=== PATIENT | male | born 1990 | race Caucasian/White ===

== ENCOUNTER 2020-09-09 05:34 | Emergency (ER) | payer MEDICAID, SELFPAY ==
[2020-09-09 05:37] VITALS: BP 119/77; PULSE 128; RESP 20; TEMP 36.3; O2SAT 96; BMI 20.7
--- NOTE | 2020-09-09 06:09 | PC.NURSE ---
patient seeking detox. States that he drinks everyday usually a pint of hard liquor and 10 beers. Today he woke up at 300 am with nausea. Patient has been in detox before. He states that he doesn't think he is withdrawing from alcohol. patient has alot of nausea.
--- NOTE | 2020-09-09 06:29 | ED_ITS ---
HPI - Alcohol General Chief Complaint: ETOH/Substance Use Stated Complaint: Etoh seeking detox Time Seen by Provider: 09/09/20 06:29 Source: patient Mode of arrival: ambulatory Limitations: no limitations History of Present Illness HPI narrative: This is a 30-year-old male who states that he has been binge drinking and his last drink was last night but since that time he has had persistent and multiple episodes of nausea and vomiting the but denies any blood in the vomitus and otherwise denies fevers, chills, diarrhea, urinary symptoms. He is requesting alcohol detox at this time as he states he cannot go on like this . Related Data Allergies Allergy/AdvReac Type Severity Reaction Status Date / Time No Known Allergies Allergy Verified 09/09/20 05:37 [No Known Allergies*] Review of Systems Review of Systems: Pertinent positives and negatives as stated in HPI and 10 point review systems is otherwise negative. PMFSH Past Medical History Source: nursing notes reviewed Medical History ETOH abuse Social History Social History Smoking Status: Current every day smoker Use of substances other than those prescribed or required for medical reasons: No Advance Directives: No Advance Directives Information Provided: No Physical Exam 2 Vital Signs: Vital Signs: Last Vital Signs Temp 98.2 F 09/09/20 07:49 Pulse 93 09/09/20 07:49 Resp 16 09/09/20 07:49 BP 121/74 09/09/20 07:49 Pulse Ox 96 09/09/20 07:49 Body Mass Index 20.7 VITAL SIGNS: Reviewed. GENERAL: Well developed, well nourished, in no acute distress. HEAD: Normocephalic/atraumatic, EYES: PERRLA, EOMI intact without pain, no nystagmus/pallor/icterus noted EARS: Ext canals without abnormality, TMs non-bulging and non-erythematous NOSE: Nares patent bilateral OROPHARYNX: no oral lesions noted, posterior pharynx clear and non-erythematous without noted tonsillar enlargement/erythema/exudates NECK: Supple, no adenopathy LUNGS: Normal breath sounds. No adventitious sounds or accessory muscle use. SpO2<96> CARDIOVASCULAR: Regular rate and rhythm without noted murmurs, no JVD or lower extremity edema. ABDOMEN: Soft, non-tender, non-distended with bowel sounds. No rigidity. No guarding. No palpable masses or hernias noted MUSCULOSKELETAL: No tenderness, deformities, or effusions noted on gross inspection. EXTREMITIES: No cyanosis, clubbing or edema. SKIN: Inspection of the skin reveals no rashes, ulcerations, jaundice, pallor, or petechiae. NEUROLOGIC: Alert and oriented x 4. Strength and sensation to light touch were grossly intact x 4. Course Course Course Narrative: This is a 30-year-old male with history and clinical pres entation consistent with most likely alcohol gastritis, pancreatitis but doubt any hepatobiliary pathologies or pneumonia. Patient received IV fluids and Zofran. On review of all investigations although there is a noted leukocytosis this is most likely secondary to patient's repeated episodes of nausea and vomiting, there is no evidence to support pancreatitis or hepatobiliary etiologies. Patitennille nt is otherwise medically cleared for further evaluation for alcohol detox. Signed out to Dr Otero. [facility] - Alcohol Lab Data Result diagrams: 09/09/20 06:56 09/09/20 06:56 Labs: Lab Results 09/09/20 09/09/20 09/09/20 Range/Units 06:56 06:56 06:56 WBC 13.0 H (4.8-10.8) X10*3/uL RBC 5.03 (4.60-5.80) X10*6/uL Hgb 16.4 (14.0-18.0) g/dl Hct 47.3 (42-52) % MCV 94.0 (80-98) fL MCH 32.6 (27.0-33.0) pg MCHC 34.7 (31.0-36.0) g/dl RDW 11.9 (11.0-16.0) % Plt Count 259 (160-400) X10*3/uL MPV 8.9 L (9.4-12.4) fL Immature Gran % (Auto) 0.3 (0.0-0.4) % Neut % (Auto) 85.6 H (45-73) % Lymph % (Auto) 7.3 L (20-40) % [place] % (Auto) 6.1 (2-11) % Eos % (Auto) 0.2 (0-4) % Baso % (Auto) 0.5 (0-2) % Lymph # (Auto) 1.0 L (1.2-4.9) X10*3/uL [place] # (Auto) 0.8 (0.1-1.2) X10*3/uL Eos # (Auto) 0.0 (0.0-0.4) X10*3/uL Baso # (Auto) 0.1 (0.0-0.2) X10*3/uL Abs Immat Gran (auto) 0.04 H (0.00-0.03) X10*3/uL Absolute Neuts (auto) 11.1 H (2.0-8.3) X10*3/uL Absolute Nucleated RBC 0.000 (0.0-0.012) X10*3/uL Nucleated RBC % (auto) 0.0 (0.0-0.2) /100WBC Sodium 139 (135-145) mmol/L Potassium 4.3 (3.3-5.1) mmol/l Chloride 95 L (96-108) mmol/L Carbon Dioxide 27 (22-29) mmol/L Anion Gap 21 H (12-20) BUN 10 (9-16) mg/dL Creatinine 0.99 (0.5-1.4) mg/dL Estim Creat Clear Calc 97.9 Estimated GFR > 60 Random Glucose 102 (60-115) mg/dL Calcium 9.9 (8.4-10.2) mg/dL Total Bilirubin 1.6 H (0.0-1.0) mg/dL AST 32 (5-37) U/L ALT 21 (0-40) U/L Alkaline Phosphatase 99 (39-117) U/L Total Protein 7.9 (6.5-8.0) g/dL Albumin 4.9 (3.5-5.0) g/dL Lipase 24 (8-78) U/L Ethyl Alcohol 80 mg/dL
[2020-09-09 07:02] LABS: Basophils Absolute Auto 0.1 X10*3/uL (0.0-0.2); Basophils Percent Auto 0.5 % (0-2); Eosinophils Percent Auto 0.2 % (0-4); Hematocrit 47.3 % (42-52); Hemoglobin 16.4 g/dl (14.0-18.0); Imm Gran Abs Auto 0.04 X10*3/uL (0.00-0.03); Imm Gran Pct Auto 0.3 % (0.0-0.4); Lymphocytes Percent Auto 7.3 % (20-40); MANUAL DIFF FLAG NO; Mean Corpuscular HGB Conc 34.7 g/dl (31.0-36.0); Mean Corpuscular Hemoglobin 32.6 pg (27.0-33.0); Mean Platelet Volume 8.9 fL (9.4-12.4); Monocytes Absolute Auto 0.8 X10*3/uL (0.1-1.2); Monocytes Percent Auto 6.1 % (2-11); Neutrophils Absolute Auto 11.1 X10*3/uL (2.0-8.3); Neutrophils Percent Auto 85.6 % (45-73); Platelet Count 259 X10*3/uL (160-400); Red Blood Count 5.03 X10*6/uL (4.60-5.80); Red Cell Distribution Width 11.9 % (11.0-16.0)
[2020-09-09 07:31] LABS: Ethanol 80 mg/dL
[2020-09-09 07:38] LABS: Alanine Aminotransferase 21 U/L (0-40); Albumin Level 4.9 g/dL (3.5-5.0); Alkaline Phosphatase 99 U/L (39-117); Anion Gap 21 (12-20); Aspartate Amino Transferase 32 U/L (5-37); Bilirubin Total 1.6 mg/dL (0.0-1.0); Blood Urea Nitrogen 10 mg/dL (9-16); Calcium 9.9 mg/dL (8.4-10.2); Carbon Dioxide 27 mmol/L (22-29); Chloride 95 mmol/L (96-108); Creatinine Clr Calc Pharmacy 97.9; Estimated Glomerular Filt Rate > 60; Glucose Random 102 mg/dL (60-115); Potassium 4.3 mmol/l (3.3-5.1); Sodium 139 mmol/L (135-145); Total Protein 7.9 g/dL (6.5-8.0)
[2020-09-09] MEDS: ondansetron HCL 4 MG/2 ML VIAL IVPUSH ×2 (07:48→09:00)
[2020-09-09 07:49] VITALS: BP 121/74; PULSE 93; RESP 16; TEMP 36.8; O2SAT 96
[2020-09-09] MEDS: 0.9 % Sodium Chloride 1,000 ML 1000 ML IV (07:57)
[2020-09-09 08:12] LABS: Lipase 24 U/L (8-78)
--- NOTE | 2020-09-09 08:16 | PC.NURSE ---
wallace from CARE team at bedside. Pt had some interest in detox.
--- NOTE | 2020-09-09 08:29 | MHC.CARE ---
Recovery Support note: Patient is a 30 year old Jordanian speaking male who presented to [facility] ED reporting nausea and seeking detox. Patient reports drinking a pint of liquor and 10 beers a day. Patient reports he has been to detox before and feels it is time to go back. [facility] reports that they have a male bed. Patient information has been sent and is awaiting review. This keno writer/runner awaits a call back from [facility] for patient to complete an intake. If patient is accepted for treatment, this keno writer/runner will assist with arranging transportation for patient.
--- NOTE | 2020-09-09 08:37 | PC.NURSE ---
spoke with Fei from CARE team. asked if Pt needs covid for detox placement. Fei stated usually it is not required to be swabbed, but will let this RN know if needed. will hold off on swab at this time.
[2020-09-09] MEDS: Famotidine/PF 20 MG/2 ML VIAL IVPUSH (09:00)
[2020-09-09] MEDS: LORazepam 2 MG/ML VIAL 0.5 MG IVPUSH (09:00)
--- NOTE | 2020-09-09 10:29 | PC.NURSE ---
attempted to call [facility] for nurse to nurse report. first call staff asked this rn to call back in 20 minutes, called back now, no answer from staff. will attempt to call once more before pt leaves.
--- NOTE | 2020-09-09 10:32 | MHC.CARE ---
Recovery Support note: Patient has been accepted to [facility] for 1414. Patient reports he will be able to find a ride however he is interested in remaining in the ED until it is closer to his intake time. RN and ED provider aware.
== END 2020-09-09 12:20 | disposition other institution (70) ==
PROVIDERS: Emergency Provider Student in an Organized Health Care Education/Training Program; PCP Physician Assistant Medical
DX: K29.70 Gastritis, unspecified, without bleeding (principal); F10.10 Alcohol abuse, uncomplicated; Y90.4 Blood alcohol level of 80-99 mg/100 ml
CPT/HCPCS: 36415; 80053; 80320; 83690; 85025; 96361; 96374; 96375; 96376; 99284; J2060; J2405

== ENCOUNTER 2020-09-16 15:23 | Outpatient (REF) | payer MEDICAID, SELFPAY | END 2020-09-16 15:24 | disposition home or self-care (01) | LOC: HO.LAB 15:23 | PROVIDERS: Visit Provider Internal Medicine | DX: Z20.828 Contact with and (suspected) exposure to other viral communicable diseases (principal) | CPT/HCPCS: C9803; U0003 ==

== ENCOUNTER 2020-12-17 22:25 | Emergency (ER) | payer MEDICAID, SELFPAY ==
[2020-12-17 22:43] VITALS: BP 138/101; PULSE 95; RESP 18; TEMP 36.9; O2SAT 98; BMI 20.7
--- NOTE | 2020-12-17 23:04 | ED_ITS ---
HPI - Alcohol General Chief Complaint: Anxiety <Yary Matias PA-C - Last Filed: 12/18/20 02:27> Stated Complaint: ETOH <Yary Matias PA-C - Last Filed: 12/18/20 02:27> Time Seen by Provider: 12/17/20 22:55 <Yary Matias PA-C - Last Filed: 12/18/20 02:27> Source: patient <Yary Matias PA-C - Last Filed: 12/18/20 02:27> Mode of arrival: ambulatory <Yary Matias PA-C - Last Filed: 12/18/20 02:27> Limitations: no limitations <Yary Matias PA-C - Last Filed: 12/18/20 02:27> History of Present Illness HPI narrative: Patient is a 30-year-old male with no significant past medical history who states he has a drinking problem. He states he has been binge drinking for the last 2 weeks however he tried drinking this morning and he was unable to because he was vomiting so much. He states he is very anxious. He states he has not ea ten any food in the last week and a half. He states he has not specifically seeking detox however he knows he cannot live like this anymore and he cannot tolerate how he is feeling right now, the nausea and anxiety. Patient states his last drink was approximately 15 hours ago. <Yary Matias PA-C - Last Filed: 12/18/20 02:27> Related Data Allergies/Adverse Reactions: Allergies Allergy/AdvReac Type Severity Reaction Status Date / Time No Known Allergies Allergy Verified 12/17/20 22:42 [No Known Allergies*] <Yary Matias PA-C - Last Filed: 12/18/20 02:27> Review of Systems 2 Review of Systems: Yes all other systems are reviewed and are negative <Yary Matias PA-C - Last Filed: 12/18/20 02:27> PMFSH Past Medical History Medical History: Medical History ETOH abuse <Yary Matias PA-C - Last Filed: 12/18/20 02:27> Social History Social History: Social History Smoking Status: Current every day smoker Advance Directives: No Advance Directives Information Provided: No <Yary Matias PA-C - Last Filed: 12/18/20 02:27> Physical Exam Vital Signs: Vital Signs: Last Vital Signs Temp 98.4 F 12/17/20 22:43 Pulse 95 12/17/20 22:43 Resp 18 12/18/20 03:42 BP 138/101 H 12/17/20 22:43 Pulse Ox 98 12/17/20 22:43 Body Mass Index 20.7 <Yary Matias PA-C - Last Filed: 12/18/20 02:27> Vital Signs: Last Vital Signs Temp 98.4 F 12/17/20 22:43 Pulse 95 12/17/20 22:43 Resp 18 12/18/20 03:42 BP 138/101 H 12/17/20 22:43 Pulse Ox 98 12/17/20 22:43 Body Mass Index 20.7 <Charis Lopez MD - Last Filed: 12/18/20 05:26> Const: General: cooperative, healthy appearing, comfortable, no acute distress and well developed <Yary Matias PA-C - Last Filed: 12/18/20 02:27> Orientation/consciousness: patient oriented x3 <Yary Matias PA-C - Last Filed: 12/18/20 02:27> Limitations: no limitations <Yary Matias PA-C - Last Filed: 12/18/20 02:27> HENMT: Head: Yes normal to inspection <Yary Matias PA-C - Last Filed: 12/18/20 02:27> Eyes: General: appearance normal, both eyes and all related structures <Yary Matias PA-C - Last Filed: 12/18/20 02:27> Neck: Neck: Yes normal visual inspection and Yes full ROM <Yary Matias PA-C - Last Filed: 12/18/20 02:27> Resp: Effort & Inspection: normal respiratory effort and able to speak in complete sentences <Yary Matias PA-C - Last Filed: 12/18/20 02:27> Cardio: Rate: regular rate <Yary Matias PA-C - Last Filed: 12/18/20 02:27> GI: Inspection: Yes normal to inspection <Yary Matias PA-C - Last Filed: 12/18/20 02:27> Skin: General skin exam: no rashes or lesions noted <CASSIE Patel - Last Filed: 12/18/20 02:27> Neuro: General: patient oriented x3 <Yary Matias PA-C - Last Filed: 12/18/20 02:27> Extrem: General: Yes normal to inspection <Yary Matias PA-C - Last Filed: 12/18/20 02:27> Course Course Course Narrative: Patient is a 30-year-old male who presents after binge drinking x2 weeks. Patient is well-appearing and nontoxic, last drink was 15 hours ago. Will get labs including B12 and folate, give either use Zofran and reassess. Will also put in care Team consult to speak with patient and given information for detox facilities. 12/18 1am labs WNL sans BAL 225, vit B12 and folate pending, sign out to Dr Lopez. <Yary Matias PA-C - Last Filed: 12/18/20 02:27> Reevaluation(s) Reevaluation #1: On re-evaluation patient has a steady gait and is tolerating oral intake, and has a safe ride home. <Charis Lopez MD - Last Filed: 12/18/20 05:26> Time: 05:30 <Charis Lopez MD - Last Filed: 12/18/20 05:26> MDM - Alcohol Lab Data Result diagrams: : 12/17/20 23:41 12/17/20 23:41 <Yary Matias PA-C - Last Filed: 12/18/20 02:27> Labs: Lab Results 12/17/20 12/17/20 12/17/20 Range/Units 23:41 23:41 23:41 WBC 10.1 (4.8-10.8) X10*3/uL RBC 5.51 (4.60-5.80) X10*6/uL Hgb 17.7 (14.0-18.0) g/dl Hct 50.1 (42-52) % MCV 90.9 (80-98) fL MCH 32.1 (27.0-33.0) pg MCHC 35.3 (31.0-36.0) g/dl RDW 12.9 (11.0-16.0) % Plt Count 311 (160-400) X10*3/uL MPV 9.1 L (9.4-12.4) fL Immature Gran % (Auto) 0.3 (0.0-0.4) % Neut % (Auto) 70.6 (45-73) % Lymph % (Auto) 18.4 L (20-40) % [place] % (Auto) 9.6 (2-11) % Eos % (Auto) 0.2 (0-4) % Baso % (Auto) 0.9 (0-2) % Lymph # (Auto) 1.9 (1.2-4.9) X10*3/uL [place] # (Auto) 1.0 (0.1-1.2) X10*3/uL Eos # (Auto) 0.0 (0.0-0.4) X10*3/uL Baso # (Auto) 0.1 (0.0-0.2) X10*3/uL Abs Immat Gran (auto) 0.03 (0.00-0.03) X10*3/uL Absolute Neuts (auto) 7.1 (2.0-8.3) X10*3/uL Absolute Nucleated RBC 0.000 (0.0-0.012) X10*3/uL Nucleated RBC % (auto) 0.0 (0.0-0.2) /100WBC Sodium 137 (135-145) mmol/L Potassium 3.5 (3.3-5.1) mmol/L Chloride 87 L (96-108) mmol/L Carbon Dioxide 27 (22-29) mmol/L Anion Gap 27 H (12-20) BUN 8 L (9-16) mg/dL Creatinine 0.95 (0.5-1.4) mg/dL Estim Creat Clear Calc 102.1 Estimated GFR > 60 Random Glucose 118 H (60-115) mg/dL Calcium 10.1 (8.4-10.2) mg/dL Total Bilirubin 1.3 H (0.0-1.0) mg/dL AST 28 (5-37) U/L ALT 23 (0-40) U/L Alkaline Phosphatase 96 (39-117) U/L Total Protein 8.5 H (6.5-8.0) g/dL Albumin 5.2 H (3.5-5.0) g/dL Ethyl Alcohol 225 mg/dL <Yary Matias PA-C - Last Filed: 12/18/20 02:27> Lab Results 12/17/20 12/17/20 12/17/20 Range/Units 23:41 23:41 23:41 WBC 10.1 (4.8-10.8) X10*3/uL RBC 5.51 (4.60-5.80) X10*6/uL Hgb 17.7 (14.0-18.0) g/dl Hct 50.1 (42-52) % MCV 90.9 (80-98) fL MCH 32.1 (27.0-33.0) pg MCHC 35.3 (31.0-36.0) g/dl RDW 12.9 (11.0-16.0) % Plt Count 311 (160-400) X10*3/uL MPV 9.1 L (9.4-12.4) fL Immature Gran % (Auto) 0.3 (0.0-0.4) % Neut % (Auto) 70.6 (45-73) % Lymph % (Auto) 18.4 L (20-40) % [place] % (Auto) 9.6 (2-11) % Eos % (Auto) 0.2 (0-4) % Baso % (Auto) 0.9 (0-2) % Lymph # (Auto) 1.9 (1.2-4.9) X10*3/uL [place] # (Auto) 1.0 (0.1-1.2) X10*3/uL Eos # (Auto) 0.0 (0.0-0.4) X10*3/uL Baso # (Auto) 0.1 (0.0-0.2) X10*3/uL Abs Immat Gran (auto) 0.03 (0.00-0.03) X10*3/uL Absolute Neuts (auto) 7.1 (2.0-8.3) X10*3/uL Absolute Nucleated RBC 0.000 (0.0-0.012) X10*3/uL Nucleated RBC % (auto) 0.0 (0.0-0.2) /100WBC Sodium 137 (135-145) mmol/L Potassium 3.5 (3.3-5.1) mmol/L Chloride 87 L (96-108) mmol/L Carbon Dioxide 27 (22-29) mmol/L Anion Gap 27 H (12-20) BUN 8 L (9-16) mg/dL Creatinine 0.95 (0.5-1.4) mg/dL Estim Creat Clear Calc 102.1 Estimated GFR > 60 Random Glucose 118 H (60-115) mg/dL Calcium 10.1 (8.4-10.2) mg/dL Total Bilirubin 1.3 H (0.0-1.0) mg/dL AST 28 (5-37) U/L ALT 23 (0-40) U/L Alkaline Phosphatase 96 (39-117) U/L Total Protein 8.5 H (6.5-8.0) g/dL Albumin 5.2 H (3.5-5.0) g/dL Ethyl Alcohol 225 mg/dL <Charis Lopez MD - Last Filed: 12/18/20 05:26> Discharge Plan Discharge Clinical Impression: ETOH abuse <Yary Matias PA-C - Last Filed: 12/18/20 02:27> Patient Disposition: Home, Self-Care <Yary Matias PA-C - Last Filed: 12/18/20 02:27> Instructions: Alcohol Intoxication (ED) <Yary Matias PA-C - Last Filed: 12/18/20 02:27> Additional Instructions: Do not hesitate to return to the emergency department for any acute worsening of your symptoms. <Yary Matias PA-C - Last Filed: 12/18/20 02:27> Referrals: Physician,Unknown [Primary Care Provider] - 2 days <Yary Matias PA-C - Last Filed: 12/18/20 02:27>
[2020-12-17 23:47] LABS: MANUAL DIFF FLAG NO
[2020-12-17 23:49] LABS: Basophils Absolute Auto 0.1 X10*3/uL (0.0-0.2); Basophils Percent Auto 0.9 % (0-2); Eosinophils Percent Auto 0.2 % (0-4); Hematocrit 50.1 % (42-52); Hemoglobin 17.7 g/dl (14.0-18.0); Imm Gran Abs Auto 0.03 X10*3/uL (0.00-0.03); Imm Gran Pct Auto 0.3 % (0.0-0.4); Lymphocytes Absolute Auto 1.9 X10*3/uL (1.2-4.9); Lymphocytes Percent Auto 18.4 % (20-40); Mean Corpuscular HGB Conc 35.3 g/dl (31.0-36.0); Mean Corpuscular Hemoglobin 32.1 pg (27.0-33.0); Mean Corpuscular Volume 90.9 fL (80-98); Mean Platelet Volume 9.1 fL (9.4-12.4); Monocytes Percent Auto 9.6 % (2-11); Neutrophils Absolute Auto 7.1 X10*3/uL (2.0-8.3); Neutrophils Percent Auto 70.6 % (45-73); Platelet Count 311 X10*3/uL (160-400); Red Blood Count 5.51 X10*6/uL (4.60-5.80); Red Cell Distribution Width 12.9 % (11.0-16.0); White Blood Count 10.1 X10*3/uL (4.8-10.8)
[2020-12-17] MEDS: ondansetron HCL 4 MG/2 ML VIAL IVPUSH (23:49)
[2020-12-17] MEDS: LORazepam 2 MG/ML VIAL 1 MG IVPUSH (23:49)
[2020-12-17] MEDS: Lactated Ringers 1,000 ML 999 ML IV (23:50)
[2020-12-18] VITALS: RESP 18
[2020-12-18 00:25] LABS: Ethanol 225 mg/dL
[2020-12-18 00:32] LABS: Alanine Aminotransferase 23 U/L (0-40); Albumin Level 5.2 g/dL (3.5-5.0); Alkaline Phosphatase 96 U/L (39-117); Anion Gap 27 (12-20); Aspartate Amino Transferase 28 U/L (5-37); Bilirubin Total 1.3 mg/dL (0.0-1.0); Blood Urea Nitrogen 8 mg/dL (9-16); Calcium 10.1 mg/dL (8.4-10.2); Carbon Dioxide 27 mmol/L (22-29); Chloride 87 mmol/L (96-108); Creatinine Clr Calc Pharmacy 102.1; Estimated Glomerular Filt Rate > 60; Glucose Random 118 mg/dL (60-115); Potassium 3.5 mmol/L (3.3-5.1); Sodium 137 mmol/L (135-145); Total Protein 8.5 g/dL (6.5-8.0)
--- NOTE | 2020-12-18 02:28 | MHC.CARE ---
CARE Team meets with pt after receiving a consult, siting that pt was in need of detox referral. Pt is ambivalent about detox treatment at this time, but agrees to take contact info for detox facilities. Pt is familiar with [facility] and agrees to call them for support. Pt educated on the potential dangers of alcohol detox from home. Pt plans on calling [facility] in the morning to get on the waitlist. Pt will reach out to H or CARE Team if in need of further assistance. Plan is discussed with MACARENA Boykin.
[2020-12-18 03:42] VITALS: RESP 18
[2020-12-19 17:43] LABS: Folate 4.4 ng/mL (> or = 4.0); Vitamin B12 362 pg/mL (200-900)
== END 2020-12-18 05:54 | disposition home or self-care (01) ==
LOC: HO.ED 23:09
PROVIDERS: Physician Assistant; Emergency Provider Emergency Medicine
DX: F10.120 Alcohol abuse with intoxication, uncomplicated (principal); Y90.7 Blood alcohol level of 200-239 mg/100 ml; F41.9 Anxiety disorder, unspecified
CPT/HCPCS: 36415; 80053; 80320; 82607; 82746; 85025; 96361; 96374; 96375; 99284; J2060; J2405

== ENCOUNTER 2021-01-02 06:47 | Emergency (ER) | payer MEDICAID, SELFPAY ==
[2021-01-02 07:15] VITALS: BP 136/94; PULSE 94; RESP 17; TEMP 36.6; O2SAT 97; BMI 21.0
[2021-01-02 07:26] LABS: MANUAL DIFF FLAG NO
[2021-01-02 07:28] LABS: Basophils Absolute Auto 0.1 X10*3/uL (0.0-0.2); Basophils Percent Auto 1.5 % (0-2); Eosinophils Absolute Auto 0.1 X10*3/uL (0.0-0.4); Eosinophils Percent Auto 1.4 % (0-4); Hematocrit 45.3 % (42-52); Hemoglobin 15.5 g/dl (14.0-18.0); Imm Gran Abs Auto 0.01 X10*3/uL (0.00-0.03); Imm Gran Pct Auto 0.2 % (0.0-0.4); Lymphocytes Absolute Auto 2.5 X10*3/uL (1.2-4.9); Lymphocytes Percent Auto 37.7 % (20-40); Mean Corpuscular HGB Conc 34.2 g/dl (31.0-36.0); Mean Corpuscular Hemoglobin 32.2 pg (27.0-33.0); Mean Corpuscular Volume 94.2 fL (80-98); Mean Platelet Volume 8.4 fL (9.4-12.4); Monocytes Absolute Auto 0.5 X10*3/uL (0.1-1.2); Monocytes Percent Auto 6.9 % (2-11); Neutrophils Absolute Auto 3.5 X10*3/uL (2.0-8.3); Neutrophils Percent Auto 52.3 % (45-73); Platelet Count 307 X10*3/uL (160-400); Red Blood Count 4.81 X10*6/uL (4.60-5.80); White Blood Count 6.6 X10*3/uL (4.8-10.8)
--- NOTE | 2021-01-02 07:38 | ED.GENADULT ---
HPI - General Adult General Chief complaint: ETOH/Substance Use Stated complaint: WITHDRAWALS ALCOHOL Time Seen by Provider: 01/02/21 07:26 Source: patient Mode of arrival: ambulatory Limitations: no limitations History of Present Illness HPI narrative: 30-year-old male who presents emergency department for evaluation of alcohol withdrawal symptoms. The patient states he has been binge drinking for approximately 2 weeks. He has been drinking at least 1/2 pt of fireball per day. He states that his last drink was at 9:00 p.m. last night. He states that he stopped drinking because he felt like it was time to stop and he was not feeling right. This morning, he became very tremulous and developed nausea and vomiting. He denied fever, chills, abdominal pain, back pain, frequency, urgency or dysuria. The patient states that he does get DTs every time he stops drinking and had to be hospitalized in the past for DTs. He states that he often has auditory hallucinations but not visual hallucinations. He has had withdrawal seizures in the past as well. The patient has not had a COVID-19 infection. He has not been vaccinated. Related Data Allergies Allergy/AdvReac Type Severity Reaction Status Date / Time No Known Allergies Allergy Verified 12/17/20 22:42 [No Known Allergies*] Review of Systems Review of Systems: Yes all other systems are reviewed and are negative [facility] Past Medical History [facility] Narrative: Past medical history significant for alcohol use disorder, delirium tremors, alcohol withdrawal seizures, alcoholic gastritis. The patient smokes 1 pack of cigarettes per day times 12 years, he drinks alcohol daily and usually binge drinks. He has been drinking heavily for 2 weeks. He denies drug use. Medical History ETOH abuse Social History Social History Alcohol intake: current Alcohol intake frequency: 3 or more drinks per day Alcohol type: beer and hard liquor Smoking Status: Never smoker Use of substances other than those prescribed or required for medical reasons: No Advance Directives: Yes Advance Directives Information Provided: Yes Advance Directives on File: No Physical Exam Vital Signs: Vital Signs: Last Vital Signs Temp 98.4 F 01/02/21 12:00 Pulse 74 01/02/21 12:00 Resp 16 01/02/21 12:00 BP 128/79 01/02/21 12:00 Pulse Ox 97 01/02/21 12:00 Body Mass Index 21.0 Const: General: cooperative and other (Tremulous, actively vomiting) Orientation/consciousness: oriented to person and oriented to place Limitations: no limitations HENMT: Head: Yes normal to inspection, Yes normocephalic and Yes atraumatic Ears: external ears normal General nose exam: Normal external nose present Face and sinus: Yes normal facial exam Mouth: Normal oral and palatal mucosa present Throat: Yes posterior oropharynx normal Eyes: Periorbital: periorbital findings normal Eyelids: Yes eyelids normal Conjunctivae: conjunctivae normal Sclerae: sclerae normal Corneas: corneas normal Pupils: Equal, round and reactive pupils present Direct Ophthalmoscopy: normal light reflex Neck: Neck: Yes full ROM, Yes no lymphadenopathy, Yes no meningeal signs, Yes trachea midline and Yes supple Chest: Chest palpation & inspection: normal inspection of the chest and normal palpation of entire chest wall Resp: Effort & Inspection: normal respiratory effort and able to speak in complete sentences Auscultation: clear to auscultation bilaterally Cardio: Rate: regular rate Rhythm: regular rhythm Heart sounds: S1 normal heart sound present, S2 normal heart sound present and no murmurs GI: Inspection: Yes normal to inspection Palpation (GI): Soft to palpation, nontender, no guarding, not rigid and No hepatosplenomegaly present : General: Yes no CVA tenderness Back/Spine/Pelvis: Back: no CVA tenderness Cervical Spine: normal cervical lordosis Thoracic/Lumbar Spine: thoracic and lumbar spine normal to inspection Skin: Lesions: no lesions Rashes: no rashes Wounds: no wounds Neuro: General: oriented to person, oriented to place and no meningeal signs Cranial nerves: Yes Equal, round and reactive pupils present Cognition (Neuro): normal cognition Motor exam (neuro): 5/5 motor strength present throughout Extrem: General: Yes normal to inspection and Yes full ROM Psych: Appearance: well kempt Mental Status: mental status grossly normal Speech and movement: Normal speech and movement present Affect: normal affect Attitude: cooperative Thought process: Normal thought process present Thought content: Normal thought content present Course Course Course Narrative: 30-year-old male with history of alcohol use disorder, DTs and alcohol withdrawal seizures who presents emergency department for evaluation of alcohol withdrawal symptoms, nausea and vomiting. Physical examination revealed that the patient was hypertensive with a blood pressure of 136/94, he was tachycardic on the monitor with a heart rate of 120, he was actively vomiting and tremulous, had no abdominal tenderness. His neurologic exam was nonfocal. Patient's presentation is consistent with alcohol withdrawal and possibly alcoholic gastritis versus pancreatitis. I ordered a CBC, CMP, lipase, ETOH level. The patient's withdrawal was treated with Ativan 2 mg IV and normal saline x1 L. 0841: The patient's nausea improved with the above treatment. His tremors have improved as well however still is slightly tachycardic therefore I ordered a 2nd dose of Ativan 2 mg IV to treat his withdrawal. The patient's laboratory evaluation was unremarkable with normal LFTs. Patient's alcohol level was elevated at 283, otherwise his laboratory evaluation was unremarkable. The patient was evaluated by our [facility] teen and are trying to get the patient into an outpatient 1343: The patient has been accepted into an outpatient detox program. The patient is significantly better compared to when he presented, he still has some slight tremors, he was given Ativan 2 mg orally and discharged home. His mother is here in the emergency department and is going to take him home and then drive him to his outpatient detox/dual diagnosis program. Medical Decision Making Lab Data Result diagrams: 01/02/21 07:22 01/02/21 07:22 Labs: Lab Results 01/02/21 01/02/21 01/02/21 Range/Units 07:22 07:22 07:22 WBC 6.6 (4.8-10.8) X10*3/uL RBC 4.81 (4.60-5.80) X10*6/uL Hgb 15.5 (14.0-18.0) g/dl Hct 45.3 (42-52) % MCV 94.2 (80-98) fL MCH 32.2 (27.0-33.0) pg MCHC 34.2 (31.0-36.0) g/dl RDW 13.0 (11.0-16.0) % Plt Count 307 (160-400) X10*3/uL MPV 8.4 L (9.4-12.4) fL Immature Gran % (Auto) 0.2 (0.0-0.4) % Neut % (Auto) 52.3 (45-73) % Lymph % (Auto) 37.7 (20-40) % [place] % (Auto) 6.9 (2-11) % Eos % (Auto) 1.4 (0-4) % Baso % (Auto) 1.5 (0-2) % Lymph # (Auto) 2.5 (1.2-4.9) X10*3/uL [place] # (Auto) 0.5 (0.1-1.2) X10*3/uL Eos # (Auto) 0.1 (0.0-0.4) X10*3/uL Baso # (Auto) 0.1 (0.0-0.2) X10*3/uL Abs Immat Gran (auto) 0.01 (0.00-0.03) X10*3/uL Absolute Neuts (auto) 3.5 (2.0-8.3) X10*3/uL Absolute Nucleated RBC 0.000 (0.0-0.012) X10*3/uL Nucleated RBC % (auto) 0.0 (0.0-0.2) /100WBC Hold Purple Top SEE NOTE Hold Blue Top SEE NOTE Sodium (135-145) mmol/L Potassium (3.3-5.1) mmol/L Chloride (96-108) mmol/L Carbon Dioxide (22-29) mmol/L Anion Gap (12-20) BUN (9-16) mg/dL Creatinine (0.5-1.4) mg/dL Estim Creat Clear Calc Estimated GFR Random Glucose (60-115) mg/dL Calcium (8.4-10.2) mg/dL Total Bilirubin (0.0-1.0) mg/dL Direct Bilirubin (0.0-0.5) mg/dL AST (5-37) U/L ALT (0-40) U/L Alkaline Phosphatase (39-117) U/L Total Protein (6.5-8.0) g/dL Albumin (3.5-5.0) g/dL Lipase (8-78) U/L Ethyl Alcohol mg/dL COVID-19 (CJ) (Negative) COVID-19 Clin Com 01/02/21 01/02/21 01/02/21 Range/Units 07:22 07:22 11:24 WBC (4.8-10.8) X10*3/uL RBC (4.60-5.80) X10*6/uL Hgb (14.0-18.0) g/dl Hct (42-52) % MCV (80-98) fL MCH (27.0-33.0) pg MCHC (31.0-36.0) g/dl RDW (11.0-16.0) % Plt Count (160-400) X10*3/uL MPV (9.4-12.4) fL Immature Gran % (Auto) (0.0-0.4) % Neut % (Auto) (45-73) % Lymph % (Auto) (20-40) % [place] % (Auto) (2-11) % Eos % (Auto) (0-4) % Baso % (Auto) (0-2) % Lymph # (Auto) (1.2-4.9) X10*3/uL [place] # (Auto) (0.1-1.2) X10*3/uL Eos # (Auto) (0.0-0.4) X10*3/uL Baso # (Auto) (0.0-0.2) X10*3/uL Abs Immat Gran (auto) (0.00-0.03) X10*3/uL Absolute Neuts (auto) (2.0-8.3) X10*3/uL Absolute Nucleated RBC (0.0-0.012) X10*3/uL Nucleated RBC % (auto) (0.0-0.2) /100WBC Hold Purple Top Hold Blue Top Sodium 146 H (135-145) mmol/L Potassium 3.9 (3.3-5.1) mmol/L Chloride 103 (96-108) mmol/L Carbon Dioxide 28 (22-29) mmol/L Anion Gap 19 (12-20) BUN 8 L (9-16) mg/dL Creatinine 1.02 (0.5-1.4) mg/dL Estim Creat Clear Calc 96.9 Estimated GFR > 60 Random Glucose 98 (60-115) mg/dL Calcium 8.8 D (8.4-10.2) mg/dL Total Bilirubin 0.5 (0.0-1.0) mg/dL Direct Bilirubin 0.2 (0.0-0.5) mg/dL AST 29 (5-37) U/L ALT 19 (0-40) U/L Alkaline Phosphatase 93 (39-117) U/L Total Protein 7.0 (6.5-8.0) g/dL Albumin 4.2 (3.5-5.0) g/dL Lipase 34 (8-78) U/L Ethyl Alcohol 283 mg/dL COVID-19 (CJ) Negative (Negative) COVID-19 Clin Com See Note Discharge Plan Discharge Clinical Impression: Alcoholic intoxication Qualifiers: Complication of substance-induced condition: uncomplicated Qualified Code(s): F10.920 - Alcohol use, unspecified with intoxication, uncomplicated Alcohol withdrawal syndrome Qualifiers: Complication of substance-induced condition: with perceptual disturbance Qualified Code(s): F10.232 - Alcohol dependence with withdrawal with perceptual disturbance Patient Disposition: Home, Self-Care Instructions: Alcohol Withdrawal (ED) Additional Instructions: Your laboratory evaluation was normal, with normal liver function tests. Your alcohol level was elevated at 283 (the legal limit of intoxication is above 80). You were treated in the emergency department with IV Ativan in oral Ativan. Make sure that you go to the detox/dual diagnosis program for treatment. Please return to the emergency department if your symptoms get worse or if you develop any symptoms that are concerning to you.
[2021-01-02] MEDS: ondansetron HCL 4 MG/2 ML VIAL IVPUSH (07:44)
[2021-01-02] MEDS: LORazepam 2 MG/ML VIAL IVPUSH ×2 (07:44→08:59)
[2021-01-02 07:47] LABS: Ethanol 283 mg/dL
[2021-01-02 07:50] LABS: Anion Gap 19 (12-20); Blood Urea Nitrogen 8 mg/dL (9-16); Calcium 8.8 mg/dL (8.4-10.2); Carbon Dioxide 28 mmol/L (22-29); Chloride 103 mmol/L (96-108); Creatinine Clr Calc Pharmacy 96.9; Estimated Glomerular Filt Rate > 60; Glucose Random 98 mg/dL (60-115); Lipase 34 U/L (8-78); Potassium 3.9 mmol/L (3.3-5.1); Sodium 146 mmol/L (135-145)
[2021-01-02 08:28] LABS: Alanine Aminotransferase 19 U/L (0-40); Albumin Level 4.2 g/dL (3.5-5.0); Alkaline Phosphatase 93 U/L (39-117); Aspartate Amino Transferase 29 U/L (5-37); Bilirubin Direct 0.2 mg/dL (0.0-0.5); Bilirubin Total 0.5 mg/dL (0.0-1.0)
--- NOTE | 2021-01-02 08:32 | MHC.RECOVSUP ---
Recovery Support note: Patient is a 30 year old Engoish speaking male who presented to [facility] ED due to withdrawal symptoms. Patient reports heavy drinking for around two weeks and that his last drink was last night. Patient is known to this television script writer from previous interventions. Patient had a BAL of 283 at 722. Patient reports a desire to stop drinking and that he would be interested in going to detox to treat his withdrawal and to start his recovery. Patient has been to detox before and is familiar with what detox can offer. Patient reports he does not have thoughts to harm himself or anyone else at this time, however states that when he is drinking he does have thoughts to harm himself at times. Patient reports AH stating that he hears ringing in his ear and VH, stating that things look blurry from far away. Patient has been calm and cooperative while in the emergency department and does not appear to be responding to internal stimuli. This television script writer will refer patient for ATS and EATS placement.
[2021-01-02 08:56] VITALS: PULSE 77; RESP 16
[2021-01-02 11:45] LABS: COVID-19 Test Negative (Negative)
[2021-01-02 12:00] VITALS: BP 128/79; PULSE 74; RESP 16; TEMP 36.9; O2SAT 97
--- NOTE | 2021-01-02 12:32 | MHC.RECOVSUP ---
Recovery Support note: Patient has been accepted to [facility] for a 1700 admission time. COVID test has been faxed and admission has been confirmed. Patient aware and reports he prefers to go home and gather his belongings before his admission. Patient has made calls to arrange transportation. RN and ED provider aware.
[2021-01-02] MEDS: LORazepam 1 MG TABLET 2 MG PO (13:49)
== END 2021-01-02 13:53 | disposition home or self-care (01) ==
PROVIDERS: Emergency Provider Emergency Medicine Emergency Medical Services; PCP Physician Assistant Medical
DX: F10.232 Alcohol dependence with withdrawal with perceptual disturbance (principal); R11.2 Nausea with vomiting, unspecified; Z79.899 Other long term (current) drug therapy; Y90.8 Blood alcohol level of 240 mg/100 ml or more; Z20.822 Contact with and (suspected) exposure to COVID-19
CPT/HCPCS: 36415; 80048; 80076; 80320; 83690; 85025; 87635; 96374; 96375; 96376; 99285; J2060; J2405

== ENCOUNTER 2021-01-22 04:55 | Emergency (ER) | payer MEDICAID, SELFPAY ==
[2021-01-22 07:11] LABS: Ethanol 194 mg/dL
[2021-01-22 07:12] LABS: Alanine Aminotransferase 23 U/L (0-40); Alkaline Phosphatase 129 U/L (39-117); Anion Gap 27 (12-20); Aspartate Amino Transferase 24 U/L (5-37); Bilirubin Direct 0.3 mg/dL (0.0-0.5); Bilirubin Total 0.7 mg/dL (0.0-1.0); Blood Urea Nitrogen 8 mg/dL (9-16); Calcium 10.1 mg/dL (8.4-10.2); Carbon Dioxide 25 mmol/L (22-29); Chloride 97 mmol/L (96-108); Estimated Glomerular Filt Rate > 60; Glucose Random 114 mg/dL (60-115); Lipase 29 U/L (8-78); Magnesium 2.1 mg/dL (1.6-2.6); Potassium 3.8 mmol/L (3.3-5.1); Sodium 145 mmol/L (135-145); Total Protein 8.1 g/dL (6.5-8.0)
[2021-01-22 07:17] LABS: MANUAL DIFF FLAG NO
[2021-01-22 07:22] LABS: Partial Thromboplastin Time 28.5 SEC (24.1-38.0); Prothrombin Time 11.7 SEC (10.8-13.0)
[2021-01-22 07:23] LABS: Basophils Absolute Auto 0.2 X10*3/uL (0.0-0.2); Eosinophils Absolute Auto 0.1 X10*3/uL (0.0-0.4); Eosinophils Percent Auto 0.8 % (0-4); Hematocrit 48.3 % (42-52); Hemoglobin 16.9 g/dl (14.0-18.0); Imm Gran Abs Auto 0.05 X10*3/uL (0.00-0.03); Imm Gran Pct Auto 0.3 % (0.0-0.4); Lymphocytes Absolute Auto 2.3 X10*3/uL (1.2-4.9); Lymphocytes Percent Auto 15.5 % (20-40); Mean Corpuscular Hemoglobin 32.7 pg (27.0-33.0); Mean Corpuscular Volume 93.4 fL (80-98); Monocytes Absolute Auto 0.8 X10*3/uL (0.1-1.2); Monocytes Percent Auto 5.6 % (2-11); Neutrophils Absolute Auto 11.2 X10*3/uL (2.0-8.3); Neutrophils Percent Auto 76.8 % (45-73); Platelet Count 462 X10*3/uL (160-400); Red Blood Count 5.17 X10*6/uL (4.60-5.80); White Blood Count 14.6 X10*3/uL (4.8-10.8)
--- NOTE | 2021-01-22 09:52 | ED_ITS ---
HPI - General Adult General Time Seen by Provider: 01/22/21 09:30 Source: patient Mode of arrival: EMS Limitations: altered mental status (Secondary to alcohol intoxication) History of Present Illness HPI narrative: 30-year-old male with a history of alcohol use disorder who presented to the emergency department this morning for evaluation of acute alcohol intoxication, nausea and vomiting. The patient was initially seen by my colleague, Dr. Tatyana Otero and then signed out to me at 7:00 a.m.. Please see her note for details. The patient continues to vomit and has tremors. Also, the patient is complaining of an abscess behind his left ear. He states that this abscess has been there for 3 weeks and he has been picking at it to try to get it to drain. He is complaining of pain in the area of the abscess, the pain is a constant, throbbing pain which is worse if he touches the abscess, the pain is 8/10. Patient states he has had bilateral abscesses behind both ears in the past and that had to be incised and drained and packed. He denied fever, chills, fatigue or weakness. Related Data Previous Rx's Medication Instructions Recorded cephalexin 500 mg PO QID 7 Days #28 cap 01/22/21 Allergies Allergy/AdvReac Type Severity Reaction Status Date / Time No Known Allergies Allergy Verified 12/17/20 22:42 [No Known Allergies*] Review of Systems Review of Systems: Yes all other systems are reviewed and are negative [facility] Past Medical History [facility] Narrative: Medical history significant for alcohol use disorder, delirium tremors, alcohol withdrawal seizures, alcoholic gastritis. Patient smokes 1 p ack of cigarettes per day times 12 years, he drinks alcohol daily any usually begins drinks. He states that he was in detox 1 month prior and is not interested in getting into another alcohol detox program. He denies drug use. Medical History ETOH abuse Social History Social History Alcohol intake: current Alcohol intake frequency: 3 or more drinks per day Alcohol type: beer and hard liquor Smoking Status: Never smoker Advance Directives: No Physical Exam Const: General: cooperative and other (Tremulous, actively vomiting) Orientation/consciousness: oriented to person and oriented to place Limitations: no limitations HENMT: Other: The patient has a 2 x 2 cm abscess behind his left ear, the overlying skin is erythematous when the patch, there is breakdown of the skin with a yellow with exudate over the broken down area. The abscess is tender to palpation and is flocculent. Head: Yes normal to inspection, Yes normocephalic and Yes atraumatic General nose exam: Normal external nose present Face and sinus: Yes normal facial exam Mouth: Normal oral and palatal mucosa present Throat: Yes posterior oropharynx normal Eyes: Periorbital: periorbital findings normal Eyelids: Yes eyelids normal Conjunctivae: conjunctivae normal Sclerae: sclerae normal Corneas: corneas normal Pupils: Equal, round and reactive pupils present Direct Ophthalmoscopy: normal light reflex Neck: Neck: Yes full ROM, Yes no lymphadenopathy, Yes no meningeal signs, Yes trachea midline and Yes supple Chest: Chest palpation & inspection: normal inspection of the chest and normal palpation of entire chest wall Resp: Effort & Inspection: normal respiratory effort and able to speak in complete sentences Auscultation: clear to auscultation bilaterally Cardio: Rate: regular rate Rhythm: regular rhythm Heart sounds: S1 normal heart sound present, S2 normal heart sound present and no murmurs GI: Inspection: Yes normal to inspection Palpation (GI): Soft to palpation, nontender, no guarding, not rigid and No hepatosplenomegaly present Auscultat ion: normal bowel sounds : General: Yes no CVA tenderness Back/Spine/Pelvis: Back: no CVA tenderness Cervical Spine: normal cervical lordosis Thoracic/Lumbar Spine: thoracic and lumbar spine normal to inspection Skin: Lesions: no lesions Rashes: no rashes Wounds: no wounds Neuro: General: oriented to person, oriented to place and no meningeal signs Cranial nerves: Yes CN's II-XII intact bilaterally and Yes Equal, round and reactive pupils present Cognition (Neuro): normal cognition Motor exam (neuro): 5/5 motor strength present throughout Extrem: General: Yes normal to inspection and Yes full ROM Psych: Appearance: well kempt Mental Status: mental status grossly normal Speech and movement: Normal speech and movement present Affect: normal affect Attitude: cooperative Thought process: Normal thought process present Thought content: Normal thought content present Course Course Course Narrative: 30-year-old male who presented to the emergency department this morning for evaluation of alcohol intoxication, vomiting and alcohol withdrawal. I assumed care of this patient at 7:00 a.m. from my colleague, Dr. Tatyana Otero. The patient was actively vomiting and tremulous when I examined him therefore he was given Zofran 4 mg IV and Ativan 1 mg IV. He had a left periauricular abscess which I incised, drained and packed. Patient does have overlying cellulitis therefore he was started on Keflex 500 mg 4 times a day for 7 days. He was given a dose of Keflex orally. I did offer the patient crisis counseling and counseling for detox however he is not interested at this time and wants to be discharged home. Laboratory evaluation was reviewed, the [place] [address], he was not anemic, coags were normal. His chemistries were unremarkable, he had a slight elevation is alk-phos of 129 otherwise his LFTs were normal. Blood alcohol level was 194. Procedures Procedure Narrative Procedure Narrative: Procedure name: Left periauricular abscess required incision, drainage and packing I did discuss the I and D and packing procedure with the patient and he did give informed verbal consent. The patient's left periauricular abscess was prepped with Betadine anesthetized with 1% lidocaine x5 cc. Using a #11 scalpel, I made a 1 cm incision and incised the abscess and drained approximately 10 cc of thick purulence material. A wound culture was obtained. The adhesions been the abscess were broken down using hemostats and the abscess cavity was explored and I found no foreign bodies. The abscess cavity was packed with 1/4 inch iodoform gauze. A dry sterile dressing was applied over the wound. Medical Decision Making Lab Data Result diagrams: 01/22/21 05:30 01/22/21 05:30 Labs: Lab Results 01/22/21 01/22/21 01/22/21 Range/Units 05:30 05:30 05:30 WBC (4.8-10.8) X10*3/uL RBC (4.60-5.80) X10*6/uL Hgb (14.0-18.0) g/dl Hct (42-52) % MCV (80-98) fL MCH (27.0-33.0) pg MCHC (31.0-36.0) g/dl RDW (11.0-16.0) % Plt Count (160-400) X10*3/uL MPV (9.4-12.4) fL Immature Gran % (Auto) (0.0-0.4) % Neut % (Auto) (45-73) % Lymph % (Auto) (20-40) % [place] % (Auto) (2-11) % Eos % (Auto) (0-4) % Baso % (Auto) (0-2) % Lymph # (Auto) (1.2-4.9) X10*3/uL [place] # (Auto) (0.1-1.2) X10*3/uL Eos # (Auto) (0.0-0.4) X10*3/uL Baso # (Auto) (0.0-0.2) X10*3/uL Abs Immat Gran (auto) (0.00-0.03) X10*3/uL Absolute Neuts (auto) (2.0-8.3) X10*3/uL Absolute Nucleated RBC (0.0-0.012) X10*3/uL Nucleated RBC % (auto) (0.0-0.2) /100WBC PT 11.7 (10.8-13.0) SEC INR 1.0 (0.9-1.1) APTT 28.5 (24.1-38.0) SEC Sodium 145 (135-145) mmol/L Potassium 3.8 (3.3-5.1) mmol/L Chloride 97 (96-108) mmol/L Carbon Dioxide 25 (22-29) mmol/L Anion Gap 27 H (12-20) BUN 8 L (9-16) mg/dL Creatinine 1.05 (0.5-1.4) mg/dL Estim Creat Clear Calc TNP Estimated GFR > 60 Random Glucose 114 (60-115) mg/dL Calcium 10.1 D (8.4-10.2) mg/dL Magnesium 2.1 (1.6-2.6) mg/dL Total Bilirubin 0.7 (0.0-1.0) mg/dL Direct Bilirubin 0.3 (0.0-0.5) mg/dL AST 24 (5-37) U/L ALT 23 (0-40) U/L Alkaline Phosphatase 129 H D (39-117) U/L Total Protein 8.1 H (6.5-8.0) g/dL Albumin 5.0 (3.5-5.0) g/dL Lipase 29 (8-78) U/L Ethyl Alcohol 194 mg/dL 01/22/21 Range/Units 05:30 WBC 14.6 H (4.8-10.8) X10*3/uL RBC 5.17 (4.60-5.80) X10*6/uL Hgb 16.9 (14.0-18.0) g/dl Hct 48.3 (42-52) % MCV 93.4 (80-98) fL MCH 32.7 (27.0-33.0) pg MCHC 35.0 (31.0-36.0) g/dl RDW 13.0 (11.0-16.0) % Plt Count 462 H D (160-400) X10*3/uL MPV 9.0 L (9.4-12.4) fL Immature Gran % (Auto) 0.3 (0.0-0.4) % Neut % (Auto) 76.8 H (45-73) % Lymph % (Auto) 15.5 L (20-40) % [place] % (Auto) 5.6 (2-11) % Eos % (Auto) 0.8 (0-4) % Baso % (Auto) 1.0 (0-2) % Lymph # (Auto) 2.3 (1.2-4.9) X10*3/uL [place] # (Auto) 0.8 (0.1-1.2) X10*3/uL Eos # (Auto) 0.1 (0.0-0.4) X10*3/uL Baso # (Auto) 0.2 (0.0-0.2) X10*3/uL Abs Immat Gran (auto) 0.05 H (0.00-0.03) X10*3/uL Absolute Neuts (auto) 11.2 H (2.0-8.3) X10*3/uL Absolute Nucleated RBC 0.000 (0.0-0.012) X10*3/uL Nucleated RBC % (auto) 0.0 (0.0-0.2) /100WBC PT (10.8-13.0) SEC INR (0.9-1.1) APTT (24.1-38.0) SEC Sodium (135-145) mmol/L Potassium (3.3-5.1) mmol/L Chloride (96-108) mmol/L Carbon Dioxide (22-29) mmol/L Anion Gap (12-20) BUN (9-16) mg/dL Creatinine (0.5-1.4) mg/dL Estim Creat Clear Calc Estimated GFR Random Glucose (60-115) mg/dL Calcium (8.4-10.2) mg/dL Magnesium (1.6-2.6) mg/dL Total Bilirubin (0.0-1.0) mg/dL Direct Bilirubin (0.0-0.5) mg/dL AST (5-37) U/L ALT (0-40) U/L Alkaline Phosphatase (39-117) U/L Total Protein (6.5-8.0) g/dL Albumin (3.5-5.0) g/dL Lipase (8-78) U/L Ethyl Alcohol mg/dL Discharge Plan Discharge Clinical Impression: Abscess of left periauricular region, Encounter for incision and drainage procedure Acute alcohol intoxication Qualifiers: Complication of substance-induced condition: uncomplicated Qualified Code(s): F10.920 - Alcohol use, unspecified with intoxication, uncomplicated Alcohol withdrawal Qualifiers: Complication of substance-induced condition: uncomplicated Qualified Code(s): F10.230 - Alcohol dependence with withdrawal, uncomplicated Nausea & vomiting Qualifiers: Vomiting type: unspecified Vomiting Intractability: non-intractable Qualified Code(s): R11.2 - Nausea with vomiting, unspecified Patient Disposition: Home, Self-Care Instructions: Abscess (ED) Additional Instructions: You were seen for acute alcohol intoxication alcohol withdrawal. If you want to get into a detox program marked help with your alcohol use disorder, you can talk to our crisis team or our volleyball coach. I drained the abscess behind your left ear. You need to follow-up with her doctor or the emergency department in 2 days for re-evaluation, there is a small piece of packing in the abscess that will need to be removed in 2 days. Take Keflex 500 mg pills, 1 pill 4 times a day for 7 days to treat the infection of your left ear. Follow-up with your doctor in 2 days. Please return to the emergency department if your symptoms get worse or if you develop any symptoms that are concerning to you. Prescriptions: New cephalexin 500 mg capsule 500 mg PO QID 7 Days Qty: 28 RF: 0
[2021-01-22] MEDS: Lidocaine HCl 1 % MPF 5 ML VIAL INFILTRATI (10:05)
[2021-01-22] MEDS: ondansetron HCL 4 MG/2 ML VIAL IVPUSH (10:05)
[2021-01-22] MEDS: LORazepam 2 MG/ML VIAL 1 MG IVPUSH (10:05)
== END 2021-01-22 11:20 | disposition home or self-care (01) ==
PROVIDERS: Emergency Medicine; Emergency Provider Emergency Medicine Emergency Medical Services; PCP Physician Assistant Medical
DX: H60.02 Abscess of left external ear (principal); F10.230 Alcohol dependence with withdrawal, uncomplicated; F17.210 Nicotine dependence, cigarettes, uncomplicated; R11.2 Nausea with vomiting, unspecified; Y90.6 Blood alcohol level of 120-199 mg/100 ml; Z71.6 Tobacco abuse counseling
CPT/HCPCS: 10060; 36415; 69200; 80048; 80076; 80320; 83690; 83735; 85025; 85610; 85730; 87071; 87205; 99284; J2060; J2405

== ENCOUNTER 2021-02-06 05:49 | Emergency (ER) | payer MEDICAID, SELFPAY ==
[2021-02-06 05:54] VITALS: BP 119/85; PULSE 115; RESP 24; O2SAT 100; BMI 20.7
--- NOTE | 2021-02-06 06:33 | ECG_ITS ---
Test Reason : ETOH Blood Pressure : / mmHG Vent. Rate : 079 BPM Atrial Rate : 079 BPM P-R Int : 134 ms QRS Dur : 116 ms QT Int : 382 ms P-R-T Axes : 079 070 069 degrees QTc Int : 438 ms Normal sinus rhythm Incomplete right bundle branch block Borderline ECG When compared with ECG of 15-JUN-2020 10:59, No significant change was found Referred By: Amirah Juarez Electronically Signed By:BIN TAMEZ MD
--- NOTE | 2021-02-06 06:36 | ED_ITS ---
HPI - Alcohol General Chief Complaint: ETOH/Substance Use Stated Complaint: ALCOHOL WITHDRAWAL/SEIZURES Time Seen by Provider: 02/06/21 06:18 Source: patient Mode of arrival: EMS Limitations: no limitations History of Present Illness HPI narrative: Patient comes emergency room complaining of alcohol withdrawal symptoms. Patient states that he usually drinks approximately 15-20 beers a day, his last drink was yesterday at 22:00. Patient comes in complaining of vomiting, states that he feels that he is starting to withdraw. Patient denies abdominal pain Related Data Home Medications Medication Instructions Recorded Confirmed clonidine HCl 1 tab PO BID 02/06/21 02/06/21 omeprazole 1 cap PO DAILY 02/06/21 02/06/21 trazodone 2 tab PO BEDTIME 02/06/21 02/06/21 Previous Rx's Medication Instructions Recorded cephalexin 500 mg PO QID 7 Days #28 cap 01/22/21 Allergies Allergy/AdvReac Type Severity Reaction Status Date / Time No Known Allergies Allergy Verified 12/17/20 22:42 [No Known Allergies*] Review of Systems Review of Systems: Constitutional : No fever and chills, states he feels that he is actively withdrawing ENT/Mouth : No Hearing loss, No Ear Pain, No Nasal Congestion, No Sinus Pain, No Hoarseness, No sore throat, No Rhinorrhea, No Swallowing Difficulty Eyes: No Eye Pain, No Swelling, No Redness, No Foreign Body, No Discharge, No Vision Changes Cardiovascular : No Chest Pain, No SOB, No Dyspnea on Exertion, No Orthopnea, No Edema, No Palpitations Respiratory : No Cough, No Sputum, No Wheezing, No Smoke Exposure, No Dyspnea Gastrointestinal : Complaining of nausea and vomiting No Diarrhea, No Constipation, No abdominal Pain, No Hematochezia, No Melena Genitourinary : no irregular bleeding, No Dysuria, No Urinary Frequency, No Hematuria, No Urinary Incontinence, No Urgency, No Flank Pain, No Urinary Flow Changes, No Hesitancy Musculoskeletal : No joint pain, No Myalgias, No Joint Swelling Skin : No Skin Lesions, No rash Neuro : No Weakness, No Numbness, No Paresthesias, No Loss of Consciousness, No Dizziness, No Headache Psych : No Anxiety/Panic, No Depression, No SI/HI/AH/VH, No Social Issues, Heme/Lymph: No Bruising, No Bleeding,No Lymphadenopathy Endocrine : No Polyuria, No Polydipsia, No Temperature Intolerance [facility] Past Medical History Medical History ETOH abuse Social History Social History Alcohol intake: current Alcohol intake frequency: 3 or more drinks per day Alcohol type: beer and hard liquor Smoking Status: Never smoker Advance Directives: No Advance Directives Information Provided: No Physical Exam Vital Signs: Vital Signs: Last Vital Signs Pulse 115 H 02/06/21 05:54 Resp 24 H 02/06/21 05:54 BP 119/85 02/06/21 05:54 Pulse Ox 100 02/06/21 05:54 Body Mass Index 20.7 Appearance: Alert. Oriented X3. Mild distress, actively vomiting Eyes: Pupils equal, round and reactive to light. ENT: Pharynx normal. Neck: Normal inspection. Neck supple. No lymph nodes noted. No crepitus CVS: Normal heart rate and rhythm. Pulses normal. Normal S1 and S2 Respiratory: No respiratory distress. Breath sounds normal. No Wheezing. No rales Abdomen: Soft and nontender. No rigidity. No distention. good BS x4 Skin: Skin warm and dry. Normal skin color. Normal skin turgor. Extremities: No lower extremity edema. No lower extremity edema. No Lacerations. No Rash Neuro: Oriented X 3. No motor deficit. No sensory deficit. Moving all extermities. No slurred speech. Course Course Course Narrative: All of patient's labs are pending, at this time, patient is vomiting, no other signs of active alcohol withdrawal. Sign-out given to Dr. Otero Discharge Plan Discharge Prescriptions: No Action cephalexin 500 mg capsule 500 mg PO QID 7 Days Qty: 28 RF: 0 clonidine HCl 0.1 mg tablet 1 tab PO BID RF: 0 trazodone 50 mg tablet 2 tab PO BEDTIME RF: 0 omeprazole 20 mg capsule,delayed release(DR/EC) 1 cap PO DAILY RF: 0
[2021-02-06 07:12] LABS: MANUAL DIFF FLAG NO
[2021-02-06 07:15] LABS: Basophils Absolute Auto 0.1 X10*3/uL (0.0-0.2); Basophils Percent Auto 1.4 % (0-2); Eosinophils Absolute Auto 0.1 X10*3/uL (0.0-0.4); Hematocrit 47.8 % (42-52); Hemoglobin 16.5 g/dl (14.0-18.0); Imm Gran Abs Auto 0.01 X10*3/uL (0.00-0.03); Imm Gran Pct Auto 0.1 % (0.0-0.4); Lymphocytes Absolute Auto 1.4 X10*3/uL (1.2-4.9); Lymphocytes Percent Auto 20.6 % (20-40); Mean Corpuscular HGB Conc 34.5 g/dl (31.0-36.0); Mean Corpuscular Hemoglobin 32.4 pg (27.0-33.0); Mean Corpuscular Volume 93.7 fL (80-98); Mean Platelet Volume 8.8 fL (9.4-12.4); Monocytes Absolute Auto 0.5 X10*3/uL (0.1-1.2); Monocytes Percent Auto 7.4 % (2-11); Neutrophils Absolute Auto 4.8 X10*3/uL (2.0-8.3); Neutrophils Percent Auto 69.5 % (45-73); Platelet Count 296 X10*3/uL (160-400); Red Cell Distribution Width 12.6 % (11.0-16.0); White Blood Count 6.9 X10*3/uL (4.8-10.8)
[2021-02-06] MEDS: ondansetron HCL 4 MG/2 ML VIAL IVPUSH (07:22)
[2021-02-06] MEDS: Thiamine HCL 200 MG/2 ML VIAL IVPUSH (07:22)
[2021-02-06] MEDS: chlordiazePOXIDE HCl 25 MG CAPSULE 50 MG PO (07:22)
[2021-02-06] MEDS: LORazepam 2 MG/ML VIAL IVPUSH (07:22)
[2021-02-06] MEDS: 0.9 % Sodium Chloride 1,000 ML 999 ML IVCONT (07:24)
[2021-02-06 07:25] VITALS: BP 130/79; PULSE 95; RESP 18; O2SAT 96
[2021-02-06 07:45] LABS: Ethanol 203 mg/dL
[2021-02-06 07:50] LABS: Alanine Aminotransferase 24 U/L (0-40); Albumin Level 4.7 g/dL (3.5-5.0); Alkaline Phosphatase 103 U/L (39-117); Anion Gap 21 (12-20); Aspartate Amino Transferase 35 U/L (5-37); Bilirubin Direct 0.3 mg/dL (0.0-0.5); Bilirubin Total 0.8 mg/dL (0.0-1.0); Blood Urea Nitrogen 6 mg/dL (9-16); Calcium 9.7 mg/dL (8.4-10.2); Carbon Dioxide 26 mmol/L (22-29); Chloride 98 mmol/L (96-108); Creatinine Clr Calc Pharmacy 111.5; Estimated Glomerular Filt Rate > 60; Glucose Random 94 mg/dL (60-115); Potassium 4.3 mmol/L (3.3-5.1); Sodium 141 mmol/L (135-145); Total Protein 7.8 g/dL (6.5-8.0)
[2021-02-06 07:57] LABS: B Type Natriuretic Peptide < 10 pg/mL (<100); Troponin-I High Sensitivity < 3.5 ng/L (<3.5-35.0)
--- NOTE | 2021-02-06 09:57 | MHC.RECOVSUP ---
Recovery Support note: Patient is a 30 year old Kinyarwanda speaking male who presented to [facility] due to alcohol use and concern for withdrawal. This check writer met with patient to discuss recovery supports and treatment options. Patient is known to this check writer from a previous visit where patient was referred to [facility]. Patient reports having a positive experience at [facility] however he ended up relapsing. Patient reports he is at his wits end with drinking and that he is ready for sobriety. Patient reports he finds it helpful to connect with people one on one who understand what it means to be in recovery for alcohol use. Patient also expressed interest in in-person AA meetings. This check writer provided patient with information on AA and [facility] and encouraged patient to utilize these supports. Patient reports he was previously on Vivitrol and found it helpful. He reports he did not get a buzz if he drank while on it and this discouraged him from drinking. Patient expressed interest in getting back on Vivitrol. This check writer offered patient the opportunity to walk to the [facility] for an intake and patient declined. Provided patient with information on the [facility] as well as contact information for this check writer in the event that he has any additional questions or concerns. Discussed case with patient's ED RN.
[2021-02-06 10:00] VITALS: BP 108/70; PULSE 77; RESP 12; O2SAT 100
== END 2021-02-06 10:01 | disposition home or self-care (01) ==
PROVIDERS: Emergency Provider Emergency Medicine; PCP Physician Assistant Medical
DX: F10.130 Alcohol abuse with withdrawal, uncomplicated (principal); Y90.7 Blood alcohol level of 200-239 mg/100 ml; R11.10 Vomiting, unspecified
CPT/HCPCS: 36415; 80048; 80076; 80320; 83880; 84484; 85025; 93005; 96361; 96374; 96375; 99285; J2060; J2405; J3411

== ENCOUNTER 2021-02-15 23:01 | Emergency (ER) | payer MEDICAID, SELFPAY ==
[2021-02-15 23:03] VITALS: BP 126/88; PULSE 97; RESP 18; TEMP 36.6; O2SAT 96; BMI 21.9
--- NOTE | 2021-02-15 23:11 | ED_ITS ---
HPI - Psych General Chief Complaint: Psychiatric Symptoms Stated Complaint: etoh, crisis, si Time Seen by Provider: 02/15/21 23:04 Source: patient Mode of arrival: ambulatory Limitations: no limitations History of Present Illness HPI Narrative: Patient comes emergency room complaining of vague suicidal ideation and alcohol intoxication. Patient states that his mother called EMS. Patient denies specific plan, denies homicidal ideation. Patient has no other complaints at this time. Patient states he stopped taking his medication for PTSD about a week ago, states he started drinking. Patient states he does not know the name of the medication that he is supposed to be taking for PTSD. Patient states that he drank about 12 beers prior to arrival, denies drug use MD complaint: suicidal ideation and feels depressed Related Data Allergies Allergy/AdvReac Type Severity Reaction Status Date / Time No Known Allergies Allergy Verified 12/17/20 22:42 [No Known Allergies*] Review of Systems Review of Systems: Constitutional : No Weight loss, No Fever, No Chills, No Night Sweats, No Fatigue, No Malaise ENT/Mouth : No Hearing loss, No Ear Pain, No Nasal Congestion, No Sinus Pain, No Hoarseness, No sore throat, No Rhinorrhea, No Swallowing Difficulty Eyes: No Eye Pain, No Swelling, No Redness, No Foreign Body, No Discharge, No Vision Changes Cardiovascular : No Chest Pain, No SOB, No Dyspnea on Exertion, No Orthopnea, No Edema, No Palpitations Respiratory : No Cough, No Sputum, No Wheezing, No Smoke Exposure, No Dyspnea Gastrointestinal : No Nausea, No Vomiting, No Diarrhea, No Constipation, No abdominal Pain, No Hematochezia, No Melena Genitourinary : no irregular bleeding, No Dysuria, No Urinary Frequency, No Hematuria, No Urinary Incontinence, No Urgency, No Flank Pain, No Urinary Flow Changes, No Hesitancy Musculoskeletal : No joint pain, No Myalgias, No Joint Swelling Skin : No Skin Lesions, No rash Neuro : No Weakness, No Numbness, No Paresthesias, No Loss of Consciousness, No Dizziness, No Headache Psych : Complaining of depression, has vague suicidal ideation with no plan, no homicidal ideation, known to drink alcohol heavily Heme/Lymph: No Bruising, No Bleeding,No Lymphadenopathy Endocrine : No Polyuria, No Polydipsia, No Temperature Intolerance PMFSH Past Medical History Medical History ETOH abuse Social History Social History Alcohol intake: current Alcohol intake frequency: 3 or more drinks per day Alcohol type: beer and hard liquor Smoking Status: Current some day smoker Advance Directives: No Advance Directives Information Provided: No Physical Exam Vital Signs: Vital Signs: Last Vital Signs Temp 97.9 F 02/15/21 23:03 Pulse 97 02/15/21 23:03 Resp 18 02/15/21 23:03 BP 126/88 02/15/21 23:03 Pulse Ox 96 02/15/21 23:03 Body Mass Index 21.9 Appearance: Alert. Oriented X3. No acute distress. Intoxicated Eyes: Pupils equal, round and reactive to light. ENT: Pharynx normal. Neck: Normal inspection. Neck supple. No lymph nodes noted. No crepitus CVS: Normal heart rate and rhythm. Pulses normal. Normal S1 and S2 Respiratory: No respiratory distress. Breath sounds normal. No Wheezing. No rales Abdomen: Soft and nontender. No rigidity. No distention. good BS x4 Skin: Skin warm and dry. Normal skin color. Normal skin turgor. Extremities: No lower extremity edema. No lower extremity edema. No Laceratio ns. No Rash Neuro: Oriented X 3. No motor deficit. No sensory deficit. Moving all extermities. Psych: Calm, cooperative, a bit slurry Course Course Course Narrative: Patient came in intoxicated, states he drank 12 beers prior to arrival, has vague suicidal ideation with no plans. [facility] consult pending. Sign-out given to Dr. Lopez Discharge Plan Discharge Clinical Impression: Suicidal ideation, Alcohol intoxication
[2021-02-16 00:37] LABS: COVID-19 Test Negative (Negative); IDNOW Serial# 9DD0AD1C
[2021-02-16 00:54] LABS: Ethanol 360 mg/dL
[2021-02-16 02:23] VITALS: BP 107/62; PULSE 96; RESP 14; O2SAT 95
--- NOTE | 2021-02-16 03:11 | PC.NURSE ---
FAXED AND CALLED TO [facility].
[2021-02-16 05:42] VITALS: BP 100/50; PULSE 78; RESP 16; TEMP 36.4; O2SAT 99
--- NOTE | 2021-02-16 05:50 | PC.NURSE ---
PT HAS BEEN COOPERATIVE, JUST FINISHED 2 CUPS OF WATER TO TRY AND PROVIDE A URINE SAMPLE.
--- NOTE | 2021-02-16 06:38 | PC.NURSE ---
FAXED TO [facility] X2, NOW A THIRD TIME. PT THRETENING TO LEAVE.
--- NOTE | 2021-02-16 06:44 | PC.NURSE ---
MD AT BEDSIDE SPEAKING TO PATIENT, PT NOW DENIES SI.
== END 2021-02-16 07:07 | disposition home or self-care (01) ==
PROVIDERS: Emergency Provider Emergency Medicine
DX: F10.129 Alcohol abuse with intoxication, unspecified (principal); R45.851 Suicidal ideations; F43.10 Post-traumatic stress disorder, unspecified; Y90.9 Presence of alcohol in blood, level not specified; F17.200 Nicotine dependence, unspecified, uncomplicated; Z20.822 Contact with and (suspected) exposure to COVID-19; Z71.6 Tobacco abuse counseling; Z71.41 Alcohol abuse counseling and surveillance of alcoholic; Z79.899 Other long term (current) drug therapy
CPT/HCPCS: 36415; 80320; 87635; 99285

== ENCOUNTER 2021-02-20 05:54 | Emergency (ER) | payer MEDICAID, SELFPAY ==
[2021-02-20 06:19] VITALS: BP 135/93; PULSE 105; RESP 18; TEMP 36.6; O2SAT 98; BMI 20.7
[2021-02-20 06:25] LABS: MANUAL DIFF FLAG NO
--- NOTE | 2021-02-20 06:26 | PC.NURSE ---
pt reports vomiting since last night. had been taking librium at home.
[2021-02-20] MEDS: ondansetron HCL 4 MG/2 ML VIAL IVPUSH ×2 (06:27→06:54)
[2021-02-20] MEDS: 0.9 % Sodium Chloride 1,000 ML 999 ML IV (06:30)
--- NOTE | 2021-02-20 06:37 | ED.GENADULT ---
HPI - General Adult General Chief complaint: General Medical Stated complaint: withdrawals Time Seen by Provider: 02/20/21 06:35 Source: patient Mode of arrival: ambulatory Limitations: no limitations History of Present Illness MD complaint: ETOH withdrawal Onset (ago): day(s) (1) Location: abdomen Severity: moderate Quality: burning and dull Pain Consistency: constant Relieving factors: none Exacerbating factors: eating Associated symptoms: loss of appetite, malaise, nausea/vomiting and other (ETOH withdrawal) Treatments prior to arrival: other (tried zofran and librium but then threw up) Related Data Home Medications Medication Instructions Recorded Confirmed chlordiazepoxide HCl See Rx Instructions .ROUTE .COMPLEX 02/15/21 02/15/21 naltrexone 1 tab PO DAILY 02/15/21 02/15/21 naltrexone microspheres [Vivitrol] 380 mg IM Q4W 02/15/21 02/15/21 nicotine 1 patch TOPICAL DAILY 02/15/21 02/15/21 omeprazole 1 cap PO DAILY 02/15/21 02/15/21 Allergies Allergy/AdvReac Type Severity Reaction Status Date / Time No Known Allergies Allergy Verified 12/17/20 22:42 [No Known Allergies*] Review of Systems Review of Systems: Constitutional : No Weight loss, No Fever, No Chills ENT/Mouth : No sore throat, No Rhinorrhea Eyes: No Swelling, No Redness Cardiovascular : No Chest Pain, No SOB, NoEdema Respiratory : No Cough, No Sputum, No Wheezing Gastrointestinal : Positive Nausea, Positive Vomiting, no Diarrhea, positive abdominal Pain, No Hematochezia, No Melena Genitourinary : No Dysuria, No Urinary Frequency, No Hematuria, No Urgency Musculoskeletal : No joint pain, No Myalgias, No Joint Swelling Skin : No Skin Lesions, No rash Neuro : No Weakness, No Numbness, No Dizziness, No Headache Psych : pos Anxiety/Panic, No Depression Heme/Lymph: No Bruising, No Lymphadenopathy Endocrine : No Polyuria, No Polydipsia All other systems reviewed and are negative. [facility] Past Medical History Attestation statement: The following information was validated with the patient. Medical History Anxiety Depression ETOH abuse Social History Social History Alcohol intake: current Alcohol intake frequency: 3 or more drinks per day Alcohol type: beer and hard liquor Smoking Status: Current every day smoker Advance Directives: No Advance Directives Information Provided: No Physical Exam Vital Signs: Vital Signs: Last Vital Signs Temp 97.8 F 02/20/21 06:19 Pulse 77 02/20/21 08:00 Resp 16 02/20/21 08:00 BP 118/78 02/20/21 08:00 Pulse Ox 96 02/20/21 08:00 Body Mass Index 20.7 Appearance: Alert. Oriented X3. Active dry heaving, anxious mild acute distress. Eyes: Pupils equal, round and reactive to light. ENT: Pharynx normal. Neck: Normal inspection. Neck supple. CVS: Normal heart rate and rhythm. Pulses normal. Respiratory: No respiratory distress. Breath sounds normal. Abdomen: Soft and mid epigastric ttp Skin: Skin warm and dry. Normal skin color. Normal skin turgor. Extremities: No lower extremity edema. No calf ttp Neuro: Oriented X 3. No motor deficit. No sensory deficit. Fine tremors Course Course Course Narrative: eating looks improved, declined detox just given Rx for librium Medical Decision Making [facility] Narrative Medical decision making narrative: 30 yo male with hx of ETOH abuse - repeat visits for vomiting and ETOH withdrawal, will need labs, IVF, IV ativan 2mg, consult to recovery team. Lab Data Result diagrams: 02/20/21 06:20 02/20/21 06:20 Labs: Lab Results 02/20/21 02/20/21 02/20/21 Range/Units 06:20 06:20 06:20 WBC 9.9 (4.8-10.8) X10*3/uL RBC 4.88 (4.60-5.80) X10*6/uL Hgb 16.1 (14.0-18.0) g/dl Hct 45.7 (42-52) % MCV 93.6 (80-98) fL MCH 33.0 (27.0-33.0) pg MCHC 35.2 (31.0-36.0) g/dl RDW 12.4 (11.0-16.0) % Plt Count 226 (160-400) X10*3/uL MPV 10.0 (9.4-12.4) fL Immature Gran % (Auto) 0.2 (0.0-0.4) % Neut % (Auto) 73.6 H (45-73) % Lymph % (Auto) 13.8 L (20-40) % [place] % (Auto) 11.2 H (2-11) % Eos % (Auto) 0.4 (0-4) % Baso % (Auto) 0.8 (0-2) % Lymph # (Auto) 1.4 (1.2-4.9) X10*3/uL [place] # (Auto) 1.1 (0.1-1.2) X10*3/uL Eos # (Auto) 0.0 (0.0-0.4) X10*3/uL Baso # (Auto) 0.1 (0.0-0.2) X10*3/uL Abs Immat Gran (auto) 0.02 (0.00-0.03) X10*3/uL Absolute Neuts (auto) 7.3 (2.0-8.3) X10*3/uL Absolute Nucleated RBC 0.000 (0.0-0.012) X10*3/uL Nucleated RBC % (auto) 0.0 (0.0-0.2) /100WBC Sodium 134 L (135-145) mmol/L Potassium 3.9 (3.3-5.1) mmol/L Chloride 86 L (96-108) mmol/L Carbon Dioxide 27 (22-29) mmol/L Anion Gap 25 H (12-20) BUN 17 H D (9-16) mg/dL Creatinine 1.31 (0.5-1.4) mg/dL Estim Creat Clear Calc 74.0 Estimated GFR > 60 Random Glucose 88 (60-115) mg/dL Calcium 10.5 H D (8.4-10.2) mg/dL Ethyl Alcohol < 10 mg/dL COVID-19 (CJ) (Negative) COVID-19 Clin Com 02/20/21 Range/Units 06:55 WBC (4.8-10.8) X10*3/uL RBC (4.60-5.80) X10*6/uL Hgb (14.0-18.0) g/dl Hct (42-52) % MCV (80-98) fL MCH (27.0-33.0) pg MCHC (31.0-36.0) g/dl RDW (11.0-16.0) % Plt Count (160-400) X10*3/uL MPV (9.4-12.4) fL Immature Gran % (Auto) (0.0-0.4) % Neut % (Auto) (45-73) % Lymph % (Auto) (20-40) % [place] % (Auto) (2-11) % Eos % (Auto) (0-4) % Baso % (Auto) (0-2) % Lymph # (Auto) (1.2-4.9) X10*3/uL [place] # (Auto) (0.1-1.2) X10*3/uL Eos # (Auto) (0.0-0.4) X10*3/uL Baso # (Auto) (0.0-0.2) X10*3/uL Abs Immat Gran (auto) (0.00-0.03) X10*3/uL Absolute Neuts (auto) (2.0-8.3) X10*3/uL Absolute Nucleated RBC (0.0-0.012) X10*3/uL Nucleated RBC % (auto) (0.0-0.2) /100WBC Sodium (135-145) mmol/L Potassium (3.3-5.1) mmol/L Chloride (96-108) mmol/L Carbon Dioxide (22-29) mmol/L Anion Gap (12-20) BUN (9-16) mg/dL Creatinine (0.5-1.4) mg/dL Estim Creat Clear Calc Estimated GFR Random Glucose (60-115) mg/dL Calcium (8.4-10.2) mg/dL Ethyl Alcohol mg/dL COVID-19 (CJ) Negative (Negative) COVID-19 Clin Com See Note Discharge Plan Discharge Clinical Impression: Alcohol abuse, Vomiting Patient Disposition: Home, Self-Care Instructions: Abdominal Pain (ED), Acute Nausea and Vomiting (ED) Additional Instructions: return to ED for any worsening symptoms or concerns Prescriptions: No Action naltrexone 50 mg tablet 1 tab PO DAILY RF: 0 chlordiazepoxide HCl 25 mg capsule See Rx Instructions .ROUTE .COMPLEX RF: 0 nicotine 21 mg/24 hr patch 24 hour 1 patch topical DAILY RF: 0 omeprazole 20 mg capsule,delayed release(DR/EC) 1 cap PO DAILY RF: 0 Vivitrol 380 mg suspension,extended rel recon 380 mg IM Q4W RF: 0
--- NOTE | 2021-02-20 06:38 | PC.NURSE ---
PT REPORTS HE HAS A HISTORY OF ETOH WITHDRAWL SEIZURES. PT HAS NOT HAD ANY SINCE HE STOPPED DRINKING 2 DAYS AGO.
[2021-02-20] MEDS: LORazepam 2 MG/ML VIAL IVPUSH (06:45)
[2021-02-20 06:46] LABS: Basophils Absolute Auto 0.1 X10*3/uL (0.0-0.2); Basophils Percent Auto 0.8 % (0-2); Eosinophils Percent Auto 0.4 % (0-4); Hematocrit 45.7 % (42-52); Hemoglobin 16.1 g/dl (14.0-18.0); Imm Gran Abs Auto 0.02 X10*3/uL (0.00-0.03); Imm Gran Pct Auto 0.2 % (0.0-0.4); Lymphocytes Absolute Auto 1.4 X10*3/uL (1.2-4.9); Lymphocytes Percent Auto 13.8 % (20-40); Mean Corpuscular HGB Conc 35.2 g/dl (31.0-36.0); Mean Corpuscular Volume 93.6 fL (80-98); Monocytes Absolute Auto 1.1 X10*3/uL (0.1-1.2); Monocytes Percent Auto 11.2 % (2-11); Neutrophils Absolute Auto 7.3 X10*3/uL (2.0-8.3); Neutrophils Percent Auto 73.6 % (45-73); Platelet Count 226 X10*3/uL (160-400); Red Blood Count 4.88 X10*6/uL (4.60-5.80); Red Cell Distribution Width 12.4 % (11.0-16.0); White Blood Count 9.9 X10*3/uL (4.8-10.8)
[2021-02-20 06:55] LABS: Ethanol < 10 mg/dL
[2021-02-20 07:58] LABS: Anion Gap 25 (12-20); Blood Urea Nitrogen 17 mg/dL (9-16); Calcium 10.5 mg/dL (8.4-10.2); Carbon Dioxide 27 mmol/L (22-29); Chloride 86 mmol/L (96-108); Estimated Glomerular Filt Rate > 60; Glucose Random 88 mg/dL (60-115); Potassium 3.9 mmol/L (3.3-5.1); Sodium 134 mmol/L (135-145)
[2021-02-20 08:00] VITALS: BP 118/78; PULSE 77; RESP 16; O2SAT 96
[2021-02-20 08:00] LABS: COVID-19 Test Negative (Negative)
--- NOTE | 2021-02-20 08:31 | PC.NURSE ---
PT IS NOT WANTING DETOX AT THIS TIME BUT WOULD LIKE TO GET RESOURCES FROM [facility], [place] FROM CARE TEAM IS GOING TO SET UP A PHONE CALL
--- NOTE | 2021-02-20 10:04 | MHC.RECOVSUP ---
Recovery Support note: Patient is a 30 year old Turkish speaking male who presented [place] [facility] due to concern for alcohol withdrawal symptoms. Patient is known to this content writer from previous consultations. This content writer met with patient in ED18 to discuss his substance use and treatment options. Patient reports he has not had a drink since Tuesday and that he plans to continue moving forward with his sobriety. Patient had one year of sobriety previously however he has been to [facility] over 6 times in the last couple of months with a similar presentation as today. Patient declines detox at this time. Patient has been to detox in the past however reports he does not want to go at this time. Encouraged patient to reconsider as he has not had success with detoxing at home. Patient acknowledged but continues to decline. Patient expressed interest in getting connected with a [employer]. This content writer facilitated the referral and patient will be contacted by a Jira Developer to discuss supports in the community and how a Jira Developer can assist him in maintaining sobriety. Patient is aware of [facility] and knows that they can assist him in getting into detox if he decides he wants to go. Encouraged patient to continue forward with his sobriety and to reach out for support. Patient reports he is comfortable at this time and feels safe to discharge. Patient reports he has some Librium at home that he can take if he starts to feel withdrawal symptoms. Discussed case with patient's ED provider.
== END 2021-02-20 10:19 | disposition home or self-care (01) ==
PROVIDERS: Emergency Provider Emergency Medicine; PCP Physician Assistant Medical
DX: F10.139 Alcohol abuse with withdrawal, unspecified (principal); R11.10 Vomiting, unspecified; Z20.822 Contact with and (suspected) exposure to COVID-19; F17.200 Nicotine dependence, unspecified, uncomplicated; Z71.6 Tobacco abuse counseling; Z79.899 Other long term (current) drug therapy
CPT/HCPCS: 36415; 80048; 80320; 85025; 87635; 96365; 96375; 99284; J2060; J2405

== ENCOUNTER 2021-03-02 09:08 | Emergency (ER) | payer MEDICAID, SELFPAY ==
[2021-03-02 09:14] VITALS: BP 128/90; PULSE 86; RESP 14; TEMP 36.9; O2SAT 97; BMI 20.7
--- NOTE | 2021-03-02 09:52 | ECG_ITS ---
Test Reason : WITHDRAWL Blood Pressure : / mmHG Vent. Rate : 072 BPM Atrial Rate : 071 BPM P-R Int : 116 ms QRS Dur : 114 ms QT Int : 394 ms P-R-T Axes : 039 071 076 degrees QTc Int : 431 ms Normal sinus rhythm Normal EKG When compared with ECG of 06-FEB-2021 07:49, No significant changes seen Referred By: Vane Figueredo Electronically Signed By:LATASHA LLAMAS
[2021-03-02 10:14] LABS: MANUAL DIFF FLAG NO
[2021-03-02 10:16] LABS: Basophils Absolute Auto 0.1 X10*3/uL (0.0-0.2); Basophils Percent Auto 1.5 % (0-2); Eosinophils Percent Auto 0.6 % (0-4); Hematocrit 42.4 % (42-52); Hemoglobin 14.4 g/dl (14.0-18.0); Imm Gran Abs Auto 0.01 X10*3/uL (0.00-0.03); Imm Gran Pct Auto 0.2 % (0.0-0.4); Lymphocytes Absolute Auto 1.1 X10*3/uL (1.2-4.9); Lymphocytes Percent Auto 21.1 % (20-40); Mean Corpuscular Hemoglobin 33.3 pg (27.0-33.0); Mean Corpuscular Volume 98.1 fL (80-98); Mean Platelet Volume 8.8 fL (9.4-12.4); Monocytes Absolute Auto 0.4 X10*3/uL (0.1-1.2); Neutrophils Absolute Auto 3.7 X10*3/uL (2.0-8.3); Neutrophils Percent Auto 68.6 % (45-73); Platelet Count 215 X10*3/uL (160-400); Red Blood Count 4.32 X10*6/uL (4.60-5.80); Red Cell Distribution Width 13.1 % (11.0-16.0); White Blood Count 5.4 X10*3/uL (4.8-10.8)
[2021-03-02 10:51] LABS: Ethanol 202 mg/dL
[2021-03-02 10:55] LABS: Alanine Aminotransferase 49 U/L (0-40); Albumin Level 4.2 g/dL (3.5-5.0); Alkaline Phosphatase 72 U/L (39-117); Anion Gap 17 (12-20); Aspartate Amino Transferase 45 U/L (5-37); Bilirubin Direct 0.4 mg/dL (0.0-0.5); Bilirubin Total 1.1 mg/dL (0.0-1.0); Blood Urea Nitrogen 7 mg/dL (9-16); Calcium 9.5 mg/dL (8.4-10.2); Carbon Dioxide 27 mmol/L (22-29); Chloride 100 mmol/L (96-108); Estimated Glomerular Filt Rate > 60; Glucose Random 87 mg/dL (60-115); Lipase 29 U/L (8-78); Magnesium 2.1 mg/dL (1.6-2.6); Potassium 4.4 mmol/L (3.3-5.1); Sodium 140 mmol/L (135-145); Total Protein 6.7 g/dL (6.5-8.0)
--- NOTE | 2021-03-02 11:01 | ED.GENADULT ---
HPI - General Adult General Chief complaint: General Medical <MACARENA Venegas - Last Filed: 03/02/21 17:05> Stated complaint: DETOX <MACARENA Venegas Last Filed: 03/02/21 17:05> Time Seen by Provider: 03/02/21 09:41 <MACARENA Venegas Last Filed: 03/02/21 17:05> Source: patient <MACARENA Venegas Last Filed: 03/02/21 17:05> Mode of arrival: ambulatory <MACARENA Venegas Last Filed: 03/02/21 17:05> History of Present Illness HPI narrative: 30-year-old male with a past medical history of anxiety, depression, ETOH abuse, withdrawal seizures, presenting to the ED complaining of withdrawal symptoms of nausea, vomiting, feeling tremulous, malaise, diarrhea, decreased p.o. intake/loss of appetite, requesting detox. Reports drinks about 10 or more 24 oz cans of EtOH plus hard liquor daily. Last drink 9:45pm last night. Denies other illicit drugs. Denies fever, chills, CP/SOB, abdominal pain, fall/trauma, head injury <MACARENA Venegas Last Filed: 03/02/21 17:05> Related Data Home medications: Home Medications Medication Instructions Recorded Confirmed chlordiazepoxide HCl See Rx Instructions .ROUTE .COMPLEX 02/15/21 02/15/21 naltrexone 1 tab PO DAILY 02/15/21 02/15/21 naltrexone microspheres [Vivitrol] 380 mg IM Q4W 02/15/21 02/15/21 nicotine 1 patch TOPICAL DAILY 02/15/21 02/15/21 omeprazole 1 cap PO DAILY 02/15/21 02/15/21 <MACARENA Venegas Last Filed: 03/02/21 17:05> Allergies/adverse reactions: Allergies Allergy/AdvReac Type Severity Reaction Status Date / Time No Known Allergies Allergy Verified 12/17/20 22:42 [No Known Allergies*] <MACARENA Venegas Last Filed: 03/02/21 17:05> Review of Systems Review of Systems: Constitutional: No Fever, No Chills, No Fatigue, +Malaise ENT/Mouth: No Ear Pain, No Nasal Congestion, No Sinus Pain, No Hoarseness, No sore throat, No Rhinorrhea Eyes: No Eye Pain, No Swelling, No Redness, No Foreign Body, No Discharge, No Vision Changes Cardiovascular: No Chest Pain, No SOB Respiratory: No Cough, No Dyspnea Gastrointestinal: +Nausea, +Vomiting, + Diarrhea, No Constipation, No Abdominal pain Genitourinary: No Dysuria, No Urinary Frequency, No Hematuria, No Urinary Incontinence, No Urgency, No Flank Pain Musculoskeletal: No joint pain, No Myalgias, No Joint Swelling Skin: No Skin Lesions, No rash Neuro: No Weakness, No Numbness, No Headache <MACARENA Venegas - Last Filed: 03/02/21 17:05> Yes all other systems are reviewed and are negative <MACARENA Venegas - Last Filed: 03/02/21 17:05> PENDING SALE TO [facility] Past Medical History Attestation statement: The following information was validated with the patient. <MACARENA Venegas - Last Filed: 03/02/21 17:05> Medical History: Medical History (Updated 03/03/21 @ 00:01 by Steve Ojeda) Anxiety Depression ETOH abuse Seizure <MACARENA Venegas - Last Filed: 03/02/21 17:05> Social History Social History: Social History Alcohol intake: current Alcohol intake frequency: 3 or more drinks per day Alcohol type: hard liquor Smoked in Last 30 Days: Yes Use of substances other than those prescribed or required for medical reasons: No Advance Directives: Yes Advance Directives Information Provided: Yes Advance Directives on File: No <MACARENA Venegas - Last Filed: 03/02/21 17:05> Physical Exam Vital Signs: Vital Signs: Last Vital Signs Temp 97.8 F 03/02/21 16:25 Pulse 86 03/02/21 18:10 Resp 16 03/02/21 18:10 BP 139/65 03/02/21 18:10 Pulse Ox 97 03/02/21 18:10 Body Mass Index 20.7 <MACARENA Venegas - Last Filed: 03/02/21 17:05> Vital Signs: Last Vital Signs Temp 97.8 F 03/02/21 16:25 Pulse 86 03/02/21 18:10 Resp 16 03/02/21 18:10 BP 139/65 03/02/21 18:10 Pulse Ox 97 03/02/21 18:10 Body Mass Index 20.7 <Prakash Chang MD - Last Filed: 03/27/21 10:06> Const: Other: tremulous <Vane Figueredo PA - Last Filed: 03/02/21 17:05> General: cooperative <Vane Figueredo PA - Last Filed: 03/02/21 17:05> Orientation/consciousness: patient oriented x3 <Vane Figueredo PA - Last Filed: 03/02/21 17:05> Limitations: no limitations <Vane Figueredo PA - Last Filed: 03/02/21 17:05> HENMT: Head: Yes normal to inspection <Vane Figueredo PA - Last Filed: 03/02/21 17:05> Ears: hearing grossly normal bilaterally <Vane Figueredo PA - Last Filed: 03/02/21 17:05> General nose exam: Normal external nose present <Vane Figueredo PA - Last Filed: 03/02/21 17:05> Face and sinus: Yes normal facial exam <Vane Figueredo PA - Last Filed: 03/02/21 17:05> Throat: Yes posterior oropharynx normal <Vane Figueredo PA - Last Filed: 03/02/21 17:05> Eyes: General: appearance normal, both eyes and all related structures <Vane Figueredo PA - Last Filed: 03/02/21 17:05> Pupils: Equal, round and reactive pupils present <Vane Figueredo PA - Last Filed: 03/02/21 17:05> EOM: EOMs intact bilaterally <Vane Figueredo PA - Last Filed: 03/02/21 17:05> Neck: Neck: Yes normal visual inspection and Yes no meningeal signs <Vane Figueredo PA - Last Filed: 03/02/21 17:05> Resp: Effort & Inspection: normal respiratory effort <Vane Figueredo PA - Last Filed: 03/02/21 17:05> Auscultation: clear to auscultation bilaterally, no rales, no rhonchi and no wheezes <Vane Figueredo PA - Last Filed: 03/02/21 17:05> Cardio: Rate: regular rate <MACARENA Venegas - Last Filed: 03/02/21 17:05> Heart sounds: S1 normal heart sound present and S2 normal heart sound present <MACARENA Vengeas - Last Filed: 03/02/21 17:05> GI: Inspection: Yes normal to inspection <MACARENA Venegas - Last Filed: 03/02/21 17:05> Palpation (GI): Soft to palpation, nontender, no guarding and not rigid <MACARENA Venegas - Last Filed: 03/02/21 17:05> Skin: Rashes: no rashes <MACARENA Venegas - Last Filed: 03/02/21 17:05> Wounds: no wounds <MACARENA Venegas - Last Filed: 03/02/21 17:05> Neuro: General: patient oriented x3, tone normal, moves all extremities and no meningeal signs <MACARENA Venegas - Last Filed: 03/02/21 17:05> Cranial nerves: Yes Equal, round and reactive pupils present <MACARENA Venegas - Last Filed: 03/02/21 17:05> Extrem: General: Yes normal to inspection <MACARENA Venegas - Last Filed: 03/02/21 17:05> Course Course Course Narrative: -AST/ALT mildly elevated, ethanol 202, tox screen positive for benzos, labs otherwise unremarkable -patient was evaluated by math coach and [facility] has a male bed, however will not be ready until tonight around 7:00 p.m. -1700--ED care transferred to LAYLA Andersen pending transfer to detox facility <MACARENA Venegas - Last Filed: 03/02/21 17:05> I have reviewed the chart <Prakash Chang MD - Last Filed: 03/27/21 10:06> Medical Decision Making MDM Narrative Medical decision making narrative: 30-year-old male with a past medical history of anxiety, depression, ETOH abuse, withdrawal seizures, presenting to the ED complaining of withdrawal symptoms of nausea, vomiting, feeling tremulous, malaise, diarrhea, decreased p.o. intake/loss of appetite, requesting detox. On exam vital signs stable, tremulous, lungs CTA, abdomen soft/nontender. Concern for EtOH withdrawal and dehydration. Rule out metabolic abnormalities. Plan: EKG, labs, IVF, Zofran, Ativan, folate/thiamine, will get math coach involved for detox <MACARENA Venegas - Last Filed: 03/02/21 17:05> Lab Data Result diagrams: : 03/02/21 10:08 03/02/21 10:08 <MACARENA Venegas - Last Filed: 03/02/21 17:05> Labs: Lab Results 03/02/21 03/02/21 03/02/21 Range/Units 10:08 10:08 10:08 WBC 5.4 (4.8-10.8) X10*3/uL RBC 4.32 L (4.60-5.80) X10*6/uL Hgb 14.4 (14.0-18.0) g/dl Hct 42.4 (42-52) % MCV 98.1 H (80-98) fL MCH 33.3 H (27.0-33.0) pg MCHC 34.0 (31.0-36.0) g/dl RDW 13.1 (11.0-16.0) % Plt Count 215 (160-400) X10*3/uL MPV 8.8 L (9.4-12.4) fL Immature Gran % (Auto) 0.2 (0.0-0.4) % Neut % (Auto) 68.6 (45-73) % Lymph % (Auto) 21.1 (20-40) % [place] % (Auto) 8.0 (2-11) % Eos % (Auto) 0.6 (0-4) % Baso % (Auto) 1.5 (0-2) % Lymph # (Auto) 1.1 L (1.2-4.9) X10*3/uL [place] # (Auto) 0.4 (0.1-1.2) X10*3/uL Eos # (Auto) 0.0 (0.0-0.4) X10*3/uL Baso # (Auto) 0.1 (0.0-0.2) X10*3/uL Abs Immat Gran (auto) 0.01 (0.00-0.03) X10*3/uL Absolute Neuts (auto) 3.7 (2.0-8.3) X10*3/uL Absolute Nucleated RBC 0.000 (0.0-0.012) X10*3/uL Nucleated RBC % (auto) 0.0 (0.0-0.2) /100WBC Sodium 140 (135-145) mmol/L Potassium 4.4 (3.3-5.1) mmol/L Chloride 100 (96-108) mmol/L Carbon Dioxide 27 (22-29) mmol/L Anion Gap 17 (12-20) BUN 7 L D (9-16) mg/dL Creatinine 0.89 (0.5-1.4) mg/dL Estim Creat Clear Calc 109.0 Estimated GFR > 60 Random Glucose 87 (60-115) mg/dL Calcium 9.5 D (8.4-10.2) mg/dL Magnesium 2.1 (1.6-2.6) mg/dL Total Bilirubin 1.1 H (0.0-1.0) mg/dL Direct Bilirubin 0.4 (0.0-0.5) mg/dL AST 45 H (5-37) U/L ALT 49 H (0-40) U/L Alkaline Phosphatase 72 D (39-117) U/L Total Protein 6.7 (6.5-8.0) g/dL Albumin 4.2 (3.5-5.0) g/dL Lipase 29 (8-78) U/L Urine Opiates Screen (Not Detect) Ur Barbiturates Screen (Not Detect) Ur Phencyclidine Scrn (Not Detect) Ur Amphetamines Screen (Not Detect) U Benzodiazepines Scrn (Not Detect) Urine Cocaine Screen (Not Detect) U Marijuana (THC) Screen (Not Detect) Ethyl Alcohol 202 mg/dL COVID-19 (CJ) (Negative) COVID-19 Clin Com 03/02/21 03/02/21 Range/Units 12:24 12:37 WBC (4.8-10.8) X10*3/uL RBC (4.60-5.80) X10*6/uL Hgb (14.0-18.0) g/dl Hct (42-52) % MCV (80-98) fL MCH (27.0-33.0) pg MCHC (31.0-36.0) g/dl RDW (11.0-16.0) % Plt Count (160-400) X10*3/uL MPV (9.4-12.4) fL Immature Gran % (Auto) (0.0-0.4) % Neut % (Auto) (45-73) % Lymph % (Auto) (20-40) % [place] % (Auto) (2-11) % Eos % (Auto) (0-4) % Baso % (Auto) (0-2) % Lymph # (Auto) (1.2-4.9) X10*3/uL [place] # (Auto) (0.1-1.2) X10*3/uL Eos # (Auto) (0.0-0.4) X10*3/uL Baso # (Auto) (0.0-0.2) X10*3/uL Abs Immat Gran (auto) (0.00-0.03) X10*3/uL Absolute Neuts (auto) (2.0-8.3) X10*3/uL Absolute Nucleated RBC (0.0-0.012) X10*3/uL Nucleated RBC % (auto) (0.0-0.2) /100WBC Sodium (135-145) mmol/L Potassium (3.3-5.1) mmol/L Chloride (96-108) mmol/L Carbon Dioxide (22-29) mmol/L Anion Gap (12-20) BUN (9-16) mg/dL Creatinine (0.5-1.4) mg/dL Estim Creat Clear Calc Estimated GFR Random Glucose (60-115) mg/dL Calcium (8.4-10.2) mg/dL Magnesium (1.6-2.6) mg/dL Total Bilirubin (0.0-1.0) mg/dL Direct Bilirubin (0.0-0.5) mg/dL AST (5-37) U/L ALT (0-40) U/L Alkaline Phosphatase (39-117) U/L Total Protein (6.5-8.0) g/dL Albumin (3.5-5.0) g/dL Lipase (8-78) U/L Urine Opiates Screen Not Detected (Not Detect) Ur Barbiturates Screen Not Detected (Not Detect) Ur Phencyclidine Scrn Not Detected (Not Detect) Ur Amphetamines Screen Not Detected (Not Detect) U Benzodiazepines Scrn POSITIVE H (Not Detect) Urine Cocaine Screen Not Detected (Not Detect) U Marijuana (THC) Screen Not Detected (Not Detect) Ethyl Alcohol mg/dL COVID-19 (CJ) Negative (Negative) COVID-19 Clin Com See Note <MACARENA Venegas - Last Filed: 03/02/21 17:05> Lab Results 03/02/21 03/02/21 03/02/21 Range/Units 10:08 10:08 10:08 WBC 5.4 (4.8-10.8) X10*3/uL RBC 4.32 L (4.60-5.80) X10*6/uL Hgb 14.4 (14.0-18.0) g/dl Hct 42.4 (42-52) % MCV 98.1 H (80-98) fL MCH 33.3 H (27.0-33.0) pg MCHC 34.0 (31.0-36.0) g/dl RDW 13.1 (11.0-16.0) % Plt Count 215 (160-400) X10*3/uL MPV 8.8 L (9.4-12.4) fL Immature Gran % (Auto) 0.2 (0.0-0.4) % Neut % (Auto) 68.6 (45-73) % Lymph % (Auto) 21.1 (20-40) % [place] % (Auto) 8.0 (2-11) % Eos % (Auto) 0.6 (0-4) % Baso % (Auto) 1.5 (0-2) % Lymph # (Auto) 1.1 L (1.2-4.9) X10*3/uL [place] # (Auto) 0.4 (0.1-1.2) X10*3/uL Eos # (Auto) 0.0 (0.0-0.4) X10*3/uL Baso # (Auto) 0.1 (0.0-0.2) X10*3/uL Abs Immat Gran (auto) 0.01 (0.00-0.03) X10*3/uL Absolute Neuts (auto) 3.7 (2.0-8.3) X10*3/uL Absolute Nucleated RBC 0.000 (0.0-0.012) X10*3/uL Nucleated RBC % (auto) 0.0 (0.0-0.2) /100WBC Sodium 140 (135-145) mmol/L Potassium 4.4 (3.3-5.1) mmol/L Chloride 100 (96-108) mmol/L Carbon Dioxide 27 (22-29) mmol/L Anion Gap 17 (12-20) BUN 7 L D (9-16) mg/dL Creatinine 0.89 (0.5-1.4) mg/dL Estim Creat Clear Calc 109.0 Estimated GFR > 60 Random Glucose 87 (60-115) mg/dL Calcium 9.5 D (8.4-10.2) mg/dL Magnesium 2.1 (1.6-2.6) mg/dL Total Bilirubin 1.1 H (0.0-1.0) mg/dL Direct Bilirubin 0.4 (0.0-0.5) mg/dL AST 45 H (5-37) U/L ALT 49 H (0-40) U/L Alkaline Phosphatase 72 D (39-117) U/L Total Protein 6.7 (6.5-8.0) g/dL Albumin 4.2 (3.5-5.0) g/dL Lipase 29 (8-78) U/L Urine Opiates Screen (Not Detect) Ur Barbiturates Screen (Not Detect) Ur Phencyclidine Scrn (Not Detect) Ur Amphetamines Screen (Not Detect) U Benzodiazepines Scrn (Not Detect) Urine Cocaine Screen (Not Detect) U Marijuana (THC) Screen (Not Detect) Ethyl Alcohol 202 mg/dL COVID-19 (CJ) (Negative) COVID-19 Clin Com 03/02/21 03/02/21 Range/Units 12:24 12:37 WBC (4.8-10.8) X10*3/uL RBC (4.60-5.80) X10*6/uL Hgb (14.0-18.0) g/dl Hct (42-52) % MCV (80-98) fL MCH (27.0-33.0) pg MCHC (31.0-36.0) g/dl RDW (11.0-16.0) % Plt Count (160-400) X10*3/uL MPV (9.4-12.4) fL Immature Gran % (Auto) (0.0-0.4) % Neut % (Auto) (45-73) % Lymph % (Auto) (20-40) % [place] % (Auto) (2-11) % Eos % (Auto) (0-4) % Baso % (Auto) (0-2) % Lymph # (Auto) (1.2-4.9) X10*3/uL [place] # (Auto) (0.1-1.2) X10*3/uL Eos # (Auto) (0.0-0.4) X10*3/uL Baso # (Auto) (0.0-0.2) X10*3/uL Abs Immat Gran (auto) (0.00-0.03) X10*3/uL Absolute Neuts (auto) (2.0-8.3) X10*3/uL Absolute Nucleated RBC (0.0-0.012) X10*3/uL Nucleated RBC % (auto) (0.0-0.2) /100WBC Sodium (135-145) mmol/L Potassium (3.3-5.1) mmol/L Chloride (96-108) mmol/L Carbon Dioxide (22-29) mmol/L Anion Gap (12-20) BUN (9-16) mg/dL Creatinine (0.5-1.4) mg/dL Estim Creat Clear Calc Estimated GFR Random Glucose (60-115) mg/dL Calcium (8.4-10.2) mg/dL Magnesium (1.6-2.6) mg/dL Total Bilirubin (0.0-1.0) mg/dL Direct Bilirubin (0.0-0.5) mg/dL AST (5-37) U/L ALT (0-40) U/L Alkaline Phosphatase (39-117) U/L Total Protein (6.5-8.0) g/dL Albumin (3.5-5.0) g/dL Lipase (8-78) U/L Urine Opiates Screen Not Detected (Not Detect) Ur Barbiturates Screen Not Detected (Not Detect) Ur Phencyclidine Scrn Not Detected (Not Detect) Ur Amphetamines Screen Not Detected (Not Detect) U Benzodiazepines Scrn POSITIVE H (Not Detect) Urine Cocaine Screen Not Detected (Not Detect) U Marijuana (THC) Screen Not Detected (Not Detect) Ethyl Alcohol mg/dL COVID-19 (CJ) Negative (Negative) COVID-19 Clin Com See Note <Prakash Chang MD - Last Filed: 03/27/21 10:06> Discharge Plan Discharge Clinical Impression: Alcohol withdrawal <MACARENA Venegas - Last Filed: 03/02/21 17:05> Patient Disposition: Xfer Other <MACARENA Venegas - Last Filed: 03/02/21 17:05> Transfer Details: [facility] <MACARENA Venegas - Last Filed: 03/02/21 17:05> [facility] <Prakash Chang MD - Last Filed: 03/27/21 10:06> Instructions: Alcohol Withdrawal (ED), Alcohol Dependence (ED) <MACARENA Venegas - Last Filed: 03/02/21 17:05> Additional Instructions: Your blood work was reassuring today in the emergency department A male detox bed was secured for you at [facility], you are being discharged to this facility, make sure you go as discussed Do not drink alcohol or take drugs it can kill you <MACARENA Venegas - Last Filed: 03/02/21 17:05> Prescriptions: No Action naltrexone 50 mg tablet 1 tab PO DAILY RF: 0 chlordiazepoxide HCl 25 mg capsule See Rx Instructions .ROUTE .COMPLEX RF: 0 nicotine 21 mg/24 hr patch 24 hour 1 patch topical DAILY RF: 0 omeprazole 20 mg capsule,delayed release(DR/EC) 1 cap PO DAILY RF: 0 Vivitrol 380 mg suspension,extended rel recon 380 mg IM Q4W RF: 0 <MACARENA Venegas - Last Filed: 03/02/21 17:05> Referrals: [facility] [Physician] - 2 days <MACARENA Venegas - Last Filed: 03/02/21 17:05> Interventions: ED Discharge Assessment Last Done: 03/02/21 19:09 <MACARENA Venegas - Last Filed: 03/02/21 17:05> Discharge Date/Time: 03/02/21 18:40 <MACARENA Venegas - Last Filed: 03/02/21 17:05>
[2021-03-02] MEDS: ondansetron HCL 4 MG/2 ML VIAL IVPUSH (11:09)
[2021-03-02] MEDS: LORazepam 2 MG/ML VIAL IVPUSH (11:10)
[2021-03-02] MEDS: Famotidine/PF 20 MG/2 ML VIAL IVPUSH (11:11)
[2021-03-02] MEDS: Multivitamin TABLET 1 TAB PO (11:11)
[2021-03-02] MEDS: Magnesium Hydrox/Alum Hydrox 30 ML ORAL.SUSP PO (11:12)
[2021-03-02] MEDS: 0.9 % Sodium Chloride 1,000 ML 999 ML IVCONT ×2 (11:16)
--- NOTE | 2021-03-02 11:16 | MHC.RECOVSUP ---
Recovery Support note: Patient is a 30 year old [place] speaking male who presented to [facility] seeking detox. Patient reports daily drinking and a desire to stop. Patient has been to [facility] ED 7 times since December for this reason. Patient reports he has not had success trying to detox on his own and he would like to go to detox. Discussed ATS placement with patient and explained he will likely have to go to a facility in [place] or [place]. Patient is agreeable at this time. [facility] reports that they do have a male bed at this time. Patient information has been faxed.
--- NOTE | 2021-03-02 11:30 | PC.NURSE ---
Seizure precautions in place.
[2021-03-02] MEDS: Thiamine HCL 200 MG/2 ML VIAL 100 MG IVPUSH (11:50)
[2021-03-02 11:51] VITALS: BP 125/81; PULSE 65; RESP 17; O2SAT 99
[2021-03-02 13:02] LABS: Amphetamine Screen Urine Not Detected (Not Detect); Barbiturates, Urine Not Detected (Not Detect); Benzodiazepines Screen Urine POSITIVE (Not Detect); Cannabinoid Screen Urine Not Detected (Not Detect); Cocaine Screen Urine Not Detected (Not Detect); Opiate Screen Urine Not Detected (Not Detect); Phencyclidine Screen Urine Not Detected (Not Detect)
[2021-03-02] MEDS: LORazepam 2 MG/ML VIAL 1 MG IVPUSH ×2 (13:12→16:12)
[2021-03-02 13:13] LABS: COVID-19 Test Negative (Negative); IDNOW Serial# 9DD0AD1C
--- NOTE | 2021-03-02 15:55 | MHC.RECOVSUP ---
Recovery Support note: Patient has been accepted to [facility] for a 2100 admission. [employer] Worker or CARE Team will assist with transportation via Lyft.
[2021-03-02 16:25] VITALS: BP 128/67; PULSE 68; RESP 16; TEMP 36.6; O2SAT 98
[2021-03-02 18:10] VITALS: BP 139/65; PULSE 86; RESP 16; O2SAT 97
[2021-03-02] MEDS: LORazepam 1 MG TABLET 2 MG PO ×2 (18:14→18:41)
== END 2021-03-02 18:40 | disposition other institution (70) ==
PROVIDERS: Physician Assistant; Emergency Provider Emergency Medicine; PCP Physician Assistant Medical
DX: F10.130 Alcohol abuse with withdrawal, uncomplicated (principal); Y90.7 Blood alcohol level of 200-239 mg/100 ml; E86.0 Dehydration; F41.9 Anxiety disorder, unspecified; F32.9 Major depressive disorder, single episode, unspecified; Z20.822 Contact with and (suspected) exposure to COVID-19
CPT/HCPCS: 36415; 80048; 80076; 80307; 80320; 83690; 83735; 85025; 87635; 93005; 96361; 96374; 96375; 96376; 99285; J2060; J2405; J3411

== ENCOUNTER 2021-06-16 06:07 | Emergency (ER) | payer MEDICAID, SELFPAY ==
[2021-06-16 06:33] VITALS: BP 134/87; PULSE 97; RESP 20; TEMP 37.1; O2SAT 95; BMI 18.8
--- NOTE | 2021-06-16 07:06 | ED_ITS ---
HPI - General Adult General Chief complaint: ETOH/Substance Use Stated complaint: stomach pain, currently detoxing, swollen face Time Seen by Provider: 06/16/21 07:05 Source: patient Mode of arrival: ambulatory Limitations: no limitations History of Present Illness HPI narrative: 31-year-old male with history of alcohol abuse came in with a concern of alcohol withdrawal. This is a 31-year-old male with known history of alcohol abuse last drink was about 8 hours ago last night, woke up this morning not feeling well and feeling jittery and anxious. Patient is trying to detox himself without going to a detox center would like to do it at home asking for medication to help him to detox. No fever, no chills. Related Data Home Medications Medication Instructions Recorded Confirmed chlordiazepoxide HCl 25 mg capsule See Rx Instructions .ROUTE .COMPLEX 02/15/21 02/15/21 naltrexone 50 mg tablet 1 tab PO DAILY 02/15/21 02/15/21 naltrexone microspheres 380 mg 380 mg IM Q4W 02/15/21 02/15/21 intramuscular suspension,extended release (Vivitrol) nicotine 21 mg/24 hr daily 1 patch TOPICAL DAILY 02/15/21 02/15/21 transdermal patch omeprazole 20 mg capsule,delayed 1 cap PO DAILY 02/15/21 02/15/21 release Previous Rx's Medication Instructions Recorded lorazepam 0.5 mg tablet (Ativan) 0.5 mg PO DAILY PRN #20 tab 06/16/21 Allergies Allergy/AdvReac Type Severity Reaction Status Date / Time No Known Allergies Allergy Verified 12/17/20 22:42 [No Known Allergies*] Review of Systems Review of Systems: All other systems are reviewed and are negative Constitutional: Reports as per HPI and Reports no additional constitutional complaints Eyes: Reports as per HPI and Reports no additional eye complaints Reports system reviewed and no additional complaints, except as documented Cardiovascular: Reports as per HPI and Reports no additional cardiovascular complaints Respiratory: Reports as per HPI and Reports no additional respiratory complaints Gastrointestinal: Reports as per HPI and Reports no additional gastrointestinal complaints Genitourinary: Reports no additional female genitourinary complaints Musculoskeletal: Reports no additional musculoskeletal complaints Skin/Breast: Reports system reviewed and no additional complaints, except as docu Psychiatric: Reports no additional psychiatric complaints Endocrine: Reports no additional endocrine complaints Hematologic/Lymphatic: Reports no additional hematologic/lymphatic complaints Allergic/Immunologic: Reports no additional allergic/immunologic complaints Reports system reviewed and no additional complaints, except as documented and Reports Abnormal speech present [facility] Past Medical History Medical History Anxiety Depression ETOH abuse Seizure Social History Social History Alcohol intake: current Alcohol intake frequency: 0-2 drinks per day Alcohol type: beer Patient Tobacco Use Status: Current everyday Tobacco user Use of substances other than those prescribed or required for medical reasons: No Advance Directives: No Advance Directives Information Provided: Yes Physical Exam Vital Signs: Vital Signs: Last Vital Signs Temp 98.1 F 06/16/21 07:15 Pulse 75 06/16/21 07:15 Resp 15 06/16/21 07:15 BP 127/81 06/16/21 07:15 Pulse Ox 98 06/16/21 07:15 Body Mass Index 18.8 Vital signs have been reviewed as appeared to be correct. Blood pressure normal. Heart rate normal. Respiration rate normal. Temperature normal. Oxygen saturation normal. Appearance: Alert. Oriented X3. No acute distress. Head: Normal external exam. Normocephalic. Atraumatic. No Nieves signs noted. No raccoon eyes noted Eyes: PERRLA. EOMI. Conjunctiva and sclera normal. Eyelids normal. ENT: TM's Normal. Pharynx normal. Uvula midline. Moist mucous membranes. No trismus noted. No drooling noted. No muffled voice noted. Neck: Normal inspection. Neck supple. FROM. No adenopathy. Thyroid Normal. No meningeal signs. No neck mass noted. CVS: Normal heart rate and rhythm. Heart sound normal. No murmurs noted. Pulses normal throughout. Respiratory: No respiratory distress. Painless inspiration. Breath sounds normal. No wheezes/rales/rhonchi noted. Chest nontender. No accessory muscle usage noted or decreased air movement noted. Abdomen: Soft and nontender. Bowel sounds normal in all 4 quadrants. No distention noted. No organomegaly noted. No visible injury noted. Back: No CVA tenderness. Full range of motion noted. Skin: Skin warm and dry. Normal skin color. Normal skin turgor. No rashes/lesions/lacerations noted. Extremities: No lower extremity edema. Extremities exhibit normal range of motion. Extremities nontender. Neuro: Oriented X 3. Cranial nerve exam: II-XII are grossly intact No motor deficit. No sensory deficit. Reflexes normal. Course Course Course Narrative: 31-year-old male with history of alcohol abuse seeking for detox at home. Patient do not have major symptoms of alcohol withdrawal. Will discharge the patient on Ativan with instruction have to look for severe withdrawal symptoms and return to the emergency department if needed. Discharge Plan Discharge Clinical Impression: Alcohol withdrawal syndrome Patient Disposition: Home, Self-Care Instructions: Alcohol Withdrawal (ED) Additional Instructions: Return to the emergency department for severe symptoms of alcohol withdrawal like hallucination, fever, severe tremors and shaking. Prescriptions: New lorazepam [Ativan] 0.5 mg tablet 0.5 mg PO DAILY PRN (Reason: anxiety) Qty: 20 RF: 0 No Action naltrexone 50 mg tablet 1 tab PO DAILY RF: 0 chlordiazepoxide HCl 25 mg capsule See Rx Instructions .ROUTE .COMPLEX RF: 0 nicotine 21 mg/24 hr patch 24 hour 1 patch topical DAILY RF: 0 omeprazole 20 mg capsule,delayed release(DR/EC) 1 cap PO DAILY RF: 0 Vivitrol 380 mg suspension,extended rel recon 380 mg IM Q4W RF: 0 Referrals: Raya Marinelli PA-C [Primary Care Provider] - 2 days
[2021-06-16 07:15] VITALS: BP 127/81; PULSE 75; RESP 15; TEMP 36.7; O2SAT 98
[2021-06-16] MEDS: LORazepam 1 MG TABLET PO (07:21)
--- NOTE | 2021-06-16 07:47 | PC.NURSE ---
patient here for alcohol detox. patient does not want to go to facility for detox, requesting to have meds prescribed for home detox which he states he has done in the past. patient presents appearing well, vital signs all WNL. patient reports last drink around 11 pm last night. patient extremities shaking when extended. was able to tolerate PO liquids and given PO Ativan, will reassess effects of Ativan. patient and mother aware of plan.
[2021-06-16 08:07] VITALS: BP 113/80; PULSE 74; RESP 15; O2SAT 98
== END 2021-06-16 08:12 | disposition home or self-care (01) ==
PROVIDERS: Emergency Provider Emergency Medicine; PCP Physician Assistant Medical
DX: F10.130 Alcohol abuse with withdrawal, uncomplicated (principal); Y90.9 Presence of alcohol in blood, level not specified; F41.9 Anxiety disorder, unspecified
CPT/HCPCS: 99283; 99284

== ENCOUNTER 2021-07-23 13:30 | Inpatient (IN) | payer MEDICAID, SELFPAY ==
[2021-07-23 13:38] VITALS: BP 139/84; PULSE 138; RESP 25; TEMP 36.6; O2SAT 94; BMI 20.9
--- NOTE | 2021-07-23 13:44 | ED_ITS ---
HPI - General Adult General Chief complaint: Seizure Stated complaint: SEIZURE Time Seen by Provider: 07/23/21 13:37 Source: patient and EMS Limitations: no limitations History of Present Illness HPI narrative: This is a 31-year-old male with a history of alcohol withdrawal seizures, who began vomiting this morning and subsequently had a seizure witnessed by EMS that lasted about 5 minutes. He was given Versed 6 mg IV push with cessation of the seizure activity. Patient denies diarrhea. He last drank yesterday. Says the amount he drinks daily varies. Has some abdominal discomfort, mild headache, notes throat discomfort after vomiting many times. He denies any recent fever. He is not on any medicines. Per EMS he had been admitted to [facility] last September for alcohol withdrawal seizures Related Data Home Medications Medication Instructions Recorded Confirmed trazodone 50 mg tablet 2 tab PO BEDTIME PRN 07/23/21 07/23/21 Allergies Allergy/AdvReac Type Severity Reaction Status Date / Time No Known Allergies Allergy Verified 12/17/20 22:42 [No Known Allergies*] Review of Systems Review of Systems: Yes Unobtainable due to mental status (Limited due to patient being postictal) Constitutional: Constitutional: Denies fever(s) and Reports headache(s) (Mild) Eyes: Eyes: Reports no additional eye complaints ENT: Reports headache(s) (Mild) and Reports sore throat Cardiovascular: Cardiovascular: Reports no additional cardiovascular complaints Respiratory: Respiratory: Reports no additional respiratory complaints Gastrointestinal: Gastrointestinal: Reports abdominal pain, Denies diarrhea, Reports nausea and Reports vomiting Genitourinary: Genitourinary: Reports no additional male genitourinary complaints Musculoskeletal: Musculoskeletal: Reports no additional musculoskeletal complaints Neurologic: Reports headache(s) (Mild) and Denies Sensory deficit (Neuro) [facility] Past Medical History Medical History Anxiety Depression ETOH abuse Seizure Family History Family History Mother DVT (deep venous thrombosis) Social History Social History Alcohol intake: current Alcohol intake frequency: 3 or more drinks per day Alcohol type: hard liquor Patient Tobacco Use Status: Current everyday Tobacco user Use of substances other than those prescribed or required for medical reasons: No Advance Directives: No Advance Directives Information Provided: Yes Physical Exam Vital Signs: Vital Signs: Last Vital Signs Temp 98.0 F 07/23/21 15:20 Pulse 106 H 07/23/21 15:50 Resp 13 07/23/21 15:50 BP 141/86 H 07/23/21 15:50 Pulse Ox 96 07/23/21 15:50 Body Mass Index 20.9 Const: Other: Patient answering questions, appears still somewhat postictal with limited articulation of answers General: cooperative, no acute distress and alert Orientation/consciousness: patient oriented x3 HENMT: Head: Yes normal to inspection Eyes: General: appearance normal, both eyes and all related structures Eyelids: Yes eyelids normal Conjunctivae: conjunctivae normal Pupils: Equal, round and reactive pupils present Neck: Neck: Yes normal visual inspection and Yes supple Chest: Chest palpation & inspection: normal inspection of the chest Resp: Effort & Inspection: normal respiratory effort Auscultation: clear to auscultation bilaterally Cardio: Rate: regular rate Rhythm: regular rhythm Heart sounds: S1 normal heart sound present, S2 normal heart sound present, no gallops, no murmurs and no rubs GI: Palpation (GI): Soft to palpation, Tenderness to palpation present (GI) (Mild epigastric) and Other GI palpation findings present (Non-distended) Auscultation: normal bowel sounds Skin: General skin exam: no rashes or lesions noted Neuro: Other: Moderately tremulous with extension of hands General: patient oriented x3, no focal motor deficits and CN's II-XI intact bilaterally Cranial nerves: Yes Equal, round and reactive pupils present Cognition (Neuro): normal cognition Motor exam (neuro): 5/5 motor strength present throughout Sensory Exam: No Sensory deficit (Neuro) Extrem: General: Yes normal to inspection and Yes no pedal edema Psych: Appearance: grossly normal Affect: normal affect Medical Decision Making MDM Narrative Medical decision making narrative: Patient with daily alcohol use, presents with vomiting and alcohol withdrawal, with an alcohol withdrawal seizure witnessed by EMS. Patient has had similar signs and symptoms in the past. Patient was tachycardic and moderately tremulous, had received Versed 6 mg IV pre-hospital for the seizure. Patient complained of some abdominal discomfort which she has stated felt like discomfort from vomiting. He also had some throat discomfort, stated that he been vomiting since early in the morning. Patient's labs showed severe dehydration with acute kidney injury, hemoconcentration, metabolic acidosis. Patient was given normal saline x1 L IV bolus, which was repeated and the patient was ordered to have D5 normal saline to help prevent alcoholic ketoacidosis. Acetone level was negative. White blood cell count was elevated and there was evidence of metabolic acidosis, however this is attributable to the patient's alcohol withdrawal, and seizure, and vomiting, do not believe that he has sepsis. The patient is being admitted to the hospitalist service. Patient was started on the phenobarbital IM protocol for alcohol withdrawal Critical care time for this life-threatening illness was approximately 35 minutes exclusive of all other billable procedures, and included evaluating the patient, documentation, communication with the hospitalists, re-evaluation, reviewing labs and other studies Lab Data Lab results reviewed: Yes I reviewed the patient's lab results. Result diagrams: 07/23/21 13:48 07/23/21 13:48 Labs: Lab Results 07/23/21 07/23/21 07/23/21 Range/Units 13:48 13:48 14:11 WBC 25.0 H (4.8-10.8) X10*3/uL RBC 4.83 (4.60-5.80) X10*6/uL Hgb 16.5 (14.0-18.0) g/dl Hct 46.3 (42-52) % MCV 95.9 (80-98) fL MCH 34.2 H (27.0-33.0) pg MCHC 35.6 (31.0-36.0) g/dl RDW 11.7 (11.0-16.0) % Plt Count 131 L D (160-400) X10*3/uL MPV 9.8 (9.4-12.4) fL Immature Gran % (Auto) 0.8 H (0.0-0.4) % Neut % (Auto) 87.4 H (45-73) % Lymph % (Auto) 3.8 L (20-40) % Hendricks % (Auto) 7.6 (2-11) % Eos % (Auto) 0.0 (0-4) % Baso % (Auto) 0.4 (0-2) % Lymph # (Auto) 0.9 L (1.2-4.9) X10*3/uL Hendricks # (Auto) 1.9 H (0.1-1.2) X10*3/uL Eos # (Auto) 0.0 (0.0-0.4) X10*3/uL Baso # (Auto) 0.1 (0.0-0.2) X10*3/uL Abs Immat Gran (auto) 0.20 H (0.00-0.03) X10*3/uL Absolute Neuts (auto) 21.8 H (2.0-8.3) X10*3/uL Absolute Nucleated RBC 0.000 (0.0-0.012) X10*3/uL Nucleated RBC % (auto) 0.0 (0.0-0.2) /100WBC Smear Tech's Comments VERIFIED Sodium 136 (135-145) mmol/L Potassium 3.5 D (3.3-5.1) mmol/L Chloride 83 L (96-108) mmol/L Carbon Dioxide 18 L (22-29) mmol/L Anion Gap 39 H (12-20) BUN 13 D (9-16) mg/dL Creatinine 1.63 H (0.5-1.4) mg/dL Estim Creat Clear Calc 59.8 Estimated GFR 50 POC Glucose 187 H (60-115) mg/dL Random Glucose 185 H D (60-115) mg/dL Calcium 11.0 H D (8.4-10.2) mg/dL Magnesium 2.6 (1.6-2.6) mg/dL Total Bilirubin 1.9 H (0.0-1.0) mg/dL AST 42 H (5-37) U/L ALT 27 (0-40) U/L Alkaline Phosphatase 116 D (39-117) U/L Troponin I High Sens (<3.5-35.0) ng/L Total Protein 8.8 H D (6.5-8.0) g/dL Albumin 5.2 H D (3.5-5.0) g/dL Lipase 49 (8-78) U/L Acetone, Qual (Negative) COVID-19 (CJ) (Negative) COVID-19 Clin Com 07/23/21 07/23/21 07/23/21 Range/Units 14:55 14:55 14:55 WBC (4.8-10.8) X10*3/uL RBC (4.60-5.80) X10*6/uL Hgb (14.0-18.0) g/dl Hct (42-52) % MCV (80-98) fL MCH (27.0-33.0) pg MCHC (31.0-36.0) g/dl RDW (11.0-16.0) % Plt Count (160-400) X10*3/uL MPV (9.4-12.4) fL Immature Gran % (Auto) (0.0-0.4) % Neut % (Auto) (45-73) % Lymph % (Auto) (20-40) % Hendricks % (Auto) (2-11) % Eos % (Auto) (0-4) % Baso % (Auto) (0-2) % Lymph # (Auto) (1.2-4.9) X10*3/uL Hendricks # (Auto) (0.1-1.2) X10*3/uL Eos # (Auto) (0.0-0.4) X10*3/uL Baso # (Auto) (0.0-0.2) X10*3/uL Abs Immat Gran (auto) (0.00-0.03) X10*3/uL Absolute Neuts (auto) (2.0-8.3) X10*3/uL Absolute Nucleated RBC (0.0-0.012) X10*3/uL Nucleated RBC % (auto) (0.0-0.2) /100WBC Smear Tech's Comments Sodium (135-145) mmol/L Potassium (3.3-5.1) mmol/L Chloride (96-108) mmol/L Carbon Dioxide (22-29) mmol/L Anion Gap (12-20) BUN (9-16) mg/dL Creatinine (0.5-1.4) mg/dL Estim Creat Clear Calc Estimated GFR POC Glucose (60-115) mg/dL Random Glucose (60-115) mg/dL Calcium (8.4-10.2) mg/dL Magnesium (1.6-2.6) mg/dL Total Bilirubin (0.0-1.0) mg/dL AST (5-37) U/L ALT (0-40) U/L Alkaline Phosphatase (39-117) U/L Troponin I High Sens 8.7 (<3.5-35.0) ng/L Total Protein (6.5-8.0) g/dL Albumin (3.5-5.0) g/dL Lipase (8-78) U/L Acetone, Qual Negative (Negative) COVID-19 (CJ) Negative (Negative) COVID-19 Clin Com See Note ECG Data Attestation: I personally reviewed and interpreted this ECG as follows: Prior ECG tracings: not available for review Interpretation: Sinus tachycardia with a rate of 132. Complete right bundle- branch block. Peaked appearing T-waves. Biatrial enlargement. Compared to 03/02/2021, tachycardia is new, incomplete right bundle-branch block appears new, and poor R-wave progression is new, as is the atrial enlargement Discharge Plan Discharge Clinical Impression: ETOH abuse, Vomiting, Acute kidney injury, Acute dehydration, Metabolic acidosis, Alcohol withdrawal seizure Patient Disposition: Admitted As Inpatient
--- NOTE | 2021-07-23 13:45 | PC.NURSE ---
pt brought to ed by ambulance for ETOH related seizure. pt states his girlfriend called the ambulance because she found him convulsing.. pt is etoh dependent and reports he drinks about 1 pint ofg hard liquor and 4-6 tall cans of beer per day. his last drink was last night. pt also reports that he experienced the same thing a few other times when he went through withdrawal in the past, he does have history of withdrawal seizures. pt also reports hat he has been eating and drinking less over last few days. Per ems pt had a seizure during transport to the ed. pt given Versed 6mg IV and seizures stopped. Pt was also placed on 2L N/C by ems. Pt postictal when he arrived to the ed.
[2021-07-23] MEDS: LORazepam 2 MG/ML VIAL IVPUSH (13:50)
[2021-07-23] MEDS: ondansetron HCL 4 MG/2 ML VIAL IVPUSH (13:50)
[2021-07-23 13:54] LABS: Basophils Absolute Auto 0.1 X10*3/uL (0.0-0.2); Basophils Percent Auto 0.4 % (0-2); Hematocrit 46.3 % (42-52); Hemoglobin 16.5 g/dl (14.0-18.0); Imm Gran Pct Auto 0.8 % (0.0-0.4); Lymphocytes Absolute Auto 0.9 X10*3/uL (1.2-4.9); Lymphocytes Percent Auto 3.8 % (20-40); MANUAL DIFF FLAG SCAN; Mean Corpuscular HGB Conc 35.6 g/dl (31.0-36.0); Mean Corpuscular Hemoglobin 34.2 pg (27.0-33.0); Mean Corpuscular Volume 95.9 fL (80-98); Mean Platelet Volume 9.8 fL (9.4-12.4); Monocytes Absolute Auto 1.9 X10*3/uL (0.1-1.2); Monocytes Percent Auto 7.6 % (2-11); Neutrophils Absolute Auto 21.8 X10*3/uL (2.0-8.3); Neutrophils Percent Auto 87.4 % (45-73); Platelet Count 131 X10*3/uL (160-400); Red Blood Count 4.83 X10*6/uL (4.60-5.80); Red Cell Distribution Width 11.7 % (11.0-16.0); SCAN SMEAR FLAG 1
[2021-07-23] MEDS: 0.9 % Sodium Chloride 1,000 ML 999 ML IV ×2 (13:55→15:50)
--- NOTE | 2021-07-23 13:58 | ECG_ITS ---
Test Reason : chest pain Blood Pressure : / mmHG Vent. Rate : 132 BPM Atrial Rate : 132 BPM P-R Int : 116 ms QRS Dur : 102 ms QT Int : 322 ms P-R-T Axes : 080 083 076 degrees QTc Int : 477 ms Sinus tachycardia Biatrial enlargement Incomplete right bundle branch block Abnormal ECG Heart rate has increased Referred By: Praful Lemon Electronically Signed By:JAK URIARTE MD
--- NOTE | 2021-07-23 14:00 | PC.NURSE ---
pt alert oriented, sinus tachy on the monitor. pt denies pain. Pt' o2 88% R/A. pt placed on 2L N/C which brought his O2 to 98-99%. pt denies sob/headache. no c/o chest pain. iv established, labs drawn, meds given, fluids hung as documented.
[2021-07-23 14:12] VITALS: BP 133/89; PULSE 122; RESP 22; TEMP 37.2; O2SAT 97
[2021-07-23 14:15] LABS: SLIDE REVIEW VERIFIED
[2021-07-23 14:16] LABS: Alanine Aminotransferase 27 U/L (0-40); Albumin Level 5.2 g/dL (3.5-5.0); Alkaline Phosphatase 116 U/L (39-117); Anion Gap 39 (12-20); Aspartate Amino Transferase 42 U/L (5-37); Bilirubin Total 1.9 mg/dL (0.0-1.0); Blood Urea Nitrogen 13 mg/dL (9-16); Carbon Dioxide 18 mmol/L (22-29); Chloride 83 mmol/L (96-108); Creatinine Clr Calc Pharmacy 59.8; Estimated Glomerular Filt Rate 50; Glucose Random 185 mg/dL (60-115); Lipase 49 U/L (8-78); Magnesium 2.6 mg/dL (1.6-2.6); Potassium 3.5 mmol/L (3.3-5.1); Sodium 136 mmol/L (135-145); Total Protein 8.8 g/dL (6.5-8.0)
[2021-07-23 14:17] LABS: Glucose, Whole Blood 187 mg/dL (60-115)
--- NOTE | 2021-07-23 15:15 | P.HPHOSP_ITS ---
History of Present Illness Date of Service: 07/23/21 Chief Complaint: seizure 31M presented with seizure. patient is etoh dependent, drinks about 1 pint hard liquor per day, and 4-6 talls cans of beer per day. last drink evening prior to admission, but reports that he has been eating and drinking less over last few days. he does have history of withdrawal seizures. on am of admission patient was found to be convulsing by his girlfriend who called EMS. pateint was given versed 6mg iv and seizures stopped. labs singificant for ALVARO, dehydration, AGMA. given phenobarb and iv fluids. Review of Systems Review of Systems: Constitutional: Denies fever, denies Chills Eyes: denies blurry vision ENT: denies sore throat CVS: denies chest pain Respiratory: Denies dyspnea GI: no abdominal pain : denies dysuria MSK: denies neck pain Skin: denies rash Neuro: denies specific motor weakness Psych: denies suicidal ideation Endocrine: denies heat/cold intolerance Hematologic: denies easy bleeding Allergy: denies hives [facility] Medical History Anxiety Depression ETOH abuse Seizure Family History Mother DVT (deep venous thrombosis) Pertinent family history: see above Social History Alcohol intake: current Alcohol intake frequency: 3 or more drinks per day Alcohol type: beer and hard liquor Patient Tobacco Use Status: Current everyday Tobacco user Use of substances other than those prescribed or required for medical reasons: No Advance Directives: No Advance Directives Information Provided: Yes Meds Allergies Allergy/AdvReac Type Severity Reaction Status Date / Time No Known Allergies Allergy Verified 12/17/20 22:42 [No Known Allergies*] Active Medications: Current Medications Sodium Chloride (Ns) 1,000 mls @ 999 mls/hr IV .Q1H1M MO Stop: 07/23/21 15:30 Sodium Chloride (Ns) 1,000 mls @ 100 mls/hr IVCONT .Q10H [facility] Medication (No Benzodiazepines) 1 each MISCELLANE DAILY [facility] Pharmacy Consult (Consult Rx Perform Med Rec) 1 each MISCELLANE ONCE PRN PRN Reason: Consult order Phenobarbital (Phenobarbital 15 Mg Tablet) 45 mg PO BID [facility]; Protocol Stop: 07/25/21 21:01 Phenobarbital (Phenobarbital 30 Mg Tablet) 30 mg PO BID [facility]; Protocol Stop: 07/27/21 21:01 Phenobarbital (Phenobarbital 15 Mg Tablet) 15 mg PO DAILY [facility]; Protocol Stop: 07/29/21 09:01 Phenobarbital Sodium (Phenobarbital Sodium 130 Mg/Ml Vial) 234 mg IM Q3H [facility]; Protocol Stop: 07/23/21 21:01 Home Medications Medication Instructions Recorded Confirmed Last Taken Type chlordiazepoxide HCl 25 mg capsule See Rx Instructions .ROUTE .COMPLEX 02/15/21 02/15/21 Unknown History naltrexone 50 mg tablet 1 tab PO DAILY 02/15/21 02/15/21 Unknown History naltrexone microspheres 380 mg 380 mg IM Q4W 02/15/21 02/15/21 Unknown History intramuscular suspension,extended release (Vivitrol) nicotine 21 mg/24 hr daily 1 patch TOPICAL DAILY 02/15/21 02/15/21 Unknown History transdermal patch omeprazole 20 mg capsule,delayed 1 cap PO DAILY 02/15/21 07/23/21 Unknown History release trazodone 50 mg tablet 1 tab PO BEDTIME PRN 07/23/21 07/23/21 Unknown History Physical Exam Vital Signs and Narrative: Vital Signs: Last Vital Signs Temp 99.0 F 07/23/21 14:12 Pulse 122 H 07/23/21 14:12 Resp 22 H 07/23/21 14:12 BP 133/89 07/23/21 14:12 Pulse Ox 97 07/23/21 14:12 Body Mass Index 20.9 General: no acute distress, dishevelled, tremulous HEENT: atraumatic Neck: normal to visual inspection CVS: S1, S2, Rapid, regular Resp: CTA bilateral Chest: non tender GI: soft, non tender, non distended : no CVA tenderness Skin: no rashes Extremities: no edema Neuro: Oriented X3, tremulous Psych: cooperative Results Labs CBC and Chem 7: 07/23/21 13:48 07/23/21 13:48 Labs: Laboratory Results - last 24 hr 07/23/21 07/23/21 07/23/21 13:48 13:48 14:11 MCV 95.9 MCH 34.2 H MCHC 35.6 RDW 11.7 Plt Count 131 L D MPV 9.8 Immature Gran % (Auto) 0.8 H Neut % (Auto) 87.4 H Lymph % (Auto) 3.8 L Pepin % (Auto) 7.6 Eos % (Auto) 0.0 Baso % (Auto) 0.4 Lymph # (Auto) 0.9 L Pepin # (Auto) 1.9 H Eos # (Auto) 0.0 Baso # (Auto) 0.1 Abs Immat Gran (auto) 0.20 H Absolute Neuts (auto) 21.8 H Absolute Nucleated RBC 0.000 Nucleated RBC % (auto) 0.0 Smear Tech's Comments VERIFIED Anion Gap 39 H Estim Creat Clear Calc 59.8 Estimated GFR 50 POC Glucose 187 H Random Glucose 185 H D Calcium 11.0 H D Magnesium 2.6 Total Bilirubin 1.9 H AST 42 H ALT 27 Alkaline Phosphatase 116 D Total Protein 8.8 H D Albumin 5.2 H D Lipase 49 Assessment and Plan (1) Seizure: Status: Acute 31M presented with seizure found to have ALVARO, AGMA etoh dependence with withdrawal complicated by seizure, acute kidney injury and anion gap metabolic acidosis phenobarb protocol monitor ciwa NS IV, monitor bmp AGMA likely lactic acidosis form seizure and alcoholic ketoacidosis, monitor bmp care team eval seizure precations acute hypoxic respiratory failure was 88% on room air, transient, likely due to some aspiration pneumonitis from seizure, wean o2 as tolerated. dvt prophylaxis - low risk, encourage ambulation full code Quality Stroke Does the patient have a stroke diagnosis?: No VTE Prior VTE?: No VTE Risk Level:: Medical - low VTE Device Contraindication: Treatment Not Indicated VTE Drug Contraindication: Treatment Not Indicated
[2021-07-23 15:16] LABS: COVID-19 Test Negative (Negative)
[2021-07-23 15:20] VITALS: BP 138/96; PULSE 126; RESP 17; TEMP 36.7; O2SAT 97
[2021-07-23 15:20] LABS: Troponin-I High Sensitivity 8.7 ng/L (<3.5-35.0)
[2021-07-23 15:27] LABS: Acetone, serum QL Negative (Negative)
--- NOTE | 2021-07-23 15:30 | PC.NURSE ---
pt alert and oriented vss, denies pain. no seizure activity noted or reported. no complaints. pt's mother at bedside. meds given as documented. Dr. Lemon in to see pt. pt will be admitted.
--- NOTE | 2021-07-23 15:44 | PHA.MEDREC ---
Pharmacy Consult ? Medication Reconciliation Pharmacy has completed the medication reconciliation.
[2021-07-23 15:50] VITALS: BP 141/86; PULSE 106; RESP 13; O2SAT 96
[2021-07-23] MEDS: PHENobarbitaL sodium 130 MG/ML VIAL 309 MG IM (16:14)
[2021-07-23] MEDS: 0.9 % Sodium Chloride 1,000 ML 100 ML IVCONT ×2 (17:16→23:34)
[2021-07-23 18:00] VITALS: BP 128/75; PULSE 106; RESP 16; TEMP 36.9; O2SAT 100
[2021-07-23] MEDS: PHENobarbitaL sodium 130 MG/ML VIAL 194 MG IM ×2 (19:46→23:28)
--- NOTE | 2021-07-23 20:08 | PC.NURSE ---
PATIENT ATE 100 % OF DINNER
[2021-07-23 20:28] LABS: Amphetamine Screen Urine Not Detected (Not Detect); Barbiturates, Urine POSITIVE (Not Detect); Benzodiazepines Screen Urine POSITIVE (Not Detect); Cannabinoid Screen Urine Not Detected (Not Detect); Cocaine Screen Urine Not Detected (Not Detect); Fentanyl, urine Not Detected (Not Detect); Opiate Screen Urine Not Detected (Not Detect); Phencyclidine Screen Urine Not Detected (Not Detect)
--- NOTE | 2021-07-23 21:00 | PC.NURSE ---
Addendum entered by Eulalia Thompson RN 07/24/21 01:52: Patient resting in bed, diaphoretic noted.. POC obtained 106, vitals obtained/stable. (Patient states he normally sweats a lot). No complaints reported. Original Note: Patient a/o x4, in NAD, denies sob, chest pain or dizziness, resting in bed, arousable to verbal stimuli. No seizure activity noted on this shift. Patient medicated per order, IVF infusing. Will continue to monitor.
[2021-07-23] MEDS: Famotidine/PF 20 MG/2 ML VIAL IVPUSH (21:02)
[2021-07-23 22:00] VITALS: BP 138/77; PULSE 91; RESP 18; TEMP 36.7; O2SAT 98
--- NOTE | 2021-07-23 22:17 | MHC.CM.PN ---
CM met with admitted patient with bed assignment pending. Pt has had multiple ED visits for ETOH misuse. Lives with his mother, children's mother and his 2 children. Pt uses no DME or services. Pt aware that Care Team will see him in the hospital. Encouraged pt to accept help. HCP on file. HCP/mother Simran Severino ([phone]). PCP is Wendi MATTHEWS [place]. Pt is fully vaccinated with Moderna. D/C plan is home without services, unless pt agreeable to detox/recovery services. Transportation by family. CM to follow for d/c needs.
[2021-07-24] VITALS (7 sets, daily range): BP systolic 115–136; BP diastolic 61–77; PULSE 74–90; RESP 12–20; TEMP 36.2–37.3; O2SAT 97–100
[2021-07-24 01:27] LABS: Glucose, Whole Blood 102 mg/dL (60-115)
[2021-07-24 07:29] LABS: Mean Corpuscular Volume 95.2 fL (80-98); PLT CLUMP 1
[2021-07-24 07:31] LABS: Hematocrit 37.5 % (42-52); Hemoglobin 13.2 g/dl (14.0-18.0); Mean Corpuscular HGB Conc 35.2 g/dl (31.0-36.0); Mean Corpuscular Hemoglobin 33.5 pg (27.0-33.0); Mean Platelet Volume 10.3 fL (9.4-12.4); Red Blood Count 3.94 X10*6/uL (4.60-5.80); Red Cell Distribution Width 11.4 % (11.0-16.0); White Blood Count 10.4 X10*3/uL (4.8-10.8)
[2021-07-24 07:34] LABS: INTERNATIONAL NORM RATIO 1.1 (0.9-1.1)
[2021-07-24 07:44] LABS: Platelet Count 82 X10*3/uL (160-400)
[2021-07-24 08:16] LABS: Alanine Aminotransferase 47 U/L (0-40); Albumin Level 3.8 g/dL (3.5-5.0); Alkaline Phosphatase 82 U/L (39-117); Anion Gap 13 (12-20); Aspartate Amino Transferase 143 U/L (5-37); Bilirubin Direct 0.9 mg/dL (0.0-0.5); Bilirubin Total 2.3 mg/dL (0.0-1.0); Blood Urea Nitrogen 14 mg/dL (9-16); Carbon Dioxide 31 mmol/L (22-29); Chloride 91 mmol/L (96-108); Creatinine Clr Calc Pharmacy 113.3; Estimated Glomerular Filt Rate > 60; Glucose Fasting 95 mg/dL (60-99); Magnesium 2.1 mg/dL (1.6-2.6); Potassium 3.3 mmol/L (3.3-5.1); Sodium 132 mmol/L (135-145); Total Protein 6.3 g/dL (6.5-8.0)
[2021-07-24] MEDS: Famotidine/PF 20 MG/2 ML VIAL IVPUSH ×2 (09:03→20:37)
[2021-07-24] MEDS: PHENobarbitaL 15 MG TABLET 45 MG PO ×2 (09:03→20:37)
[2021-07-24] MEDS: 0.9 % Sodium Chloride 1,000 ML 100 ML IVCONT ×2 (11:03→21:52)
[2021-07-24] MEDS: PHENobarbitaL sodium 130 MG/ML VIAL 194 MG IM (11:03)
--- NOTE | 2021-07-24 11:39 | P.PNIM_ITS ---
Subjective Subjective Date of Service: 07/24/21 Interval History: cc: seizure interval history: weak, tremulous, more clear headed Cardiovascular Cardiovascular: Reports no additional cardiovascular complaints Respiratory Respiratory: Reports no additional respiratory complaints Physical Exam Vital Signs: Vital Signs: Last Vital Signs Temp 99.1 F 07/24/21 07:29 Pulse 87 07/24/21 07:29 Resp 18 07/24/21 07:29 BP 136/75 07/24/21 07:29 Pulse Ox 97 07/24/21 07:29 Body Mass Index 20.9 General: AO X 3, no acute distress, disheveled Resp: CTA bilateral, no accessory muscles used CVS: S1,S2,RRR GI: soft, non tender, non distended Neuro: motor grossly intact, alert, tremulous Psych: appropriate affect, appropriate insight Objective Data Active Medications Famotidine (Famotidine/Pf 20 Mg/2 Ml Vial) 20 mg IVPUSH BID [facility] Last Admin: 07/24/21 09:03 Dose: 20 mg Documented by: MARLON Sodium Chloride (Ns) 1,000 mls @ 100 mls/hr IVCONT .Q10H [facility] Last Admin: 07/24/21 11:03 Dose: 100 mls/hr Documented by: MARLON Medication (No Benzodiazepines) 1 each MISCELLANE DAILY [facility] Pharmacy Consult (Consult Rx Perform Med Rec) 1 each MISCELLANE ONCE PRN PRN Reason: Consult order Phenobarbital (Phenobarbital 15 Mg Tablet) 45 mg PO BID [facility]; Protocol Stop: 07/25/21 21:01 Last Admin: 07/24/21 09:03 Dose: 45 mg Documented by: MARLON Phenobarbital (Phenobarbital 30 Mg Tablet) 30 mg PO BID [facility]; Protocol Stop: 07/27/21 21:01 Phenobarbital (Phenobarbital 15 Mg Tablet) 15 mg PO DAILY [facility]; Protocol Stop: 07/29/21 09:01 Sodium Chloride (0.9 % Sodium Chloride Flush 3 Ml Syringe) 3 ml IVFLUSH QSHIFT [facility] Last Admin: 07/24/21 08:00 Dose: Not Given Documented by: MARLON Non-Admin Reason: IV Running Labs CBC & Chem 7: 07/24/21 07:23 07/24/21 07:23 Labs: Laboratory Results - last 24 hr 07/23/21 07/23/21 07/23/21 13:48 13:48 14:11 MCV 95.9 MCH 34.2 H MCHC 35.6 RDW 11.7 Plt Count 131 L D MPV 9.8 Immature Gran % (Auto) 0.8 H Neut % (Auto) 87.4 H Lymph % (Auto) 3.8 L [place] % (Auto) 7.6 Eos % (Auto) 0.0 Baso % (Auto) 0.4 Lymph # (Auto) 0.9 L [place] # (Auto) 1.9 H Eos # (Auto) 0.0 Baso # (Auto) 0.1 Abs Immat Gran (auto) 0.20 H Absolute Neuts (auto) 21.8 H Absolute Nucleated RBC 0.000 Nucleated RBC % (auto) 0.0 Smear Tech's Comments VERIFIED PT INR Anion Gap 39 H Estim Creat Clear Calc 59.8 Estimated GFR 50 POC Glucose 187 H Random Glucose 185 H D Fasting Glucose Calcium 11.0 H D Magnesium 2.6 Total Bilirubin 1.9 H Direct Bilirubin AST 42 H ALT 27 Alkaline Phosphatase 116 D Troponin I High Sens Total Protein 8.8 H D Albumin 5.2 H D Lipase 49 Urine Opiates Screen Urine Fentanyl Screen Ur Barbiturates Screen Ur Phencyclidine Scrn Ur Amphetamines Screen U Benzodiazepines Scrn Urine Cocaine Screen U Marijuana (THC) Screen Acetone, Qual COVID-19 (CJ) COVID-[facility] Com 07/23/21 07/23/21 07/23/21 14:55 14:55 14:55 MCV MCH MCHC RDW Plt Count MPV Immature Gran % (Auto) Neut % (Auto) Lymph % (Auto) [place] % (Auto) Eos % (Auto) Baso % (Auto) Lymph # (Auto) [place] # (Auto) Eos # (Auto) Baso # (Auto) Abs Immat Gran (auto) Absolute Neuts (auto) Absolute Nucleated RBC Nucleated RBC % (auto) Smear Tech's Comments PT INR Anion Gap Estim Creat Clear Calc Estimated GFR POC Glucose Random Glucose Fasting Glucose Calcium Magnesium Total Bilirubin Direct Bilirubin AST ALT Alkaline Phosphatase Troponin I High Sens 8.7 Total Protein Albumin Lipase Urine Opiates Screen Urine Fentanyl Screen Ur Barbiturates Screen Ur Phencyclidine Scrn Ur Amphetamines Screen U Benzodiazepines Scrn Urine Cocaine Screen U Marijuana (THC) Screen Acetone, Qual Negative COVID-19 (CJ) Negative COVID-19 Clin Com See Note 07/23/21 07/24/21 07/24/21 19:53 01:24 07:23 MCV 95.2 MCH 33.5 H MCHC 35.2 RDW 11.4 Plt Count 82 L D MPV 10.3 Immature Gran % (Auto) Neut % (Auto) Lymph % (Auto) [place] % (Auto) Eos % (Auto) Baso % (Auto) Lymph # (Auto) [place] # (Auto) Eos # (Auto) Baso # (Auto) Abs Immat Gran (auto) Absolute Neuts (auto) Absolute Nucleated RBC 0.000 Nucleated RBC % (auto) 0.0 Smear Tech's Comments PT INR Anion Gap Estim Creat Clear Calc Estimated GFR POC Glucose 102 Random Glucose Fasting Glucose Calcium Magnesium Total Bilirubin Direct Bilirubin AST ALT Alkaline Phosphatase Troponin I High Sens Total Protein Albumin Lipase Urine Opiates Screen Not Detected Urine Fentanyl Screen Not Detected Ur Barbiturates Screen POSITIVE H Ur Phencyclidine Scrn Not Detected Ur Amphetamines Screen Not Detected U Benzodiazepines Scrn POSITIVE H Urine Cocaine Screen Not Detected U Marijuana (THC) Screen Not Detected Acetone, Qual COVID-19 (CJ) [address] [facility] [place] 07/24/21 07/24/21 07:23 07:23 MCV MCH MCHC RDW Plt Count MPV Immature Gran % (Auto) Neut % (Auto) Lymph % (Auto) [place] % (Auto) Eos % (Auto) Baso % (Auto) Lymph # (Auto) [place] # (Auto) Eos # (Auto) Baso # (Auto) Abs Immat Gran (auto) Absolute Neuts (auto) Absolute Nucleated RBC Nucleated RBC % (auto) Smear Tech's Comments PT 12.0 INR 1.1 Anion Gap 13 Estim Creat Clear Calc 113.3 Estimated GFR > 60 POC Glucose Random Glucose Fasting Glucose 95 Calcium 9.0 D Magnesium 2.1 Total Bilirubin 2.3 H Direct Bilirubin 0.9 H AST 143 H ALT 47 H Alkaline Phosphatase 82 D Troponin I High Sens Total Protein 6.3 L D Albumin 3.8 D Lipase Urine Opiates Screen Urine Fentanyl Screen Ur Barbiturates Screen Ur Phencyclidine Scrn Ur Amphetamines Screen U Benzodiazepines Scrn Urine Cocaine Screen U Marijuana (THC) Screen Acetone, Qual COVID-19 (CJ) COVID[facility]igi [place] Assessment and Plan (1) Acute kidney injury: Status: Acute (2) Acute dehydration: Status: Acute (3) Alcohol withdrawal seizure: Status: Acute Assessment and Plan: 31M presented with seizure found to have ALVARO, AGMA etoh dependence with withdrawal complicated by seizure, acute kidney injury, mild acute hepatitis, and anion gap metabolic acidosis phenobarb protocol, will give extra dose today, still scoring high on CIWA monitor ciwa NS IV, monitor bmp, ALVARO resolved AGMA likely lactic acidosis from seizure and alcoholic ketoacidosis, resolved care team eval seizure precautions monitor lfts acute hypoxic respiratory failure was 88% on room air, transient, likely due to some aspiration pneumonitis from seizure, resolved dvt prophylaxis - low risk, encourage ambulation full code Quality Stroke Does the patient have a stroke diagnosis?: No VTE Prior VTE?: No VTE Risk Level:: Medical - low VTE Device Contraindication: Treatment Not Indicated VTE Drug Contraindication: Treatment Not Indicated
--- NOTE | 2021-07-24 11:39 | PC.NURSE ---
Pt up to br. C/O diarrhea. no shaking noted
--- NOTE | 2021-07-24 11:54 | MHC.RECOVSUP ---
? Reason for consult:Continuity of care o Current location: ED- 21 o Identified substance use concern: ETOH - Withdrawal - Support ? Intervention: o Community resources provided o Harm reduction discussion ? Plan: o Referral to CCC o Patient awaiting crisis evaluation Patient to follow up with [facility] after discharge ? Additional information: Pt. admitted to the hospital, pt. having ETOH related seizures, spoke to pt. about MAT and harm reduction. Referred him to Recovery Coaching with Yamini. Referred him to [facility].
[2021-07-24] MEDS: Nicotine 21 MG PATCH.TD24 TRANSDERMA (14:03)
[2021-07-25] VITALS: BP 143/76; PULSE 74; RESP 17; TEMP 36.7; O2SAT 100
[2021-07-25 03:51] VITALS: BP 138/94; PULSE 80; RESP 17; TEMP 36.8; O2SAT 99
[2021-07-25 04:48] LABS: Hemoglobin 11.4 g/dl (14.0-18.0); PLT CLUMP 1; Red Cell Distribution Width 11.2 % (11.0-16.0)
[2021-07-25 04:49] LABS: Hematocrit 32.2 % (42-52); Mean Corpuscular HGB Conc 35.4 g/dl (31.0-36.0); Mean Corpuscular Hemoglobin 33.8 pg (27.0-33.0); Mean Corpuscular Volume 95.5 fL (80-98); Mean Platelet Volume 11.2 fL (9.4-12.4); Red Blood Count 3.37 X10*6/uL (4.60-5.80); White Blood Count 8.5 X10*3/uL (4.8-10.8)
[2021-07-25 04:51] LABS: Platelet Count 74 X10*3/uL (160-400)
[2021-07-25 05:14] LABS: Alanine Aminotransferase 51 U/L (0-40); Albumin Level 3.4 g/dL (3.5-5.0); Alkaline Phosphatase 70 U/L (39-117); Anion Gap 13 (12-20); Aspartate Amino Transferase 101 U/L (5-37); Bilirubin Direct 0.5 mg/dL (0.0-0.5); Bilirubin Total 1.1 mg/dL (0.0-1.0); Blood Urea Nitrogen 6 mg/dL (9-16); Calcium 8.4 mg/dL (8.4-10.2); Carbon Dioxide 27 mmol/L (22-29); Chloride 97 mmol/L (96-108); Creatinine Clr Calc Pharmacy 141.3; Estimated Glomerular Filt Rate > 60; Glucose Fasting 90 mg/dL (60-99); Sodium 134 mmol/L (135-145); Total Protein 5.3 g/dL (6.5-8.0)
[2021-07-25 07:53] VITALS: BP 136/84; PULSE 60; RESP 18; TEMP 36.8; O2SAT 96
[2021-07-25] MEDS: Nicotine 21 MG PATCH.TD24 TRANSDERMA (08:00)
[2021-07-25] MEDS: Famotidine/PF 20 MG/2 ML VIAL IVPUSH (08:00)
[2021-07-25] MEDS: 0.9 % Sodium Chloride 1,000 ML 100 ML IVCONT (08:01)
[2021-07-25] MEDS: Potassium Chloride ER 20 MEQ TAB.ER.PRT 40 MEQ PO (08:01)
[2021-07-25] MEDS: PHENobarbitaL 15 MG TABLET 45 MG PO (08:01)
--- NOTE | 2021-07-25 10:00 | P.PNIM_ITS ---
Subjective Subjective Date of Service: 07/25/21 Interval History: cc: seizure interval history: still a bit jittery but feeling better Cardiovascular Cardiovascular: Reports no additional cardiovascular complaints Respiratory Respiratory: Reports no additional respiratory complaints Physical Exam Vital Signs: Vital Signs: Last Vital Signs Temp 98.3 F 07/25/21 07:53 Pulse 60 07/25/21 07:53 Resp 18 07/25/21 07:53 BP 136/84 07/25/21 07:53 Pulse Ox 96 07/25/21 07:53 Body Mass Index 20.9 General: AO X 3, no acute distress Resp: CTA bilateral, no accessory muscles used CVS: S1,S2,RRR GI: soft, non tender, non distended Neuro: motor grossly intact, alert, still some tremors Psych: appropriate affect, appropriate insight Objective Data Active Medications Famotidine (Famotidine/Pf 20 Mg/2 Ml Vial) 20 mg IVPUSH BID [facility] Last Admin: 07/25/21 08:00 Dose: 20 mg Documented by: FRANCOIS Medication (No Benzodiazepines) 1 each MISCELLANE DAILY [facility] Nicotine (Nicotine 21 Mg Patch.Td24) 21 mg TRANSDERMA DAILY [facility] Last Admin: 07/25/21 08:00 Dose: 21 mg Documented by: FRANCOIS Pharmacy Consult (Consult Rx Perform Med Rec) 1 each MISCELLANE ONCE PRN PRN Reason: Consult order Phenobarbital (Phenobarbital 15 Mg Tablet) 45 mg PO BID [facility]; Protocol Stop: 07/25/21 21:01 Last Admin: 07/25/21 08:01 Dose: 45 mg Documented by: FRANCOIS Phenobarbital (Phenobarbital 30 Mg Tablet) 30 mg PO BID [facility]; Protocol Stop: 07/27/21 21:01 Phenobarbital (Phenobarbital 15 Mg Tablet) 15 mg PO DAILY [facility]; Protocol Stop: 07/29/21 09:01 Sodium Chloride (0.9 % Sodium Chloride Flush 3 Ml Syringe) 3 ml IVFLUSH QSHIFT [facility] Last Admin: 07/25/21 07:25 Dose: Not Given Documented by: JONATHON Non-Admin Reason: IV Running Labs CBC & Chem 7: 07/25/21 04:13 07/25/21 04:13 Labs: Laboratory Results - last 24 hr 07/25/21 07/25/21 04:13 04:13 MCV 95.5 MCH 33.8 H MCHC 35.4 RDW 11.2 Plt Count 74 L MPV 11.2 Absolute Nucleated RBC 0.000 Nucleated RBC % (auto) 0.0 Anion Gap 13 Estim Creat Clear Calc 141.3 Estimated GFR > 60 Fasting Glucose 90 Calcium 8.4 D Total Bilirubin 1.1 H Direct Bilirubin 0.5 AST 101 H ALT 51 H Alkaline Phosphatase 70 Total Protein 5.3 L Albumin 3.4 L Assessment and Plan (1) Acute kidney injury: Status: Acute (2) Acute dehydration: Status: Acute (3) Alcohol withdrawal seizure: Status: Acute Assessment and Plan: 31M presented with seizure found to have ALVARO, AGMA etoh dependence with withdrawal complicated by seizure, acute kidney injury, mild acute hepatitis, and anion gap metabolic acidosis phenobarb protocol, will continue atleast one more day inpatient as still tremulous monitor ciwa monitor bmp, ALVARO resolved, will dc ivf AGMA likely lactic acidosis from seizure and alcoholic ketoacidosis, resolved care team eval seizure precautions monitor lfts acute hypoxic respiratory failure was 88% on room air, transient, likely due to some aspiration pneumonitis from seizure, resolved dvt prophylaxis - low risk, encourage ambulation full code Quality Stroke Does the patient have a stroke diagnosis?: No VTE Prior VTE?: No VTE Risk Level:: Medical - low VTE Device Contraindication: Treatment Not Indicated VTE Drug Contraindication: Treatment Not Indicated
[2021-07-25 12:00] VITALS: BP 131/81; PULSE 68; RESP 17; TEMP 36.7; O2SAT 100
[2021-07-25] MEDS: Acetaminophen 325 MG TABLET 650 MG PO (13:41)
--- NOTE | 2021-07-25 13:46 | P.DS_ITS ---
DS: Providers Provider Date of Service: 07/25/21 Date of admission: 07/23/21 15:14 Primary care physician: Unknown Physician Consults: 07/23/21 15:13 Consult to Care Team Routine Comment: Reason for consultation: etoh DS: Diagnosis Discharge Diagnosis (1) Acute kidney injury: Status: Acute (2) Acute dehydration: Status: Acute (3) Alcohol withdrawal seizure: Status: Acute DS: Summary Hospital Course Hospital Course: patient was admitted for alcohol dependence with withdrawal complicated by seizure, acute kidney injury, mild acute alcoholic hepatitis, anion gap metabolic acidosis, and acute hypoxic respiratory failure. he was given phenobarbital protocol and his withdrawal symptoms eventually resolved. he was educated on ETOH cessation. he had no further seizures. he was given IV hydration and his ALVARO and acidosis resolved. his acute hypoxic respiratory failure was transient and likely related to aspir ation during seizure. his mild hepatitis showed signs of recovery, LFTS close to normal at discharge. patient is feeling much better and will be dicsharged home. Time Spent with Patient Time attestation: Total time spent providing and/or coordinating discharge services: Discharge coordination time: Greater than 30 minutes Quality: Stroke Does the patient have a stroke diagnosis?: No Physical Exam Vital Signs: Vital Signs: Last Vital Signs Temp 98.0 F 07/25/21 12:00 Pulse 68 07/25/21 12:00 Resp 17 07/25/21 12:00 BP 131/81 07/25/21 12:00 Pulse Ox 100 07/25/21 12:00 Body Mass Index 20.9 General: AO X 3, no acute distress Resp: CTA bilateral, no accessory muscles used CVS: S1,S2,RRR GI: soft, non tender, non distended Neuro: motor grossly intact, alert, no longer tremulous Psych: appropriate affect, appropriate insight DS: Data Data Completed and Pending Labs on day of discharge: Laboratory Results - last 24 hr 07/25/21 07/25/21 04:13 04:13 WBC 8.5 RBC 3.37 L Hgb 11.4 L Hct 32.2 L MCV 95.5 MCH 33.8 H MCHC 35.4 RDW 11.2 Plt Count 74 L MPV 11.2 Absolute Nucleated RBC 0.000 Nucleated RBC % (auto) 0.0 Sodium 134 L Potassium 3.0 L Chloride 97 Carbon Dioxide 27 Anion Gap 13 BUN 6 L D Creatinine 0.69 Estim Creat Clear Calc 141.3 Estimated GFR > 60 Fasting Glucose 90 Calcium 8.4 D Total Bilirubin 1.1 H Direct Bilirubin 0.5 AST 101 H ALT 51 H Alkaline Phosphatase 70 Total Protein 5.3 L Albumin 3.4 L Discharge Plan Discharge Patient Disposition: Home, Self-Care Discharge Diagnosis: etoh withdrawal, alvaro Referrals: Physician,Unknown J [Primary Care Provider] - 1 Week Discharge Medications: Continued trazodone 50 mg tablet 2 tab PO BEDTIME PRN (Reason: Sleep) RF: 0 Discharge Orders: Discharge Order (Routine); Ordered 07/25/21 Ordered By: Praful Lemon Diet: advance to usual diet Activity on Discharge: As tolerated Stand Alone Forms: Patient Portal Discharge page Care Plan Goals: recovery Health Concerns: etoh dependence Plan of Treatment: avoid alcohol Assessment: see above
== END 2021-07-25 15:17 | disposition home or self-care (01) | DRG 280 ==
LOC: HO.ED 14:02 → HO.EDOVER 16:02 → HO.S3 07-24 17:04
PROVIDERS: Admitting Provider Internal Medicine; Emergency Provider Emergency Medicine; Visit Provider Internal Medicine
DX: K70.10 Alcoholic hepatitis without ascites (principal); J96.01 Acute respiratory failure with hypoxia; J69.0 Pneumonitis due to inhalation of food and vomit; N17.9 Acute kidney failure, unspecified; R56.9 Unspecified convulsions; E87.2 Acidosis; F17.210 Nicotine dependence, cigarettes, uncomplicated; F41.9 Anxiety disorder, unspecified; F32.9 Major depressive disorder, single episode, unspecified; Z71.6 Tobacco abuse counseling; Z20.822 Contact with and (suspected) exposure to COVID-19; E86.0 Dehydration; F10.239 Alcohol dependence with withdrawal, unspecified; Z79.899 Other long term (current) drug therapy
CPT/HCPCS: 36415; 80048; 80053; 80076; 80307; 82009; 82947; 83690; 83735; 84484; 85025; 85027; 85610; 87635; 93005; 96361; 96372; 96374; 96375; 99285; J2060; J2405; J2560

== ENCOUNTER 2021-09-10 09:07 | Inpatient (IN) | payer MEDICAID, SELFPAY ==
--- NOTE | 2021-09-10 09:11 | ED_ITS ---
HPI - Alcohol General Chief Complaint: ETOH/Substance Use Stated Complaint: LAST ALC ENRIQUE & VOMITING SINCE T-1,PT ?'S WITHDRAWA Time Seen by Provider: 09/10/21 09:08 Source: patient Mode of arrival: ambulatory Limitations: no limitations History of Present Illness HPI narrative: 31-year-old male with a past medical history of anxiety, depression, ETOH abuse, withdrawal seizures, presenting to the ED complaining of withdrawal symptoms of nausea, vomiting, feeling tremulous, malaise, diarrhea, and poor PO intake. Patient tells me that he has been trying to cut down drinking for the past few weeks. He tells me he cannot quantify how much he drinks, he drinks beer until he passes out daily, and from time to time he will have a few shots of whiskey. He tells me that his last drink was yesterday night around 8:00 p.m. He tells me he has not been able to sleep, eat for days. He tells me is vomited at least 12 times today. His last alcohol withdrawal seizure was about a month ago. He tells me he does not want detox, and he would not want to stay in the hospital. He is adamant about this. He denies chest pain, shortness of breath, fevers, chills, abdominal pain, weakness, headache, dizziness. He also denies visual, and auditory hallucinations. He denies SI and HI. complaint: alcohol withdrawal and alcohol dependence Last drink: Hours (ago) (12) Amount of alcohol consumed: cant quantify Chronic alcohol use: Yes Previous visits for alcohol intoxication: Yes Recent trauma: No Associated symptoms: nausea, vomiting, diaphoresis and tremors Treatments prior to arrival: none Related Data Home Medications Medication Instructions Recorded Confirmed trazodone 50 mg tablet 2 tab PO BEDTIME PRN 07/23/21 07/23/21 omeprazole 20 mg capsule,delayed 1 cap PO DAILY 09/10/21 09/10/21 release Previous Rx's Medication Instructions Recorded ondansetron 4 mg disintegrating 4 mg PO ONCE PRN #10 tab 09/10/21 tablet Allergies Allergy/AdvReac Type Severity Reaction Status Date / Time No Known Allergies Allergy Verified 12/17/20 22:42 [No Known Allergies*] Review of Systems Review of Systems: Constitutional : No Weight loss, No Fever, No Chills, No Fatigue, No Malaise ENT/Mouth : No sore throat, No Rhinorrhea Eyes: No Eye Pain, No Swelling, No Redness Cardiovascular : No Chest Pain, No SOB, No Dyspnea on Exertion, No Orthopnea, No Edema, No Palpitations Respiratory : No Cough, No Sputum, No Wheezing Gastrointestinal : + Nausea, + Vomiting, + Diarrhea, No Constipation, No abdominal Pain, No Hematochezia, No Melena, + anorexia Genitourinary : No Dysuria, No Urinary Frequency, No Hematuria, Musculoskeletal : No joint pain, No Myalgias, No Joint Swelling Skin : No Skin Lesions, No rash Neuro : No Weakness, No Numbness, No Dizziness, No Headache, + tremors Psych : No Anxiety/Panic, No Depression All other systems reviewed and are negative [facility] Past Medical History Attestation statement: The following information was validated with the patient. Source: old records reviewed and nursing notes reviewed Medical History Anxiety Depression ETOH abuse Seizure Family History Family History Mother DVT (deep venous thrombosis) Social History Social History Household Members: Children Housing: House Do you presently have visiting nurse or other home services: No Alcohol intake: current Alcohol intake frequency: 3 or more drinks per day Alcohol type: hard liquor Patient Tobacco Use Status: Current everyday Tobacco user Tobacco use type: Cigarette Cigarette Packs Per Day: 1 Cigarettes Per Day: 20 Second Hand Smoke Exposure: Yes Use of substances other than those prescribed or required for medical reasons: No Advance Directives: No Advance Directives Information Provided: No service: No Current occupational status: unemployed Physical Exam Vital Signs: Vital Signs: Last Vital Signs Temp 98.0 F 09/10/21 09:18 Pulse 96 09/10/21 13:19 Resp 20 09/10/21 13:19 BP 122/81 09/10/21 13:19 Pulse Ox 99 09/10/21 13:19 BMI result Body Mass Index 21.4 Appearance: Alert.? Oriented X3.? No acute distress.? Head: Normocephalic, atraumatic, no step-offs or deformities Eyes: Pupils equal, round and reactive to light.? ENT: Pharynx normal.?+ tongue fasciculation + dry mucus membranes Neck: Normal inspection.? Neck supple.? CVS: +Rapid regular rythem.? Pulses normal.? Respiratory: No respiratory distress.? Breath sounds normal.? Abdomen: Soft and nontender.?No caput medusa Skin: Skin warm and dry.? Normal skin color.? Normal skin turgor.? Extremities: No lower extremity edema.? No calf ttp. 5/5 strength to bilateral upper and lower extremities Back: No midline tenderness, no C-spine tenderness, full range of motion, no CVA tenderness bilaterally Neuro: Oriented X 3.? No motor deficit.? No sensory deficit. + resting tremors. No asterixis Course Reevaluation(s) Reevaluation #1: Labs show no sign of acute infection, no anemia. Total bilirubin is noted to be chronically elevated, slightly elevated AST is, however this appears to be chronic in nature. No acute electrolyte abnormalities noted. ETOH noted to be 132. Urine drug tox pending. Time: 10:45 Reevaluation #2: Significant improvement after fluids and Ativan. No longer having tremors. No longer vomiting. Will do a PO challenge. Time: 11:28 Reevaluation #3: Patient tells me he is now willing to stay and speak to somebody about going to detox. At this time patient is feeling much better. And a care team consult has been put in. At this time patient will be placed in physician observation to allow more time for care team to evaluate patient, and look into the possibility of placing patient in the alcohol detox program. At the time that physician observation was started for vital signs were stable. Patient was well. Time: 12:10 Additional Reevaluation(s): Spoke to Mikey from the Care Team who tells me patient is refusing outpatient detox services. At this time patient is again tremulous, tachycardic, and diaphoretic. I will initiate phenobarb at this time. And will reach out to the hospitalist for admission [id number] Dr. Koch will be admitting patient. MDM - Alcohol MDM Narrative Medical decision making narrative: [id number] 31-year-old M pmhx anxiety, depression, ETOH abuse, withdrawal seizures, presenting to the ED complaining of withdrawal symptoms of nausea, vomiting, fe eling tremulous, malaise, diarrhea, and poor PO intake X 1 week. Patient's last drink was about 12 hours ago. He has been drinking beer, and whiskey but unable to quantify how much. Patient makes it very clear that he just wants to feel better and go home he tells me he does not understand hospital, he does not want detox. I spent a good amount of time speaking to patient and explaining to him that him cutting out alcohol as part of his day-to-day is very dangerous, I explained to him all the risks including . Upon physical examination patient is not in any acute distress. He has resting tremors to bilateral upper and lower extremities. Tongue fasciculations, dry mucous membranes. No asterixis or caput medusa. No scleral icterus. No visual, tactile, auditory hallucinations. Lungs are clear. A rapid regular rhythm is noted likely sinus tachycardia. Abdomen soft nontender nondistended. Plan at this time is to obtain basic labs, initiate seizure precautions, COVID, drug screen urine, ethanol, magnesium, continuous cardiac monitoring. An EKG will also be done. I will give patient 2 mg of IV Ativan. Ideally I would start the patient on a phenobarb protocol, however he refuses to get this as he states he is not staying in the hospital. Patient will be closely monitored. Medical Records Attestation: I reviewed the patient's medical records. Lab Data Attestation: I reviewed the patient's lab results. Result diagrams: 09/10/21 09:58 09/10/21 09:58 Labs: Lab Results 09/10/21 09/10/21 09/10/21 Range/Units 09:58 09:58 09:58 WBC 7.9 (4.8-10.8) X10*3/uL RBC 4.90 (4.60-5.80) X10*6/uL Hgb 15.9 (14.0-18.0) g/dl Hct 46.2 (42.0-52.0) % MCV 94.3 (80.0-98.0) fL MCH 32.4 (27.0-33.0) pg MCHC 34.4 (31.0-36.0) g/dl RDW 12.4 (11.0-16.0) % Plt Count 248 (160-400) X10*3/uL MPV 8.8 L (9.4-12.4) fL Immature Gran % (Auto) 0.3 (0.0-0.4) % Neut % (Auto) 79.6 H (45-73) % Lymph % (Auto) 13.0 L (20-40) % [place] % (Auto) 6.4 (2-11) % Eos % (Auto) 0.3 (0-4) % Baso % (Auto) 0.4 (0-2) % Lymph # (Auto) 1.0 L (1.2-4.9) X10*3/uL [place] # (Auto) 0.5 (0.1-1.2) X10*3/uL Eos # (Auto) 0.0 (0.0-0.4) X10*3/uL Baso # (Auto) 0.0 (0.0-0.2) X10*3/uL Abs Immat Gran (auto) 0.02 (0.00-0.03) X10*3/uL Absolute Neuts (auto) 6.3 (2.0-8.3) x10*3/uL Absolute Nucleated RBC 0.000 (0.0-0.012) X10*3/uL Nucleated RBC % (auto) 0.0 (0.0-0.2) /100WBC Sodium 137 (135-145) mmol/L Potassium 4.6 D (3.3-5.1) mmol/L Chloride 95 L (96-108) mmol/L Carbon Dioxide 27 (22-29) mmol/L Anion Gap 20 (12-20) BUN 6 L (9-16) mg/dL Creatinine 1.00 (0.5-1.4) mg/dL Estim Creat Clear Calc 99.5 Estimated GFR > 60 Random Glucose 100 D (60-115) mg/dL Calcium 9.8 D (8.4-10.2) mg/dL Magnesium 1.9 (1.6-2.6) mg/dL Total Bilirubin 1.4 H (0.0-1.0) mg/dL AST 39 H D (5-37) U/L ALT 27 (0-40) U/L Alkaline Phosphatase 112 D (39-117) U/L Total Protein 7.5 D (6.5-8.0) g/dL Albumin 4.4 D (3.5-5.0) g/dL Ethyl Alcohol mg/dL COVID-19 (CJ) Negative (Negative) COVID-19 Clin Com See Note 09/10/21 Range/Units 09:58 WBC (4.8-10.8) X10*3/uL RBC (4.60-5.80) X10*6/uL Hgb (14.0-18.0) g/dl Hct (42.0-52.0) % MCV (80.0-98.0) fL MCH (27.0-33.0) pg MCHC (31.0-36.0) g/dl RDW (11.0-16.0) % Plt Count (160-400) X10*3/uL MPV (9.4-12.4) fL Immature Gran % (Auto) (0.0-0.4) % Neut % (Auto) (45-73) % Lymph % (Auto) (20-40) % [place] % (Auto) (2-11) % Eos % (Auto) (0-4) % Baso % (Auto) (0-2) % Lymph # (Auto) (1.2-4.9) X10*3/uL [place] # (Auto) (0.1-1.2) X10*3/uL Eos # (Auto) (0.0-0.4) X10*3/uL Baso # (Auto) (0.0-0.2) X10*3/uL Abs Immat Gran (auto) (0.00-0.03) X10*3/uL Absolute Neuts (auto) (2.0-8.3) x10*3/uL Absolute Nucleated RBC (0.0-0.012) X10*3/uL Nucleated RBC % (auto) (0.0-0.2) /100WBC Sodium (135-145) mmol/L Potassium (3.3-5.1) mmol/L Chloride (96-108) mmol/L Carbon Dioxide (22-29) mmol/L Anion Gap (12-20) BUN (9-16) mg/dL Creatinine (0.5-1.4) mg/dL Estim Creat Clear Calc Estimated GFR Random Glucose (60-115) mg/dL Calcium (8.4-10.2) mg/dL Magnesium (1.6-2.6) mg/dL Total Bilirubin (0.0-1.0) mg/dL AST (5-37) U/L ALT (0-40) U/L Alkaline Phosphatase (39-117) U/L Total Protein (6.5-8.0) g/dL Albumin (3.5-5.0) g/dL Ethyl Alcohol 132 mg/dL COVID-19 (CJ) (Negative) COVID-19 Clin Com ECG Data ECG #1: Attestation: I personally reviewed and interpreted this ECG as follows: ECG interpretation date: 09/10/21 ECG interpretation time: 10:19 Prior ECG tracings: available for review Interpretation: Ventricular rate of 102, NE normal, QRS normal, QT / QTC normal. EKG shows sinus tachycardia with an incomplete right bundle branch block. No signs of ischemia. No significant changes when compared to EKG of July 23, 2021. Critical Care Time Critical Care Time Critical Care Time: No Discharge Plan Discharge Clinical Impression: Alcohol withdrawal syndrome, Alcoholic intoxication Patient Disposition: Admitted As Inpatient
[2021-09-10 09:18] VITALS: BP 124/78; PULSE 145; RESP 16; TEMP 36.7; O2SAT 96; BMI 21.4
--- NOTE | 2021-09-10 09:25 | ECG_ITS ---
Test Reason : ETOH Blood Pressure : / mmHG Vent. Rate : 102 BPM Atrial Rate : 102 BPM P-R Int : 124 ms QRS Dur : 104 ms QT Int : 338 ms P-R-T Axes : 079 071 070 degrees QTc Int : 440 ms Sinus tachycardia Incomplete right bundle branch block Borderline ECG When compared with ECG of 23-JUL-2021 13:58, No significant change was found Referred By: Petty Booker Electronically Signed By:LATASHA LLAMAS
[2021-09-10] MEDS: 0.9 % Sodium Chloride 1,000 ML 999 ML IV ×2 (09:28→12:23)
[2021-09-10] MEDS: ondansetron HCL 4 MG/2 ML VIAL IVPUSH ×3 (09:29→21:15)
[2021-09-10] MEDS: LORazepam 2 MG/ML VIAL IVPUSH (09:29)
--- NOTE | 2021-09-10 09:37 | PC.NURSE ---
Patient arrives via ambulance reporting alcohol withdrawal. Last drink was last night at 8PM. Began vomiting around 3AM. Patient reports being a heavy drinker but cannot quantify. Patient is tachycardic and nauseous at this time. Respirations regular and even. Tremorous. IV established by EMS.
[2021-09-10 10:07] LABS: MANUAL DIFF FLAG NO
[2021-09-10 10:09] LABS: Basophils Percent Auto 0.4 % (0-2); Eosinophils Percent Auto 0.3 % (0-4); Hematocrit 46.2 % (42.0-52.0); Hemoglobin 15.9 g/dl (14.0-18.0); Imm Gran Abs Auto 0.02 X10*3/uL (0.00-0.03); Imm Gran Pct Auto 0.3 % (0.0-0.4); Mean Corpuscular HGB Conc 34.4 g/dl (31.0-36.0); Mean Corpuscular Hemoglobin 32.4 pg (27.0-33.0); Mean Corpuscular Volume 94.3 fL (80.0-98.0); Mean Platelet Volume 8.8 fL (9.4-12.4); Monocytes Absolute Auto 0.5 X10*3/uL (0.1-1.2); Monocytes Percent Auto 6.4 % (2-11); Neutrophils Absolute Auto 6.3 x10*3/uL (2.0-8.3); Neutrophils Percent Auto 79.6 % (45-73); Platelet Count 248 X10*3/uL (160-400); Red Cell Distribution Width 12.4 % (11.0-16.0); White Blood Count 7.9 X10*3/uL (4.8-10.8)
[2021-09-10 10:26] LABS: COVID-19 Test Negative (Negative); Ethanol 132 mg/dL
[2021-09-10 10:32] LABS: Alanine Aminotransferase 27 U/L (0-40); Albumin Level 4.4 g/dL (3.5-5.0); Alkaline Phosphatase 112 U/L (39-117); Anion Gap 20 (12-20); Aspartate Amino Transferase 39 U/L (5-37); Bilirubin Total 1.4 mg/dL (0.0-1.0); Blood Urea Nitrogen 6 mg/dL (9-16); Calcium 9.8 mg/dL (8.4-10.2); Carbon Dioxide 27 mmol/L (22-29); Chloride 95 mmol/L (96-108); Creatinine Clr Calc Pharmacy 99.5; Estimated Glomerular Filt Rate > 60; Glucose Random 100 mg/dL (60-115); Magnesium 1.9 mg/dL (1.6-2.6); Potassium 4.6 mmol/L (3.3-5.1); Sodium 137 mmol/L (135-145); Total Protein 7.5 g/dL (6.5-8.0)
[2021-09-10 11:18] VITALS: BP 124/82; PULSE 95; RESP 16; O2SAT 99
--- NOTE | 2021-09-10 11:39 | PC.NURSE ---
Patient remains comfortable resting on stretcher. Nausea and tachycardia have improved since receiving fluids and ativan. Patient reports willingness to stay for treatment. provider made aware. Respirations remain regular and even. Remains tremorous. Patient alert and oriented. Calm and cooperative.
[2021-09-10 11:41] VITALS: BP 129/86; PULSE 117; RESP 17; O2SAT 98
[2021-09-10 13:19] VITALS: BP 122/81; PULSE 96; RESP 20; O2SAT 99
--- NOTE | 2021-09-10 13:20 | MHC.CARE ---
CARE Team meets with pt upon receiving a consult identifying pt was seeking detox.? Pt stated he has no interest in detox.? CARE Team offered other resources.? Pt declined.? Pt educated in community resources should he change his mind.? Pt was polite and expressed that he was only interested in staying ?In here for a couple of days?.? CARE Team discusses the outcome of the conversation with pt?s ED provider MACARENA Booker.
--- NOTE | 2021-09-10 13:41 | PC.NURSE ---
Provider at bedside to discuss admission with patient. Patient is willing to stray at this time. Remains comfortable.HR 96 on monitor. Will continue to monitor.
[2021-09-10 13:53] LABS: Amphetamine Screen Urine Not Detected (Not Detect); Barbiturates, Urine Not Detected (Not Detect); Benzodiazepines Screen Urine Not Detected (Not Detect); Cannabinoid Screen Urine Not Detected (Not Detect); Cocaine Screen Urine Not Detected (Not Detect); Fentanyl, urine POSITIVE (Not Detect); Opiate Screen Urine Not Detected (Not Detect); Phencyclidine Screen Urine Not Detected (Not Detect)
--- NOTE | 2021-09-10 13:55 | PHA.MEDREC ---
Pharmacy Consult ? Medication Reconciliation Pharmacy has completed the medication reconciliation. There are no remarkable issues for provider's attention. Marlee Johnson, ClotildeD
[2021-09-10 13:57] LABS: Appearance Urine CLEAR; Color Urine DK YELLOW; Glucose Urine UA NEG (NEG); Leukocyte Esterase Urine NEG (NEG); Nitrite Urine NEG (NEG); Specific Gravity - Urine >= 1.030 (1.005-1.025); UACC Culture Trigger NO; Urine Blood NEG (NEG); Urine Ketones 15 MG/DL (NEG); Urine Protein 2+ MG/DL (NEG-TRACE)
[2021-09-10] MEDS: PHENobarbitaL sodium 130 MG/ML VIAL 210.6 MG IM (14:21)
[2021-09-10 14:28] LABS: Mucus Urine 1+ /LPF; RBC Urine 0 /HPF (0); WBC Urine 0 /HPF (0-4)
--- NOTE | 2021-09-10 15:06 | P.HPHOSP_ITS ---
History of Present Illness Date of Service: 09/10/21 Chief Complaint: Alcohol withdrawal, Drug abuse A 31 years old male with PMHx of depression, drug abuse, alcohol abuse who presented to the hospital with nausea, anxiety and palpitations after stopping binge drinking last night after a week. He denies any fever, chills, abdominal pain, difficulty breathing. Reports feeling on the H and very anxious. Report having previous withdrawal was and episode of seizure. In the emergency he was found to positive level of alcohol. Started on phenobarbital Admitted for further evaluation and treatment. Review of Systems Review of Systems: No fever, chills but reported feeling anxious No chest pain, palpitation No shortness of breath or coughing No abdominal pain, nausea or vomiting No urinary symptoms No any rash or wounds PMFSH Medical History Anxiety Depression ETOH abuse Seizure Family History Mother DVT (deep venous thrombosis) Social History Household Members: Children Housing: House Do you presently have visiting nurse or other home services: No Alcohol intake: current Alcohol intake frequency: 3 or more drinks per day Alcohol type: hard liquor Patient Tobacco Use Status: Current everyday Tobacco user Tobacco use type: Cigarette Cigarette Packs Per Day: 1 Cigarettes Per Day: 20 Second Hand Smoke Exposure: Yes Use of substances other than those prescribed or required for medical reasons: No Advance Directives: No Advance Directives Information Provided: No service: No Current occupational status: unemployed Meds Allergies Allergy/AdvReac Type Severity Reaction Status Date / Time No Known Allergies Allergy Verified 12/17/20 22:42 [No Known Allergies*] Active Medications: Current Medications Acetaminophen (Acetaminophen 325 Mg Tablet) 650 mg PO Q6H PRN PRN Reason: Pain, Mild (Pain Scale 1-3) Enoxaparin Sodium (Enoxaparin Sodium 40 Mg/0.4 Ml Syringe) 40 mg SUBCUT Q24H [facility] Sodium Chloride (Ns) 1,000 mls @ 125 mls/hr IVCONT .Q8H MO Medication (No Benzodiazepines) 1 each MISCELLANE DAILY MO Omeprazole (Omeprazole 20 Mg Capsule.Dr) 20 mg PO DAILY@0630 MO Ondansetron HCl (Ondansetron Hcl 4 Mg/2 Ml Vial) 4 mg IVPUSH Q8H PRN PRN Reason: Nausea and Vomiting Pharmacy Consult (Consult Rx Perform Med Rec) 1 each MISCELLANE ONCE PRN PRN Reason: Consult order Phenobarbital (Phenobarbital 15 Mg Tablet) 45 mg PO BID [facility]; Protocol Stop: 09/12/21 21:01 Phenobarbital (Phenobarbital 30 Mg Tablet) 30 mg PO BID [facility]; Protocol Stop: 09/14/21 21:01 Phenobarbital (Phenobarbital 15 Mg Tablet) 15 mg PO DAILY [facility]; Protocol Stop: 09/16/21 09:01 Phenobarbital Sodium (Phenobarbital Sodium 130 Mg/Ml Vial) 158.6 mg IM Q3H [facility]; Protocol Stop: 09/10/21 20:01 Sodium Chloride (0.9 % Sodium Chloride Flush 3 Ml Syringe) [facility] Trazodone HCl (Trazodone Hcl 100 Mg Tablet) 100 mg PO BEDTIME [facility] Home Medications Medication Instructions Recorded Confirmed Last Taken Type trazodone 50 mg tablet 2 tab PO BEDTIME 07/23/21 09/10/21 09/03/21 History omeprazole 20 mg capsule,delayed 1 cap PO DAILY 09/10/21 09/10/21 09/03/21 History release Physical Exam Vital Signs and Narrative: Vital Signs: Last Vital Signs Temp 98.0 F 09/10/21 09:18 Pulse 96 09/10/21 13:19 Resp 20 09/10/21 13:19 BP 122/81 09/10/21 13:19 Pulse Ox 99 09/10/21 13:19 BMI result Body Mass Index 21.4 Const: Other: Constitutional : Alert, oriented, in mild distress, anxious Neck : Normal inspection, Supple Cardiovascular : RRR, S1 S2, no lower extremity edema Respiratory : Good bilateral air entry, no crackles, wheezes or rhonchi Gastrointestinal: soft, lax, Normal bowel sounds, Non tender Skin : Warm, Dry Neurological : Alert & oriented x3, No focal deficit Results Labs CBC and Chem 7: 09/10/21 09:58 09/10/21 09:58 Labs: Laboratory Results - last 24 hr 09/10/21 09/10/21 09/10/21 09:58 09:58 09:58 MCV 94.3 MCH 32.4 MCHC 34.4 RDW 12.4 Plt Count 248 MPV 8.8 L Immature Gran % (Auto) 0.3 Neut % (Auto) 79.6 H Lymph % (Auto) 13.0 L [place] % (Auto) 6.4 Eos % (Auto) 0.3 Baso % (Auto) 0.4 Lymph # (Auto) 1.0 L [place] # (Auto) 0.5 Eos # (Auto) 0.0 Baso # (Auto) 0.0 Abs Immat Gran (auto) 0.02 Absolute Neuts (auto) 6.3 Absolute Nucleated RBC 0.000 Nucleated RBC % (auto) 0.0 Anion Gap 20 Estim Creat Clear Calc 99.5 Estimated GFR > 60 Random Glucose 100 D Calcium 9.8 D Magnesium 1.9 Total Bilirubin 1.4 H AST 39 H D ALT 27 Alkaline Phosphatase 112 D Total Protein 7.5 D Albumin 4.4 D Urine Color Urine Appearance Urine pH Ur Specific [place] Urine Protein Urine Glucose (UA) Urine Ketones Urine Blood Urine Nitrite Ur Leukocyte Esterase Urine RBC Urine WBC Ur Squamous Epith Cells Urine Bacteria Urine Mucus Urine Opiates Screen Urine Fentanyl Screen Ur Barbiturates Screen Ur Phencyclidine Scrn Ur Amphetamines Screen U Benzodiazepines Scrn Urine Cocaine Screen U Marijuana (THC) Screen Ethyl Alcohol COVID-19 (CJ) Negative COVID-19 Clin Com See Note 09/10/21 09/10/21 09/10/21 09:58 13:33 13:33 MCV MCH MCHC RDW Plt Count MPV Immature Gran % (Auto) Neut % (Auto) Lymph % (Auto) [place] % (Auto) Eos % (Auto) Baso % (Auto) Lymph # (Auto) [place] # (Auto) Eos # (Auto) Baso # (Auto) Abs Immat Gran (auto) Absolute Neuts (auto) Absolute Nucleated RBC Nucleated RBC % (auto) Anion Gap Estim Creat Clear Calc Estimated GFR Random Glucose Calcium Magnesium Total Bilirubin AST ALT Alkaline Phosphatase Total Protein Albumin Urine Color DK YELLOW Urine Appearance CLEAR Urine pH 6.0 Ur Specific [place] >= 1.030 H Urine Protein 2+ H Urine Glucose (UA) NEG Urine Ketones 15 Urine Blood NEG Urine Nitrite NEG Ur Leukocyte Esterase NEG Urine RBC 0 Urine WBC 0 Ur Squamous Epith Cells NONE Urine Bacteria NONE Urine Mucus 1+ Urine Opiates Screen Not Detected Urine Fentanyl Screen POSITIVE H Ur Barbiturates Screen Not Detected Ur Phencyclidine Scrn Not Detected Ur Amphetamines Screen Not Detected U Benzodiazepines Scrn Not Detected Urine Cocaine Screen Not Detected U Marijuana (THC) Screen Not Detected Ethyl Alcohol 132 COVID-19 (CJ) COVID-19 Clin Com Assessment and Plan (1) Alcohol withdrawal syndrome: Status: Acute (2) Alcoholic intoxication: Status: Acute (3) Vomiting: Status: Acute A 31 years old male with PMHx of depression, drug abuse, alcohol abuse who presented to the hospital with nausea, anxiety and palpitations after stopping binge drinking. Alcohol withdrawal High risk for withdrawal seizures Started on phenobarbital protocol Avoid benzos IV fluids To get addiction team Nausea and vomiting Secondary to withdrawal Use Reglan, Zofran as needed DVT PPX Lovenox Quality Stroke Does the patient have a stroke diagnosis?: No VTE Prior VTE?: No VTE Risk Level:: Medical - moderate - high VTE Device Contraindication: Treatment Not Tolerated VTE Drug Contraindication: N/A - Med Ordered
[2021-09-10] MEDS: 0.9 % Sodium Chloride 1,000 ML 125 ML IVCONT ×2 (15:41→22:49)
[2021-09-10] MEDS: Metoclopramide HCl 10 MG/2 ML VIAL IVPUSH (15:41)
[2021-09-10 17:42] VITALS: PULSE 95; RESP 18; TEMP 36.7; O2SAT 100
[2021-09-10] MEDS: PHENobarbitaL sodium 130 MG/ML VIAL 158.6 MG IM ×2 (17:42→20:24)
[2021-09-10 19:26] VITALS: BP 138/87; PULSE 87; RESP 14; O2SAT 99
--- NOTE | 2021-09-10 20:34 | MHC.CM.PN ---
CM met with admitted patient with bed assignment pending. No IMM necessary. A&Ox3. HCP on file. HCP/mother Simran Severino ([phone]). Pt lives with mother, ex girlfriend and his 2 children. Is unemployed. Has multiple admissions/ED visits for ETOH withdrawal. Encouraged pt to keep an open mind with CARE team and consider rehab options. Pt has refused when addressed earlier by CARE Team. Pt uses no DME or services. D/C plan is home. Transportation arranged by patient. CM to follow for d/c needs.
--- NOTE | 2021-09-10 23:32 | PC.NURSE ---
I assumed care of this pt at 1900. Since that time he has remained alert and oriented x 3. he makes eye contact with Rn and has been calm and cooperative. The pt states he plans to detox medically and then D/C home - he does not wish to attend a detox, citing past detox experiences as bad. There are occasionally mild tremors, resolved after Phenobarb administration. No diaphoresis. He admits to mild anxiety He denies auditory or visual hallucinations, although admits that he is at times startled/ twitches . No chest pain. No SOB. Occasional nausea and vomiting, relieved with Zofran IVP via PRN MD orders. pt is prepared for inpatient admission. Will transport to inpatient bed assignment.
[2021-09-11] VITALS (7 sets, daily range): BP systolic 103–150; BP diastolic 56–85; PULSE 56–87; RESP 18; TEMP 36.4–37.1; O2SAT 95–98; BMI 21.3
[2021-09-11] MEDS: traZODone HCL 100 MG TABLET PO ×2 (00:58→22:35)
[2021-09-11] MEDS: 0.9 % Sodium Chloride 1,000 ML 125 ML IVCONT ×3 (00:58→20:44)
[2021-09-11] MEDS: 0.9 % Sodium Chloride Flush 3 ML SYRINGE IVFLUSH ×2 (00:58→20:43)
[2021-09-11] MEDS: Omeprazole 20 MG CAPSULE.DR PO (06:37)
[2021-09-11 07:41] LABS: Anion Gap 13 (12-20); Blood Urea Nitrogen 11 mg/dL (9-16); Calcium 8.8 mg/dL (8.4-10.2); Carbon Dioxide 25 mmol/L (22-29); Chloride 101 mmol/L (96-108); Estimated Glomerular Filt Rate > 60; Glucose Random 80 mg/dL (60-115); Potassium 4.1 mmol/L (3.3-5.1); Sodium 135 mmol/L (135-145)
[2021-09-11] MEDS: PHENobarbitaL 15 MG TABLET 45 MG PO ×2 (09:42→20:43)
[2021-09-11] MEDS: Nicotine 14 MG PATCH.TD24 TRANSDERMA (09:43)
[2021-09-11] MEDS: Famotidine 20 MG TABLET PO ×2 (09:51→20:43)
--- NOTE | 2021-09-11 11:27 | HO.PM.IMPN ---
Subjective Subjective Date of Service: 09/11/21 Interval History: the patient was seen and evaluated this morning Laying in bed, feels improvement but still having abdominal pain and nausea Denies any fever, chills or shortness of breath No reported other overnight events. Review of Systems No fever, chills but reported improvement in anxiety No chest pain, palpitation No shortness of breath or coughing Reporting mild abdominal pain, associated with nausea or vomiting No urinary symptoms No any rash or wounds Physical Exam Vital Signs: Vital Signs: Last Vital Signs Temp 97.7 F 09/11/21 07:50 Pulse 71 09/11/21 07:50 Resp 18 09/11/21 07:50 BP 103/56 L 09/11/21 07:50 Pulse Ox 97 09/11/21 07:50 BMI result Body Mass Index 21.3 Const: Other: Constitutional : Alert, oriented, in mild distress Neck : Normal inspection, Supple Cardiovascular : RRR, S1 S2, no lower extremity edema Respiratory : Good bilateral air entry, no crackles, wheezes or rhonchi Gastrointestinal: soft, lax, Normal bowel sounds, mild epigastric tenderness Skin : Warm, Dry Neurological : Alert & oriented x3, No focal deficit Objective Data Active Medications Acetaminophen (Acetaminophen 325 Mg Tablet) 650 mg PO Q6H PRN PRN Reason: Pain, Mild (Pain Scale 1-3) Enoxaparin Sodium (Enoxaparin Sodium 40 Mg/0.4 Ml Syringe) 40 mg SUBCUT Q24H [facility] Last Admin: 09/10/21 16:51 Dose: Not Given Documented by: BRENDA Non-Admin Reason: Patient Refused Famotidine (Famotidine 20 Mg Tablet) 20 mg PO BID [facility] Last Admin: 09/11/21 09:51 Dose: 20 mg Documented by: DANIA Sodium Chloride (Ns) 1,000 mls @ 125 mls/hr IVCONT .Q8H [facility] Last Admin: 09/11/21 09:43 Dose: 125 mls/hr Documented by: DANIA Medication (No Benzodiazepines) 1 each MISCELLANE DAILY [facility] Nicotine (Nicotine 14 Mg Patch.Td24) 14 mg TRANSDERMA DAILY [facility] Last Admin: 09/11/21 09:43 Dose: 14 mg Documented by: DANIA Nicotine Polacrilex (Nicotine Polacrilex 2 Mg Gum) 4 mg BUCCAL Q1H PRN PRN Reason: Nicotine Cravings Omeprazole (Omeprazole 20 Mg Capsule.Dr) 20 mg PO DAILY@0630 [facility] Last Admin: 09/11/21 06:37 Dose: 20 mg Documented by: LIZETH Ondansetron HCl (Ondansetron Hcl 4 Mg/2 Ml Vial) 4 mg IVPUSH Q8H PRN PRN Reason: Nausea and Vomiting Last Admin: 09/10/21 21:15 Dose: 4 mg Documented by: KRISTA Pharmacy Consult (Consult Rx Perform Med Rec) 1 each MISCELLANE ONCE PRN PRN Reason: Consult order Phenobarbital (Phenobarbital 15 Mg Tablet) 45 mg PO BID [facility]; Protocol Stop: 09/12/21 21:01 Last Admin: 09/11/21 09:42 Dose: 45 mg Documented by: DANIA Phenobarbital (Phenobarbital 30 Mg Tablet) 30 mg PO BID [facility]; Protocol Stop: 09/14/21 21:01 Phenobarbital (Phenobarbital 15 Mg Tablet) 15 mg PO DAILY [facility]; Protocol Stop: 09/16/21 09:01 Sodium Chloride (0.9 % Sodium Chloride Flush 3 Ml Syringe) [facility] Last Admin: 09/11/21 09:44 Dose: Not Given Documented by: DANIA Non-Admin Reason: IV Running Trazodone HCl (Trazodone Hcl 100 Mg Tablet) 100 mg PO BEDTIME [facility] Last Admin: 09/11/21 00:58 Dose: 100 mg Documented by: ILANA Comments: pt changed mind, requesting trazodone Labs CBC & Chem 7: 09/10/21 09:58 09/11/21 06:35 Labs: Laboratory Results - last 24 hr 09/10/21 09/10/21 09/11/21 13:33 13:33 06:35 Anion Gap 13 Estim Creat Clear Calc 118.0 Estimated GFR > 60 Random Glucose 80 Calcium 8.8 D Urine Color DK YELLOW Urine Appearance CLEAR Urine pH 6.0 Ur Specific [place] >= 1.030 H Urine Protein 2+ H Urine Glucose (UA) NEG Urine Ketones 15 Urine Blood NEG Urine Nitrite NEG Ur Leukocyte Esterase NEG Urine RBC 0 Urine WBC 0 Ur Squamous Epith Cells NONE Urine Bacteria NONE Urine Mucus 1+ Urine Opiates Screen Not Detected Urine Fentanyl Screen POSITIVE H Ur Barbiturates Screen Not Detected Ur Phencyclidine Scrn Not Detected Ur Amphetamines Screen Not Detected U Benzodiazepines Scrn Not Detected Urine Cocaine Screen Not Detected U Marijuana (THC) Screen Not Detected Assessment and Plan (1) Alcohol withdrawal syndrome: Status: Acute (2) Alcoholic intoxication: Status: Acute Assessment and Plan: A 31 years old male with PMHx of depression, drug abuse, alcohol abuse who presented to the hospital with nausea, anxiety and palpitations after stopping binge drinking. Alcohol abuse presenting with alcohol withdrawal High risk for withdrawal seizures Improving continue phenobarbital protocol Avoid benzos Continue IV fluids Pending addiction team consult Nausea and vomiting Secondary to withdrawal Use Reglan, Zofran as needed DVT PPX Lovenox Quality Stroke Does the patient have a stroke diagnosis?: No VTE Prior VTE?: No VTE Risk Level:: Medical - moderate - high VTE Device Contraindication: Treatment Not Tolerated VTE Drug Contraindication: N/A - Med Ordered
--- NOTE | 2021-09-11 14:43 | HO.ADDICTCON ---
History of Present Illness Date of Service: 09/11/2021 Chief Complaint: Alcohol withdrawal Reason for Consult: Alcohol use disorder Requesting physician: Savi Whelan Discussed with referring provider: No Sources of Information: patient interviewed and chart reviewed HPI Narrative: Patient is a 31-year-old male with diagnosis of alcohol use disorder currently medically admitted with alcohol withdrawal. Patient seen in room 484, he was awake, alert, pleasant and engaged in interview. Patient reports a long history of alcohol use since he was approximately 21 years old, with periods of recovery including 1 full year of ?sobriety? in 2016 or 2017 as reported by patient. He reports that he is currently drinking approximately 30 or more beers per day and has been drinking at this rate for the last month. He identifies PTSD symptoms and other social stressors as triggers. States he has been admitted to acute treatment services (detox) twice. Reports being on naltrexone and Vivitrol--but only had Vivitrol injection once because he did not like that he felt discomfort at the injection site for the entire month, so he did not get a 2nd injection. He also reports that he continue to drink while on Vivitrol, and states that he would become physically ill when he felt he drink too much with Vivitrol. Reports history of seizures related to alcohol withdrawal. Family history of alcohol use disorder (father) Denies any history of psychiatric admission or formal behavioral health treatment, but reports that he was seen by psychiatrist during 1 of his detox admissions and was diagnosed with PTSD. Discussed with patient urine drug screen which showed fentanyl, patient denies any opioid use or any other illicit substance use. Review of Systems Gastrointestinal: Reports nausea Psychiatric: Reports anxiety and Reports depression Diagnostics Vital Signs (24Hr): Vital Signs - 24 hr 09/10/21 17:42 09/10/21 19:26 09/11/21 00:00 Temperature 98.0 F 98.5 F Pulse Rate 95 87 61 Respiratory Rate 18 14 18 Blood Pressure 138/87 136/82 Pulse Oximetry 100 99 96 09/11/21 03:44 09/11/21 07:50 09/11/21 11:52 Temperature 98.3 F 97.7 F 97.5 F Pulse Rate 72 71 74 Respiratory Rate 18 18 18 Blood Pressure 136/78 103/56 L 150/78 H Pulse Oximetry 97 97 98 BMI result Body Mass Index 21.3 Labs Results: 09/10/21 09:58 09/11/21 06:35 Labs: Laboratory Results - last 48 hr 09/10/21 09/10/21 09/10/21 09:58 09:58 09:58 WBC 7.9 RBC 4.90 Hgb 15.9 Hct 46.2 MCV 94.3 MCH 32.4 MCHC 34.4 RDW 12.4 Plt Count 248 MPV 8.8 L Immature Gran % (Auto) 0.3 Neut % (Auto) 79.6 H Lymph % (Auto) 13.0 L [place] % (Auto) 6.4 Eos % (Auto) 0.3 Baso % (Auto) 0.4 Lymph # (Auto) 1.0 L [place] # (Auto) 0.5 Eos # (Auto) 0.0 Baso # (Auto) 0.0 Abs Immat Gran (auto) 0.02 Absolute Neuts (auto) 6.3 Absolute Nucleated RBC 0.000 Nucleated RBC % (auto) 0.0 Sodium 137 Potassium 4.6 D Chloride 95 L Carbon Dioxide 27 Anion Gap 20 BUN 6 L Creatinine 1.00 Estim Creat Clear Calc 99.5 Estimated GFR > 60 Random Glucose 100 D Calcium 9.8 D Magnesium 1.9 Total Bilirubin 1.4 H AST 39 H D ALT 27 Alkaline Phosphatase 112 D Total Protein 7.5 D Albumin 4.4 D Urine Color Urine Appearance Urine pH Ur Specific [place] Urine Protein Urine Glucose (UA) Urine Ketones Urine Blood Urine Nitrite Ur Leukocyte Esterase Urine RBC Urine WBC Ur Squamous Epith Cells Urine Bacteria Urine Mucus Urine Opiates Screen Urine Fentanyl Screen Ur Barbiturates Screen Ur Phencyclidine Scrn Ur Amphetamines Screen U Benzodiazepines Scrn Urine Cocaine Screen U Marijuana (THC) Screen Ethyl Alcohol COVID-19 (CJ) Negative COVID-19 Clin Com See Note 09/10/21 09/10/21 09/10/21 09:58 13:33 13:33 WBC RBC Hgb Hct MCV MCH MCHC RDW Plt Count MPV Immature Gran % (Auto) Neut % (Auto) Lymph % (Auto) [place] % (Auto) Eos % (Auto) Baso % (Auto) Lymph # (Auto) [place] # (Auto) Eos # (Auto) Baso # (Auto) Abs Immat Gran (auto) Absolute Neuts (auto) Absolute Nucleated RBC Nucleated RBC % (auto) Sodium Potassium Chloride Carbon Dioxide Anion Gap BUN Creatinine Estim Creat Clear Calc Estimated GFR Random Glucose Calcium Magnesium Total Bilirubin AST ALT Alkaline Phosphatase Total Protein Albumin Urine Color DK YELLOW Urine Appearance CLEAR Urine pH 6.0 Ur Specific [place] >= 1.030 H Urine Protein 2+ H Urine Glucose (UA) NEG Urine Ketones 15 Urine Blood NEG Urine Nitrite NEG Ur Leukocyte Esterase NEG Urine RBC 0 Urine WBC 0 Ur Squamous Epith Cells NONE Urine Bacteria NONE Urine Mucus 1+ Urine Opiates Screen Not Detected Urine Fentanyl Screen POSITIVE H Ur Barbiturates Screen Not Detected Ur Phencyclidine Scrn Not Detected Ur Amphetamines Screen Not Detected U Benzodiazepines Scrn Not Detected Urine Cocaine Screen Not Detected U Marijuana (THC) Screen Not Detected Ethyl Alcohol 132 COVID-19 (CJ) COVID-19 [employer] Com 09/11/21 06:35 WBC RBC Hgb Hct MCV MCH MCHC RDW Plt Count MPV Immature Gran % (Auto) Neut % (Auto) Lymph % (Auto) [place] % (Auto) Eos % (Auto) Baso % (Auto) Lymph # (Auto) [place] # (Auto) Eos # (Auto) Baso # (Auto) Abs Immat Gran (auto) Absolute Neuts (auto) Absolute Nucleated RBC Nucleated RBC % (auto) Sodium 135 Potassium 4.1 Chloride 101 Carbon Dioxide 25 Anion Gap 13 BUN 11 D Creatinine 0.84 Estim Creat Clear Calc 118.0 Estimated GFR > 60 Random Glucose 80 Calcium 8.8 D Magnesium Total Bilirubin AST ALT Alkaline Phosphatase Total Protein Albumin Urine Color Urine Appearance Urine pH Ur Specific [place] Urine Protein Urine Glucose (UA) Urine Ketones Urine Blood Urine Nitrite Ur Leukocyte Esterase Urine RBC Urine WBC Ur Squamous Epith Cells Urine Bacteria Urine Mucus Urine Opiates Screen Urine Fentanyl Screen Ur Barbiturates Screen Ur Phencyclidine Scrn Ur Amphetamines Screen U Benzodiazepines Scrn Urine Cocaine Screen U Marijuana (THC) Screen Ethyl Alcohol COVID-19 (CJ) COVID-19 Clin Com Mental Status Exam Mental Status Exam Patient Appearance: Appropriate Patient Orientation: Person, Place, Time and Situation Level of Consciousness: Awake, Appropriate and Alert Patient Behavior: Appropriate and Talkative Mood Description: Calm Affect Description: Calm Speech Pattern: Clear Thought Process: Rumination and Goal Oriented Thought Content: positive for Goal Oriented Judgement: Fair Medications Medications Current Medications Acetaminophen (Acetaminophen 325 Mg Tablet) 650 mg PO Q6H PRN PRN Reason: Pain, Mild (Pain Scale 1-3) Enoxaparin Sodium (Enoxaparin Sodium 40 Mg/0.4 Ml Syringe) 40 mg SUBCUT Q24H [facility] Last Admin: 09/10/21 16:51 Dose: Not Given Documented by: Famotidine (Famotidine 20 Mg Tablet) 20 mg PO BID [facility] Last Admin: 09/11/21 09:51 Dose: 20 mg Documented by: Sodium Chloride (Ns) 1,000 mls @ 125 mls/hr IVCONT .Q8H [facility] Last Admin: 09/11/21 09:43 Dose: 125 mls/hr Documented by: Medication (No Benzodiazepines) 1 each MISCELLANE DAILY [facility] Nicotine (Nicotine 14 Mg Patch.Td24) 14 mg TRANSDERMA DAILY [facility] Last Admin: 09/11/21 09:43 Dose: 14 mg Documented by: Nicotine Polacrilex (Nicotine Polacrilex 2 Mg Gum) 4 mg BUCCAL Q1H PRN PRN Reason: Nicotine Cravings Omeprazole (Omeprazole 20 Mg Capsule.Dr) 20 mg PO DAILY@0630 [facility] Last Admin: 09/11/21 06:37 Dose: 20 mg Documented by: Ondansetron HCl (Ondansetron Hcl 4 Mg/2 Ml Vial) 4 mg IVPUSH Q8H PRN PRN Reason: Nausea and Vomiting Last Admin: 09/10/21 21:15 Dose: 4 mg Documented by: Pharmacy Consult (Consult Rx Perform Med Rec) 1 each MISCELLANE ONCE PRN PRN Reason: Consult order Phenobarbital (Phenobarbital 15 Mg Tablet) 45 mg PO BID [facility]; Protocol Stop: 09/12/21 21:01 Last Admin: 09/11/21 09:42 Dose: 45 mg Documented by: Phenobarbital (Phenobarbital 30 Mg Tablet) 30 mg PO BID [facility]; Protocol Stop: 09/14/21 21:01 Phenobarbital (Phenobarbital 15 Mg Tablet) 15 mg PO DAILY [facility]; Protocol Stop: 09/16/21 09:01 Sodium Chloride (0.9 % Sodium Chloride Flush 3 Ml Syringe) 3 ml IVFLUSH QSHIFT [facility] Last Admin: 09/11/21 09:44 Dose: Not Given Documented by: Trazodone HCl (Trazodone Hcl 100 Mg Tablet) 100 mg PO BEDTIME [facility] Last Admin: 09/11/21 00:58 Dose: 100 mg Documented by: Allergies Allergies Allergy/AdvReac Type Severity Reaction Status Date / Time No Known Allergies Allergy Verified 12/17/20 22:42 [No Known Allergies*] Assessment & Plan Assessment & Plan (1) Alcohol use disorder, severe, dependence: Status: Acute Code(s): F10.20 - Alcohol dependence, uncomplicated Assessment and Plan: Patient verbalizing desire to stop drinking, however he is unsure which pathway he would like. When discussing Nlatrexone, he shared that he has trouble swallowing pills. Discussed CSS and patient hesitant as he does nto want to be away from his children Recovery support RN provided patient with resources including different facilities to start treatment following medically supervised withdrawal Recovery Support team to follow up tomorrow I spent __50____ minutes with the patient and/or on the patient floor today, greater than?50% of which was spent counseling/coordinating care. PMFSH Past Medical History Medical History Anxiety Depression ETOH abuse Seizure Family History Family History Mother DVT (deep venous thrombosis) Social History Social History Household Members: Children Housing: House Do you presently have visiting nurse or other home services: No Alcohol intake: current Alcohol intake frequency: 3 or more drinks per day Alcohol type: hard liquor Patient Tobacco Use Status: Current everyday Tobacco user Tobacco use type: Cigarette Cigarette Packs Per Day: 1.5 Cigarettes Per Day: 30.0 Years Smoked: 13 Smoked in Last 30 Days: Yes Patient Interested in Nicotine Replacement: Yes Patient Given Instructions on How to Stop Smoking: Yes Date Education Initiated: 09/11/21 Second Hand Smoke Exposure: Yes Use of substances other than those prescribed or required for medical reasons: No Currently Displaying Signs/Symptoms of Drug Intoxication Withdrawal: No Have you been hit, kicked, punched, or otherwise hurt by someone within the past year? If so, by whom?: No Do you feel safe in your current relationship?: No Current Relationship Is there a partner from a previous relationship who is making you feel unsafe now?: No Are you made to feel afraid or neglected: No Advance Directives: No Advance Directives Information Provided: No Do you have thoughts of harming others: None Do you have a plan to hurt others: No Plan Recently lost weight without trying: No Nutrition Risks: No Nutritional Risk service: No Current occupational status: unemployed
[2021-09-11] MEDS: Enoxaparin Sodium 40 MG/0.4 ML SYRINGE SUBCUT (16:49)
[2021-09-11 20:33] LABS: Magnesium 1.8 mg/dL (1.6-2.6); Potassium 4.2 mmol/L (3.3-5.1)
[2021-09-12 04:00] VITALS: BP 120/61; PULSE 52; RESP 18; TEMP 36.5; O2SAT 98
[2021-09-12] MEDS: Omeprazole 20 MG CAPSULE.DR PO (06:27)
[2021-09-12] MEDS: 0.9 % Sodium Chloride 1,000 ML 125 ML IVCONT (06:28)
[2021-09-12 07:30] VITALS: BP 126/62; PULSE 56; RESP 18; TEMP 36.9; O2SAT 98
[2021-09-12] MEDS: Nicotine 14 MG PATCH.TD24 TRANSDERMA (08:42)
[2021-09-12] MEDS: Famotidine 20 MG TABLET PO (08:42)
[2021-09-12] MEDS: PHENobarbitaL 15 MG TABLET 45 MG PO (08:42)
--- NOTE | 2021-09-12 09:43 | PM.DS ---
DS: Providers Provider Date of Service: 09/12/21 Date of admission: 09/10/21 14:05 Primary care physician: Raya Marinelli PA-C Consults: 09/10/21 11:58 Consult to Care Team Stat Comment: Reason for consultation: seeking detox 09/10/21 14:21 Addiction Medicine Routine Consulting Provider: Isabel Gonzalez Reason for consultation: Drug abuse, Alcohol withdrawal, interested in quitting drugs DS: Diagnosis Discharge Diagnosis (1) Alcohol use disorder, severe, dependence: Status: Acute (2) Alcohol withdrawal syndrome: Status: Acute (3) Alcoholic intoxication: Status: Acute (4) Vomiting: Status: Acute DS: Summary Hospital Course Hospital Course: Admission note HPI A 31 years old male with PMHx of depression, drug abuse, alcohol abuse who presented to the hospital with nausea, anxiety and palpitations after stopping binge drinking last night after a week. He denies any fever, chills, abdominal pain, difficulty breathing.? Reports feeling on the H and very anxious.? Report having previous withdrawal was and episode of seizure.? In the emergency he was found to positive level of alcohol.? Started on phenobarbital Admitted for further evaluation and treatment. Hospital course The patient was admitted for treatment of alcohol withdrawal. Started on phenobarbital protocol and monitor during his hospital stay withdrawal symptoms resolving. He was complaining of nausea which resolved with using of Zofran. He was able to tolerate diet and ambulate. He was evaluated by addiction team with outpatient resources provided. Advised to completely abstinence from alcohol. Advised to quit smoking and prescribed nicotine patches Time Spent with Patient Time attestation: Total time spent providing and/or coordinating discharge services: Discharge coordination time: Greater than 30 minutes Quality: Stroke Does the patient have a stroke diagnosis?: No Physical Exam Vital Signs: Vital Signs: Last Vital Signs Temp 98.4 F 09/12/21 07:30 Pulse 56 09/12/21 07:30 Resp 18 09/12/21 07:30 BP 126/62 09/12/21 07:30 Pulse Ox 98 09/12/21 07:30 BMI result Body Mass Index 21.3 Const: Other: Constitutional : Alert, oriented, not in distress Neck : Normal inspection, Supple Cardiovascular : RRR, S1 S2, no lower extremity edema Respiratory : Good bilateral air entry, no crackles, wheezes or rhonchi Gastrointestinal: soft, lax, Normal bowel sounds, no tenderness Skin : Warm, Dry Neurological : Alert & oriented x3, No focal deficit DS: Data Data Completed and Pending Completed studies during hospitalization [Text1]: Procedures Detoxification Services for Substance Abuse Treatment (07/23/21) Labs on day of discharge: Laboratory Results - last 24 hr 09/11/21 20:13 Potassium 4.2 Magnesium 1.8 Discharge Plan Discharge Patient Disposition: Home, Self-Care Discharge Diagnosis: Alcohol withdrawal Referrals: Raya Marinelli PA-C [Primary Care Provider] - 2 days Discharge Medications: New ondansetron 4 mg tablet,disintegrating 4 mg PO ONCE PRN (Reason: nausea and vomiting) Qty: 10 RF: 0 nicotine 14 mg/24 hr Patch 24 Hour 14 mg transdermal DAILY 30 Days RF: 0 Continued trazodone 50 mg tablet 2 tab PO BEDTIME RF: 0 omeprazole 20 mg capsule,delayed release(DR/EC) 1 cap PO DAILY RF: 0 Discharge Orders: Discharge Order (Routine); Ordered 09/12/21 Ordered By: Savi Whelan Diet: advance to usual diet Activity on Discharge: As tolerated Stand Alone Forms: Patient Portal Discharge page, Work/School Release Care Plan Goals: Read below Health Concerns: Read below Plan of Treatment: Read below Assessment: You were admitted to the hospital for treatment of alcohol withdrawal. He received phenobarbital protocol with good response. You were evaluated by addiction team provider with resources provided to you. We advise you complete abstinence from alcohol Nicotine patches were prescribed Patient Instructions: Alcohol Intoxication (ED), Abuse of Alcohol (ED), Alcohol Withdrawal (ED), Alcohol Use Disorder (ED)
--- NOTE | 2021-09-12 09:44 | MHC.CM.PN ---
Patient has been medically cleared for dc to home today, no services.
--- NOTE | 2021-09-12 10:58 | MHC.RECOVSUP ---
Recovery Support note: This video game script writer followed up with patient to address questions regarding recovery support resources previously provided and to discuss IOP and provide patient with information on this level of care. Patient reports no questions at this time. Discussed case with Isabel Gonzalez NP.
== END 2021-09-12 10:52 | disposition home or self-care (01) | DRG 775 ==
LOC: HO.ED 13:40 → HO.EDOVER 20:28 → HO.IMC 23:05
PROVIDERS: Internal Medicine; Physician Assistant; Admitting Provider Student in an Organized Health Care Education/Training Program; Emergency Provider Emergency Medicine; PCP Physician Assistant Medical; Visit Provider Student in an Organized Health Care Education/Training Program
DX: F10.239 Alcohol dependence with withdrawal, unspecified (principal); F10.229 Alcohol dependence with intoxication, unspecified; F17.210 Nicotine dependence, cigarettes, uncomplicated; Z71.6 Tobacco abuse counseling; Z20.822 Contact with and (suspected) exposure to COVID-19; Y90.6 Blood alcohol level of 120-199 mg/100 ml; Z79.899 Other long term (current) drug therapy
CPT/HCPCS: 36415; 80048; 80053; 80307; 81001; 81003; 82077; 83735; 84132; 85025; 87635; 93005; 96361; 96372; 96374; 96375; 96376; 99285; J1650; J2060; J2405; J2560; J2765

== ENCOUNTER 2021-10-04 05:30 | Emergency (ER) | payer MEDICAID, SELFPAY ==
[2021-10-04 05:41] VITALS: BP 120/87; PULSE 136; RESP 24; TEMP 36.1; O2SAT 97; BMI 21.4
[2021-10-04 06:00] LABS: Basophils Absolute Auto 0.1 X10*3/uL (0.0-0.2); Basophils Percent Auto 0.6 % (0-2); Eosinophils Absolute Auto 0.1 X10*3/uL (0.0-0.4); Eosinophils Percent Auto 0.4 % (0-4); Hematocrit 50.3 % (42.0-52.0); Hemoglobin 17.7 g/dl (14.0-18.0); Imm Gran Abs Auto 0.05 X10*3/uL (0.00-0.03); Imm Gran Pct Auto 0.3 % (0.0-0.4); Lymphocytes Absolute Auto 1.9 X10*3/uL (1.2-4.9); Lymphocytes Percent Auto 10.4 % (20-40); MANUAL DIFF FLAG NO; Mean Corpuscular HGB Conc 35.2 g/dl (31.0-36.0); Mean Corpuscular Hemoglobin 32.7 pg (27.0-33.0); Mean Corpuscular Volume 92.8 fL (80.0-98.0); Mean Platelet Volume 9.7 fL (9.4-12.4); Monocytes Absolute Auto 1.3 X10*3/uL (0.1-1.2); Monocytes Percent Auto 7.3 % (2-11); Neutrophils Absolute Auto 14.6 x10*3/uL (2.0-8.3); Platelet Count 285 X10*3/uL (160-400); Red Blood Count 5.42 X10*6/uL (4.60-5.80); Red Cell Distribution Width 13.1 % (11.0-16.0)
[2021-10-04] MEDS: ondansetron HCL 4 MG/2 ML VIAL IVPUSH (06:14)
[2021-10-04] MEDS: 0.9 % Sodium Chloride 1,000 ML 999 ML IV ×3 (06:15→09:21)
--- NOTE | 2021-10-04 06:29 | ED.ALCOHOL ---
HPI - Alcohol General Chief Complaint: General Medical Stated Complaint: Withdrawals Time Seen by Provider: 10/04/21 06:21 Source: patient and old records reviewed Mode of arrival: ambulatory Limitations: no limitations History of Present Illness MD complaint: alcohol withdrawal and alcohol dependence Last drink: Days (ago) (yesterday ) Amount of alcohol consumed: normally drinks over 10 beers a day Chronic alcohol use: Yes Previous visits for alcohol intoxication: Yes Recent trauma: No Associated symptoms: nausea, vomiting, diaphoresis, tremors and abdominal pain Treatments prior to arrival: none Related Data Home Medications Medication Instructions Recorded Confirmed trazodone 50 mg tablet 2 tab PO BEDTIME 07/23/21 09/10/21 omeprazole 20 mg capsule,delayed 1 cap PO DAILY 09/10/21 09/10/21 release Previous Rx's Medication Instructions Recorded ondansetron 4 mg disintegrating 4 mg PO ONCE PRN #10 tab 09/10/21 tablet nicotine 14 mg/24 hr daily 14 mg TRANSDERMAL DAILY 30 Days ea 09/12/21 transdermal patch chlordiazepoxide HCl 25 mg capsule 50 mg PO Q2-4H PRN 12 Days #12 cap 10/04/21 ondansetron 4 mg disintegrating 4 mg PO Q8H PRN #20 tab 10/04/21 tablet Allergies Allergy/AdvReac Type Severity Reaction Status Date / Time No Known Allergies Allergy Verified 12/17/20 22:42 [No Known Allergies*] Review of Systems Review of Systems: Constitutional : No Weight loss, No Fever, pos Chills ENT/Mouth : No sore throat, No Rhinorrhea Eyes: No Swelling, No Redness Cardiovascular : No Chest Pain, No SOB, NoEdema Respiratory : No Cough, No Sputum, No Wheezing Gastrointestinal : Positive Nausea, Positive Vomiting, no Diarrhea, positive abdominal Pain, No Hematochezia, No Melena Genitourinary : No Dysuria, No Urinary Frequency, No Hematuria, No Urgency Musculoskeletal : No joint pain, No Myalgias, No Joint Swelling Skin : No Skin Lesions, No rash Neuro : pos Weakness, No Numbness, No Dizziness, No Headache, pos tremors Psych : No Anxiety/Panic, No Depression Heme/Lymph: No Bruising, No Lymphadenopathy Endocrine : No Polyuria, No Polydipsia All other systems reviewed and are negative. [facility] Past Medical History Attestation statement: The following information was validated with the patient. Source: old records reviewed Medical History Alcohol use disorder, severe, dependence Anxiety Depression ETOH abuse Seizure Family History Family History Mother DVT (deep venous thrombosis) Social History Social History Household Members: Children Housing: House Do you presently have visiting nurse or other home services: No Alcohol intake: current Alcohol intake frequency: 3 or more drinks per day Alcohol type: hard liquor Patient Tobacco Use Status: Current everyday Tobacco user Tobacco use type: Cigarette Cigarette Packs Per Day: 1.5 Cigarettes Per Day: 30.0 Years Smoked: 13 Second Hand Smoke Exposure: Yes Advance Directives: No Advance Directives Information Provided: Yes service: No Current occupational status: unemployed Physical Exam Vital Signs: Vital Signs: Last Vital Signs Temp 98.4 F 10/04/21 07:29 Pulse 93 10/04/21 07:29 Resp 20 10/04/21 07:29 BP 130/86 10/04/21 07:29 Pulse Ox 97 10/04/21 07:29 BMI result Body Mass Index 21.4 Appearance: Alert. Oriented X3. Moderate acute distress. Eyes: Pupils equal, round and reactive to light. ENT: Pharynx moderately dry MM Neck: Normal inspection. Neck supple. CVS: tachycardic heart rate and rhythm. Pulses normal. Respiratory: No respiratory distress. Breath sounds normal. Abdomen: Soft and mild epigastric ttp no rebound Skin: Skin warm and dry. pale skin color. poor skin turgor. Extremities: No lower extremity edema. Neuro: Oriented X 3. No motor deficit. No sensory deficit. restless with moderate tremors noted Course Course Course Narrative: elevated WBC count and tachycardia due to vomiting/ETOH withdrawal and not infection or severe sepsis currently asleep, VS much improved labs improved, able to tolerate PO, VS stable patient feels better and wants to try to go home with PO medications MDM - Alcohol MDM Narrative Medical decision making narrative: 31 yo male with hx of ETOH abuse, seizures, here with tachycardia, vomiting, restlessness, tremors concerning for acute withdrawal - at this time labs, IVF x 2L, IV ativan, IV thiamine/folic acid, observation likely start of phenobarb given his history and his presentation in the ED. Lab Data Result diagrams: 10/04/21 05:55 10/04/21 09:06 Labs: Lab Results 10/04/21 10/04/21 10/04/21 Range/Units 05:55 05:55 05:55 WBC 18.0 H (4.8-10.8) X10*3/uL RBC 5.42 (4.60-5.80) X10*6/uL Hgb 17.7 (14.0-18.0) g/dl Hct 50.3 (42.0-52.0) % MCV 92.8 (80.0-98.0) fL MCH 32.7 (27.0-33.0) pg MCHC 35.2 (31.0-36.0) g/dl RDW 13.1 (11.0-16.0) % Plt Count 285 (160-400) X10*3/uL MPV 9.7 (9.4-12.4) fL Immature Gran % (Auto) 0.3 (0.0-0.4) % Neut % (Auto) 81.0 H (45-73) % Lymph % (Auto) 10.4 L (20-40) % [place] % (Auto) 7.3 (2-11) % Eos % (Auto) 0.4 (0-4) % Baso % (Auto) 0.6 (0-2) % Lymph # (Auto) 1.9 (1.2-4.9) X10*3/uL [place] # (Auto) 1.3 H (0.1-1.2) X10*3/uL Eos # (Auto) 0.1 (0.0-0.4) X10*3/uL Baso # (Auto) 0.1 (0.0-0.2) X10*3/uL Abs Immat Gran (auto) 0.05 H (0.00-0.03) X10*3/uL Absolute Neuts (auto) 14.6 H (2.0-8.3) x10*3/uL Absolute Nucleated RBC 0.000 (0.0-0.012) X10*3/uL Nucleated RBC % (auto) 0.0 (0.0-0.2) /100WBC Sodium 137 (135-145) mmol/L Potassium 4.5 (3.3-5.1) mmol/L Chloride 87 L (96-108) mmol/L Carbon Dioxide 27 (22-29) mmol/L Anion Gap 28 H (12-20) BUN 8 L (9-16) mg/dL Creatinine 1.19 (0.5-1.4) mg/dL Estim Creat Clear Calc 83.7 Estimated GFR > 60 Random Glucose 117 H D (60-115) mg/dL Calcium 11.6 H D (8.4-10.2) mg/dL Magnesium 2.2 (1.6-2.6) mg/dL Total Bilirubin 1.1 H (0.0-1.0) mg/dL AST 35 (5-37) U/L ALT 26 (0-40) U/L Alkaline Phosphatase 121 H (39-117) U/L Total Protein 8.9 H (6.5-8.0) g/dL Albumin 5.2 H (3.5-5.0) g/dL Lipase 26 (8-78) U/L Ethyl Alcohol 83 mg/dL COVID-19 (CJ) (Negative) COVID-19 Clin Com 10/04/21 10/04/21 Range/Units 06:48 09:06 WBC (4.8-10.8) X10*3/uL RBC (4.60-5.80) X10*6/uL Hgb (14.0-18.0) g/dl Hct (42.0-52.0) % MCV (80.0-98.0) fL MCH (27.0-33.0) pg MCHC (31.0-36.0) g/dl RDW (11.0-16.0) % Plt Count (160-400) X10*3/uL MPV (9.4-12.4) fL Immature Gran % (Auto) (0.0-0.4) % Neut % (Auto) (45-73) % Lymph % (Auto) (20-40) % [place] % (Auto) (2-11) % Eos % (Auto) (0-4) % Baso % (Auto) (0-2) % Lymph # (Auto) (1.2-4.9) X10*3/uL [place] # (Auto) (0.1-1.2) X10*3/uL Eos # (Auto) (0.0-0.4) X10*3/uL Baso # (Auto) (0.0-0.2) X10*3/uL Abs Immat Gran (auto) (0.00-0.03) X10*3/uL Absolute Neuts (auto) (2.0-8.3) x10*3/uL Absolute Nucleated RBC (0.0-0.012) X10*3/uL Nucleated RBC % (auto) (0.0-0.2) /100WBC Sodium 138 (135-145) mmol/L Potassium 4.4 (3.3-5.1) mmol/L Chloride 96 (96-108) mmol/L Carbon Dioxide 30 H (22-29) mmol/L Anion Gap 16 (12-20) BUN 9 (9-16) mg/dL Creatinine 0.86 (0.5-1.4) mg/dL Estim Creat Clear Calc 115.9 Estimated GFR > 60 Random Glucose 101 (60-115) mg/dL Calcium 9.8 D (8.4-10.2) mg/dL Magnesium (1.6-2.6) mg/dL Total Bilirubin (0.0-1.0) mg/dL AST (5-37) U/L ALT (0-40) U/L Alkaline Phosphatase (39-117) U/L Total Protein (6.5-8.0) g/dL Albumin (3.5-5.0) g/dL Lipase (8-78) U/L Ethyl Alcohol mg/dL COVID-19 (CJ) Negative (Negative) COVID-19 Clin Com See Note Critical Care Time Critical Care Time Critical Care Time: Yes Total Critical Care Time: 60 Attestation: repeat IV ativan for symptom control, IVF x 2L I attest to this time spent taking care of the patient Discharge Plan Discharge Clinical Impression: Alcohol withdrawal Qualifiers: Complication of substance-induced condition: uncomplicated Qualified Code(s): F10.230 - Alcohol dependence with withdrawal, uncomplicated Patient Disposition: Home, Self-Care Instructions: Alcohol Withdrawal (ED) Additional Instructions: return to ED for any worsening symptoms or concerns Prescriptions: New ondansetron 4 mg tablet,disintegrating 4 mg PO Q8H PRN (Reason: nausea and vomiting) Qty: 20 RF: 0 chlordiazepoxide HCl 25 mg capsule 50 mg PO Q2-4H PRN (Reason: alcohol withdrawal) 12 Days Qty: 12 RF: 0 No Action trazodone 50 mg tablet 2 tab PO BEDTIME RF: 0 ondansetron 4 mg tablet,disintegrating 4 mg PO ONCE PRN (Reason: nausea and vomiting) Qty: 10 RF: 0 omeprazole 20 mg capsule,delayed release(DR/EC) 1 cap PO DAILY RF: 0 nicotine 14 mg/24 hr Patch 24 Hour 14 mg transdermal DAILY 30 Days RF: 0 Interventions: ED Discharge Assessment Last Done: 10/04/21 10:49 Discharge Date/Time: 10/04/21 10:49
[2021-10-04 06:30] LABS: Ethanol 83 mg/dL
[2021-10-04] MEDS: LORazepam 2 MG/ML VIAL IVPUSH (06:38)
[2021-10-04 06:40] LABS: Lipase 26 U/L (8-78)
[2021-10-04] MEDS: Famotidine/PF 20 MG/2 ML VIAL IVPUSH (06:40)
[2021-10-04 06:43] LABS: Alanine Aminotransferase 26 U/L (0-40); Albumin Level 5.2 g/dL (3.5-5.0); Alkaline Phosphatase 121 U/L (39-117); Anion Gap 28 (12-20); Aspartate Amino Transferase 35 U/L (5-37); Bilirubin Total 1.1 mg/dL (0.0-1.0); Blood Urea Nitrogen 8 mg/dL (9-16); Calcium 11.6 mg/dL (8.4-10.2); Carbon Dioxide 27 mmol/L (22-29); Chloride 87 mmol/L (96-108); Creatinine Clr Calc Pharmacy 83.7; Estimated Glomerular Filt Rate > 60; Glucose Random 117 mg/dL (60-115); Potassium 4.5 mmol/L (3.3-5.1); Sodium 137 mmol/L (135-145); Total Protein 8.9 g/dL (6.5-8.0)
[2021-10-04 07:10] LABS: COVID-19 Test Negative (Negative); IDNOW Serial# 9DD0AD1C
[2021-10-04 07:13] LABS: Magnesium 2.2 mg/dL (1.6-2.6)
[2021-10-04 07:29] VITALS: BP 130/86; PULSE 93; RESP 20; TEMP 36.9; O2SAT 97
[2021-10-04] MEDS: LORazepam 2 MG/ML VIAL 1 MG IVPUSH (09:19)
[2021-10-04] MEDS: chlordiazePOXIDE HCl 25 MG CAPSULE 50 MG PO (09:20)
[2021-10-04] MEDS: Thiamine HCL 100 MG in 0.9 % Sodium Chloride 100 ML 202 MG IV (09:20)
[2021-10-04] MEDS: Folic Acid 1 MG in 0.9 % Sodium Chloride 50 ML 100.4 MG IV (09:20)
[2021-10-04 09:43] LABS: Anion Gap 16 (12-20); Blood Urea Nitrogen 9 mg/dL (9-16); Calcium 9.8 mg/dL (8.4-10.2); Carbon Dioxide 30 mmol/L (22-29); Chloride 96 mmol/L (96-108); Creatinine Clr Calc Pharmacy 115.9; Estimated Glomerular Filt Rate > 60; Glucose Random 101 mg/dL (60-115); Potassium 4.4 mmol/L (3.3-5.1); Sodium 138 mmol/L (135-145)
== END 2021-10-04 10:49 | disposition home or self-care (01) ==
PROVIDERS: Internal Medicine; Emergency Provider Emergency Medicine; PCP Physician Assistant Medical
DX: F10.230 Alcohol dependence with withdrawal, uncomplicated (principal); Y90.4 Blood alcohol level of 80-99 mg/100 ml; R00.0 Tachycardia, unspecified; Z20.822 Contact with and (suspected) exposure to COVID-19
CPT/HCPCS: 36415; 80048; 80053; 82077; 83690; 83735; 85025; 87635; 96361; 96365; 96366; 96375; 99283; 99285; 99291; J2060; J2405; J3411

== ENCOUNTER 2021-10-16 06:24 | Emergency (ER) | payer MEDICAID, SELFPAY ==
[2021-10-16 06:48] VITALS: BP 119/88; PULSE 92; RESP 20; O2SAT 97; BMI 21.4
[2021-10-16] MEDS: Ondansetron ODT 4 MG TAB.RAPDIS TRANSLINGU (06:57)
--- NOTE | 2021-10-16 07:03 | ED_ITS ---
HPI - Alcohol General Chief Complaint: ETOH/Substance Use Stated Complaint: ALC WITHDRAWAL,NAUSE,DRY HEAVES,LAST DRINK T-1 Time Seen by Provider: 10/16/21 06:57 Source: patient Mode of arrival: ambulatory Limitations: no limitations History of Present Illness MD complaint: alcohol withdrawal, alcohol dependence and desires rehab Last drink: Days (ago) (1) Amount of alcohol consumed: 24 beers a day Chronic alcohol use: Yes Previous visits for alcohol intoxication: Yes Recent trauma: No Associated symptoms: nausea, vomiting, diaphoresis, tremors and abdominal pain Treatments prior to arrival: none Related Data Home Medications Medication Instructions Recorded Confirmed trazodone 50 mg tablet 2 tab PO BEDTIME 07/23/21 09/10/21 omeprazole 20 mg capsule,delayed 1 cap PO DAILY 09/10/21 09/10/21 release Previous Rx's Medication Instructions Recorded ondansetron 4 mg disintegrating 4 mg PO ONCE PRN #10 tab 09/10/21 tablet nicotine 14 mg/24 hr daily 14 mg TRANSDERMAL DAILY 30 Days ea 09/12/21 transdermal patch chlordiazepoxide HCl 25 mg capsule 50 mg PO Q2-4H PRN 12 Days #12 cap 10/04/21 ondansetron 4 mg disintegrating 4 mg PO Q8H PRN #20 tab 10/04/21 tablet Allergies Allergy/AdvReac Type Severity Reaction Status Date / Time No Known Allergies Allergy Verified 12/17/20 22:42 [No Known Allergies*] Review of Systems Review of Systems: Constitutional : No Weight loss, No Fever, No Chills ENT/Mouth : No sore throat, No Rhinorrhea Eyes: No Swelling, No Redness Cardiovascular : No Chest Pain, No SOB, NoEdema Respiratory : No Cough, No Sputum, No Wheezing Gastrointestinal : Positive Nausea, Positive Vomiting, no Diarrhea, positive abdominal Pain, No Hematochezia, No Melena Genitourinary : No Dysuria, No Urinary Frequency, No Hematuria, No Urgency Musculoskeletal : No joint pain, No Myalgias, No Joint Swelling Skin : No Skin Lesions, No rash Neuro : pos Weakness, No Numbness, No Dizziness, No Headache Psych : pos Anxiety/Panic, No Depression Heme/Lymph: No Bruising, No Lymphadenopathy Endocrine : No Polyuria, No Polydipsia All other systems reviewed and are negative. [facility] Past Medical History Medical History Alcohol use disorder, severe, dependence Anxiety Depression ETOH abuse Seizure Family History Family History Mother DVT (deep venous thrombosis) Social History Social History Household Members: Children Housing: House Do you presently have visiting nurse or other home services: No Alcohol intake: current Alcohol intake frequency: 3 or more drinks per day Alcohol type: hard liquor Patient Tobacco Use Status: Current everyday Tobacco user Tobacco use type: Cigarette Cigarette Packs Per Day: 1.5 Cigarettes Per Day: 30.0 Years Smoked: 13 Second Hand Smoke Exposure: Yes Use of substances other than those prescribed or required for medical reasons: No Advance Directives: No Advance Directives Information Provided: No service: No Current occupational status: unemployed Physical Exam Vital Signs: Vital Signs: Last Vital Signs Temp 98.6 F 10/16/21 07:42 Pulse 98 10/16/21 09:39 Resp 16 10/16/21 09:39 BP 118/70 10/16/21 09:39 Pulse Ox 95 10/16/21 07:42 BMI result Body Mass Index 21.4 Appearance: Alert. Oriented X3. Active vomiting clear fluids anxious moderate acute distress. Eyes: Pupils equal, round and reactive to light. ENT: Pharynx dry MM Neck: Normal inspection. Neck supple. CVS: Normal heart rate and rhythm. Pulses normal. Respiratory: No respiratory distress. Breath sounds normal. Abdomen: Soft and nontender. Skin: Skin warm and diaphoretic. Normal skin color. Normal skin turgor. Extremities: No lower extremity edema. No calf ttp Neuro: Oriented X 3. No motor deficit. No sensory deficit. Slight tremor Course Course Course Narrative: able to tolerate PO will continue fluids, repeat ativan while waiting for bed likely has detox bed in [place] - markedly improved MDM - Alcohol MDM Narrative Medical decision making narrative: 31 yo male with hx of frequent visits for ETOH abuse here with n/v and abdominal pain last drank 1 day ago at this time does desire rehab. Will attempt to improve his symptoms - IV anti emetics, IVF, IV thiamine, IV magnesium, IV ativan ordered. If he improves will offer recovery coaches dispo per results and findings. Lab Data Result diagrams: 10/16/21 07:19 10/16/21 07:19 Labs: Lab Results 10/16/21 10/16/21 10/16/21 Range/Units 07:19 07:19 07:19 WBC 10.9 H (4.8-10.8) X10*3/uL RBC 5.17 (4.60-5.80) X10*6/uL Hgb 17.1 (14.0-18.0) g/dl Hct 48.4 (42.0-52.0) % MCV 93.6 (80.0-98.0) fL MCH 33.1 H (27.0-33.0) pg MCHC 35.3 (31.0-36.0) g/dl RDW 13.3 (11.0-16.0) % Plt Count 284 (160-400) X10*3/uL MPV 9.0 L (9.4-12.4) fL Immature Gran % (Auto) 0.3 (0.0-0.4) % Neut % (Auto) 70.5 (45-73) % Lymph % (Auto) 15.1 L (20-40) % [place] % (Auto) 12.6 H (2-11) % Eos % (Auto) 0.5 (0-4) % Baso % (Auto) 1.0 (0-2) % Lymph # (Auto) 1.7 (1.2-4.9) X10*3/uL [place] # (Auto) 1.4 H (0.1-1.2) X10*3/uL Eos # (Auto) 0.1 (0.0-0.4) X10*3/uL Baso # (Auto) 0.1 (0.0-0.2) X10*3/uL Abs Immat Gran (auto) 0.03 (0.00-0.03) X10*3/uL Absolute Neuts (auto) 7.7 (2.0-8.3) x10*3/uL Absolute Nucleated RBC 0.000 (0.0-0.012) X10*3/uL Nucleated RBC % (auto) 0.0 (0.0-0.2) /100WBC Sodium 139 (135-145) mmol/L Potassium 3.8 (3.3-5.1) mmol/L Chloride 92 L (96-108) mmol/L Carbon Dioxide 28 (22-29) mmol/L Anion Gap 23 H (12-20) BUN 6 L (9-16) mg/dL Creatinine 1.09 (0.5-1.4) mg/dL Estim Creat Clear Calc 91.3 Estimated GFR > 60 Random Glucose 107 (60-115) mg/dL Calcium 10.5 H D (8.4-10.2) mg/dL Magnesium 2.1 (1.6-2.6) mg/dL Total Bilirubin 1.2 H (0.0-1.0) mg/dL Direct Bilirubin 0.5 (0.0-0.5) mg/dL AST 36 (5-37) U/L ALT 27 (0-40) U/L Alkaline Phosphatase 101 (39-117) U/L Total Protein 8.3 H (6.5-8.0) g/dL Albumin 4.9 (3.5-5.0) g/dL Lipase 31 (8-78) U/L Ethyl Alcohol mg/dL COVID-19 (CJ) Negative (Negative) COVID-19 Clin Com See Note 10/16/21 Range/Units 07:42 WBC (4.8-10.8) X10*3/uL RBC (4.60-5.80) X10*6/uL Hgb (14.0-18.0) g/dl Hct (42.0-52.0) % MCV (80.0-98.0) fL MCH (27.0-33.0) pg MCHC (31.0-36.0) g/dl RDW (11.0-16.0) % Plt Count (160-400) X10*3/uL MPV (9.4-12.4) fL Immature Gran % (Auto) (0.0-0.4) % Neut % (Auto) (45-73) % Lymph % (Auto) (20-40) % [place] % (Auto) (2-11) % Eos % (Auto) (0-4) % Baso % (Auto) (0-2) % Lymph # (Auto) (1.2-4.9) X10*3/uL [place] # (Auto) (0.1-1.2) X10*3/uL Eos # (Auto) (0.0-0.4) X10*3/uL Baso # (Auto) (0.0-0.2) X10*3/uL Abs Immat Gran (auto) (0.00-0.03) X10*3/uL Absolute Neuts (auto) (2.0-8.3) x10*3/uL Absolute Nucleated RBC (0.0-0.012) X10*3/uL Nucleated RBC % (auto) (0.0-0.2) /100WBC Sodium (135-145) mmol/L Potassium (3.3-5.1) mmol/L Chloride (96-108) mmol/L Carbon Dioxide (22-29) mmol/L Anion Gap (12-20) BUN (9-16) mg/dL Creatinine (0.5-1.4) mg/dL Estim Creat Clear Calc Estimated GFR Random Glucose (60-115) mg/dL Calcium (8.4-10.2) mg/dL Magnesium (1.6-2.6) mg/dL Total Bilirubin (0.0-1.0) mg/dL Direct Bilirubin (0.0-0.5) mg/dL AST (5-37) U/L ALT (0-40) U/L Alkaline Phosphatase (39-117) U/L Total Protein (6.5-8.0) g/dL Albumin (3.5-5.0) g/dL Lipase (8-78) U/L Ethyl Alcohol 107 mg/dL COVID-19 (CJ) (Negative) COVID-19 Clin Com ECG Data ECG #1: Attestation: I personally reviewed and interpreted this ECG as follows: ECG interpretation date: 10/16/21 ECG interpretation time: 12:19 Interpretation: Rate: 77 Rhythm: NSR Thornton: normal Normal P waves. Normal ALPHONSO. incomplete RBBB ST T wave : normal no THERESE qTC: normal prio studies: no acute ischemia The study has been interpreted contemporaneously by me. . Procedures EJ/Peripheral Line Arm L: Time Out Performed: Yes Size (gauge): 20 IV Secured and Dressing Applied: Yes Patient Tolerated Procedure: well and no complications Critical Care Time Critical Care Time Critical Care Time: Yes Total Critical Care Time: 60 Attestation: repet IVF x 2L, IV ativan I x2 doses, medical consults to addiction team I attest to this time spent taking care of the patient Discharge Plan Discharge Clinical Impression: Alcohol withdrawal syndrome Qualifiers: Complication of substance-induced condition: uncomplicated Qualified Code(s): F10.230 - Alcohol dependence with withdrawal, uncomplicated Patient Disposition: Home, Self-Care Instructions: Alcohol Withdrawal (ED) Additional Instructions: return to ED for any worsening symptoms or concerns please go to detox COVID negative Prescriptions: No Action trazodone 50 mg tablet 2 tab PO BEDTIME RF: 0 ondansetron 4 mg tablet,disintegrating 4 mg PO ONCE PRN (Reason: nausea and vomiting) Qty: 10 RF: 0 omeprazole 20 mg capsule,delayed release(DR/EC) 1 cap PO DAILY RF: 0 nicotine 14 mg/24 hr Patch 24 Hour 14 mg transdermal DAILY 30 Days RF: 0 ondansetron 4 mg tablet,disintegrating 4 mg PO Q8H PRN (Reason: nausea and vomiting) Qty: 20 RF: 0 chlordiazepoxide HCl 25 mg capsule 50 mg PO Q2-4H PRN (Reason: alcohol withdrawal) 12 Days Qty: 12 RF: 0
[2021-10-16 07:25] LABS: MANUAL DIFF FLAG NO
[2021-10-16 07:26] LABS: Basophils Absolute Auto 0.1 X10*3/uL (0.0-0.2); Eosinophils Absolute Auto 0.1 X10*3/uL (0.0-0.4); Eosinophils Percent Auto 0.5 % (0-4); Hematocrit 48.4 % (42.0-52.0); Hemoglobin 17.1 g/dl (14.0-18.0); Imm Gran Abs Auto 0.03 X10*3/uL (0.00-0.03); Imm Gran Pct Auto 0.3 % (0.0-0.4); Lymphocytes Absolute Auto 1.7 X10*3/uL (1.2-4.9); Lymphocytes Percent Auto 15.1 % (20-40); Mean Corpuscular HGB Conc 35.3 g/dl (31.0-36.0); Mean Corpuscular Hemoglobin 33.1 pg (27.0-33.0); Mean Corpuscular Volume 93.6 fL (80.0-98.0); Monocytes Absolute Auto 1.4 X10*3/uL (0.1-1.2); Monocytes Percent Auto 12.6 % (2-11); Neutrophils Absolute Auto 7.7 x10*3/uL (2.0-8.3); Neutrophils Percent Auto 70.5 % (45-73); Platelet Count 284 X10*3/uL (160-400); Red Blood Count 5.17 X10*6/uL (4.60-5.80); Red Cell Distribution Width 13.3 % (11.0-16.0); White Blood Count 10.9 X10*3/uL (4.8-10.8)
[2021-10-16] MEDS: 0.9 % Sodium Chloride 1,000 ML 999 ML IVCONT (07:26)
[2021-10-16] MEDS: Magnesium Sulfate/H2O 2 GM/50 ML PIGGYBACK IV (07:27)
[2021-10-16] MEDS: Metoclopramide HCl 10 MG/2 ML VIAL IVPUSH (07:27)
[2021-10-16] MEDS: diphenhydrAMINE HCL 50 MG/ML VIAL 25 MG IVPUSH (07:27)
[2021-10-16] MEDS: LORazepam 2 MG/ML VIAL IVPUSH (07:27)
[2021-10-16] MEDS: Thiamine HCL 100 MG in 0.9 % Sodium Chloride 100 ML 202 MG IV (07:28)
[2021-10-16 07:41] LABS: COVID-19 Test Negative (Negative); IDNOW Serial# 9DD0AD1C
[2021-10-16 07:42] VITALS: BP 122/82; PULSE 101; RESP 18; TEMP 37; O2SAT 95
[2021-10-16 07:45] LABS: Alanine Aminotransferase 27 U/L (0-40); Albumin Level 4.9 g/dL (3.5-5.0); Alkaline Phosphatase 101 U/L (39-117); Anion Gap 23 (12-20); Aspartate Amino Transferase 36 U/L (5-37); Bilirubin Direct 0.5 mg/dL (0.0-0.5); Bilirubin Total 1.2 mg/dL (0.0-1.0); Blood Urea Nitrogen 6 mg/dL (9-16); Calcium 10.5 mg/dL (8.4-10.2); Carbon Dioxide 28 mmol/L (22-29); Chloride 92 mmol/L (96-108); Creatinine Clr Calc Pharmacy 91.3; Estimated Glomerular Filt Rate > 60; Glucose Random 107 mg/dL (60-115); Lipase 31 U/L (8-78); Magnesium 2.1 mg/dL (1.6-2.6); Potassium 3.8 mmol/L (3.3-5.1); Sodium 139 mmol/L (135-145); Total Protein 8.3 g/dL (6.5-8.0)
[2021-10-16 08:00] LABS: Ethanol 107 mg/dL
[2021-10-16] MEDS: 0.9 % Sodium Chloride 1,000 ML 999 ML IV (08:07)
[2021-10-16 09:39] VITALS: BP 118/70; PULSE 98; RESP 16
--- NOTE | 2021-10-16 10:37 | PC.NURSE ---
Initially upon arrival pt tremulous and vomiting. States last ETOH yesterday but unable to keep drinking d/t vomiting. Medicated as charted and fluids given. Pt restful and request ice water, tolerated well. NSR on tele. VSS. -CIWA
[2021-10-16] MEDS: chlordiazePOXIDE HCl 25 MG CAPSULE 50 MG PO (10:53)
--- NOTE | 2021-10-16 11:30 | ECG_ITS ---
Test Reason : tachycardia Blood Pressure : / mmHG Vent. Rate : 077 BPM Atrial Rate : 077 BPM P-R Int : 112 ms QRS Dur : 112 ms QT Int : 398 ms P-R-T Axes : 025 087 085 degrees QTc Int : 450 ms Normal sinus rhythm Incomplete right bundle branch block Borderline ECG When compared with ECG of 10-SEP-2021 09:50, No significant change was found Referred By: Tatyana Otero Electronically Signed By:BIN TAMEZ MD
[2021-10-16] MEDS: LORazepam 2 MG/ML VIAL 1 MG IVPUSH (12:05)
[2021-10-16] MEDS: Lactated Ringers 1,000 ML 999 ML IV (12:06)
--- NOTE | 2021-10-16 12:07 | PC.NURSE ---
Plan for detox at [facility] at [id number]. Medicated as charte. Pt tremulous with movement, activity.
--- NOTE | 2021-10-16 12:09 | MHC.RECOVSUP ---
? Reason for consult:Recovery Support o Current location:[facility]06 o Identified substance use concern:ETOH - Withdrawal - Seeking ATS (detox) - Support ? Intervention: o ATS bed search started/completed/in process o Community resources provided o Harm reduction discussion ? Plan: o Bed search in progress to o Patient to follow up with HF after discharge ? Additional information: Patient seeking detox. Patient going to [facility]@1:30 ETA is 3pm.
== END 2021-10-16 13:39 | disposition home or self-care (01) ==
PROVIDERS: Emergency Provider Emergency Medicine
DX: F10.239 Alcohol dependence with withdrawal, unspecified (principal); R11.2 Nausea with vomiting, unspecified; F17.210 Nicotine dependence, cigarettes, uncomplicated; Z71.6 Tobacco abuse counseling; Z20.822 Contact with and (suspected) exposure to COVID-19; Z79.899 Other long term (current) drug therapy
CPT/HCPCS: 80048; 80076; 82077; 83690; 83735; 85025; 87635; 93005; 96361; 96365; 96366; 96375; 96376; 99284; 99291; J1200; J2060; J2765; J3411; J3475

== ENCOUNTER 2021-12-26 02:17 | Emergency (ER) | payer MEDICAID, SELFPAY ==
--- NOTE | ~2021-12-26 | XR_ITS ---
EXAMINATION: XR CHEST CLINICAL INFORMATION: Shortness of breath COMPARISON: January 02, 2017 TECHNIQUE: AP portable view of the chest was obtained. FINDINGS: No significant abnormality is noted involving the heart, lungs, mediastinum, bony thorax or soft tissues. XR/XR chest 1V IMPRESSION: No acute disease
[2021-12-26 02:28] VITALS: BP 126/80; PULSE 105; RESP 16; O2SAT 99; BMI 22.1
--- NOTE | 2021-12-26 02:57 | ED_ITS ---
HPI - Alcohol General Chief Complaint: ETOH/Substance Use Stated Complaint: Alcohol With Drawal Time Seen by Provider: 12/26/21 02:57 Source: patient Mode of arrival: ambulatory Limitations: no limitations History of Present Illness HPI narrative: PATIENT ALCOHOLIC BEEN DRINKING HEAVY STOPPED DRINKING SINCE YESTERDAY 18:00, NOW BEEN FEELING ANXIOUS , NAUSEATED AND VOMITING VOMITING ALL DAY TODAY WITH EPIGASTRIC PAIN NO FEVER NO CHILLS HISTORY OF ALCOHOL WITHDRAWAL SEIZURES IN THE PAST Related Data Home Medications Medication Instructions Recorded Confirmed trazodone 50 mg tablet 2 tab PO BEDTIME 07/23/21 09/10/21 omeprazole 20 mg capsule,delayed 1 cap PO DAILY 09/10/21 09/10/21 release Previous Rx's Medication Instructions Recorded ondansetron 4 mg disintegrating 4 mg PO ONCE PRN #10 tab 09/10/21 tablet nicotine 14 mg/24 hr daily 14 mg TRANSDERMAL DAILY 30 Days ea 09/12/21 transdermal patch chlordiazepoxide HCl 25 mg capsule 50 mg PO Q2-4H PRN 12 Days #12 cap 10/04/21 ondansetron 4 mg disintegrating 4 mg PO Q8H PRN #20 tab 10/04/21 tablet chlordiazepoxide HCl 25 mg capsule 50 mg PO Q2-4H PRN #12 cap 12/26/21 folic acid 1 mg tablet 1 mg PO DAILY #30 tab 12/26/21 thiamine HCl (vitamin B1) 100 mg 100 mg PO DAILY #30 tab 12/26/21 tablet Allergies Allergy/AdvReac Type Severity Reaction Status Date / Time No Known Allergies Allergy Verified 12/17/20 22:42 [No Known Allergies*] Review of Systems Review of Systems: Yes all other systems are reviewed and are negative [facility] Past Medical History Medical History Alcohol use disorder, severe, dependence Anxiety Depression ETOH abuse Seizure Family History Family History Mother DVT (deep venous thrombosis) Social History Social History Household Members: Children Housing: House Do you presently have visiting nurse or other home services: No Alcohol intake: current Alcohol intake frequency: 0-2 drinks per day Alcohol type: hard liquor Patient Tobacco Use Status: Tobacco use Unknown Tobacco use type: Cigarette Cigarette Packs Per Day: 1.5 Cigarettes Per Day: 30.0 Years Smoked: 13 Second Hand Smoke Exposure: Yes Use of substances other than those prescribed or required for medical reasons: No Advance Directives: No Advance Directives Information Provided: No service: No Current occupational status: unemployed Physical Exam ED Vital Signs: Vital Signs - 24 hr 12/26/21 02:28 12/26/21 05:12 Pulse Rate 105 H 85 Respiratory Rate 16 16 Blood Pressure 126/80 118/58 L Pulse Oximetry 99 98 BMI result Body Mass Index 22.1 Appearance: Alert. Oriented X3. No acute distress. anxious actively vomiting Eyes: PERRLA, No Nystagmus ENT: Pharynx normal. Oral Mucosa moist Neck: Normal inspection. Neck supple. CVS: Normal heart rate and rhythm. Pulses normal. Respiratory: No respiratory distress. Equal air entry bilateral, no wheezing/rales/rhonchi Abdomen: Soft , epigastric tenderness Bowel sounds are present, no mass palpable, no CVA tenderness Skin: Skin warm and dry. Normal skin color. Normal skin turgor. Extremities: No lower extremity edema. No calf tenderness Neuro: Oriented X 3. No motor deficit. No sensory deficit.No cerebellar signs , cranial nerves II-XII intact MDM - Alcohol MDM Narrative Medical decision making narrative: patient alcoholic felt better after IV hydration and Ativan refusing to go to detox. Will get care team to talk to the patient. If patient still does not want to do detox discharge home on Librium Differential Diagnosis Differential diagnosis: Likely alcohol dependence Lab Data Attestation: I reviewed the patient's lab results. Result diagrams: 12/26/21 03:22 12/26/21 03:22 Labs: Lab Results 12/26/21 12/26/21 12/26/21 Range/Units 03:22 03:22 03:22 WBC 14.6 H (4.8-10.8) X10*3/uL RBC 5.06 (4.60-5.80) X10*6/uL Hgb 16.0 (14.0-18.0) g/dl Hct 46.1 (42.0-52.0) % MCV 91.1 (80.0-98.0) fL MCH 31.6 (27.0-33.0) pg MCHC 34.7 (31.0-36.0) g/dl RDW 12.1 (11.0-16.0) % Plt Count 313 (160-400) X10*3/uL MPV 9.5 (9.4-12.4) fL Immature Gran % (Auto) 0.2 (0.0-0.4) % Neut % (Auto) 84.4 H (45-73) % Lymph % (Auto) 9.1 L (20-40) % [place] % (Auto) 5.4 (2-11) % Eos % (Auto) 0.3 (0-4) % Baso % (Auto) 0.6 (0-2) % Lymph # (Auto) 1.3 (1.2-4.9) X10*3/uL [place] # (Auto) 0.8 (0.1-1.2) X10*3/uL Eos # (Auto) 0.0 (0.0-0.4) X10*3/uL Baso # (Auto) 0.1 (0.0-0.2) X10*3/uL Abs Immat Gran (auto) 0.03 (0.00-0.03) X10*3/uL Absolute Neuts (auto) 12.3 H (2.0-8.3) x10*3/uL Absolute Nucleated RBC 0.000 (0.0-0.012) X10*3/uL Nucleated RBC % (auto) 0.0 (0.0-0.2) /100WBC Sodium 140 (135-145) mmol/L Potassium 4.9 D (3.3-5.1) mmol/L Chloride 98 (96-108) mmol/L Carbon Dioxide 21 L (22-29) mmol/L Anion Gap 26 H (12-20) BUN 9 (9-16) mg/dL Creatinine 1.03 (0.5-1.4) mg/dL Estim Creat Clear Calc 100.0 Estimated GFR > 60 Random Glucose 101 (60-115) mg/dL Calcium 10.3 H (8.4-10.2) mg/dL Magnesium 2.2 (1.6-2.6) mg/dL Total Bilirubin 1.2 H (0.0-1.0) mg/dL AST 62 H (5-37) U/L ALT 48 H (0-40) U/L Alkaline Phosphatase 148 H D (39-117) U/L Total Protein 8.1 H (6.5-8.0) g/dL Albumin 4.7 (3.5-5.0) g/dL Lipase 48 (8-78) U/L Ethyl Alcohol mg/dL COVID-19 (CJ) Negative (Negative) COVID-19 Clin Com See Note 12/26/21 Range/Units 03:22 WBC (4.8-10.8) X10*3/uL RBC (4.60-5.80) X10*6/uL Hgb (14.0-18.0) g/dl Hct (42.0-52.0) % MCV (80.0-98.0) fL MCH (27.0-33.0) pg MCHC (31.0-36.0) g/dl RDW (11.0-16.0) % Plt Count (160-400) X10*3/uL MPV (9.4-12.4) fL Immature Gran % (Auto) (0.0-0.4) % Neut % (Auto) (45-73) % Lymph % (Auto) (20-40) % [place] % (Auto) (2-11) % Eos % (Auto) (0-4) % Baso % (Auto) (0-2) % Lymph # (Auto) (1.2-4.9) X10*3/uL [place] # (Auto) (0.1-1.2) X10*3/uL Eos # (Auto) (0.0-0.4) X10*3/uL Baso # (Auto) (0.0-0.2) X10*3/uL Abs Immat Gran (auto) (0.00-0.03) X10*3/uL Absolute Neuts (auto) (2.0-8.3) x10*3/uL Absolute Nucleated RBC (0.0-0.012) X10*3/uL Nucleated RBC % (auto) (0.0-0.2) /100WBC Sodium (135-145) mmol/L Potassium (3.3-5.1) mmol/L Chloride (96-108) mmol/L Carbon Dioxide (22-29) mmol/L Anion Gap (12-20) BUN (9-16) mg/dL Creatinine (0.5-1.4) mg/dL Estim Creat Clear Calc Estimated GFR Random Glucose (60-115) mg/dL Calcium (8.4-10.2) mg/dL Magnesium (1.6-2.6) mg/dL Total Bilirubin (0.0-1.0) mg/dL AST (5-37) U/L ALT (0-40) U/L Alkaline Phosphatase (39-117) U/L Total Protein (6.5-8.0) g/dL Albumin (3.5-5.0) g/dL Lipase (8-78) U/L Ethyl Alcohol 148 mg/dL COVID-19 (CJ) (Negative) COVID-19 Clin Com Discharge Plan Discharge Clinical Impression: Alcohol withdrawal syndrome Patient Disposition: Still a Patient Instructions: Alcohol Withdrawal (ED) Additional Instructions: stop drinking alcohol follow up with detox take Librium for withdrawal as advised Prescriptions: New chlordiazepoxide HCl 25 mg capsule 50 mg PO Q2-4H PRN (Reason: alcohol withdrawal) Qty: 12 0RF Rx Instructions: until symptoms controlled thiamine HCl (vitamin B1) 100 mg tablet 100 mg PO DAILY Qty: 30 0RF folic acid 1 mg tablet 1 mg PO DAILY Qty: 30 0RF No Action trazodone 50 mg tablet 2 tab PO BEDTIME 0RF ondansetron 4 mg tablet,disintegrating 4 mg PO ONCE PRN (Reason: nausea and vomiting) Qty: 10 0RF omeprazole 20 mg capsule,delayed release(DR/EC) 1 cap PO DAILY 0RF nicotine 14 mg/24 hr Patch 24 Hour 14 mg transdermal DAILY 30 Days 0RF ondansetron 4 mg tablet,disintegrating 4 mg PO Q8H PRN (Reason: nausea and vomiting) Qty: 20 0RF chlordiazepoxide HCl 25 mg capsule 50 mg PO Q2-4H PRN (Reason: alcohol withdrawal) 12 Days Qty: 12 0RF Rx Instructions: until symptoms controlled
[2021-12-26] MEDS: 0.9 % Sodium Chloride 1,000 ML 999 ML IV (03:23)
[2021-12-26] MEDS: Famotidine/PF 20 MG/2 ML VIAL IVPUSH (03:23)
[2021-12-26] MEDS: ondansetron HCL 4 MG/2 ML VIAL IVPUSH (03:23)
[2021-12-26] MEDS: LORazepam 2 MG/ML VIAL IVPUSH (03:24)
[2021-12-26 03:29] LABS: MANUAL DIFF FLAG NO
[2021-12-26 03:30] LABS: Basophils Absolute Auto 0.1 X10*3/uL (0.0-0.2); Basophils Percent Auto 0.6 % (0-2); Eosinophils Percent Auto 0.3 % (0-4); Hematocrit 46.1 % (42.0-52.0); Imm Gran Abs Auto 0.03 X10*3/uL (0.00-0.03); Imm Gran Pct Auto 0.2 % (0.0-0.4); Lymphocytes Absolute Auto 1.3 X10*3/uL (1.2-4.9); Lymphocytes Percent Auto 9.1 % (20-40); Mean Corpuscular HGB Conc 34.7 g/dl (31.0-36.0); Mean Corpuscular Hemoglobin 31.6 pg (27.0-33.0); Mean Corpuscular Volume 91.1 fL (80.0-98.0); Mean Platelet Volume 9.5 fL (9.4-12.4); Monocytes Absolute Auto 0.8 X10*3/uL (0.1-1.2); Monocytes Percent Auto 5.4 % (2-11); Neutrophils Absolute Auto 12.3 x10*3/uL (2.0-8.3); Neutrophils Percent Auto 84.4 % (45-73); Platelet Count 313 X10*3/uL (160-400); Red Blood Count 5.06 X10*6/uL (4.60-5.80); Red Cell Distribution Width 12.1 % (11.0-16.0); White Blood Count 14.6 X10*3/uL (4.8-10.8)
[2021-12-26 03:47] LABS: Ethanol 148 mg/dL
[2021-12-26 03:52] LABS: Alanine Aminotransferase 48 U/L (0-40); Albumin Level 4.7 g/dL (3.5-5.0); Alkaline Phosphatase 148 U/L (39-117); Anion Gap 26 (12-20); Aspartate Amino Transferase 62 U/L (5-37); Bilirubin Total 1.2 mg/dL (0.0-1.0); Blood Urea Nitrogen 9 mg/dL (9-16); Calcium 10.3 mg/dL (8.4-10.2); Carbon Dioxide 21 mmol/L (22-29); Chloride 98 mmol/L (96-108); Estimated Glomerular Filt Rate > 60; Glucose Random 101 mg/dL (60-115); Lipase 48 U/L (8-78); Magnesium 2.2 mg/dL (1.6-2.6); Potassium 4.9 mmol/L (3.3-5.1); Sodium 140 mmol/L (135-145); Total Protein 8.1 g/dL (6.5-8.0)
[2021-12-26 04:01] LABS: COVID-19 Test Negative (Negative)
[2021-12-26 05:12] VITALS: BP 118/58; PULSE 85; RESP 16; O2SAT 98
--- NOTE | 2021-12-26 05:25 | PC.NURSE ---
I assumed nursing care of Morgan upon his arrival to bed 7 via EMS from his home. Morgan presented for evaluation of alcohol withdrawal, per the pt. Morgan states he believes he is withdrawing from alcohol and states his last drink was approximately 1800 on 12/25. He attempted to drink after midnight prior to coming to ED but that wasn't happening. On arrival he appears anxious with moderate tremors and mild diaphoresis. He states he is afraid that he will have a seizure and as had seizures due to withdrawal in his past. He is calm, cooperative, makes eye contact with Rn. There is no chest pain. Respirations spontaneous and non-labored. STach, rate low 100's, on bedside monitor. He denies SI. Denies HI. He is not interested in going to detox, he states he wishes only to prevent a seizure. IV access/labs obtained on Morgan. Ordered meds administered and the pt is currently sleeping without tremors, without diaphoresis, without any other sign of withdrawal. We will continue to monitor Morgan.
[2021-12-26 07:39] VITALS: RESP 16
--- NOTE | 2021-12-26 09:26 | MHC.CARE ---
Pt is a 31 y/o Maltese speaking, male who presented to the ED via ambulance after binge drinking hard liquor and beer.? Pt had a period of sobriety for approximately 3 months before relapsing.? Pt reported to the ED with anxiety, nausea and vomiting, and epigastric pain.? CARE Team meets with pt upon receiving a Consult for Depression and alcohol use.? Pt is alert and oriented x4, and is assessed in his room in the Main ED.? He appears his stated age and is disheveled in appearance.? Pt is moderately involved in the assessment.? His eye contact and speech are unremarkable.? He denies anxiety, stating it was in the context of his recent relapse and his stomach discomfort.? He denies depression. ? Pt was given recovery resources, which he accepted.
--- NOTE | 2021-12-26 09:27 | MHC.RECOVSUP ---
Recovery Support note: This mortgage or loan underwriter followed up with patient to discuss resources provided by CARE Team. Patient reports no questions at this time. Provided patient with contact information for this mortgage or loan underwriter in the event that he has questions after discharge. Discussed case with CARE Team.
[2021-12-26 10:59] VITALS: BP 125/74; PULSE 109; RESP 14; O2SAT 99
== END 2021-12-26 11:42 | disposition home or self-care (01) ==
PROVIDERS: Emergency Provider Internal Medicine
DX: F10.230 Alcohol dependence with withdrawal, uncomplicated (principal); Y90.6 Blood alcohol level of 120-199 mg/100 ml; Z20.822 Contact with and (suspected) exposure to COVID-19; F17.200 Nicotine dependence, unspecified, uncomplicated
CPT/HCPCS: 71045; 80053; 82077; 83690; 83735; 85025; 87635; 96361; 96374; 96375; 99284; 99285; J2060; J2405

== ENCOUNTER 2021-12-31 18:44 | Emergency (ER) | payer MEDICAID, SELFPAY ==
[2021-12-31 19:21] VITALS: BP 133/86; PULSE 78; RESP 18; TEMP 36.5; O2SAT 98; BMI 22.1
[2021-12-31 19:44] LABS: MANUAL DIFF FLAG NO
[2021-12-31 19:46] LABS: Basophils Absolute Auto 0.1 X10*3/uL (0.0-0.2); Basophils Percent Auto 1.1 % (0-2); Eosinophils Absolute Auto 0.1 X10*3/uL (0.0-0.4); Eosinophils Percent Auto 1.6 % (0-4); Hematocrit 43.3 % (42.0-52.0); Hemoglobin 14.9 g/dl (14.0-18.0); Imm Gran Abs Auto 0.01 X10*3/uL (0.00-0.03); Imm Gran Pct Auto 0.2 % (0.0-0.4); Lymphocytes Absolute Auto 1.8 X10*3/uL (1.2-4.9); Lymphocytes Percent Auto 29.3 % (20-40); Mean Corpuscular HGB Conc 34.4 g/dl (31.0-36.0); Mean Corpuscular Hemoglobin 31.8 pg (27.0-33.0); Mean Corpuscular Volume 92.3 fL (80.0-98.0); Mean Platelet Volume 9.4 fL (9.4-12.4); Monocytes Absolute Auto 0.5 X10*3/uL (0.1-1.2); Monocytes Percent Auto 8.4 % (2-11); Neutrophils Absolute Auto 3.6 x10*3/uL (2.0-8.3); Neutrophils Percent Auto 59.4 % (45-73); Platelet Count 222 X10*3/uL (160-400); Red Blood Count 4.69 X10*6/uL (4.60-5.80); Red Cell Distribution Width 12.6 % (11.0-16.0); White Blood Count 6.1 X10*3/uL (4.8-10.8)
[2021-12-31 19:57] LABS: Ethanol 424 mg/dL
[2021-12-31 20:05] LABS: Alanine Aminotransferase 66 U/L (0-40); Albumin Level 4.6 g/dL (3.5-5.0); Alkaline Phosphatase 128 U/L (39-117); Anion Gap 13 (12-20); Aspartate Amino Transferase 55 U/L (5-37); Bilirubin Total 0.6 mg/dL (0.0-1.0); Blood Urea Nitrogen 4 mg/dL (9-16); Calcium 9.1 mg/dL (8.4-10.2); Carbon Dioxide 33 mmol/L (22-29); Chloride 100 mmol/L (96-108); Estimated Glomerular Filt Rate > 60; Glucose Random 103 mg/dL (60-115); Potassium 4.4 mmol/L (3.3-5.1); Sodium 142 mmol/L (135-145); Total Protein 7.5 g/dL (6.5-8.0)
== END 2021-12-31 23:35 | disposition left against medical advice (07) ==
PROVIDERS: Emergency Provider Emergency Medicine
DX: F10.120 Alcohol abuse with intoxication, uncomplicated (principal); Y90.8 Blood alcohol level of 240 mg/100 ml or more
CPT/HCPCS: 36415; 80053; 82077; 85025; 99282; 99283

== ENCOUNTER 2022-01-03 05:59 | Emergency (ER) | payer MEDICAID, SELFPAY ==
--- NOTE | 2022-01-03 | ECG_ITS ---
Test Reason : ETOH Blood Pressure : / mmHG Vent. Rate : 085 BPM Atrial Rate : 085 BPM P-R Int : 130 ms QRS Dur : 098 ms QT Int : 368 ms P-R-T Axes : 084 077 079 degrees QTc Int : 437 ms Poor data quality Normal sinus rhythm Normal ECG When compared with ECG of 16-OCT-2021 12:12, No significant changes seen Referred By: Generic ED Physician Electronically Signed By:Timbo Posey
[2022-01-03 06:05] VITALS: BP 135/88; PULSE 90; RESP 24; TEMP 36.5; O2SAT 97; BMI 21.4
--- NOTE | 2022-01-03 06:12 | PC.NURSE ---
Assumed care of pt Pt here for alcohol detox. Per pt, last drink was last night. Pt normally drinks 2 pints and with some beer. Denies taking any other substance abuse. Denies any OSEI, audio/tactile/visual hallucinations C/o nausea Tremors visible Pt on telemetry monitor with HR in 90s Will continue to monitor
[2022-01-03 06:15] LABS: Basophils Absolute Auto 0.1 X10*3/uL (0.0-0.2); Basophils Percent Auto 0.9 % (0-2); Eosinophils Absolute Auto 0.2 X10*3/uL (0.0-0.4); Eosinophils Percent Auto 2.2 % (0-4); Hematocrit 42.1 % (42.0-52.0); Hemoglobin 14.3 g/dl (14.0-18.0); Imm Gran Abs Auto 0.01 X10*3/uL (0.00-0.03); Imm Gran Pct Auto 0.1 % (0.0-0.4); Lymphocytes Absolute Auto 3.1 X10*3/uL (1.2-4.9); Lymphocytes Percent Auto 45.3 % (20-40); MANUAL DIFF FLAG NO; Mean Corpuscular Hemoglobin 31.9 pg (27.0-33.0); Mean Platelet Volume 9.2 fL (9.4-12.4); Monocytes Absolute Auto 0.7 X10*3/uL (0.1-1.2); Monocytes Percent Auto 10.3 % (2-11); Neutrophils Absolute Auto 2.9 x10*3/uL (2.0-8.3); Neutrophils Percent Auto 41.2 % (45-73); Platelet Count 193 X10*3/uL (160-400); Red Blood Count 4.48 X10*6/uL (4.60-5.80); Red Cell Distribution Width 12.9 % (11.0-16.0); White Blood Count 6.9 X10*3/uL (4.8-10.8)
[2022-01-03 06:27] LABS: Ethanol 238 mg/dL
[2022-01-03 06:30] LABS: Alanine Aminotransferase 51 U/L (0-40); Albumin Level 4.3 g/dL (3.5-5.0); Alkaline Phosphatase 120 U/L (39-117); Anion Gap 15 (12-20); Aspartate Amino Transferase 43 U/L (5-37); Bilirubin Total 0.9 mg/dL (0.0-1.0); Blood Urea Nitrogen 8 mg/dL (9-16); Calcium 9.2 mg/dL (8.4-10.2); Carbon Dioxide 28 mmol/L (22-29); Chloride 102 mmol/L (96-108); Estimated Glomerular Filt Rate > 60; Glucose Random 96 mg/dL (60-115); Sodium 141 mmol/L (135-145); Total Protein 7.1 g/dL (6.5-8.0)
--- NOTE | 2022-01-03 06:34 | ED_ITS ---
HPI - Alcohol General Chief Complaint: ETOH/Substance Use Stated Complaint: alcohol withdrawal Time Seen by Provider: 01/03/22 06:31 Source: patient and old records reviewed Mode of arrival: EMS Limitations: no limitations History of Present Illness MD complaint: alcohol withdrawal, alcohol dependence and desires rehab Last drink: Hours (ago) (yesterday 6pm) Amount of alcohol consumed: large amounts of hard alcohol and beer Chronic alcohol use: Yes Previous visits for alcohol intoxication: Yes Recent trauma: Yes (states he slipped down some stairs no trauma no head strike) Associated symptoms: nausea and vomiting Treatments prior to arrival: none Related Data Home Medications Medication Instructions Recorded Confirmed trazodone 50 mg tablet 2 tab PO BEDTIME 07/23/21 09/10/21 omeprazole 20 mg capsule,delayed 1 cap PO DAILY 09/10/21 09/10/21 release Previous Rx's Medication Instructions Recorded ondansetron 4 mg disintegrating 4 mg PO ONCE PRN #10 tab 09/10/21 tablet nicotine 14 mg/24 hr daily 14 mg TRANSDERMAL DAILY 30 Days ea 09/12/21 transdermal patch chlordiazepoxide HCl 25 mg capsule 50 mg PO Q2-4H PRN 12 Days #12 cap 10/04/21 ondansetron 4 mg disintegrating 4 mg PO Q8H PRN #20 tab 10/04/21 tablet chlordiazepoxide HCl 25 mg capsule 50 mg PO Q2-4H PRN #12 cap 12/26/21 folic acid 1 mg tablet 1 mg PO DAILY #30 tab 12/26/21 thiamine HCl (vitamin B1) 100 mg 100 mg PO DAILY #30 tab 12/26/21 tablet Allergies Allergy/AdvReac Type Severity Reaction Status Date / Time No Known Allergies Allergy Verified 01/03/22 06:08 [No Known Allergies*] Review of Systems Review of Systems: Constitutional : No Weight loss, No Fever, No Chills ENT/Mouth : No sore throat, No Rhinorrhea Eyes: No Swelling, No Redness Cardiovascular : No Chest Pain, No SOB, NoEdema Respiratory : No Cough, No Sputum, No Wheezing Gastrointestinal : Positive Nausea, Positive Vomiting, no Diarrhea, positive abdominal Pain, No Hematochezia, No Melena Genitourinary : No Dysuria, No Urinary Frequency, No Hematuria, No Urgency Musculoskeletal : No joint pain, No Myalgias, No Joint Swelling Skin : No Skin Lesions, No rash Neuro : pos Weakness, No Numbness, No Dizziness, No Headache Psych : pos Anxiety/Panic, No Depression Heme/Lymph: No Bruising, No Lymphadenopathy Endocrine : No Polyuria, No Polydipsia All other systems reviewed and are negative. [facility] Past Medical History Attestation statement: The following information was validated with the patient. Medical History Alcohol use disorder, severe, dependence Anxiety Depression ETOH abuse Seizure Family History Family History Mother DVT (deep venous thrombosis) Social History Social History Household Members: Children Housing: House Do you presently have visiting nurse or other home services: No Alcohol intake: current Alcohol intake frequency: 0-2 drinks per day Alcohol type: hard liquor Patient Tobacco Use Status: Tobacco use Unknown Tobacco use type: Cigarette Cigarette Packs Per Day: 1.5 Cigarettes Per Day: 30.0 Years Smoked: 13 Second Hand Smoke Exposure: Yes Advance Directives: No service: No Current occupational status: unemployed Physical Exam ED Vital Signs: Vital Signs - 24 hr 01/03/22 06:05 01/03/22 08:41 01/03/22 09:22 Temperature 97.7 F 98.2 F Pulse Rate 90 70 77 Respiratory Rate 24 H 18 19 Blood Pressure 135/88 104/62 99/56 L Pulse Oximetry 97 95 97 01/03/22 09:30 Temperature 98 F Pulse Rate 106 H Respiratory Rate 19 Blood Pressure 112/52 L Pulse Oximetry 99 BMI result Body Mass Index 21.4 Appearance: Alert. Oriented X3. Mild acute distress. Eyes: Pupils equal, round and reactive to light. ENT: Pharynx dry MM Atraumatic Neck: Normal inspection. Neck supple. CVS: tachyardicheart rate and rhythm. Pulses normal. Respiratory: No respiratory distress. Breath sounds normal. Abdomen: Soft and non-tender. Skin: Skin warm and dry. Normal skin color. Normal skin turgor. Extremities: No lower extremity edema. No calf ttp Neuro: Oriented X 3. No motor deficit. No sensory deficit. Course Course Course Narrative: patient much improved. pending rehab consult to go to [facility] MDM - Alcohol MDM Narrative Medical decision making narrative: 31 yo male well know to us with with hx of ETOH abuse and alcohol related issues such as gastritis/seizures at this time will need labs, IVF, IV ativan, zofran. has no trauma noted to his body. GCS 15. Dispo per results and clinical impro vement on ativan. May need admission vs detox. Lab Data Result diagrams: 01/03/22 06:09 01/03/22 06:09 Labs: Lab Results 01/03/22 01/03/22 01/03/22 Range/Units 06:09 06:09 06:09 WBC 6.9 (4.8-10.8) X10*3/uL RBC 4.48 L (4.60-5.80) X10*6/uL Hgb 14.3 (14.0-18.0) g/dl Hct 42.1 (42.0-52.0) % MCV 94.0 (80.0-98.0) fL MCH 31.9 (27.0-33.0) pg MCHC 34.0 (31.0-36.0) g/dl RDW 12.9 (11.0-16.0) % Plt Count 193 (160-400) X10*3/uL MPV 9.2 L (9.4-12.4) fL Immature Gran % (Auto) 0.1 (0.0-0.4) % Neut % (Auto) 41.2 L (45-73) % Lymph % (Auto) 45.3 H (20-40) % [place] % (Auto) 10.3 (2-11) % Eos % (Auto) 2.2 (0-4) % Baso % (Auto) 0.9 (0-2) % Lymph # (Auto) 3.1 (1.2-4.9) X10*3/uL [place] # (Auto) 0.7 (0.1-1.2) X10*3/uL Eos # (Auto) 0.2 (0.0-0.4) X10*3/uL Baso # (Auto) 0.1 (0.0-0.2) X10*3/uL Abs Immat Gran (auto) 0.01 (0.00-0.03) X10*3/uL Absolute Neuts (auto) 2.9 (2.0-8.3) x10*3/uL Absolute Nucleated RBC 0.000 (0.0-0.012) X10*3/uL Nucleated RBC % (auto) 0.0 (0.0-0.2) /100WBC Sodium 141 (135-145) mmol/L Potassium 4.0 (3.3-5.1) mmol/L Chloride 102 (96-108) mmol/L Carbon Dioxide 28 (22-29) mmol/L Anion Gap 15 (12-20) BUN 8 L D (9-16) mg/dL Creatinine 1.07 (0.5-1.4) mg/dL Estim Creat Clear Calc 93.0 Estimated GFR > 60 Random Glucose 96 (60-115) mg/dL Calcium 9.2 (8.4-10.2) mg/dL Magnesium 2.3 (1.6-2.6) mg/dL Total Bilirubin 0.9 (0.0-1.0) mg/dL AST 43 H (5-37) U/L ALT 51 H (0-40) U/L Alkaline Phosphatase 120 H (39-117) U/L Total Protein 7.1 (6.5-8.0) g/dL Albumin 4.3 (3.5-5.0) g/dL Lipase 33 (8-78) U/L Ethyl Alcohol 238 mg/dL Critical Care Time Critical Care Time Critical Care Time: Yes Total Critical Care Time: 35 Attestation: IV ativan 2mg, IVF, repeat PO medications, treatment of withdrawal I attest to this time spent taking care of the patient Discharge Plan Discharge Clinical Impression: Alcohol withdrawal syndrome Qualifiers: Complication of substance-induced condition: uncomplicated Qualified Code(s): F10.230 - Alcohol dependence with withdrawal, uncomplicated Patient Disposition: Xfer Other Transfer Details: [facility] Instructions: Abuse of Alcohol (ED) Additional Instructions: return to ED for any worsening symptoms or concerns Prescriptions: No Action trazodone 50 mg tablet 2 tab PO BEDTIME 0RF ondansetron 4 mg tablet,disintegrating 4 mg PO ONCE PRN (Reason: nausea and vomiting) Qty: 10 0RF omeprazole 20 mg capsule,delayed release(DR/EC) 1 cap PO DAILY 0RF nicotine 14 mg/24 hr Patch 24 Hour 14 mg transdermal DAILY 30 Days 0RF ondansetron 4 mg tablet,disintegrating 4 mg PO Q8H PRN (Reason: nausea and vomiting) Qty: 20 0RF chlordiazepoxide HCl 25 mg capsule 50 mg PO Q2-4H PRN (Reason: alcohol withdrawal) 12 Days Qty: 12 0RF Rx Instructions: until symptoms controlled chlordiazepoxide HCl 25 mg capsule 50 mg PO Q2-4H PRN (Reason: alcohol withdrawal) Qty: 12 0RF Rx Instructions: until symptoms controlled thiamine HCl (vitamin B1) 100 mg tablet 100 mg PO DAILY Qty: 30 0RF folic acid 1 mg tablet 1 mg PO DAILY Qty: 30 0RF
[2022-01-03] MEDS: ondansetron HCL 4 MG/2 ML VIAL IVPUSH (06:36)
[2022-01-03] MEDS: LORazepam 2 MG/ML VIAL IVPUSH (06:36)
[2022-01-03] MEDS: Lactated Ringers 1,000 ML 999 ML IV (06:39)
[2022-01-03 06:49] LABS: Lipase 33 U/L (8-78); Magnesium 2.3 mg/dL (1.6-2.6)
[2022-01-03] MEDS: chlordiazePOXIDE HCl 25 MG CAPSULE 50 MG PO ×2 (08:20→12:24)
--- NOTE | 2022-01-03 08:39 | MHC.RECOVSUP ---
Addendum entered by Fei Sommer [facility] 01/03/22 12:56: Referred and accepted to [facility] in [place]. Transported via [employer]. Original Note: Recovery Support note: Patient is a 31 year old Bhutanese speaking male who presented to [facility] ED seeking detox. Patient reports drinking 1-2 pints of vodka a day in addition to 10 beers. Patient is willing to go anywhere for treatment. This information writer will assist patient in referring to ATS facilities.
[2022-01-03 08:41] VITALS: BP 104/62; PULSE 70; RESP 18; TEMP 36.8; O2SAT 95
[2022-01-03 09:22] VITALS: BP 99/56; PULSE 77; RESP 19; O2SAT 97
[2022-01-03 09:30] VITALS: BP 112/52; PULSE 106; RESP 19; TEMP 36.6; O2SAT 99
[2022-01-03 12:00] VITALS: BP 111/57; PULSE 80; RESP 18; TEMP 36.7; O2SAT 98
--- NOTE | 2022-01-03 12:29 | PC.NURSE ---
per wallace patient will be discharging to a rehab, pt currently a&ox3, vss, no c/o pain, ciwa 1, pt medicated per order, will continue to monitor.
== END 2022-01-03 14:09 | disposition other institution (70) ==
PROVIDERS: Emergency Provider Emergency Medicine
DX: F10.239 Alcohol dependence with withdrawal, unspecified (principal); Y90.7 Blood alcohol level of 200-239 mg/100 ml; R11.2 Nausea with vomiting, unspecified; F17.210 Nicotine dependence, cigarettes, uncomplicated; Z71.6 Tobacco abuse counseling; Z79.899 Other long term (current) drug therapy
CPT/HCPCS: 36415; 80053; 82077; 83690; 83735; 85025; 93005; 96374; 96376; 99284; 99291; J2060; J2405

== ENCOUNTER 2022-01-19 22:18 | Emergency (ER) | payer MEDICAID, SELFPAY ==
[2022-01-19 22:31] VITALS: BP 132/90; PULSE 90; RESP 20; TEMP 37.4; O2SAT 100; BMI 21.4
[2022-01-19 22:35] VITALS: BP 128/82; PULSE 108; O2SAT 100
--- NOTE | 2022-01-19 22:37 | ED.NAVMDI ---
HPI - Nausea/Vomiting/Diarrhea General Chief complaint: ETOH/Substance Use Stated complaint: Nausea Time Seen by Provider: 01/19/22 22:34 Source: patient Mode of arrival: ambulatory Limitations: no limitations History of Present Illness HPI Narrative: Patient with history of alcohol abuse since age 20 been drinking heavy for last 1 week for last 2 days been throwing up and not able to drink much feel anxious had history of alcohol withdrawal seizures in the past. Complaining of epigastric pain vomitus is mostly clear no blood no black stools Related Data Home Medications Medication Instructions Recorded Confirmed trazodone 50 mg tablet 2 tab PO BEDTIME 07/23/21 09/10/21 omeprazole 20 mg capsule,delayed 1 cap PO DAILY 09/10/21 09/10/21 release Previous Rx's Medication Instructions Recorded ondansetron 4 mg disintegrating 4 mg PO ONCE PRN #10 tab 09/10/21 tablet nicotine 14 mg/24 hr daily 14 mg TRANSDERMAL DAILY 30 Days ea 09/12/21 transdermal patch chlordiazepoxide HCl 25 mg capsule 50 mg PO Q2-4H PRN 12 Days #12 cap 10/04/21 ondansetron 4 mg disintegrating 4 mg PO Q8H PRN #20 tab 10/04/21 tablet chlordiazepoxide HCl 25 mg capsule 50 mg PO Q2-4H PRN #12 cap 12/26/21 folic acid 1 mg tablet 1 mg PO DAILY #30 tab 12/26/21 thiamine HCl (vitamin B1) 100 mg 100 mg PO DAILY #30 tab 12/26/21 tablet Allergies Allergy/AdvReac Type Severity Reaction Status Date / Time No Known Allergies Allergy Verified 01/03/22 06:08 [No Known Allergies*] Review of Systems Review of Systems: Yes all other systems are reviewed and are negative PMFSH Past Medical History Medical History Alcohol use disorder, severe, dependence Anxiety Depression ETOH abuse Seizure Family History Family History Mother DVT (deep venous thrombosis) Social History Social History Household Members: Children Housing: House Do you presently have visiting nurse or other home services: No Alcohol intake: current Alcohol intake frequency: 0-2 drinks per day Alcohol type: hard liquor Patient Tobacco Use Status: Current everyday Tobacco user Tobacco use type: Cigarette Cigarette Packs Per Day: 1.5 Cigarettes Per Day: 30.0 Years Smoked: 13 Smoked in Last 30 Days: Yes Second Hand Smoke Exposure: Yes Use of substances other than those prescribed or required for medical reasons: No Advance Directives: No service: No Current occupational status: unemployed Physical Exam Vital Signs: Vital Signs: Last Vital Signs Temp 99.3 F 01/19/22 22:31 Pulse 94 01/19/22 23:54 Resp 22 H 01/19/22 23:54 BP 115/74 01/19/22 23:54 Pulse Ox 96 01/19/22 23:54 BMI result Body Mass Index 21.4 Appearance: Alert. Oriented X3. Anxious and jittery Eyes: PERRLA, No Nystagmus no pallor or icterus ENT: Pharynx normal. Oral Mucosa moist Neck: Normal inspection. Neck supple. CVS: Normal heart rate and rhythm. Pulses normal. Respiratory: No respiratory distress. Equal air entry bilateral, no wheezing/rales/rhonchi Abdomen: Soft , mild epigastric tenderness Bowel sounds are present, no mass palpable, no CVA tenderness Skin: Skin warm and dry. Normal skin color. Normal skin turgor. Extremities: No lower extremity edema. No calf tenderness Neuro: Oriented X 3. No motor deficit. No sensory deficit.No cerebellar signs , cranial nerves II-XII intact MDM - Nausea/Vomiting/Diarrhea MDM Narrative Medical decision making narrative: Patient alcoholic with frequent detox was there last week and when he came out started drinking again. At this time patient would like to go to detox again will consult the curative [facility] according to CIWA scale Lab Data Attestation: I reviewed the patient's lab results. Result diagrams: 01/20/22 00:08 01/20/22 00:08 Labs: Lab Results 01/20/22 01/20/22 01/20/22 Range/Units 00:07 00:08 00:08 WBC 11.1 H (4.8-10.8) X10*3/uL RBC 4.47 L (4.60-5.80) X10*6/uL Hgb 14.4 (14.0-18.0) g/dl Hct 41.9 L (42.0-52.0) % MCV 93.7 (80.0-98.0) fL MCH 32.2 (27.0-33.0) pg MCHC 34.4 (31.0-36.0) g/dl RDW 13.7 (11.0-16.0) % Plt Count 437 H D (160-400) X10*3/uL MPV 8.6 L (9.4-12.4) fL Immature Gran % (Auto) 0.3 (0.0-0.4) % Neut % (Auto) 80.3 H (45-73) % Lymph % (Auto) 12.7 L (20-40) % [place] % (Auto) 5.6 (2-11) % Eos % (Auto) 0.0 (0-4) % Baso % (Auto) 1.1 (0-2) % Lymph # (Auto) 1.4 (1.2-4.9) X10*3/uL [place] # (Auto) 0.6 (0.1-1.2) X10*3/uL Eos # (Auto) 0.0 (0.0-0.4) X10*3/uL Baso # (Auto) 0.1 (0.0-0.2) X10*3/uL Abs Immat Gran (auto) 0.03 (0.00-0.03) X10*3/uL Absolute Neuts (auto) 9.0 H (2.0-8.3) x10*3/uL Absolute Nucleated RBC 0.000 (0.0-0.012) X10*3/uL Nucleated RBC % (auto) 0.0 (0.0-0.2) /100WBC Sodium 140 (135-145) mmol/L Potassium 4.1 (3.3-5.1) mmol/L Chloride 100 (96-108) mmol/L Carbon Dioxide 25 (22-29) mmol/L Anion Gap 19 (12-20) BUN 6 L (9-16) mg/dL Creatinine 0.80 (0.5-1.4) mg/dL Estim Creat Clear Calc 124.4 Estimated GFR > 60 Random Glucose 104 (60-115) mg/dL Calcium 9.4 (8.4-10.2) mg/dL Magnesium 2.2 (1.6-2.6) mg/dL Total Bilirubin 0.8 (0.0-1.0) mg/dL AST 27 (5-37) U/L ALT 25 (0-40) U/L Alkaline Phosphatase 132 H (39-117) U/L Total Protein 7.2 (6.5-8.0) g/dL Albumin 4.3 (3.5-5.0) g/dL Lipase 33 (8-78) U/L Ethyl Alcohol mg/dL COVID-19 (CJ) Negative (Negative) COVID-19 Clin Com See Note 01/20/22 Range/Units 00:08 WBC (4.8-10.8) X10*3/uL RBC (4.60-5.80) X10*6/uL Hgb (14.0-18.0) g/dl Hct (42.0-52.0) % MCV (80.0-98.0) fL MCH (27.0-33.0) pg MCHC (31.0-36.0) g/dl RDW (11.0-16.0) % Plt Count (160-400) X10*3/uL MPV (9.4-12.4) fL Immature Gran % (Auto) (0.0-0.4) % Neut % (Auto) (45-73) % Lymph % (Auto) (20-40) % [place] % (Auto) (2-11) % Eos % (Auto) (0-4) % Baso % (Auto) (0-2) % Lymph # (Auto) (1.2-4.9) X10*3/uL [place] # (Auto) (0.1-1.2) X10*3/uL Eos # (Auto) (0.0-0.4) X10*3/uL Baso # (Auto) (0.0-0.2) X10*3/uL Abs Immat Gran (auto) (0.00-0.03) X10*3/uL Absolute Neuts (auto) (2.0-8.3) x10*3/uL Absolute Nucleated RBC (0.0-0.012) X10*3/uL Nucleated RBC % (auto) (0.0-0.2) /100WBC Sodium (135-145) mmol/L Potassium (3.3-5.1) mmol/L Chloride (96-108) mmol/L Carbon Dioxide (22-29) mmol/L Anion Gap (12-20) BUN (9-16) mg/dL Creatinine (0.5-1.4) mg/dL Estim Creat Clear Calc Estimated GFR Random Glucose (60-115) mg/dL Calcium (8.4-10.2) mg/dL Magnesium (1.6-2.6) mg/dL Total Bilirubin (0.0-1.0) mg/dL AST (5-37) U/L ALT (0-40) U/L Alkaline Phosphatase (39-117) U/L Total Protein (6.5-8.0) g/dL Albumin (3.5-5.0) g/dL Lipase (8-78) U/L Ethyl Alcohol 247 mg/dL COVID-19 (CJ) (Negative) COVID-19 Clin Com Discharge Plan Discharge Clinical Impression: Alcohol withdrawal syndrome Patient Disposition: Still a Patient Prescriptions: No Action trazodone 50 mg tablet 2 tab PO BEDTIME 0RF ondansetron 4 mg tablet,disintegrating 4 mg PO ONCE PRN (Reason: nausea and vomiting) Qty: 10 0RF omeprazole 20 mg capsule,delayed release(DR/EC) 1 cap PO DAILY 0RF nicotine 14 mg/24 hr Patch 24 Hour 14 mg transdermal DAILY 30 Days 0RF ondansetron 4 mg tablet,disintegrating 4 mg PO Q8H PRN (Reason: nausea and vomiting) Qty: 20 0RF chlordiazepoxide HCl 25 mg capsule 50 mg PO Q2-4H PRN (Reason: alcohol withdrawal) 12 Days Qty: 12 0RF Rx Instructions: until symptoms controlled chlordiazepoxide HCl 25 mg capsule 50 mg PO Q2-4H PRN (Reason: alcohol withdrawal) Qty: 12 0RF Rx Instructions: until symptoms controlled thiamine HCl (vitamin B1) 100 mg tablet 100 mg PO DAILY Qty: 30 0RF folic acid 1 mg tablet 1 mg PO DAILY Qty: 30 0RF
[2022-01-19 22:44] VITALS: PULSE 100; RESP 22; O2SAT 100
[2022-01-19] MEDS: Pantoprazole Sodium 40 MG/10 ML VIAL IVPUSH (23:28)
[2022-01-19] MEDS: ondansetron HCL 4 MG/2 ML VIAL IVPUSH (23:28)
[2022-01-19] MEDS: LORazepam 2 MG/ML VIAL IVPUSH (23:28)
[2022-01-19] MEDS: 0.9 % Sodium Chloride 1,000 ML 999 ML IV ×2 (23:29→23:30)
[2022-01-19 23:54] VITALS: BP 115/74; PULSE 94; RESP 22; O2SAT 96
[2022-01-20 00:14] LABS: Basophils Absolute Auto 0.1 X10*3/uL (0.0-0.2); Basophils Percent Auto 1.1 % (0-2); Hematocrit 41.9 % (42.0-52.0); Hemoglobin 14.4 g/dl (14.0-18.0); Imm Gran Abs Auto 0.03 X10*3/uL (0.00-0.03); Imm Gran Pct Auto 0.3 % (0.0-0.4); Lymphocytes Absolute Auto 1.4 X10*3/uL (1.2-4.9); Lymphocytes Percent Auto 12.7 % (20-40); MANUAL DIFF FLAG NO; Mean Corpuscular HGB Conc 34.4 g/dl (31.0-36.0); Mean Corpuscular Hemoglobin 32.2 pg (27.0-33.0); Mean Corpuscular Volume 93.7 fL (80.0-98.0); Mean Platelet Volume 8.6 fL (9.4-12.4); Monocytes Absolute Auto 0.6 X10*3/uL (0.1-1.2); Monocytes Percent Auto 5.6 % (2-11); Neutrophils Percent Auto 80.3 % (45-73); Platelet Count 437 X10*3/uL (160-400); Red Blood Count 4.47 X10*6/uL (4.60-5.80); Red Cell Distribution Width 13.7 % (11.0-16.0); White Blood Count 11.1 X10*3/uL (4.8-10.8)
[2022-01-20 00:31] LABS: Ethanol 247 mg/dL
[2022-01-20 00:31] LABS: COVID-19 Test Negative (Negative)
[2022-01-20 00:33] LABS: Alanine Aminotransferase 25 U/L (0-40); Albumin Level 4.3 g/dL (3.5-5.0); Alkaline Phosphatase 132 U/L (39-117); Anion Gap 19 (12-20); Aspartate Amino Transferase 27 U/L (5-37); Bilirubin Total 0.8 mg/dL (0.0-1.0); Blood Urea Nitrogen 6 mg/dL (9-16); Calcium 9.4 mg/dL (8.4-10.2); Carbon Dioxide 25 mmol/L (22-29); Chloride 100 mmol/L (96-108); Creatinine Clr Calc Pharmacy 124.4; Estimated Glomerular Filt Rate > 60; Glucose Random 104 mg/dL (60-115); Lipase 33 U/L (8-78); Magnesium 2.2 mg/dL (1.6-2.6); Potassium 4.1 mmol/L (3.3-5.1); Sodium 140 mmol/L (135-145); Total Protein 7.2 g/dL (6.5-8.0)
[2022-01-20] MEDS: LORazepam 2 MG/ML VIAL IVPUSH ×2 (01:00→15:21)
[2022-01-20 01:54] VITALS: BP 101/65; PULSE 84; RESP 19; O2SAT 96
[2022-01-20] MEDS: Thiamine HCL 100 MG TABLET PO (01:57)
[2022-01-20] MEDS: Folic Acid 1 MG TABLET PO (01:57)
[2022-01-20 03:54] VITALS: BP 99/63; PULSE 80; RESP 20; O2SAT 96
[2022-01-20 08:02] VITALS: BP 113/70; PULSE 80; RESP 14; TEMP 36.8; O2SAT 99
--- NOTE | 2022-01-20 10:52 | MHC.RECOVSUP ---
? Reason for consult:Recovery Support o Current location:ED-20 o Identified substance use concern:ETOH - Withdrawal - Seeking ATS (detox) - Support ? Intervention: o Community resources provided o Harm reduction discussion ? Plan: o Referral to [facility] o Bed search in progress to o Follow up tomorrow o Patient to follow up with [facility] after discharge ? Additional information:Patient seeking detox, Referred patient to the [facility] and [facility].Spoke to patient re:MAT, Patient did intake with [facility], waiting for them to update me om bed availability.
[2022-01-20 11:26] VITALS: BP 124/77; PULSE 98; RESP 16; O2SAT 97
--- NOTE | 2022-01-20 12:45 | PC.NURSE ---
pt given meds for nausea and withdrawal s/s as ordered, awaiting status of detox bed. wctm. moved to hallway while awaiting dispo.
[2022-01-20] MEDS: ondansetron HCL 4 MG/2 ML VIAL IVPUSH (12:46)
[2022-01-20] MEDS: LORazepam 2 MG/ML VIAL 1 MG IVPUSH (12:46)
--- NOTE | 2022-01-20 14:56 | MHC.RECOVRN ---
Pt has a bed at [facility]. [facility] has been ordered to [employer] set up operator vertical pt at 1540 to transport.
[2022-01-20 15:37] VITALS: BP 132/72; PULSE 76; RESP 16; TEMP 37.4; O2SAT 99
== END 2022-01-20 15:53 | disposition other institution (70) ==
PROVIDERS: Emergency Provider Internal Medicine; PCP Physician Assistant Medical
DX: F10.230 Alcohol dependence with withdrawal, uncomplicated (principal); Y90.8 Blood alcohol level of 240 mg/100 ml or more; Z20.822 Contact with and (suspected) exposure to COVID-19; R11.0 Nausea; R10.13 Epigastric pain; F41.9 Anxiety disorder, unspecified; F17.200 Nicotine dependence, unspecified, uncomplicated
CPT/HCPCS: 80053; 82077; 83690; 83735; 85025; 87635; 96361; 96374; 96375; 96376; 99285; J2060; J2405

== ENCOUNTER 2022-04-06 17:37 | Emergency (ER) | payer MEDICAID, SELFPAY ==
--- NOTE | 2022-04-06 17:45 | ED.ALCOHOL ---
HPI - Alcohol General Chief Complaint: Seizure Stated Complaint: ALCOHOL INTOXICATION Source: patient and EMS Mode of arrival: EMS Limitations: no limitations History of Present Illness HPI narrative: 31-year-old male presents via EMS for ETOH intoxication and possible seizure activity. Patient does report having seizure activity with alcohol abuse. States he uses at least a gal of alcohol daily and has had multiple visits in the past at this facility for ETOH intoxication. He is asking for detox at this time. He denies chest pain or pressure, palpitations, shortness breath, withdrawals at this time, abdominal pain, abdominal distention, nausea, vomiting, diarrhea, fevers and chills. MD complaint: alcohol intoxication, alcohol withdrawal, alcohol dependence and desires rehab Last drink: Just prior to admission Amount of alcohol consumed: Over 1 gal Chronic alcohol use: Yes Previous visits for alcohol intoxication: Yes Recent trauma: No Associated symptoms: denies other symptoms Treatments prior to arrival: none Related Data Home Medications Medication Instructions Recorded Confirmed trazodone 50 mg tablet 2 tab PO BEDTIME 07/23/21 09/10/21 omeprazole 20 mg capsule,delayed 1 cap PO DAILY 09/10/21 09/10/21 release naltrexone microspheres 380 mg 1 syringe IM Q4W 04/06/22 04/06/22 intramuscular suspension,extended release (Vivitrol) Previous Rx's Medication Instructions Recorded ondansetron 4 mg disintegrating 4 mg PO ONCE PRN nausea and 09/10/21 tablet vomiting #10 tabs nicotine 14 mg/24 hr daily 14 mg transdermal DAILY 30 days 09/12/21 transdermal patch chlordiazepoxide HCl 25 mg capsule 50 mg PO Q2-4H PRN alcohol 10/04/21 withdrawal 12 days #12 caps ondansetron 4 mg disintegrating 4 mg PO Q8H PRN nausea and 10/04/21 tablet vomiting #20 tabs chlordiazepoxide HCl 25 mg capsule 50 mg PO Q2-4H PRN alcohol 12/26/21 withdrawal 6 doses #12 caps folic acid 1 mg tablet 1 mg PO DAILY #30 tabs 12/26/21 thiamine HCl (vitamin B1) 100 mg 100 mg PO DAILY #30 tabs 12/26/21 tablet Allergies Allergy/AdvReac Type Severity Reaction Status Date / Time No Known Allergies Allergy Verified 01/03/22 06:08 [No Known Allergies*] Review of Systems Review of Systems: Constitutional: No Fever, No Chills ENT/Mouth: No Ear Pain, No Hoarseness, No sore throat Eyes: No Eye Pain, No Swelling, No Redness, No Foreign Body Cardiovascular: No Chest Pain, No SOB Respiratory: No Cough, No Dyspnea Gastrointestinal: No Nausea, No Vomiting, No Diarrhea, No abdominal Pain Genitourinary: No Dysuria, No Hematuria Musculoskeletal: No joint pain, No Myalgias, No Joint Swelling Skin: No Skin lacerations, No rash Neuro: No Weakness, No Numbness, No Paresthesias, No Loss of Consciousness, No Dizziness, No Headache Psych: No Anxiety/Panic, No Depression Heme/Lymph: no easy bruising, no Lymphadenopathy Endocrine: No Polyuria, No Polydipsia Yes all other systems are reviewed and are negative [facility] Past Medical History Attestation statement: The following information was validated with the patient. Source: old records reviewed Medical History Alcohol use disorder, severe, dependence Family History Family History Mother DVT (deep venous thrombosis) Social History Social History Household Members: Children Housing: House Do you presently have visiting nurse or other home services: No Alcohol intake: current Alcohol intake frequency: 3 or more drinks per day Alcohol type: beer Patient Tobacco Use Status: Current everyday Tobacco user Tobacco use type: Cigarette Cigarette Packs Per Day: 1.5 Cigarettes Per Day: 30.0 Years Smoked: 13 Second Hand Smoke Exposure: Yes Advance Directives: No Advance Directives Information Provided: No service: No Current occupational status: unemployed Physical Exam ED Vital Signs: Vital Signs - 24 hr 04/06/22 17:49 Temperature 98.2 F Pulse Rate 92 Respiratory Rate 16 Blood Pressure 111/71 Pulse Oximetry 95 Oxygen Delivery Method Room Air BMI result Body Mass Index 20.7 Appearance: Alert. Oriented X3. Intoxicated. Eyes: Pupils equal, round and reactive to light. Sclera nonicteric. ENT: Pharynx normal. Neck: Normal inspection. Neck supple. CVS: Normal heart rate and rhythm. Pulses normal. Respiratory: No respiratory distress. Breath sounds normal. Abdomen: Soft and nontender. Skin: Skin warm and dry. Normal skin color. Normal skin turgor. Extremities: No lower extremity edema. Moves all extremities against resistance. Neuro: No motor deficit. No sensory deficit. Cranials 2-12 intact. Course Course Course Narrative: 31-year-old male presents via EMS for ETOH intoxication with possible seizure activity. Patient is visibly intoxicated, states that he drinks more gal of alcohol today which is his usual amount. Does report occasional withdrawal seizures. Patient does not have any physical complaints and is asking for detox. Will discuss with recovery room nurse. 18:00 recovery room nurse states that there may be a bed available for this patient. Patient agrees to go to detox. 21:15 patient is anxious, would like to leave. He has been maintaining his airway, eating without difficulty, had salad, sandwich, juice. Gait is well balanced well coordinated. Speaking in complete sentences. Coherent. Patient was offered Ativan which he respectfully declined, as well as nicotine gum. I did tell patient that he is more than welcome to return at any time for treatment. Patient verbalized understanding of and agrees to plan of care discharge home MDM - Alcohol Differential Diagnosis Differential diagnosis: Likely alcohol dependence, alcohol withdrawal delirium and alcohol intoxication Medical Records Attestation: I reviewed the patient's medical records. Discharge Plan Discharge Clinical Impression: ETOH abuse Patient Disposition: Home, Self-Care Instructions: Abuse of Alcohol (ED), Alcohol Dependence (ED) Additional Instructions: Please present to detox. Thank you for choosing this emergency department for evaluation. Please follow-up with primary care physician as needed. Return to the emergency department for any new, concerning, or worsening symptoms. Prescriptions: No Action trazodone 50 mg tablet 2 tab PO BEDTIME ondansetron 4 mg tablet,disintegrating 4 mg PO ONCE PRN (Reason: nausea and vomiting) Qty: 10 0RF omeprazole 20 mg capsule,delayed release(DR/EC) 1 cap PO DAILY nicotine 14 mg/24 hr Patch 24 Hour 14 mg transdermal DAILY 30 Days 0RF ondansetron 4 mg tablet,disintegrating 4 mg PO Q8H PRN (Reason: nausea and vomiting) Qty: 20 0RF chlordiazepoxide HCl 25 mg capsule 50 mg PO Q2-4H PRN (Reason: alcohol withdrawal) 12 Days Qty: 12 0RF Rx Instructions: until symptoms controlled chlordiazepoxide HCl 25 mg capsule 50 mg PO Q2-4H PRN (Reason: alcohol withdrawal) Qty: 12 0RF Rx Instructions: until symptoms controlled thiamine HCl (vitamin B1) 100 mg tablet 100 mg PO DAILY Qty: 30 0RF folic acid 1 mg tablet 1 mg PO DAILY Qty: 30 0RF Vivitrol 380 mg suspension,extended rel recon 1 syringe IM Q4W Label Comments: pt states last injection was beginning of march
[2022-04-06 17:49] VITALS: BP 111/71; BP 142/94; PULSE 109; PULSE 92; RESP 16; TEMP 36.8; O2SAT 95; BMI 20.7
--- NOTE | 2022-04-06 17:59 | PC.NURSE ---
pt fatigued, intermittently sleeping, states he has no recollection of event. states he had beer but unable to quantify. told this RN that he is on vivitrol and shouldnt be drinking, and that is why he is here.
--- NOTE | 2022-04-06 20:39 | MHC.RECOVSUP ---
? Reason for consult:Recovery Support o Current location: ED18? o Identified substance use concern: AUD - Seeking ATS (detox) [facility] Detox - Support ? ?Intervention: o Community resources provided o Harm reduction discussion ? Plan: o Referral to [facility] o Bed search in progress to [facility] ? Additional information:?Patient consultation with Nurse Nathaly Jackson before initial contact. Morgan is a 31 year old male, father of two young children, with a long history of AUD. Patient consumes about a gallon of liquor a day and is looking for detox treatment. I was able to review harm reduction strategies and start the process at [facility]. Patients documents were faxed over and waiting upon approval. If I don't receive any information before shift is over, I will pass it on to the care team.
--- NOTE | 2022-04-06 20:58 | PC.NURSE ---
pt looking to leave, wants to go outside to smoke cigarette. recovery coordinator notified, pt agreed to wait and talk to her.
== END 2022-04-06 21:22 | disposition home or self-care (01) ==
PROVIDERS: Emergency Provider Internal Medicine; PCP Physician Assistant Medical
DX: F10.20 Alcohol dependence, uncomplicated (principal); Y90.9 Presence of alcohol in blood, level not specified
CPT/HCPCS: 99283; 99284

== ENCOUNTER 2022-04-12 07:38 | Emergency (ER) | payer MEDICAID, SELFPAY ==
[2022-04-12 07:47] VITALS: BP 121/82; BP 122/78; PULSE 103; PULSE 112; RESP 16; TEMP 36.8; O2SAT 100; O2SAT 97; BMI 21.9
[2022-04-12] MEDS: ondansetron HCL 4 MG/2 ML VIAL IVPUSH (08:02)
[2022-04-12 08:05] LABS: MANUAL DIFF FLAG NO
[2022-04-12 08:09] LABS: Basophils Absolute Auto 0.1 X10*3/uL (0.0-0.2); Basophils Percent Auto 0.6 % (0-2); Eosinophils Absolute Auto 0.1 X10*3/uL (0.0-0.4); Eosinophils Percent Auto 1.2 % (0-4); Hematocrit 45.3 % (42.0-52.0); Hemoglobin 15.4 g/dl (14.0-18.0); Imm Gran Abs Auto 0.02 X10*3/uL (0.00-0.03); Imm Gran Pct Auto 0.2 % (0.0-0.4); Lymphocytes Absolute Auto 2.1 X10*3/uL (1.2-4.9); Lymphocytes Percent Auto 22.2 % (20-40); Mean Corpuscular Hemoglobin 30.8 pg (27.0-33.0); Mean Corpuscular Volume 90.6 fL (80.0-98.0); Mean Platelet Volume 9.6 fL (9.4-12.4); Monocytes Absolute Auto 0.6 X10*3/uL (0.1-1.2); Monocytes Percent Auto 6.9 % (2-11); Neutrophils Absolute Auto 6.4 x10*3/uL (2.0-8.3); Neutrophils Percent Auto 68.9 % (45-73); Platelet Count 231 X10*3/uL (160-400); Red Cell Distribution Width 12.3 % (11.0-16.0); White Blood Count 9.3 X10*3/uL (4.8-10.8)
--- NOTE | 2022-04-12 08:19 | MHC.RECOVSUP ---
Addendum entered by Fei Sommer [facility] 04/12/22 11:49: Accepted to [facility] for 1245. Plan to transport via [employer]. Original Note: Recovery Support note: Patient is a 31 year old [place] speaking male who [place] [facility] [place]. Patient reports drinking up to one gallon of liquor a day. Patient reports he is willing to go anywhere for treatment. Patient denies SI/HI/AH/VH. Patient denies using other substances. This technical report writer will refer patient to ATS facilities.
--- NOTE | 2022-04-12 09:02 | ED.ALCOHOL ---
HPI - Alcohol General Chief Complaint: ETOH/Substance Use Stated Complaint: NAUSEA AND VOMITING PER EMS Time Seen by Provider: 04/12/22 08:47 Source: patient Limitations: no limitations History of Present Illness HPI narrative: 31-year-old male who presents emergency department for evaluation of alcohol withdrawal and evaluation for detox facility for his alcohol use disorder. Patient has been seen multiple times here in the emergency department for alcohol use disorder. He was seen recently on 04/06/2022 for alcohol withdrawal and requesting detox. At that time he was accepted to the [facility] detox facility however he left before the bed was available. Patient states that he has been drinking a gal of beer per day. He states that his last drink was last night but he cannot remember exactly when. He states he is currently feeling like he is withdrawing from alcohol. He states that he is tremulous, he has nausea with several episodes of vomiting and abdominal discomfort. He points to his epigastric area when asked to localize the pain. He states that it is a constant, burning sensation which is moderate in intensity. MD complaint: alcohol withdrawal, alcohol dependence and desires rehab Last drink: Hours (ago) (Last drink was last night but he does not know the exact time) Amount of alcohol consumed: 1 gal of beer per day Chronic alcohol use: Yes Previous visits for alcohol intoxication: Yes Recent trauma: No Associated symptoms: nausea, vomiting, tremors and abdominal pain Treatments prior to arrival: none Related Data Home Medications Medication Instructions Recorded Confirmed trazodone 50 mg tablet 2 tab PO BEDTIME 07/23/21 09/10/21 omeprazole 20 mg capsule,delayed 1 cap PO DAILY 09/10/21 09/10/21 release naltrexone microspheres 380 mg 1 syringe IM Q4W 04/06/22 04/06/22 intramuscular suspension,extended release (Vivitrol) Previous Rx's Medication Instructions Recorded ondansetron 4 mg disintegrating 4 mg PO ONCE PRN nausea and 09/10/21 tablet vomiting #10 tabs nicotine 14 mg/24 hr daily 14 mg transdermal DAILY 30 days 09/12/21 transdermal patch chlordiazepoxide HCl 25 mg capsule 50 mg PO Q2-4H PRN alcohol 10/04/21 withdrawal 12 days #12 caps ondansetron 4 mg disintegrating 4 mg PO Q8H PRN nausea and 10/04/21 tablet vomiting #20 tabs chlordiazepoxide HCl 25 mg capsule 50 mg PO Q2-4H PRN alcohol 12/26/21 withdrawal 6 doses #12 caps folic acid 1 mg tablet 1 mg PO DAILY #30 tabs 12/26/21 thiamine HCl (vitamin B1) 100 mg 100 mg PO DAILY #30 tabs 12/26/21 tablet Allergies Allergy/AdvReac Type Severity Reaction Status Date / Time No Known Allergies Allergy Verified 01/03/22 06:08 [No Known Allergies*] Review of Systems Review of Systems: Yes all other systems are reviewed and are negative [facility] Past Medical History [facility] Narrative: Social history: The patient smokes 2 packs of cigarettes per day times 13 years. He drinks 1 gal of alcohol per day. He denies drug use. Medical History Alcohol use disorder, severe, dependence Anxiety Depression ETOH abuse Seizure Family History Family History Mother DVT (deep venous thrombosis) Social History Social History Household Members: Children Housing: House Do you presently have visiting nurse or other home services: No Alcohol intake: current Alcohol intake frequency: 3 or more drinks per day Alcohol type: beer Patient Tobacco Use Status: Current everyday Tobacco user Tobacco use type: Cigarette Cigarette Packs Per Day: 1.5 Cigarettes Per Day: 30.0 Years Smoked: 13 Second Hand Smoke Exposure: Yes Use of substances other than those prescribed or required for medical reasons: No Advance Directives: Yes Advance Directives Information Provided: Yes Advance Directives on File: No service: No Current occupational status: unemployed Physical Exam ED Vital Signs: Vital Signs - 24 hr 04/12/22 07:47 04/12/22 12:00 Temperature 98.3 F Pulse Rate 103 H 86 Respiratory Rate 16 16 Blood Pressure 122/78 112/69 Pulse Oximetry 97 97 Oxygen Delivery Method Room Air Room Air BMI result Body Mass Index 21.9 Const Other: Awake, alert, male patient, he is tremulous, he answers all questions appropriately, he does not appear to be in distress [facility] Head: Yes normal to inspection, Yes normocephalic and Yes atraumatic Ears: external ears normal General nose exam: Normal external nose present Face and sinus: Yes normal facial exam Mouth: Normal oral and palatal mucosa present Throat: Yes posterior oropharynx normal Eyes General: appearance normal, both eyes and all related structures Pupils: Equal, round and reactive pupils present Neck Neck: Yes normal visual inspection, Yes no lymphadenopathy, Yes trachea midline and Yes supple Chest Chest palpation & inspection: normal inspection of the chest and normal palpation of entire chest wall Resp Effort & Inspection: normal respiratory effort and able to speak in complete sentences Auscultation: clear to auscultation bilaterally Cardio Rate: regular rate Rhythm: regular rhythm Heart sounds: S1 normal heart sound present, S2 normal heart sound present and no murmurs GI Inspection: Yes normal to inspection Palpation (GI): Soft to palpation, Tenderness to palpation present (GI) in the epigastrum (Mild) and no guarding Auscultation: normal bowel sounds General: Yes no CVA tenderness Back/Spine/Pelvis Back: no CVA tenderness Skin General skin exam: no rashes or lesions noted Neuro Cranial nerves: Yes CN's II-XII intact bilaterally and Yes Equal, round and reactive pupils present Cognition (Neuro): normal cognition Motor exam (neuro): 5/5 motor strength present throughout Extrem General: Yes normal to inspection Psych Appearance: grossly normal Speech and movement: Normal speech and movement present Affect: normal affect Attitude: cooperative Thought process: Normal thought process present Thought content: Normal thought content present Course Course Course Narrative: 31-year-old male patient who presents emergency department for evaluation of alcohol use disorder, alcohol withdrawal, abdominal pain , nausea and vomiting. Patient states that he drinks 1 gal of beer per day. He reports his last drink was sometime last night but cannot recount the exact time. He reports that he feels like he is withdrawing at this time. He has had nausea with multiple episodes of vomiting. He is also complaining of epigastric pain. Patient has had similar presentations in the past and was just recently seen here on 04/06/2022 with similar complaints also requesting detox but left before his detox bed was available. I ordered a CBC, BMP, liver panel, lipase, alcohol level. Patient was initially treated with Zofran 4 mg IV with minimal effect. He was ordered to get a 2nd dose of Zofran 4 mg IV, Ativan 2 mg IV, normal saline x1 L . He will also be treated within the 15 patch 21 mg. 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 The patient will be kept in the emergency department until detox bed is available. 1221: CBC was normal. CMP revealed an elevated alk phos of 1/3 a otherwise was unremarkable. ETOH level was 267. The patient was accepted [facility]. Patient was discharged. MDM - Alcohol Lab Data Result diagrams: 04/12/22 08:00 04/12/22 08:00 Labs: Lab Results 04/12/22 04/12/22 Range/Units 08:00 08:00 WBC 9.3 (4.8-10.8) X10*3/uL RBC 5.00 (4.60-5.80) X10*6/uL Hgb 15.4 (14.0-18.0) g/dl Hct 45.3 (42.0-52.0) % MCV 90.6 (80.0-98.0) fL MCH 30.8 (27.0-33.0) pg MCHC 34.0 (31.0-36.0) g/dl RDW 12.3 (11.0-16.0) % Plt Count 231 D (160-400) X10*3/uL MPV 9.6 (9.4-12.4) fL Immature Gran % (Auto) 0.2 (0.0-0.4) % Neut % (Auto) 68.9 (45-73) % Lymph % (Auto) 22.2 (20-40) % [place] % (Auto) 6.9 (2-11) % Eos % (Auto) 1.2 (0-4) % Baso % (Auto) 0.6 (0-2) % Lymph # (Auto) 2.1 (1.2-4.9) X10*3/uL [place] # (Auto) 0.6 (0.1-1.2) X10*3/uL Eos # (Auto) 0.1 (0.0-0.4) X10*3/uL Baso # (Auto) 0.1 (0.0-0.2) X10*3/uL Abs Immat Gran (auto) 0.02 (0.00-0.03) X10*3/uL Absolute Neuts (auto) 6.4 (2.0-8.3) x10*3/uL Absolute Nucleated RBC 0.000 (0.0-0.012) X10*3/uL Nucleated RBC % (auto) 0.0 (0.0-0.2) /100WBC Sodium 139 (135-145) mmol/L Potassium 3.9 (3.3-5.1) mmol/L Chloride 94 L (96-108) mmol/L Carbon Dioxide 27 (22-29) mmol/L Anion Gap 22 H (12-20) BUN 6 L (9-16) mg/dL Creatinine 0.92 (0.5-1.4) mg/dL Estim Creat Clear Calc 111.2 Estimated GFR > 60 Random Glucose 110 (60-115) mg/dL Calcium 9.5 (8.4-10.2) mg/dL Total Bilirubin 0.8 (0.0-1.0) mg/dL Direct Bilirubin 0.3 (0.0-0.5) mg/dL AST 24 (5-37) U/L ALT 20 (0-40) U/L Alkaline Phosphatase 134 H (39-117) U/L Total Protein 7.7 (6.5-8.0) g/dL Albumin 4.7 (3.5-5.0) g/dL Lipase 48 (8-78) U/L Ethyl Alcohol 267 mg/dL Discharge Plan Discharge Clinical Impression: ETOH abuse, Alcohol withdrawal Patient Disposition: Home, Self-Care Additional Instructions: [facility] have [facility]. Go directly to the detox facility so they can help you Prescriptions: No Action trazodone 50 mg tablet 2 tab PO BEDTIME ondansetron 4 mg tablet,disintegrating 4 mg PO ONCE PRN (Reason: nausea and vomiting) Qty: 10 0RF omeprazole 20 mg capsule,delayed release(DR/EC) 1 cap PO DAILY nicotine 14 mg/24 hr Patch 24 Hour 14 mg transdermal DAILY 30 Days 0RF ondansetron 4 mg tablet,disintegrating 4 mg PO Q8H PRN (Reason: nausea and vomiting) Qty: 20 0RF chlordiazepoxide HCl 25 mg capsule 50 mg PO Q2-4H PRN (Reason: alcohol withdrawal) 12 Days Qty: 12 0RF Rx Instructions: until symptoms controlled chlordiazepoxide HCl 25 mg capsule 50 mg PO Q2-4H PRN (Reason: alcohol withdrawal) Qty: 12 0RF Rx Instructions: until symptoms controlled thiamine HCl (vitamin B1) 100 mg tablet 100 mg PO DAILY Qty: 30 0RF folic acid 1 mg tablet 1 mg PO DAILY Qty: 30 0RF Vivitrol 380 mg suspension,extended rel recon 1 syringe IM Q4W Label Comments: pt states last injection was beginning of march
[2022-04-12] MEDS: 0.9 % Sodium Chloride 1,000 ML 999 ML IV (09:27)
[2022-04-12] MEDS: LORazepam 2 MG/ML VIAL IVPUSH (09:28)
[2022-04-12] MEDS: Nicotine 21 MG PATCH.TD24 TRANSDERMA (09:28)
[2022-04-12 10:34] LABS: Alanine Aminotransferase 20 U/L (0-40); Albumin Level 4.7 g/dL (3.5-5.0); Alkaline Phosphatase 134 U/L (39-117); Anion Gap 22 (12-20); Aspartate Amino Transferase 24 U/L (5-37); Bilirubin Direct 0.3 mg/dL (0.0-0.5); Bilirubin Total 0.8 mg/dL (0.0-1.0); Blood Urea Nitrogen 6 mg/dL (9-16); Calcium 9.5 mg/dL (8.4-10.2); Carbon Dioxide 27 mmol/L (22-29); Chloride 94 mmol/L (96-108); Creatinine Clr Calc Pharmacy 111.2; Estimated Glomerular Filt Rate > 60; Ethanol 267 mg/dL; Glucose Random 110 mg/dL (60-115); Lipase 48 U/L (8-78); Potassium 3.9 mmol/L (3.3-5.1); Sodium 139 mmol/L (135-145); Total Protein 7.7 g/dL (6.5-8.0)
--- NOTE | 2022-04-12 11:54 | PC.NURSE ---
Plan for [facility] in 1 hour
[2022-04-12 12:00] VITALS: BP 112/69; PULSE 86; RESP 16; O2SAT 97
== END 2022-04-12 12:49 | disposition home or self-care (01) ==
PROVIDERS: Emergency Provider Emergency Medicine Emergency Medical Services; PCP Physician Assistant Medical
DX: F10.230 Alcohol dependence with withdrawal, uncomplicated (principal); Y90.8 Blood alcohol level of 240 mg/100 ml or more; R11.2 Nausea with vomiting, unspecified; R10.13 Epigastric pain
CPT/HCPCS: 36415; 80048; 80076; 82077; 83690; 85025; 96361; 96374; 96375; 96376; 99284; J2060; J2405

== ENCOUNTER 2022-05-15 22:19 | Inpatient (IN) | payer MEDICAID, SELFPAY ==
--- NOTE | ~2022-05-15 | CT_ITS ---
EXAMINATION: CT ANGIOGRAM OF THE CHEST WITH AND WITHOUT CONTRAST (CT PULMONARY ANGIOGRAM FOR PE) CLINICAL INFORMATION: Reason for Exam + dimer, PAIN COMPARISON: None TECHNIQUE: Prior to contrast administration, noncontrast localization images were obtained. Subsequently, multidetector volumetric imaging was performed from the thoracic inlet to below the diaphragms following the administration of 65 mL Omnipaque 350 intravenous contrast. No contrast reaction reported Sagittal, coronal, and MIP oblique sagittal reformatted images were obtained on the CT workstation, uploaded to PACS, and reviewed. This CT examination was performed using dose optimization techniques as appropriate, variously including the following: *Automated exposure control *Adjustment of mA and/or kV according to patient size (this includes techniques or standardized protocols for targeted exams where dose is matched to indication/reason for exam; i.e. extremities or head) *Use of iterative reconstruction technique Total exam dose-length product 233 mGy-cm FINDINGS: QUALITY OF STUDY/CONTRAST BOLUS: Satisfactory. PULMONARY ARTERIES: No central or segmental pulmonary emboli. THORACIC AORTA: No aneurysm or dissection. LUNG: No focal consolidation, nodules or masses. PLEURA: No pleural effusion or pneumothorax. MEDIASTINUM: Normal heart size. No pericardial effusion. No hilar or mediastinal lymphadenopathy. No evidence of septal bowing or right heart strain. No reflux of contrast into the hepatic veins to suggest elevated right heart pressures. CHEST WALL/AXILLA: No axillary or internal mammary lymphadenopathy. OSSEOUS STRUCTURES: No acute or suspicious osseous abnormality. UPPER ABDOMEN: Prominent submucosal edema/circumferential thickening of the mid and distal esophagus. Hepatic steatosis. CT/CT angio chest PE protocol IMPRESSION: * No pulmonary embolism. * No aortic dissection. * No acute pulmonary parenchymal abnormalities. * Findings suggestive of severe esophagitis. Correlation with endoscopy recommended. VTE: negative
--- NOTE | ~2022-05-15 | CT_ITS ---
EXAMINATION: CT HEAD WITHOUT CONTRAST CLINICAL INFORMATION: Seizure. COMPARISON: 10.05.2018 TECHNIQUE: Contiguous axial imaging was performed from the skull base to vertex without intravenous administration of contrast. This CT examination was performed using dose optimization techniques as appropriate, variously including the following: *Automated exposure control *Adjustment of mA and/or kV according to patient size (this includes techniques or standardized protocols for targeted exams where dose is matched to indication/reason for exam; i.e. extremities or head) *Use of iterative reconstruction technique DLP: 719 mGy-cm FINDINGS: There is no evidence of acute intracranial hemorrhage or territorial infarction. No abnormal mass effect or midline shift is seen. [place] to white matter differentiation is well preserved. No extra-axial fluid collections are identified. The ventricles are normal in size. There is no abnormal attenuation within the brain parenchyma. The osseous structures and soft tissues are normal. The mastoid air cells and visualized portions of the paranasal sinuses are well aerated. CT/CT head/brain wo con IMPRESSION: No acute intracranial pathology.
[2022-05-15 22:29] VITALS: BP 120/63; BP 150/100; PULSE 116; PULSE 130; RESP 15; TEMP 37.2; O2SAT 98; O2SAT 99; BMI 21.4
[2022-05-15 22:34] VITALS: BP 120/63; PULSE 116; RESP 19; TEMP 37.2; O2SAT 99
--- NOTE | 2022-05-15 22:39 | PC.NURSE ---
Pt. on panel monitor. Seizure precautions initiated and pads on bed
--- NOTE | 2022-05-15 22:39 | PC.NURSE ---
Labs drawn and sent per MD order
[2022-05-15] MEDS: ondansetron HCL 4 MG/2 ML VIAL IVPUSH (22:45)
[2022-05-15] MEDS: 0.9 % Sodium Chloride 1,000 ML 999 ML IV ×2 (22:51)
--- NOTE | 2022-05-15 22:52 | ED.SEIZURE ---
HPI - Seizure General Chief Complaint: Seizure Stated Complaint: ?Seizure Time Seen by Provider: 05/15/22 22:47 Source: patient Mode of arrival: ambulatory Limitations: no limitations History of Present Illness HPI Narrative: This is a 31-year-old male history of alcohol abuse, depression, anxiety presenting to the emergency department after a witnessed seizure by his mother that lasted approximately 5 minutes, patient is presenting with acute alcohol withdrawal he tells me he has been drinking for the past 10 years, he tells me he drinks a 30 pack per day and he suddenly felt like he needed to stop. His last drink was 2 days ago, he tells me that today he did not drink at all and he has not been able to eat or drink because he has been having so many episodes of nausea and vomiting. He reports that he has been intermittently vomiting throughout the entire day. He tells me he feels weak. He tells me this is not the 1st time he is an alcohol withdrawal seizure. Patient is unsure of head straight, he is not on blood thinners. Tells me he feels lousy at this time feeling weak, tells me he feels like he is going to have another seizure. He is actively dry heaving with nausea. Denies chest pain, shortness of breath, fevers, chills, recent sick contacts, changes in bowel habits, abdominal pain, vision changes. MD complaint: seizure Onset (ago): day(s) (1) Description of Episode: loss of consciousness and tonic-clonic movement Duration of episode: 5 -: minutes(s) Witnessed: Yes - by Bystander (mother ) Related Data Home Medications Medication Instructions Recorded Confirmed hydroxyzine pamoate 50 mg capsule 1 cap PO TID 05/15/22 05/15/22 naltrexone 50 mg tablet 1 tab PO DAILY 05/15/22 05/15/22 naltrexone microspheres 380 mg 1 syringe IM Q4W 05/15/22 05/15/22 intramuscular suspension,extended release (Vivitrol) trazodone 50 mg tablet 2 tab PO BEDTIME 05/15/22 05/15/22 Allergies Allergy/AdvReac Type Severity Reaction Status Date / Time No Known Allergies Allergy Verified 01/03/22 06:08 [No Known Allergies*] Review of Systems Review of Systems: Constitutional : No Weight loss, No Fever, No Chills, + Fatigue, + Malaise ENT/Mouth : No sore throat, No Rhinorrhea Eyes: No Eye Pain, No Swelling, No Redness Cardiovascular : No Chest Pain, No SOB, No Dyspnea on Exertion, No Orthopnea, No Edema, No Palpitations Respiratory : No Cough, No Sputum, No Wheezing Gastrointestinal : + Nausea, + Vomiting, No Diarrhea, No Constipation, No abdominal Pain, No Hematochezia, No Melena Genitourinary : No Dysuria, No Urinary Frequency, No Hematuria, Musculoskeletal : No joint pain, No Myalgias, No Joint Swelling Skin : No Skin Lesions, No rash Neuro : + Weakness, No Numbness, No Dizziness, No Headache Psych : No Anxiety/Panic, No Depression All other systems reviewed and are negative Yes all other systems are reviewed and are negative [facility] Past Medical History Attestation statement: The following information was validated with the patient. Source: old records reviewed and nursing notes reviewed Medical History Alcohol use disorder, severe, dependence Anxiety Depression ETOH abuse Seizure Family History Family History Mother DVT (deep venous thrombosis) Social History Social History Household Members: Children Housing: House Do you presently have visiting nurse or other home services: No Alcohol intake: current Alcohol intake frequency: 3 or more drinks per day Alcohol type: beer Patient Tobacco Use Status: Current everyday Tobacco user Tobacco use type: Cigarette Cigarette Packs Per Day: 1.5 Cigarettes Per Day: 30.0 Years Smoked: 13 Smoked in Last 30 Days: Yes Second Hand Smoke Exposure: Yes Use of substances other than those prescribed or required for medical reasons: No Advance Directives: No Advance Directives Information Provided: No service: No Current occupational status: unemployed Physical Exam Vital Signs: Vital Signs: Last Vital Signs Temp 97.9 F 05/15/22 23:34 Pulse 85 05/16/22 00:15 Resp 18 05/16/22 00:15 BP 139/93 H 05/16/22 00:15 Pulse Ox 99 05/16/22 00:15 O2 Del Method 05/16/22 00:15 BMI result Body Mass Index 21.4 Patient tachycardic likely secondary to dehydration, nausea and vomiting Appearance: Alert.? Oriented X3.? Patient appears extremely uncomfortable, anxious, actively dry heaving and vomiting. Head: Normocephalic, atraumatic, no step-offs or deformities Eyes: Pupils equal, round and reactive to light.? Bilateral sclera appear injected ENT: Pharynx normal.? Dry mucous membranes. The tongue fasciculation Neck: Normal inspection.? Neck supple.? CVS: Normal heart rate and rhythm.? Pulses normal.? Respiratory: No respiratory distress.? Breath sounds normal.? Abdomen: Soft and nontender.? Skin: Skin warm and dry.? Normal skin color.? Normal skin turgor.? Patient diaphoretic. Extremities: No lower extremity edema.? No calf ttp. 5/5 strength to bilateral upper and lower extremities. Asterixis noted to bilateral upper extremities. Back: No midline tenderness, no C-spine tenderness, full range of motion, no CVA tenderness bilaterally Neuro: Oriented X 3.? No motor deficit.? No sensory deficit. CN 2-12 intact Course Reevaluation(s) Reevaluation #1: Patient is noted to have a leukocytosis likely secondary to reactivity nausea, vomiting. Chemistry with slight anion gap likely secondary to ethanol. No other acute electrolyte abnormalities requiring intervention.. A dimer was ordered by nursing which was noted to be elevated patient is tachycardic, unable to rule out PE due to PERC score. CT of the chest will be ordered to rule out PE although unlikely. Ethanol level of 277. COVID negative. Time: 01:48 Reevaluation #2: CT of the head with no acute findings. Time: 01:54 Reevaluation #3: CTA with no acute findings. At this time patient will be admitted to the hospitalist team. For alcohol withdrawal seizure. Time: 02:07 MDM - Seizure MDM Narrative Medical decision making narrative: 224 31 yo m presents with acute alcohol w/ drawl s/p witnessed seizure at home by mother. Physical examination patient very tremulous, diaphoretic, anxious, uncomfortable, asterixis stopper extremities, tongue fasciculations. GCS 15 CIWA score of 33 Plan at this time is to obtain basic labs, PT INR, ethanol, head CT, EKG, DIEZ, will obtain CIWA Q4 hours. Will hang fluids, D5NS, zofran, thiamine, folate, valium. I will start phenobarb protocol this patient at 15 mg. Medical Records Attestation: I reviewed the patient's medical records. Lab Data Attestation: I reviewed the patient's lab results. Result diagrams: 05/15/22 22:41 05/15/22 22:41 Labs: Lab Results 05/15/22 05/15/22 05/15/22 Range/Units 22:41 22:41 22:41 WBC 14.4 H (4.8-10.8) X10*3/uL RBC 5.41 (4.60-5.80) X10*6/uL Hgb 16.8 (14.0-18.0) g/dl Hct 47.8 (42.0-52.0) % MCV 88.4 (80.0-98.0) fL MCH 31.1 (27.0-33.0) pg MCHC 35.1 (31.0-36.0) g/dl RDW 13.2 (11.0-16.0) % Plt Count 220 (160-400) X10*3/uL MPV 9.9 (9.4-12.4) fL Immature Gran % (Auto) 0.3 (0.0-0.4) % Neut % (Auto) 85.2 H (45-73) % Lymph % (Auto) 9.1 L (20-40) % [place] % (Auto) 4.7 (2-11) % Eos % (Auto) 0.1 (0-4) % Baso % (Auto) 0.6 (0-2) % Lymph # (Auto) 1.3 (1.2-4.9) X10*3/uL [place] # (Auto) 0.7 (0.1-1.2) X10*3/uL Eos # (Auto) 0.0 (0.0-0.4) X10*3/uL Baso # (Auto) 0.1 (0.0-0.2) X10*3/uL Abs Immat Gran (auto) 0.05 H (0.00-0.03) X10*3/uL Absolute Neuts (auto) 12.3 H (2.0-8.3) x10*3/uL Absolute Nucleated RBC 0.000 (0.0-0.012) X10*3/uL Nucleated RBC % (auto) 0.0 (0.0-0.2) /100WBC PT (10.0-13.1) SEC INR (0.9-1.1) D-Dimer High Sensitivty NG/ML Sodium 141 (135-145) mmol/L Potassium 3.7 (3.3-5.1) mmol/L Chloride 88 L (96-108) mmol/L Carbon Dioxide 26 (22-29) mmol/L Anion Gap 31 H (12-20) BUN 8 L (9-16) mg/dL Creatinine 1.14 (0.5-1.4) mg/dL Estim Creat Clear Calc 87.3 Estimated GFR > 60 Random Glucose 122 H (60-115) mg/dL Calcium 10.0 (8.4-10.2) mg/dL Total Bilirubin 1.2 H (0.0-1.0) mg/dL AST 27 (5-37) U/L ALT 23 (0-40) U/L Alkaline Phosphatase 138 H (39-117) U/L Total Protein 8.5 H (6.5-8.0) g/dL Albumin 5.2 H (3.5-5.0) g/dL Lipase 59 (8-78) U/L Ethyl Alcohol 277 mg/dL COVID-19 (CJ) Negative (Negative) COVID-19 Clin Com See Note 05/15/22 Range/Units 22:41 WBC (4.8-10.8) X10*3/uL RBC (4.60-5.80) X10*6/uL Hgb (14.0-18.0) g/dl Hct (42.0-52.0) % MCV (80.0-98.0) fL MCH (27.0-33.0) pg MCHC (31.0-36.0) g/dl RDW (11.0-16.0) % Plt Count (160-400) X10*3/uL MPV (9.4-12.4) fL Immature Gran % (Auto) (0.0-0.4) % Neut % (Auto) (45-73) % Lymph % (Auto) (20-40) % [place] % (Auto) (2-11) % Eos % (Auto) (0-4) % Baso % (Auto) (0-2) % Lymph # (Auto) (1.2-4.9) X10*3/uL [place] # (Auto) (0.1-1.2) X10*3/uL Eos # (Auto) (0.0-0.4) X10*3/uL Baso # (Auto) (0.0-0.2) X10*3/uL Abs Immat Gran (auto) (0.00-0.03) X10*3/uL Absolute Neuts (auto) (2.0-8.3) x10*3/uL Absolute Nucleated RBC (0.0-0.012) X10*3/uL Nucleated RBC % (auto) (0.0-0.2) /100WBC PT 10.3 (10.0-13.1) SEC INR 0.9 (0.9-1.1) D-Dimer High Sensitivty 1657 NG/ML Sodium (135-145) mmol/L Potassium (3.3-5.1) mmol/L Chloride (96-108) mmol/L Carbon Dioxide (22-29) mmol/L Anion Gap (12-20) BUN (9-16) mg/dL Creatinine (0.5-1.4) mg/dL Estim Creat Clear Calc Estimated GFR Random Glucose (60-115) mg/dL Calcium (8.4-10.2) mg/dL Total Bilirubin (0.0-1.0) mg/dL AST (5-37) U/L ALT (0-40) U/L Alkaline Phosphatase (39-117) U/L Total Protein (6.5-8.0) g/dL Albumin (3.5-5.0) g/dL Lipase (8-78) U/L Ethyl Alcohol mg/dL COVID-19 (CJ) (Negative) COVID-19 Clin Com ECG Data Attestation: I personally reviewed and interpreted this ECG as follows: ECG interpretation date: 05/16/22 ECG interpretation time: 01:55 Prior ECG tracings: available for review Interpretation: Ventricular rate of 97, MS normal, QRS normal, QT/QTC normal. EKG with normal sinus rhythm, incomplete right bundle-branch block. No ST elevations or inversions concerning for ischemia. No significant changes when compared to December 2021 Critical Care Time Critical Care Time Critical Care Time: Yes Total Critical Care Time: 35 Attestation: I attest to this time spent taking care of the patient, obtaining history, physical, reviewing labs, imaging, speaking to my attending Discharge Plan Discharge Clinical Impression: Alcohol withdrawal seizure, Nausea & vomiting Patient Disposition: Admitted As Inpatient Prescriptions: No Action trazodone 50 mg tablet 2 tab PO BEDTIME naltrexone 50 mg tablet 1 tab PO DAILY hydroxyzine pamoate 50 mg capsule 1 cap PO TID Vivitrol 380 mg suspension,extended rel recon 1 syringe IM Q4W
--- NOTE | 2022-05-15 22:57 | ECG_ITS ---
Test Reason : SEIZURE Blood Pressure : / mmHG Vent. Rate : 097 BPM Atrial Rate : 097 BPM P-R Int : 126 ms QRS Dur : 112 ms QT Int : 366 ms P-R-T Axes : 084 072 075 degrees QTc Int : 464 ms Normal sinus rhythm Incomplete right bundle branch block Septal infarct (cited on or before 15-MAY-2022) Abnormal ECG When compared with ECG of 03-JAN-2022 06:04, ST no longer depressed in Anterior leads Referred By: Petty Booker Electronically Signed By:BIN TAMEZ MD
--- NOTE | 2022-05-15 22:57 | PC.NURSE ---
Pt. scoring 33 on CIWA assessment at this time. MACARENA Pittman notified and aware. Awaiting Phenobarbital orders
[2022-05-15 22:58] LABS: MANUAL DIFF FLAG NO
[2022-05-15] MEDS: PHENobarbitaL sodium 130 MG/ML IM ONCE 390 MG IM (23:01)
[2022-05-15 23:04] LABS: Basophils Absolute Auto 0.1 X10*3/uL (0.0-0.2); Basophils Percent Auto 0.6 % (0-2); Eosinophils Percent Auto 0.1 % (0-4); Hematocrit 47.8 % (42.0-52.0); Hemoglobin 16.8 g/dl (14.0-18.0); Imm Gran Abs Auto 0.05 X10*3/uL (0.00-0.03); Imm Gran Pct Auto 0.3 % (0.0-0.4); Lymphocytes Absolute Auto 1.3 X10*3/uL (1.2-4.9); Lymphocytes Percent Auto 9.1 % (20-40); Mean Corpuscular HGB Conc 35.1 g/dl (31.0-36.0); Mean Corpuscular Hemoglobin 31.1 pg (27.0-33.0); Mean Corpuscular Volume 88.4 fL (80.0-98.0); Mean Platelet Volume 9.9 fL (9.4-12.4); Monocytes Absolute Auto 0.7 X10*3/uL (0.1-1.2); Monocytes Percent Auto 4.7 % (2-11); Neutrophils Absolute Auto 12.3 x10*3/uL (2.0-8.3); Neutrophils Percent Auto 85.2 % (45-73); Platelet Count 220 X10*3/uL (160-400); Red Blood Count 5.41 X10*6/uL (4.60-5.80); Red Cell Distribution Width 13.2 % (11.0-16.0); White Blood Count 14.4 X10*3/uL (4.8-10.8)
[2022-05-15] MEDS: diazePAM 10 MG/2 ML CARTRIDGE 5 MG IVPUSH (23:08)
[2022-05-15 23:11] LABS: INTERNATIONAL NORM RATIO 0.9 (0.9-1.1); Prothrombin Time 10.3 SEC (10.0-13.1)
[2022-05-15 23:13] LABS: D Dimer High Sensitivity 1657 NG/ML
[2022-05-15 23:22] LABS: COVID-19 Test Negative (Negative); IDNOW Serial# 16C4AD1C
[2022-05-15] MEDS: Folic Acid 1 MG in 0.9 % Sodium Chloride 50 ML 100.4 MG IV (23:25)
[2022-05-15 23:26] LABS: Alanine Aminotransferase 23 U/L (0-40); Albumin Level 5.2 g/dL (3.5-5.0); Alkaline Phosphatase 138 U/L (39-117); Anion Gap 31 (12-20); Aspartate Amino Transferase 27 U/L (5-37); Bilirubin Total 1.2 mg/dL (0.0-1.0); Blood Urea Nitrogen 8 mg/dL (9-16); Carbon Dioxide 26 mmol/L (22-29); Chloride 88 mmol/L (96-108); Creatinine Clr Calc Pharmacy 87.3; Estimated Glomerular Filt Rate > 60; Ethanol 277 mg/dL; Glucose Random 122 mg/dL (60-115); Potassium 3.7 mmol/L (3.3-5.1); Sodium 141 mmol/L (135-145); Total Protein 8.5 g/dL (6.5-8.0)
--- NOTE | 2022-05-15 23:29 | PM.IMHP ---
History of Present Illness Date of Service: 05/15/22 Chief Complaint: Seizure 31-year-old male with a past medical history of alcohol abuse, history of alcohol withdrawal seizure, tobacco dependence presented to the hospital today with a chief complaint of seizure. Patient reported that he had an episode of seizure at home; tonic clonic; denies any loss of consciousness. Denies any falls or trauma. Denies any tongue biting or urinary incontinence. Subsequently came to the ER for further evaluation. Patient reports that he drinks about 30 beers daily, last drink was the night before; he wanted to detox himself at home hence cardiac down. Mentions that he had prior history of seizures-at least 8-9 times; attributes to alcohol withdrawal seizure. Denies being on any antiepileptics. Patient denies any chest pain palpitations. Denies any cough or sputum production. Denies any urinary symptoms. Reports he has been having nausea vomiting and abdominal discomfort. Review of all other systems is negative except mentioned above ER course: Per ER team patient noted to be dry, tremulous, tachycardic; concern for alcohol withdrawal with high CIWA score. Patient was given Versed, started on phenobarb protocol, given thiamine and folate. Also given IV fluids. Lipase pending Admitted to the hospital for further management PMFSH Medical History Alcohol use disorder, severe, dependence Anxiety Depression ETOH abuse Seizure Family History Mother DVT (deep venous thrombosis) Social History Household Members: Children Housing: House Do you presently have visiting nurse or other home services: No Alcohol intake: current Alcohol intake frequency: 3 or more drinks per day Alcohol type: beer Patient Tobacco Use Status: Current everyday Tobacco user Tobacco use type: Cigarette Cigarette Packs Per Day: 1.5 Cigarettes Per Day: 30.0 Years Smoked: 13 Smoked in Last 30 Days: Yes Second Hand Smoke Exposure: Yes Use of substances other than those prescribed or required for medical reasons: No service: No Current occupational status: unemployed Meds Allergies Allergy/AdvReac Type Severity Reaction Status Date / Time No Known Allergies Allergy Verified 01/03/22 06:08 [No Known Allergies*] Active Medications: Current Medications Sodium Chloride (Ns) 1,000 mls @ 999 mls/hr IV .Q1H1M MO Stop: 05/16/22 00:00 Last Admin: 05/15/22 22:51 Dose: 999 mls/hr Sodium Chloride (Ns) 1,000 mls @ 999 mls/hr IV .Q1H1M MO Stop: 05/16/22 00:00 Last Admin: 05/15/22 22:51 Dose: 999 mls/hr Folic Acid 1 mg/ Sodium (Chloride) 50.2 mls @ 100.4 mls/hr IV ONCE ONE Stop: 05/15/22 23:59 Last Admin: 05/15/22 23:25 Dose: 100.4 mls/hr Dextrose/Sodium Chloride (D5ns) 1,000 mls @ 500 mls/hr IVCONT .Q2H [facility] Pharmacy Consult (Consult Rx Etoh Phenob Im/Po) 1 each MISCELLANE ONCE PRN; Protocol PRN Reason: Consult order Phenobarbital (Phenobarbital 15 Mg Tablet) 45 mg PO BID [facility]; Protocol Stop: 05/17/22 21:01 Phenobarbital (Phenobarbital 30 Mg Tablet) 30 mg PO BID [facility]; Protocol Stop: 05/19/22 21:01 Phenobarbital (Phenobarbital 15 Mg Tablet) 15 mg PO DAILY [facility]; Protocol Stop: 05/21/22 09:01 Phenobarbital Sodium (Phenobarbital Sodium 130 Mg/Ml Vial Im Q3hx2) 292.5 mg IM Q3H [facility]; Protocol Stop: 05/16/22 05:01 Home Medications Medication Instructions Recorded Confirmed Last Taken Type hydroxyzine pamoate 50 mg capsule 1 cap PO TID 05/15/22 05/15/22 Unknown History naltrexone 50 mg tablet 1 tab PO DAILY 05/15/22 05/15/22 Unknown History naltrexone microspheres 380 mg 1 syringe IM Q4W 05/15/22 05/15/22 Unknown History intramuscular suspension,extended release (Vivitrol) trazodone 50 mg tablet 2 tab PO BEDTIME 05/15/22 05/15/22 Unknown History Physical Exam Vital Signs and Narrative: Vital Signs: Last Vital Signs Temp 98.9 F 05/15/22 22:34 Pulse 116 H 05/15/22 22:34 Resp 19 05/15/22 22:34 BP 120/63 05/15/22 22:34 Pulse Ox 99 05/15/22 22:34 O2 Del Method 05/15/22 22:34 BMI result Body Mass Index 21.4 Gen: Appears be in no acute distress HEENT: NCAT, dry mucosa. Pulmonary: Vesicular breath sounds, fair air entry CVS: Normal S1-S2 Abdomen: BS+, Soft, Nontender Extremities: Warm well perfused Neuro: Alert and awake. Grossly nonfocal. Tremulous. Results Labs CBC and Chem 7: 05/15/22 22:41 05/15/22 22:41 Labs: Laboratory Results - last 24 hr 05/15/22 05/15/22 05/15/22 22:41 22:41 22:41 MCV 88.4 MCH 31.1 MCHC 35.1 RDW 13.2 Plt Count 220 MPV 9.9 Immature Gran % (Auto) 0.3 Neut % (Auto) 85.2 H Lymph % (Auto) 9.1 L [place] % (Auto) 4.7 Eos % (Auto) 0.1 Baso % (Auto) 0.6 Lymph # (Auto) 1.3 [place] # (Auto) 0.7 Eos # (Auto) 0.0 Baso # (Auto) 0.1 Abs Immat Gran (auto) 0.05 H Absolute Neuts (auto) 12.3 H Absolute Nucleated RBC 0.000 Nucleated RBC % (auto) 0.0 PT INR D-Dimer High Sensitivty Anion Gap 31 H Estim Creat Clear Calc 87.3 Estimated GFR > 60 Random Glucose 122 H Calcium 10.0 Total Bilirubin 1.2 H AST 27 ALT 23 Alkaline Phosphatase 138 H Total Protein 8.5 H Albumin 5.2 H Ethyl Alcohol 277 COVID-19 (CJ) Negative COVID-19 Clin Com See Note 05/15/22 22:41 MCV MCH MCHC RDW Plt Count MPV Immature Gran % (Auto) Neut % (Auto) Lymph % (Auto) [place] % (Auto) Eos % (Auto) Baso % (Auto) Lymph # (Auto) [place] # (Auto) Eos # (Auto) Baso # (Auto) Abs Immat Gran (auto) Absolute Neuts (auto) Absolute Nucleated RBC Nucleated RBC % (auto) PT 10.3 INR 0.9 D-Dimer High Sensitivty 1657 Anion Gap Estim Creat Clear Calc Estimated GFR Random Glucose Calcium Total Bilirubin AST ALT Alkaline Phosphatase Total Protein Albumin Ethyl Alcohol COVID-19 (CJ) COVID-19 Clin Com Assessment and Plan (1) Nausea & vomiting: Status: Acute (2) Acute dehydration: Status: Acute (3) Seizure: Status: Acute (4) ETOH abuse: Status: Acute Plan 31-year-old male with a past medical history of alcohol abuse, history of alcohol withdrawal seizure, tobacco dependence presented to the hospital today with a chief complaint of seizure. Admitted for following Seizure: Likely in the setting of alcohol withdrawal. Seizure precautions. Versed p.r.n.. Neurology follow-up. Alcoholic withdrawal: Patient is started on phenobarb protocol. Monitor on CIWA. Thiamine folate multivitamins. 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 Elevated anion gap: Likely alcoholic ketoacidosis. Patient on IV fluids. Will continue to monitor. Alcoholic gastritis: Pepcid IV b.i.d.. Tobacco dependence: Counseled on smoking cessation. DVT prophylaxis: Lovenox Code status: Full code Quality Stroke Does the patient have a stroke diagnosis?: No VTE Prior VTE?: No VTE Risk Level:: Medical - moderate - high VTE Device Contraindication: Treatment Not Indicated VTE Drug Contraindication: N/A - Med Ordered
[2022-05-15 23:34] VITALS: BP 120/85; PULSE 98; RESP 16; TEMP 36.6; O2SAT 99
[2022-05-15 23:56] LABS: Lipase 59 U/L (8-78)
[2022-05-15] MEDS: Dextrose 5 % and 0.9 % NaCl 1,000 ML 500 ML IVCONT (23:56)
[2022-05-16] MEDS: Thiamine HCL 200 MG in 0.9 % Sodium Chloride 100 ML 204 MG IV (00:01)
[2022-05-16 00:15] VITALS: BP 139/93; PULSE 85; RESP 18; O2SAT 99
[2022-05-16] MEDS: iohexoL 350 MG/ML 100 ML INFUS..BTL 65 ML IV (01:24)
[2022-05-16] MEDS: Enoxaparin Sodium 40 MG/0.4 ML SYRINGE SUBCUT ×2 (02:25→21:23)
[2022-05-16] MEDS: Metoclopramide HCl 10 MG/2 ML VIAL IVPUSH (02:26)
[2022-05-16] MEDS: diphenhydrAMINE HCL 50 MG/ML VIAL IVPUSH (02:26)
[2022-05-16] MEDS: PHENobarbitaL sodium 130 MG/ML VIAL IM Q3Hx2 292.5 MG IM ×2 (02:26→07:35)
[2022-05-16] MEDS: 0.9 % Sodium Chloride 1,000 ML 999 ML IV ×2 (02:27→02:28)
[2022-05-16 02:28] LABS: Amphetamine Screen Urine Not Detected (Not Detect); Barbiturates, Urine POSITIVE (Not Detect); Benzodiazepines Screen Urine POSITIVE (Not Detect); Cannabinoid Screen Urine Not Detected (Not Detect); Cocaine Screen Urine Not Detected (Not Detect); Fentanyl, urine Not Detected (Not Detect); Opiate Screen Urine Not Detected (Not Detect); Phencyclidine Screen Urine Not Detected (Not Detect)
[2022-05-16] MEDS: Dextrose 5 % and 0.45 % NaCl 1,000 ML 100 ML IVCONT ×3 (03:56→21:23)
[2022-05-16] MEDS: Dextrose 5 % and 0.9 % NaCl 1,000 ML 500 ML IVCONT ×4 (04:01→14:33)
[2022-05-16 06:01] VITALS: BP 104/60; PULSE 66; RESP 12; O2SAT 95
[2022-05-16 07:51] LABS: MANUAL DIFF FLAG NO
[2022-05-16 07:52] LABS: Basophils Absolute Auto 0.1 X10*3/uL (0.0-0.2); Basophils Percent Auto 0.5 % (0-2); Eosinophils Absolute Auto 0.1 X10*3/uL (0.0-0.4); Eosinophils Percent Auto 0.8 % (0-4); Hematocrit 37.5 % (42.0-52.0); Imm Gran Abs Auto 0.03 X10*3/uL (0.00-0.03); Imm Gran Pct Auto 0.2 % (0.0-0.4); Lymphocytes Absolute Auto 1.9 X10*3/uL (1.2-4.9); Lymphocytes Percent Auto 15.5 % (20-40); Mean Corpuscular HGB Conc 34.7 g/dl (31.0-36.0); Mean Corpuscular Hemoglobin 31.9 pg (27.0-33.0); Mean Corpuscular Volume 91.9 fL (80.0-98.0); Mean Platelet Volume 9.7 fL (9.4-12.4); Monocytes Absolute Auto 1.1 X10*3/uL (0.1-1.2); Monocytes Percent Auto 8.9 % (2-11); Neutrophils Percent Auto 74.1 % (45-73); Platelet Count 155 X10*3/uL (160-400); Red Blood Count 4.08 X10*6/uL (4.60-5.80); Red Cell Distribution Width 13.3 % (11.0-16.0); White Blood Count 12.1 X10*3/uL (4.8-10.8)
--- NOTE | 2022-05-16 08:23 | PHA.MEDREC ---
MED REC COMPLETE, NO ISSUES Pharmacy Consult ? Medication Reconciliation Pharmacy has completed the medication reconciliation.
[2022-05-16 08:31] LABS: Anion Gap 16 (12-20); Blood Urea Nitrogen 7 mg/dL (9-16); Calcium 8.9 mg/dL (8.4-10.2); Carbon Dioxide 30 mmol/L (22-29); Chloride 96 mmol/L (96-108); Creatinine Clr Calc Pharmacy 119.9; Estimated Glomerular Filt Rate > 60; Glucose Random 92 mg/dL (60-115); Magnesium 1.9 mg/dL (1.6-2.6); Potassium 3.6 mmol/L (3.3-5.1); Sodium 138 mmol/L (135-145)
--- NOTE | 2022-05-16 09:52 | P.PNIM_ITS ---
Subjective Subjective Date of Service: 05/16/22 Interval History: f/u on alcohol withdrawal seizure interval history: no further seizure, calm no tremors Review of Systems no confusion, calm, no fever, no seizure Physical Exam Vital Signs: Vital Signs: Last Vital Signs Temp 97.9 F 05/15/22 23:34 Pulse 66 05/16/22 06:01 Resp 12 05/16/22 06:01 BP 104/60 05/16/22 06:01 Pulse Ox 95 05/16/22 06:01 O2 Del Method 05/16/22 06:01 BMI result Body Mass Index 21.4 Const: Other: General: AO X 3, no acute distress Resp: CTA bilateral CVS: S1,S2,RRR GI: +BS, NT, no distention Skin: No rash Neuro: motor grossly intact Psych: appropriate affect Objective Data Active Medications Acetaminophen (Acetaminophen 325 Mg Tablet) 650 mg PO Q6H PRN PRN Reason: Pain, Mild (Pain Scale 1-3) Enoxaparin Sodium (Enoxaparin Sodium 40 Mg/0.4 Ml Syringe) 40 mg SUBCUT BEDTIME [facility] Last Admin: 05/16/22 02:25 Dose: 40 mg Documented By: SONDRA Famotidine (Famotidine/Pf 20 Mg/2 Ml Vial) 20 mg IVPUSH BID [facility] Folic Acid (Folic Acid 1 Mg Tablet) 1 mg PO DAILY [facility] Stop: 05/19/22 08:59 Hydroxyzine HCl (Hydroxyzine Hcl 50 Mg Tablet) 50 mg PO TID PRN PRN Reason: anxiety/restlessness Dextrose/Sodium Chloride (D5ns) 1,000 mls @ 500 mls/hr IVCONT .Q2H [facility] Last Admin: 05/16/22 04:02 Dose: 500 mls/hr Documented By: RUBY Dextrose/Sodium Chloride (D51/2ns) 1,000 mls @ 100 mls/hr IVCONT .Q10H [facility] Last Admin: 05/16/22 03:56 Dose: 100 mls/hr Documented By: RUBY Melatonin (Melatonin 3 Mg Tablet) 6 mg PO BEDTIME PRN PRN Reason: Insomnia Multivitamins/Vitamin C (Multivitamin Tablet) 1 tab PO DAILY [facility] Stop: 05/19/22 08:59 Nicotine (Nicotine 14 Mg Patch.Td24) 14 mg TRANSDERMA DAILY [facility] Pharmacy Consult (Consult Rx Etoh Phenob Im/Po) 1 each MISCELLANE ONCE PRN; Protocol PRN Reason: Consult order Phenobarbital (Phenobarbital 15 Mg Tablet) 45 mg PO BID [facility]; Protocol Stop: 05/17/22 21:01 Phenobarbital (Phenobarbital 30 Mg Tablet) 30 mg PO BID [facility]; Protocol Stop: 05/19/22 21:01 Phenobarbital (Phenobarbital 15 Mg Tablet) 15 mg PO DAILY [facility]; Protocol Stop: 05/21/22 09:01 Senna (Sennosides 8.6 Mg Tablet) 17.2 mg PO BEDTIME PRN PRN Reason: Constipation Sodium Chloride (0.9 % Sodium Chloride Flush 3 Ml Syringe) 3 ml IVFLUSH QSHIFT [facility] Last Admin: 05/16/22 02:25 Dose: Not Given Documented By: SONDRA Non-Admin Reason: IV Running Thiamine HCl (Thiamine Hcl 100 Mg Tablet) 100 mg PO DAILY [facility] Stop: 05/19/22 08:59 Trazodone HCl (Trazodone Hcl 100 Mg Tablet) 100 mg PO BEDTIME [facility] Labs CBC & Chem 7: 05/16/22 07:42 05/16/22 07:42 Labs: Laboratory Results - last 24 hr 05/15/22 05/15/22 05/15/22 22:41 22:41 22:41 MCV 88.4 MCH 31.1 MCHC 35.1 RDW 13.2 Plt Count 220 MPV 9.9 Immature Gran % (Auto) 0.3 Neut % (Auto) 85.2 H Lymph % (Auto) 9.1 L [place] % (Auto) 4.7 Eos % (Auto) 0.1 Baso % (Auto) 0.6 Lymph # (Auto) 1.3 [place] # (Auto) 0.7 Eos # (Auto) 0.0 Baso # (Auto) 0.1 Abs Immat Gran (auto) 0.05 H Absolute Neuts (auto) 12.3 H Absolute Nucleated RBC 0.000 Nucleated RBC % (auto) 0.0 PT INR D-Dimer High Sensitivty Anion Gap 31 H Estim Creat Clear Calc 87.3 Estimated GFR > 60 Random Glucose 122 H Calcium 10.0 Magnesium Total Bilirubin 1.2 H AST 27 ALT 23 Alkaline Phosphatase 138 H Total Protein 8.5 H Albumin 5.2 H Lipase 59 Urine Opiates Screen Urine Fentanyl Screen Ur Barbiturates Screen Ur Phencyclidine Scrn Ur Amphetamines Screen U Benzodiazepines Scrn Urine Cocaine Screen U Marijuana (THC) Screen Ethyl Alcohol 277 COVID-19 (CJ) Negative COVID-19 Clin Com See Note 05/15/22 05/16/22 05/16/22 22:41 01:56 07:42 MCV 91.9 MCH 31.9 MCHC 34.7 RDW 13.3 Plt Count 155 L D MPV 9.7 Immature Gran % (Auto) 0.2 Neut % (Auto) 74.1 H Lymph % (Auto) 15.5 L [place] % (Auto) 8.9 Eos % (Auto) 0.8 Baso % (Auto) 0.5 Lymph # (Auto) 1.9 [place] # (Auto) 1.1 Eos # (Auto) 0.1 Baso # (Auto) 0.1 Abs Immat Gran (auto) 0.03 Absolute Neuts (auto) 9.0 H Absolute Nucleated RBC 0.000 Nucleated RBC % (auto) 0.0 PT 10.3 INR 0.9 D-Dimer High Sensitivty 1657 Anion Gap Estim Creat Clear Calc Estimated GFR Random Glucose Calcium Magnesium Total Bilirubin AST ALT Alkaline Phosphatase Total Protein Albumin Lipase Urine Opiates Screen Not Detected Urine Fentanyl Screen Not Detected Ur Barbiturates Screen POSITIVE H Ur Phencyclidine Scrn Not Detected Ur Amphetamines Screen Not Detected U Benzodiazepines Scrn POSITIVE H Urine Cocaine Screen Not Detected U Marijuana (THC) Screen Not Detected Ethyl Alcohol COVID-19 (CJ) COVID-19 Clin Com 05/16/22 07:42 MCV MCH MCHC RDW Plt Count MPV Immature Gran % (Auto) Neut % (Auto) Lymph % (Auto) [place] % (Auto) Eos % (Auto) Baso % (Auto) Lymph # (Auto) [place] # (Auto) Eos # (Auto) Baso # (Auto) Abs Immat Gran (auto) Absolute Neuts (auto) Absolute Nucleated RBC Nucleated RBC % (auto) PT INR D-Dimer High Sensitivty Anion Gap 16 Estim Creat Clear Calc 119.9 Estimated GFR > 60 Random Glucose 92 Calcium 8.9 D Magnesium 1.9 Total Bilirubin AST ALT Alkaline Phosphatase Total Protein Albumin Lipase Urine Opiates Screen Urine Fentanyl Screen Ur Barbiturates Screen Ur Phencyclidine Scrn Ur Amphetamines Screen U Benzodiazepines Scrn Urine Cocaine Screen U Marijuana (THC) Screen Ethyl Alcohol COVID-19 (CJ) COVID-19 Clin Com Assessment and Plan (1) Alcohol withdrawal seizure: Status: Acute Plan 31-year-old male with a past medical history of alcohol abuse, history of alcohol withdrawal seizure, tobacco dependence presented to the hospital today with a chief complaint of seizure.? Admitted for following Seizure:? Likely in the setting of alcohol withdrawal.? Seizure precautions.? Versed p.r.n..? Neurology follow-up.? Alcoholic withdrawal:? Patient is started on phenobarb protocol.? Monitor on CIWA.? Thiamine folate multivitamins.? 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 Elevated anion gap:? Likely alcoholic ketoacidosis.? Has resolved with IVF Alcoholic gastritis: Pepcid IV b.i.d.. Tobacco dependence: Counseled on smoking cessation.? DVT prophylaxis:? Lovenox Code status: Full code Inaptient need: treatment for acute alcohol withdrawal with seizre Quality Stroke Does the patient have a stroke diagnosis?: No VTE Prior VTE?: No VTE Risk Level:: Medical - moderate - high VTE Device Contraindication: Treatment Not Indicated VTE Drug Contraindication: N/A - Med Ordered
--- NOTE | 2022-05-16 10:10 | PM.NEUROCN ---
History of Present Illness Data of Consult Service Date: 05/16/22 Primary Care Provider: Unknown Physician HPI Reason for consult: Seizure disorder 31 years old man with history of alcohol abuse and apparently multiple episodes of seizures, which were attributed to alcohol withdrawal. He came to hospital after another episode. Apparently he had a generalized seizure at home and family reported that he had this kind of episode multiple times in the past. He said that his last drink was maybe a day before but his alcohol level was significant when he arrived. Review of Systems Review of Systems: Active alcohol use PMFSH Past Medical History Medical History Alcohol use disorder, severe, dependence Anxiety Depression ETOH abuse Seizure Family History Family History Mother DVT (deep venous thrombosis) Social History Social History Household Members: Children Housing: House Do you presently have visiting nurse or other home services: No Alcohol intake: current Alcohol intake frequency: 3 or more drinks per day Alcohol type: beer Patient Tobacco Use Status: Current everyday Tobacco user Tobacco use type: Cigarette Cigarette Packs Per Day: 1.5 Cigarettes Per Day: 30.0 Years Smoked: 13 Smoked in Last 30 Days: Yes Second Hand Smoke Exposure: Yes Use of substances other than those prescribed or required for medical reasons: No Advance Directives: No Advance Directives Information Provided: No service: No Current occupational status: unemployed Meds Allergies Allergy/AdvReac Type Severity Reaction Status Date / Time No Known Allergies Allergy Verified 01/03/22 06:08 [No Known Allergies*] Active Medications: Current Medications Acetaminophen (Acetaminophen 325 Mg Tablet) 650 mg PO Q6H PRN PRN Reason: Pain, Mild (Pain Scale 1-3) Enoxaparin Sodium (Enoxaparin Sodium 40 Mg/0.4 Ml Syringe) 40 mg SUBCUT BEDTIME [facility] Last Admin: 05/16/22 02:25 Dose: 40 mg Famotidine (Famotidine/Pf 20 Mg/2 Ml Vial) 20 mg IVPUSH BID [facility] Folic Acid (Folic Acid 1 Mg Tablet) 1 mg PO DAILY [facility] Stop: 05/19/22 08:59 Hydroxyzine HCl (Hydroxyzine Hcl 50 Mg Tablet) 50 mg PO TID PRN PRN Reason: anxiety/restlessness Dextrose/Sodium Chloride (D5ns) 1,000 mls @ 500 mls/hr IVCONT .Q2H [facility] Last Admin: 05/16/22 04:02 Dose: 500 mls/hr Dextrose/Sodium Chloride (D51/2ns) 1,000 mls @ 100 mls/hr IVCONT .Q10H [facility] Last Admin: 05/16/22 03:56 Dose: 100 mls/hr Melatonin (Melatonin 3 Mg Tablet) 6 mg PO BEDTIME PRN PRN Reason: Insomnia Multivitamins/Vitamin C (Multivitamin Tablet) 1 tab PO DAILY [facility] Stop: 05/19/22 08:59 Nicotine (Nicotine 14 Mg Patch.Td24) 14 mg TRANSDERMA DAILY [facility] Pharmacy Consult (Consult Rx Etoh Phenob Im/Po) 1 each MISCELLANE ONCE PRN; Protocol PRN Reason: Consult order Phenobarbital (Phenobarbital 15 Mg Tablet) 45 mg PO BID [facility]; Protocol Stop: 05/17/22 21:01 Phenobarbital (Phenobarbital 30 Mg Tablet) 30 mg PO BID [facility]; Protocol Stop: 05/19/22 21:01 Phenobarbital (Phenobarbital 15 Mg Tablet) 15 mg PO DAILY [facility]; Protocol Stop: 05/21/22 09:01 Senna (Sennosides 8.6 Mg Tablet) 17.2 mg PO BEDTIME PRN PRN Reason: Constipation Sodium Chloride (0.9 % Sodium Chloride Flush 3 Ml Syringe) 3 ml IVFLUSH QSHIFT [facility] Last Admin: 05/16/22 02:25 Dose: Not Given Thiamine HCl (Thiamine Hcl 100 Mg Tablet) 100 mg PO DAILY [facility] Stop: 05/19/22 08:59 Trazodone HCl (Trazodone Hcl 100 Mg Tablet) 100 mg PO BEDTIME [facility] Home Medications Medication Instructions Recorded Confirmed Last Taken Type hydroxyzine pamoate 50 mg capsule 1 cap PO TID 05/15/22 05/15/22 Unknown History naltrexone microspheres 380 mg 1 syringe IM Q4W 05/15/22 05/15/22 Unknown History intramuscular suspension,extended release (Vivitrol) trazodone 50 mg tablet 2 tab PO BEDTIME 05/15/22 05/15/22 Unknown History Physical Exam Vital Signs: Vital Signs: Last Vital Signs Temp 97.9 F 05/15/22 23:34 Pulse 66 05/16/22 06:01 Resp 12 05/16/22 06:01 BP 104/60 05/16/22 06:01 Pulse Ox 95 05/16/22 06:01 O2 Del Method 05/16/22 06:01 BMI result Body Mass Index 21.4 Neuro: Other: He is alert and awake with normal spontaneity of speech fluency comprehension and affect. There is no nystagmus. Visual parker are full. Face is symmetrical. Deep tendon reflexes were trace to absent with flexor plantars. Speech was normal. Results Labs CBC & Chem 7: 05/16/22 07:42 05/16/22 07:42 Labs: Short CBC 05/15/22 05/16/22 Range/Units 22:41 07:42 WBC 14.4 H 12.1 H (4.8-10.8) X10*3/uL Hgb 16.8 13.0 L D (14.0-18.0) g/dl Hct 47.8 37.5 L D (42.0-52.0) % Plt Count 220 155 L D (160-400) X10*3/uL BMP 05/15/22 05/16/22 22:41 07:42 Sodium 141 138 Potassium 3.7 3.6 Chloride 88 L 96 Carbon Dioxide 26 30 H BUN 8 L 7 L Creatinine 1.14 0.83 Calcium 10.0 8.9 D Liver Function 05/15/22 Range/Units 22:41 Total Bilirubin 1.2 H (0.0-1.0) mg/dL AST 27 (5-37) U/L ALT 23 (0-40) U/L Alkaline Phosphatase 138 H (39-117) U/L Albumin 5.2 H (3.5-5.0) g/dL Noncontrast head CT for his age revealed mild cerebellar atrophy per Assessment and Plan (1) Seizure: Status: Acute 31 years old man who apparently has diagnosis of alcohol withdrawal seizure. He presented to hospital with history of another generalized convulsion, as per his family. His alcohol level was significantly high. Patients with alcoholism are particularly higher at risk for epileptic seizures beside alcohol withdrawal seizure. He definitely needed help to quit alcohol and appropriate detox protocol and program but I would also recommend starting him on levetiracetam 500 mg twice a day for seizure prevention. Also thiamine 100 mg folate 1 mg and B complex vitamin should be given daily to avoid any neurological complications. 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
[2022-05-16] MEDS: Famotidine/PF 20 MG/2 ML VIAL IVPUSH ×2 (10:45→21:23)
[2022-05-16] MEDS: PHENobarbitaL 15 MG TABLET 45 MG PO ×2 (10:46→21:22)
[2022-05-16] MEDS: Thiamine HCL 100 MG TABLET PO (10:46)
[2022-05-16] MEDS: Folic Acid 1 MG TABLET PO (10:46)
[2022-05-16] MEDS: Nicotine 14 MG PATCH.TD24 TRANSDERMA (10:46)
[2022-05-16] MEDS: Multivitamin TABLET 1 TAB PO (10:46)
[2022-05-16 10:51] VITALS: BP 110/61; PULSE 62; RESP 16; O2SAT 95
[2022-05-16 11:22] VITALS: BP 110/67; PULSE 60; RESP 17; O2SAT 96
[2022-05-16 14:08] VITALS: BP 129/76; PULSE 60; RESP 17; TEMP 36.7; O2SAT 99
[2022-05-16 18:12] VITALS: BP 109/64; PULSE 54; RESP 15; O2SAT 97
[2022-05-16] MEDS: traZODone HCL 100 MG TABLET PO (21:22)
[2022-05-16] MEDS: hydrOXYzine HCL 50 MG TABLET PO (21:22)
[2022-05-16] MEDS: Acetaminophen 325 MG TABLET 650 MG PO (21:28)
[2022-05-17 07:49] VITALS: BP 130/85; PULSE 61; RESP 17; O2SAT 99
[2022-05-17] MEDS: PHENobarbitaL 15 MG TABLET 45 MG PO (09:24)
[2022-05-17] MEDS: Famotidine/PF 20 MG/2 ML VIAL IVPUSH (09:24)
[2022-05-17] MEDS: Folic Acid 1 MG TABLET PO (09:24)
[2022-05-17] MEDS: Thiamine HCL 100 MG TABLET PO (09:24)
[2022-05-17] MEDS: levETIRAcetam 500 MG TABLET PO (09:25)
[2022-05-17] MEDS: Multivitamin TABLET 1 TAB PO (09:25)
[2022-05-17] MEDS: Nicotine 14 MG PATCH.TD24 TRANSDERMA (09:29)
[2022-05-17] MEDS: Dextrose 5 % and 0.45 % NaCl 1,000 ML 100 ML IVCONT (09:31)
--- NOTE | 2022-05-17 11:51 | PC.NURSE ---
Pt alert and orientedx4. Respirations even and unlabored. Pt resting quietly at this time.
[2022-05-17 11:53] VITALS: BP 107/70; PULSE 68; RESP 14; O2SAT 99
--- NOTE | 2022-05-17 14:53 | P.DS_ITS ---
DS: Providers Provider Date of Service: 05/17/22 Date of admission: 05/15/22 23:36 Primary care physician: Unknown Physician Consults: 05/15/22 23:26 Consult to Neurology Routine Consulting Provider: [facility] Reason for consultation: seizure DS: Diagnosis Discharge Diagnosis (1) Seizure: Status: Acute DS: Summary Hospital Course Hospital Course: This young man has history of seizures that have been attributed to alcohol withdrawal as well as not and has been evaluated in the past by Dr. Garcia (neurologist ) in [place], he presented on this occasion with what appear to be a case of alcohol withdrawal seizure.. He was treated with Phenobarbital for alcohol withdrawal and has not had further seizures, he was seen in Dr. Dela Cruz (neurologolist) who is recommending Keppra 500 mg twice a day as thee is high risk of epilepsy in the alcoholic. He says that he has been on meds in the past for seizure and has no problem taking meds, he is also aware of not driving or operative heavy machinery or other risky activities such as swimming alone, he is has been educated and advised on need to stop drinking Time Spent with Patient Time attestation: Total time spent providing and/or coordinating discharge services: Discharge coordination time: Greater than 30 minutes Quality: Safe Use of Opioids Does Pt have an Active Cancer Diagnosis on the Problem List?: No Quality: Stroke Does the patient have a stroke diagnosis?: No Physical Exam Vital Signs: Vital Signs: Last Vital Signs Temp 98.1 F 05/16/22 14:08 Pulse 68 05/17/22 11:53 Resp 14 05/17/22 11:53 BP 107/70 05/17/22 11:53 Pulse Ox 99 05/17/22 11:53 O2 Del Method 05/17/22 11:53 BMI result Body Mass Index 21.4 DS: Data Data Completed and Pending Completed studies during hospitalization [Text1]: Procedures Detoxification Services for Substance Abuse Treatment (09/10/21) Discharge Plan Discharge Anticipated Discharge Date/Time: 05/17/22 14:47 Patient Disposition: Home, Self-Care Discharge Diagnosis: Seizure, alcohol withdrawal Referrals: Physician,Unknown J [Primary Care Provider] - 1 Week Discharge Medications: New levetiracetam 500 mg Tablet 500 mg PO BID Qty: 60 0RF Continued trazodone 50 mg tablet 2 tab PO BEDTIME hydroxyzine pamoate 50 mg capsule 1 cap PO TID Vivitrol 380 mg suspension,extended rel recon 1 syringe IM Q4W Discharge Orders: Discharge Order (Routine); Ordered 05/17/22 Ordered By: Walker Duarte Diet: Advance to usual diet Activity on Discharge: As tolerated Stand Alone Forms: Patient Portal Discharge page Care Plan Goals: seizure prevention, sober from alcohol Health Concerns: seizure, alcohol abuse Plan of Treatment: Take Keppra for seizure 500 mg twice daily follow up with your Neurologist Dr. 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
--- NOTE | 2022-05-17 15:44 | MHC.CARE ---
CARE team met with the pt at the request of the hospitalist and ED nurse. Pt was medically admitted over the weekend for alcohol withdrawal after arriving to the ED secondary to a suspected withdrawal seizure. Pt is cleared for discharge from the hospital today and the medical team wanted a recovery support check in prior to his departure. This automatic typewriter inspector met with the pt in the main ED room 8. He was alert and oriented and pleasant on approach. He shared that he has been struggling with sobriety but feels that he is making progress, having shorter bouts of heavy drinking between episodes of being sober. He reported that he used to go a year without stopping his alcohol use and that he has gotten down to 1-2 weeks after he starts drinking again before he stops and gets into treatment. He recently completed a 2 week stay at [facility], two weeks at [facility], and 23 days in [facility]. He receives monthly vivitrol injections at [facility] but he hasn't found that it helps with his cravings or deterring him from continued use. He has considered campral and antabuse but feels that he wouldn't be able to hold himself accountable for taking the medications every day. He has a counselor at [facility] that he has individual sessions with weekly, whom he enjoys working with. He doesn't have a other sports coach or instructor or a sober group of friends at this time. He lives with his mother and helps her around the house. He does not have a job at this time and is worried that if he starts working that he will spend the money on alcohol and go through the cycle again. We discussed exploring volunteering opportunities, as it would give him some structure and something to look forward to doing, and recommended that he speak with his counselor about possible options. Pt plans to contact his counselor at [facility] and to resume [facility]. No further intervention is needed at this time. ED nursing has been updated and pt will be discharged home. CARE team can request a lyft for transport home if needed.
[2022-05-17 15:52] VITALS: BP 119/77; PULSE 69; RESP 18; O2SAT 100
== END 2022-05-17 15:59 | disposition home or self-care (01) | DRG 241 ==
LOC: HO.ED 05-16 02:08 → HO.EDOVER 05-16 02:11
PROVIDERS: Physician Assistant; Admitting Provider Hospitalist; Emergency Provider Student in an Organized Health Care Education/Training Program; PCP Physician Assistant Medical; Visit Provider Internal Medicine
DX: K29.20 Alcoholic gastritis without bleeding (principal); E87.2 Acidosis; F41.9 Anxiety disorder, unspecified; E86.0 Dehydration; F17.210 Nicotine dependence, cigarettes, uncomplicated; F32.A Depression, unspecified; F10.139 Alcohol abuse with withdrawal, unspecified; Y90.8 Blood alcohol level of 240 mg/100 ml or more; Z71.6 Tobacco abuse counseling; Z20.822 Contact with and (suspected) exposure to COVID-19; Z79.899 Other long term (current) drug therapy
CPT/HCPCS: 36415; 70450; 71275; 80048; 80053; 80307; 82077; 83690; 83735; 85025; 85379; 85610; 87635; 93005; 99285; J1200; J1650; J2405; J2560; J2765; J3360; J3411; Q9967

== ENCOUNTER 2022-06-08 04:14 | Inpatient (IN) | payer MEDICAID, SELFPAY ==
[2022-06-08] VITALS (10 sets, daily range): BP systolic 105–142; BP diastolic 63–94; PULSE 62–106; RESP 13–20; TEMP 36.2–36.9; O2SAT 93–100; BMI 20.7
--- NOTE | 2022-06-08 | ECG_ITS ---
Test Reason : ETOH/WITHDRAWL Blood Pressure : / mmHG Vent. Rate : 092 BPM Atrial Rate : 092 BPM P-R Int : 126 ms QRS Dur : 112 ms QT Int : 370 ms P-R-T Axes : 098 077 080 degrees QTc Int : 457 ms Poor data quality, interpretation may be adversely affected Normal sinus rhythm Right atrial enlargement Borderline ECG When compared with ECG of 15-MAY-2022 23:20, Incomplete right bundle branch block is no longer Present Referred By: Generic ED Physician Electronically Signed By:KERRY TAO
[2022-06-08 04:56] LABS: Basophils Absolute Auto 0.1 X10*3/uL (0.0-0.2); Basophils Percent Auto 1.3 % (0-2); Eosinophils Absolute Auto 0.1 X10*3/uL (0.0-0.4); Eosinophils Percent Auto 1.2 % (0-4); Hematocrit 50.7 % (42.0-52.0); Hemoglobin 17.4 g/dl (14.0-18.0); Imm Gran Abs Auto 0.02 X10*3/uL (0.00-0.03); Imm Gran Pct Auto 0.2 % (0.0-0.4); Lymphocytes Absolute Auto 1.9 X10*3/uL (1.2-4.9); Lymphocytes Percent Auto 22.3 % (20-40); MANUAL DIFF FLAG NO; Mean Corpuscular HGB Conc 34.3 g/dl (31.0-36.0); Mean Corpuscular Hemoglobin 31.2 pg (27.0-33.0); Mean Corpuscular Volume 90.9 fL (80.0-98.0); Mean Platelet Volume 8.9 fL (9.4-12.4); Monocytes Absolute Auto 0.6 X10*3/uL (0.1-1.2); Monocytes Percent Auto 7.2 % (2-11); Neutrophils Absolute Auto 5.6 x10*3/uL (2.0-8.3); Neutrophils Percent Auto 67.8 % (45-73); Platelet Count 330 X10*3/uL (160-400); Red Blood Count 5.58 X10*6/uL (4.60-5.80); Red Cell Distribution Width 13.9 % (11.0-16.0); White Blood Count 8.3 X10*3/uL (4.8-10.8)
[2022-06-08] MEDS: ondansetron HCL 4 MG/2 ML VIAL IVPUSH ×3 (05:00→14:21)
[2022-06-08] MEDS: 0.9 % Sodium Chloride 1,000 ML 999 ML IV (05:00)
--- NOTE | 2022-06-08 05:00 | ED.GENADULT ---
HPI - General Adult General Chief complaint: ETOH/Substance Use Stated complaint: ETOH Time Seen by Provider: 06/08/22 04:55 Source: patient Limitations: no limitations History of Present Illness HPI narrative: This is a 31-year-old male with history of alcohol abuse, who has been drinking beer daily, somewhat heavily. The patient has been vomiting since yesterday and has not been able to hold on fluids. The patient has tried drinking beer to prevent withdrawal but was unable to hold much down. Patient does have history of alcohol withdrawal seizures. He denies any recent seizures. He denies fever or abdominal pain except soreness from vomiting. He has had recent diarrhea. He denies any chest pain or shortness of breath or cough Related Data Home Medications Medication Instructions Recorded Confirmed hydroxyzine pamoate 50 mg capsule 1 cap PO TID 05/15/22 05/15/22 naltrexone microspheres 380 mg 1 syringe IM Q4W 05/15/22 05/15/22 intramuscular suspension,extended release (Vivitrol) trazodone 50 mg tablet 2 tab PO BEDTIME 05/15/22 05/15/22 Previous Rx's Medication Instructions Recorded levetiracetam 500 mg tablet 500 mg PO BID #60 tabs 05/17/22 Allergies Allergy/AdvReac Type Severity Reaction Status Date / Time No Known Allergies Allergy Verified 01/03/22 06:08 [No Known Allergies*] Review of Systems Review of Systems: Yes all other systems are reviewed and are negative Constitutional: Constitutional: Reports as per HPI and Denies fever(s) Eyes: Eyes: Reports as per HPI and Reports no additional eye complaints ENT: Reports system reviewed and no additional complaints, except as documented, Reports as per HPI, Denies nasal congestion, Denies nasal discharge and Denies sore throat Cardiovascular: Cardiovascular: Reports as per HPI, Denies chest pain and Denies dyspnea Respiratory: Respiratory: Reports as per HPI, Denies cough and Denies dyspnea Gastrointestinal: Gastrointestinal: Reports as per HPI, Denies abdominal pain, Reports diarrhea, Reports nausea and Reports vomiting Genitourinary: Genitourinary: Reports as per HPI, Denies hematuria, Denies dysuria and Denies urinary frequency Musculoskeletal: Musculoskeletal: Reports no additional musculoskeletal complaints and Denies numbness Integumentary/Breasts: Skin/Breast: Reports as per HPI and Denies rash Neurologic: Reports as per HPI, Denies focal weakness, Denies numbness and Denies convulsions Comments: Tremor Psychiatric: Psychiatric: Reports no additional psychiatric complaints and Reports as per HPI Endocrine: Endocrine: Reports no additional endocrine complaints and Reports as per HPI Hematologic/Lymphatic: Hematologic/Lymphatic: Reports no additional hematologic/lymphatic complaints, Reports as per HPI and Reports other (No peripheral edema) [facility] Past Medical History Medical History Alcohol use disorder, severe, dependence Anxiety Depression ETOH abuse Seizure Family History Family History Mother DVT (deep venous thrombosis) Social History Social History Household Members: Children Housing: House Do you presently have visiting nurse or other home services: No Alcohol intake: current Alcohol intake frequency: 3 or more drinks per day Alcohol type: hard liquor Patient Tobacco Use Status: Current everyday Tobacco user Tobacco use type: Cigarette Cigarette Packs Per Day: 1.5 Cigarettes Per Day: 30.0 Years Smoked: 13 Smoked in Last 30 Days: Yes Second Hand Smoke Exposure: Yes Use of substances other than those prescribed or required for medical reasons: No Advance Directives: No service: No Current occupational status: unemployed Physical Exam ED Vital Signs: Vital Signs - 24 hr 06/08/22 04:27 06/08/22 04:33 06/08/22 04:49 Temperature 98.4 F Pulse Rate 100 99 96 Respiratory Rate 19 16 18 Blood Pressure 124/90 H 124/90 H Pulse Oximetry 95 96 Oxygen Delivery Method Room Air Room Air Room Air 06/08/22 06:03 Temperature Pulse Rate 78 Respiratory Rate 20 Blood Pressure 117/77 Pulse Oximetry 96 Oxygen Delivery Method Room Air BMI result Body Mass Index 20.7 Const Other: Patient sitting up holding an emesis bag. Patient mildly tremulous. General: no acute distress Orientation/consciousness: patient oriented x3 HENMT Head: Yes normal to inspection General nose exam: Normal external nose present Mouth: moist mucous membranes Throat: Yes posterior oropharynx normal, Yes tonsils normal and Yes uvula midline Eyes Eyelids: Yes eyelids normal Conjunctivae: conjunctivae normal Pupils: Equal, round and reactive pupils present Neck Neck: Yes supple Resp Effort & Inspection: normal respiratory effort Auscultation: clear to auscultation bilaterally Cardio Rate: regular rate Rhythm: regular rhythm Heart sounds: S1 normal heart sound present, S2 normal heart sound present, no gallops, no murmurs and no rubs GI Inspection: No distended Palpation (GI): Soft to palpation and nontender Auscultation: normal bowel sounds Skin General skin exam: other (Warm and dry) Neuro General: patient oriented x3 and CN's II-XI intact bilaterally Cranial nerves: Yes Equal, round and reactive pupils present Extrem General: Yes no pedal edema Psych Affect: normal affect Attitude: cooperative Medical Decision Making [facility] Narrative Medical decision making narrative: Patient with vomiting for nearly 24 hours, in the setting of heavy beer intake, and currently with withdrawal symptoms. Patient has history of alcohol withdrawal seizures. Patient was treated with normal saline 1 L IV, Zofran 4 mg IV, diazepam 5 mg IV. His heart rate came down to normal his blood pressure also was normal. He appeared improved, was slightly tremulous on exam. Patient's labs show hemoconcentration but the BUN and creatinine are normal. Lipase normal. No leukocytosis. Patient may have alcoholic gastritis and given his early withdrawal symptoms and history of more severe withdrawal, warrants admission for alcohol withdrawal protocol, IV fluids, antiemetic. Dr. Hess has accepted the patient to medical floor Lab Data Lab results reviewed: Yes I reviewed the patient's lab results. Result diagrams: 06/08/22 04:41 06/08/22 04:41 Labs: Lab Results 06/08/22 06/08/22 Range/Units 04:41 04:41 WBC 8.3 (4.8-10.8) X10*3/uL RBC 5.58 D (4.60-5.80) X10*6/uL Hgb 17.4 D (14.0-18.0) g/dl Hct 50.7 D (42.0-52.0) % MCV 90.9 (80.0-98.0) fL MCH 31.2 (27.0-33.0) pg MCHC 34.3 (31.0-36.0) g/dl RDW 13.9 (11.0-16.0) % Plt Count 330 D (160-400) X10*3/uL MPV 8.9 L (9.4-12.4) fL Immature Gran % (Auto) 0.2 (0.0-0.4) % Neut % (Auto) 67.8 (45-73) % Lymph % (Auto) 22.3 (20-40) % [place] % (Auto) 7.2 (2-11) % Eos % (Auto) 1.2 (0-4) % Baso % (Auto) 1.3 (0-2) % Lymph # (Auto) 1.9 (1.2-4.9) X10*3/uL [place] # (Auto) 0.6 (0.1-1.2) X10*3/uL Eos # (Auto) 0.1 (0.0-0.4) X10*3/uL Baso # (Auto) 0.1 (0.0-0.2) X10*3/uL Abs Immat Gran (auto) 0.02 (0.00-0.03) X10*3/uL Absolute Neuts (auto) 5.6 (2.0-8.3) x10*3/uL Absolute Nucleated RBC 0.000 (0.0-0.012) X10*3/uL Nucleated RBC % (auto) 0.0 (0.0-0.2) /100WBC Sodium 143 (135-145) mmol/L Potassium 4.3 (3.3-5.1) mmol/L Chloride 97 (96-108) mmol/L Carbon Dioxide 28 (22-29) mmol/L Anion Gap 22 H (12-20) BUN 6 L (9-16) mg/dL Creatinine 0.84 (0.5-1.4) mg/dL Estim Creat Clear Calc 114.4 Estimated GFR > 60 Random Glucose 110 (60-115) mg/dL Calcium 9.8 D (8.4-10.2) mg/dL Magnesium 2.2 (1.6-2.6) mg/dL Total Bilirubin 0.4 (0.0-1.0) mg/dL AST 19 (5-37) U/L ALT 13 (0-40) U/L Alkaline Phosphatase 111 (39-117) U/L Total Protein 8.1 H (6.5-8.0) g/dL Albumin 4.9 (3.5-5.0) g/dL Lipase 37 (8-78) U/L Ethyl Alcohol 233 mg/dL Discharge Plan Discharge Clinical Impression: Alcohol withdrawal syndrome, Acute alcoholic gastritis Patient Disposition: Admitted as Observation Prescriptions: No Action trazodone 50 mg tablet 2 tab PO BEDTIME hydroxyzine pamoate 50 mg capsule 1 cap PO TID Vivitrol 380 mg suspension,extended rel recon 1 syringe IM Q4W levetiracetam 500 mg Tablet 500 mg PO BID Qty: 60 0RF
[2022-06-08] MEDS: diazePAM 10 MG/2 ML CARTRIDGE IVPUSH (05:20)
[2022-06-08 05:22] LABS: Alanine Aminotransferase 13 U/L (0-40); Albumin Level 4.9 g/dL (3.5-5.0); Alkaline Phosphatase 111 U/L (39-117); Anion Gap 22 (12-20); Aspartate Amino Transferase 19 U/L (5-37); Bilirubin Total 0.4 mg/dL (0.0-1.0); Blood Urea Nitrogen 6 mg/dL (9-16); Calcium 9.8 mg/dL (8.4-10.2); Carbon Dioxide 28 mmol/L (22-29); Chloride 97 mmol/L (96-108); Creatinine Clr Calc Pharmacy 114.4; Estimated Glomerular Filt Rate > 60; Ethanol 233 mg/dL; Glucose Random 110 mg/dL (60-115); Potassium 4.3 mmol/L (3.3-5.1); Sodium 143 mmol/L (135-145); Total Protein 8.1 g/dL (6.5-8.0)
[2022-06-08 05:52] LABS: Lipase 37 U/L (8-78); Magnesium 2.2 mg/dL (1.6-2.6)
[2022-06-08] MEDS: Pantoprazole Sodium 40 MG/10 ML VIAL IVPUSH ×2 (06:08→15:45)
[2022-06-08 06:41] LABS: COVID-19 Test Negative (Negative); IDNOW Serial# 9DB6401D
--- NOTE | 2022-06-08 07:13 | PC.NURSE ---
Handoff received. Pt currently sleeping in no apparent distress. Breaths are even and unlabored. Will continue to monitor.
[2022-06-08] MEDS: PHENobarbitaL sodium 130 MG/ML IM ONCE 204.1 MG IM (07:59)
[2022-06-08] MEDS: Enoxaparin Sodium 40 MG/0.4 ML SYRINGE SUBCUT (07:59)
--- NOTE | 2022-06-08 07:59 | PHA.MEDREC ---
Pharmacy Consult ? Medication Reconciliation Pharmacy has completed the medication reconciliation. Patient reports he no longer get vivitrol injections. Last visit patient was started of levetiracetam however patient reported he never started the medication. Marlee Johnson, PharmD
[2022-06-08] MEDS: 0.9 % Sodium Chloride Flush 3 ML SYRINGE IVFLUSH ×3 (08:01→23:59)
--- NOTE | 2022-06-08 10:04 | PC.NURSE ---
Pt is sleeping. Breath even and unlabored. Will continue to monitor.
--- NOTE | 2022-06-08 10:12 | PC.NURSE ---
Pt is awake, ao x 3.No distress. Denies tremors at this time. Reports feeling comfortable. Requesting food and liquid: provided. Breaths even and unlabored. Respirtary rate 14, HR 84. Pt aware of plan of care. Will continue to monitor.
[2022-06-08] MEDS: PHENobarbitaL sodium 130 MG/ML VIAL IM Q3Hx2 152.1 MG IM ×2 (10:35→14:20)
--- NOTE | 2022-06-08 12:06 | P.HPHOSP_ITS ---
History of Present Illness Date of Service: 06/08/22 Attending physician on admission: Savi Whelan Chief Complaint: etoh withdrawal, alcoholic withdrawal 31 year old male with history of alcohol dependence, history of alcohol wihtdrawal seizure, who is a current every day smoker (1-2ppd) presented to ED early this morning complaining of vomiting x 1 day and inability to hold down f luids. He states he drinks about 30 beers per day, last consumed last night. He has history of vomiting episodes and tremulousness following alcohol consumption and will drink a few beers the next morning to resolve symptoms. He was unable to hold down any fluids this time however. Last etoh withdrawal seizure was one month ago. He is also reporting a gnawing discomfort in the epigastric area and ongoing nausea. Vitals normal in ED. CIWA score 0 per nursing note. Ethyl alcohol level 233. Urine drug screen pending though denies other drug use. Phenobarb protocol initiated. Review of Systems Review of Systems: General: No fevers, malaise, unintentional weight loss Cardiovascular: No chest pain, palpitations, or leg edema Respiratory: No shortness of breath, wheezing, cough GI: +epigastric discomfort, +nausea, +vomiting. No diarrhea, constipation, melena, hematochezia Neuro: +tremors. No headaches, weakness, paresthesias, seizure Skin: No rashes or lesions [facility] Medical History (Updated 06/08/22 @ 13:17 by MACARENA Cano) Alcohol use disorder, severe, dependence Anxiety Depression ETOH abuse Seizure Family History (Updated 06/08/22 @ 13:15 by MACARENA Cano) Mother DVT (deep venous thrombosis) Ovarian cancer Father Alcohol dependence Brother Type 2 diabetes mellitus Multiple sclerosis Social History Household Members: Children Housing: House Do you presently have visiting nurse or other home services: No Alcohol intake: current Alcohol intake frequency: 3 or more drinks per day Alcohol type: hard liquor Patient Tobacco Use Status: Current everyday Tobacco user Tobacco use type: Cigarette Cigarette Packs Per Day: 1.5 Cigarettes Per Day: 30.0 Years Smoked: 13 Smoked in Last 30 Days: Yes Second Hand Smoke Exposure: Yes Use of substances other than those prescribed or required for medical reasons: No Advance Directives: No service: No Current occupational status: unemployed Meds Allergies Allergy/AdvReac Type Severity Reaction Status Date / Time No Known Allergies Allergy Verified 01/03/22 06:08 [No Known Allergies*] Active Medications: Current Medications Acetaminophen (Acetaminophen 325 Mg Tablet) 650 mg PO Q6H PRN PRN Reason: Pain, Mild (Pain Scale 1-3) Enoxaparin Sodium (Enoxaparin Sodium 40 Mg/0.4 Ml Syringe) 40 mg SUBCUT Q24H [facility] Last Admin: 06/08/22 07:59 Dose: 40 mg Folic Acid (Folic Acid 1 Mg Tablet) 1 mg PO DAILY [facility] Ondansetron HCl (Ondansetron Hcl 4 Mg/2 Ml Vial) 4 mg IVPUSH Q8H PRN PRN Reason: Nausea and Vomiting Last Admin: 06/08/22 07:59 Dose: 4 mg Pantoprazole Sodium (Pantoprazole Sodium 40 Mg/10 Ml Vial) 40 mg IVPUSH BID@063 0,1630 [facility] Pharmacy Consult (Consult Rx Perform Med Rec) 1 each MISCELLANE ONCE PRN PRN Reason: Consult order Pharmacy Consult (Consult Rx Etoh Phenob Im/Po) 1 each MISCELLANE ONCE PRN; Protocol PRN Reason: Consult order Phenobarbital (Phenobarbital 15 Mg Tablet) 45 mg PO BID [facility]; Protocol Stop: 06/10/22 09:01 Phenobarbital (Phenobarbital 30 Mg Tablet) 30 mg PO BID [facility]; Protocol Stop: 06/12/22 09:01 Phenobarbital (Phenobarbital 15 Mg Tablet) 15 mg PO DAILY [facility]; Protocol Stop: 06/14/22 09:01 Phenobarbital Sodium (Phenobarbital Sodium 130 Mg/Ml Vial Im Q3hx2) 152.1 mg IM Q3H [facility]; Protocol Stop: 06/08/22 14:01 Last Admin: 06/08/22 10:35 Dose: 152.1 mg Sodium Chloride (0.9 % Sodium Chloride Flush 3 Ml Syringe) 3 ml IVFLUSH QSHIFT [facility] Last Admin: 06/08/22 08:01 Dose: 3 ml Thiamine HCl (Thiamine Hcl 100 Mg Tablet) 100 mg PO DAILY [facility] Home Medications Medication Instructions Recorded Confirmed Last Taken Type hydroxyzine pamoate 50 mg capsule 1 cap PO DAILY 05/15/22 06/08/22 Unknown History trazodone 50 mg tablet 2 tab PO BEDTIME 05/15/22 06/08/22 Unknown History omeprazole 20 mg tablet,delayed 20 mg PO DAILY 06/08/22 06/08/22 Unknown History release Physical Exam Vital Signs and Narrative: Vital Signs: Last Vital Signs Temp 98.4 F 06/08/22 04:33 Pulse 80 06/08/22 08:04 Resp 16 06/08/22 08:04 BP 110/76 06/08/22 08:04 Pulse Ox 96 06/08/22 08:04 O2 Del Method 06/08/22 08:04 BMI result Body Mass Index 20.7 Constitutional - Awake and Alert, No apparent distress Eyes - PERRLA, EOMI Cardiovascular - S1S2, RRR, No edema Respiratory - Normal lung expansion, Normal respiratory effort, No respiratory distress, CTA bilaterally Gastrointestinal - Mild epigastric ttp without guarding or rebound. ND; +BS Extremities - no calf tenderness bilaterally, no swelling Musculoskeletal - Normal inspection, normal ROM Skin - Warm/Dry Neurological - Alert & oriented x3, fine tremor, 5/5 strength BLE and BUE. CN II-XII intact Psychological - Appropriate affect Results Labs CBC and Chem 7: 06/08/22 04:41 06/08/22 04:41 Labs: Laboratory Results - last 24 hr 06/08/22 06/08/22 06/08/22 04:41 04:41 06:22 MCV 90.9 MCH 31.2 MCHC 34.3 RDW 13.9 Plt Count 330 D MPV 8.9 L Immature Gran % (Auto) 0.2 Neut % (Auto) 67.8 Lymph % (Auto) 22.3 [place] % (Auto) 7.2 Eos % (Auto) 1.2 Baso % (Auto) 1.3 Lymph # (Auto) 1.9 [place] # (Auto) 0.6 Eos # (Auto) 0.1 Baso # (Auto) 0.1 Abs Immat Gran (auto) 0.02 Absolute Neuts (auto) 5.6 Absolute Nucleated RBC 0.000 Nucleated RBC % (auto) 0.0 Anion Gap 22 H Estim Creat Clear Calc 114.4 Estimated GFR > 60 Random Glucose 110 Calcium 9.8 D Magnesium 2.2 Total Bilirubin 0.4 AST 19 ALT 13 Alkaline Phosphatase 111 Total Protein 8.1 H Albumin 4.9 Lipase 37 Ethyl Alcohol 233 COVID-19 (CJ) Negative COVID-19 Clin Com See Note Assessment and Plan (1) Alcohol withdrawal syndrome: Status: Acute (2) Acute alcoholic gastritis: Status: Acute (3) Alcohol use disorder, severe, dependence: Status: Acute Plan 31 year old male with alcohol dependence with hx alcohol withdrawal seizure and who is 1-2 ppd cigarette smoker admitted to the hospital for acute alcohol withdrawal and alcoholic gastritis. 1-Acute Alcoholic withdrawal syndrome -Patient now with tremulousness, nausea- CIWA score initially 9, now 5. Continue CIWA assessments -Continue phenobarbital protocol -Initiate folic acid and thiamine -Seizure precautions -Regular diet 2-Acute alcoholic gastritis -No melena or hematemesis -IV pantoprazole 40mg BID -Continue IV zofran 3- Alcohol dependence -Consumes ~30 beers daily -Interested in detox/rehab- addiction medicine consult and care team consult placed 4-Tobacco dependence -Smokes 1-2 PPD -21mg patches and nicorette gum prn DVT prophylaxis- lovenox Full code Patient requires inpatient stay of at least 2 midnights for management of alcohol withdrawal syndrome in patient at risk for seizures. Quality Stroke Does the patient have a stroke diagnosis?: No VTE Prior VTE?: No VTE Risk Level:: Medical - moderate - high VTE Device Contraindication: Treatment Not Indicated VTE Drug Contraindication: N/A - Med Ordered
[2022-06-08] MEDS: Thiamine HCL 100 MG TABLET PO (12:50)
[2022-06-08] MEDS: Folic Acid 1 MG TABLET PO (12:50)
[2022-06-08] MEDS: Nicotine 21 MG PATCH.TD24 TRANSDERMA (14:21)
[2022-06-08] MEDS: Acetaminophen 325 MG TABLET 650 MG PO (17:48)
[2022-06-08] MEDS: Nicotine Polacrilex 2 MG GUM BUCCAL (17:48)
--- NOTE | 2022-06-08 18:23 | PC.NURSE ---
Pt ambulates to the bathroom.
[2022-06-08 18:28] LABS: Amphetamine Screen Urine Not Detected (Not Detect); Barbiturates, Urine POSITIVE (Not Detect); Benzodiazepines Screen Urine POSITIVE (Not Detect); Cannabinoid Screen Urine Not Detected (Not Detect); Cocaine Screen Urine Not Detected (Not Detect); Fentanyl, urine POSITIVE (Not Detect); Opiate Screen Urine Not Detected (Not Detect); Phencyclidine Screen Urine Not Detected (Not Detect)
--- NOTE | 2022-06-08 20:53 | MHC.RECOVSUP ---
? Reason for consult:Recovery Support o Current location:ED 9 ? o Identified substance use concern:AUD - Withdrawal - Support ? ?Intervention: o MAT started or to be started o Community resources provided o Harm reduction discussion ? Plan: o Referral to CCC ? Additional information:?Patient consultation with fire chief deputy Eduard before entry. Patient is a 31 single father of two small children and residing with his mother in [place]. Patient describes a long history of AUD and unmangability. I was able to review harm reduction strategies and connected him to his triggers, red flags and patterns. I also was able to support him with community resources to local AA meetings and referrals to Recovery Coaching and CCC.
--- NOTE | 2022-06-08 20:55 | MHC.CM.PN ---
Addendum entered by Selam Ye 06/08/22 21:03: Recent admission for alcoholic seizures 05/15-05/17. Original Note: CM met with admitted pt with bed assignment 379. A&Ox4. Lives with mother. Has children. No DME/services. [employer] x2. HCP on file. HCP/mother Simran Severino ([phone]). [facility]. Agreeable to recovery services. Has counselor at [facility]. D/C plan is home. Pending recovery services options. Pt to arrange transport home. CM to follow for d/c needs/
--- NOTE | 2022-06-08 21:43 | PC.NURSE ---
Nurse to nurse report given to Roxy, S3 unit RN. Patient to be transported to bed 379.
[2022-06-08] MEDS: PHENobarbitaL 15 MG TABLET 45 MG PO (21:51)
[2022-06-08] MEDS: traZODone HCL 100 MG TABLET PO (21:51)
[2022-06-09 03:33] VITALS: BP 108/62; PULSE 55; RESP 18; TEMP 36.6; O2SAT 96
[2022-06-09] MEDS: Pantoprazole Sodium 40 MG/10 ML VIAL IVPUSH (06:10)
[2022-06-09 06:44] LABS: Hematocrit 44.5 % (42.0-52.0); Hemoglobin 15.3 g/dl (14.0-18.0); Mean Corpuscular HGB Conc 34.4 g/dl (31.0-36.0); Mean Corpuscular Volume 93.1 fL (80.0-98.0); Mean Platelet Volume 9.8 fL (9.4-12.4); Platelet Count 247 X10*3/uL (160-400); Red Blood Count 4.78 X10*6/uL (4.60-5.80); Red Cell Distribution Width 13.3 % (11.0-16.0); White Blood Count 6.7 X10*3/uL (4.8-10.8)
[2022-06-09 06:59] LABS: Anion Gap 15 (12-20); Blood Urea Nitrogen 12 mg/dL (9-16); Calcium 9.7 mg/dL (8.4-10.2); Carbon Dioxide 28 mmol/L (22-29); Chloride 97 mmol/L (96-108); Creatinine Clr Calc Pharmacy 121.6; Estimated Glomerular Filt Rate > 60; Glucose Random 86 mg/dL (60-115); Potassium 4.3 mmol/L (3.3-5.1); Sodium 136 mmol/L (135-145)
[2022-06-09 07:10] VITALS: BP 132/84; PULSE 64; RESP 18; TEMP 36.6; O2SAT 99
[2022-06-09] MEDS: Acetaminophen 325 MG TABLET 650 MG PO ×2 (08:22→14:50)
[2022-06-09] MEDS: Thiamine HCL 100 MG TABLET PO (08:22)
[2022-06-09] MEDS: Folic Acid 1 MG TABLET PO (08:22)
[2022-06-09] MEDS: Nicotine 21 MG PATCH.TD24 TRANSDERMA (08:23)
[2022-06-09] MEDS: ondansetron HCL 4 MG/2 ML VIAL IVPUSH (08:23)
[2022-06-09] MEDS: Enoxaparin Sodium 40 MG/0.4 ML SYRINGE SUBCUT (08:23)
[2022-06-09] MEDS: PHENobarbitaL 15 MG TABLET 45 MG PO ×2 (08:23→21:59)
[2022-06-09] MEDS: 0.9 % Sodium Chloride Flush 3 ML SYRINGE IVFLUSH ×3 (08:24→21:59)
[2022-06-09] MEDS: PHENobarbitaL sodium 130 MG/ML VIAL 120 MG IM (10:39)
[2022-06-09] MEDS: Nicotine Polacrilex 2 MG GUM BUCCAL ×2 (10:43→14:50)
[2022-06-09 11:26] VITALS: BP 130/84; PULSE 68; RESP 16; TEMP 36.3; O2SAT 98
--- NOTE | 2022-06-09 12:13 | HO.PM.IMPN ---
Subjective Subjective Date of Service: 06/09/22 Interval History: the patient was seen and evaluated this morning Laying in bed, feels improvement but still having tremors Epigastric pain and nausea No reported other overnight events. Systemic review: No fever, chills or weakness No chest pain, palpitation No shortness of breath or coughing Epigastric pain and nausea No urinary symptoms No any rash or wounds Physical Exam Vital Signs: Vital Signs: Last Vital Signs Temp 97.3 F 06/09/22 11:26 Pulse 68 06/09/22 11:26 Resp 16 06/09/22 11:26 BP 130/84 06/09/22 11:26 Pulse Ox 98 06/09/22 11:26 O2 Del Method 06/09/22 11:26 BMI result Body Mass Index 20.7 Const: Other: Constitutional : Alert, interactive, in mild distress Neck : Normal inspection, Supple Cardiovascular : RRR, no JVP, no lower extremity edema Respiratory : fair bilateral air entry, no crackles, wheezes or rhonchi Gastrointestinal: soft, lax, Normal bowel sounds, Non tender Skin : Warm, Dry Neurological : Alert & oriented x3, No focal deficit , CN 2-12 within normal, bilateral upper extremity l tremors Objective Data Active Medications Acetaminophen (Acetaminophen 325 Mg Tablet) 650 mg PO Q6H PRN PRN Reason: Pain, Mild (Pain Scale 1-3) Last Admin: 06/09/22 08:22 Dose: 650 mg Documented By: GIDEON Doxycycline Hyclate (Doxycycline Hyclate 100 Mg Tablet) 100 mg PO Q12H [facility] Stop: 06/13/22 22:31 Last Admin: 06/09/22 10:38 Dose: 100 mg Documented By: GIDEON Enoxaparin Sodium (Enoxaparin Sodium 40 Mg/0.4 Ml Syringe) 40 mg SUBCUT Q24H [facility] Last Admin: 06/09/22 08:23 Dose: 40 mg Documented By: GIDEON Folic Acid (Folic Acid 1 Mg Tablet) 1 mg PO DAILY [facility] Last Admin: 06/09/22 08:22 Dose: 1 mg Documented By: GIDEON Nicotine (Nicotine 21 Mg Patch.Td24) 21 mg TRANSDERMA DAILY [facility] Last Admin: 06/09/22 08:23 Dose: 21 mg Documented By: GIDEON Nicotine Polacrilex (Nicotine Polacrilex 2 Mg Gum) 2 mg BUCCAL Q2H PRN PRN Reason: breakthrough cigarette craving Last Admin: 06/09/22 10:43 Dose: 2 mg Documented By: GIDEON Ondansetron HCl (Ondansetron Hcl 4 Mg/2 Ml Vial) 4 mg IVPUSH Q8H PRN PRN Reason: Nausea and Vomiting Last Admin: 06/09/22 08:23 Dose: 4 mg Documented By: GIDEON Pantoprazole Sodium (Pantoprazole Sodium 40 Mg/10 Ml Vial) 40 mg IVPUSH BID@0630,1630 [facility] Last Admin: 06/09/22 06:10 Dose: 40 mg Documented By: LIZETH Pharmacy Consult (Consult Rx Perform Med Rec) 1 each MISCELLANE ONCE PRN PRN Reason: Consult order Pharmacy Consult (Consult Rx Etoh Phenob Im/Po) 1 each MISCELLANE ONCE PRN; Protocol PRN Reason: Consult order Phenobarbital (Phenobarbital 15 Mg Tablet) 45 mg PO BID [facility]; Protocol Stop: 06/10/22 09:01 Last Admin: 06/09/22 08:23 Dose: 45 mg Documented By: GIDEON Phenobarbital (Phenobarbital 30 Mg Tablet) 30 mg PO BID [facility]; Protocol Stop: 06/12/22 09:01 Phenobarbital (Phenobarbital 15 Mg Tablet) 15 mg PO DAILY [facility]; Protocol Stop: 06/14/22 09:01 Phenobarbital Sodium (Phenobarbital Sodium 130 Mg/Ml Vial) 120 mg IM DAILY PRN PRN Reason: Alcohol Withdrawal Sodium Chloride (0.9 % Sodium Chloride Flush 3 Ml Syringe) 3 ml IVFLUSH QSHIFT [facility] Last Admin: 06/09/22 08:24 Dose: 3 ml Documented By: GIDEON Thiamine HCl (Thiamine Hcl 100 Mg Tablet) 100 mg PO DAILY [facility] Last Admin: 06/09/22 08:22 Dose: 100 mg Documented By: GIDEON Trazodone HCl (Trazodone Hcl 100 Mg Tablet) 100 mg PO BEDTIME [facility] Last Admin: 06/08/22 21:51 Dose: 100 mg Documented By: ANNA Labs CBC & Chem 7: 06/09/22 05:52 06/09/22 05:52 Labs: Laboratory Results - last 24 hr 06/08/22 06/09/22 06/09/22 17:58 05:52 05:52 MCV 93.1 MCH 32.0 MCHC 34.4 RDW 13.3 Plt Count 247 D MPV 9.8 Absolute Nucleated RBC 0.000 Nucleated RBC % (auto) 0.0 Anion Gap 15 Estim Creat Clear Calc 121.6 Estimated GFR > 60 Random Glucose 86 Calcium 9.7 Urine Opiates Screen Not Detected Urine Fentanyl Screen POSITIVE H Ur Barbiturates Screen POSITIVE H Ur Phencyclidine Scrn Not Detected Ur Amphetamines Screen Not Detected U Benzodiazepines Scrn POSITIVE H Urine Cocaine Screen Not Detected U Marijuana (THC) Screen Not Detected Assessment and Plan (1) Alcohol use disorder, severe, dependence: Status: Acute (2) Alcohol withdrawal syndrome: Status: Acute (3) Acute alcoholic gastritis: Status: Acute Plan 31 year old male with alcohol dependence with hx alcohol withdrawal seizure and who is 1-2 ppd cigarette smoker admitted to the hospital for acute alcohol withdrawal and alcoholic gastritis. 1-Acute Alcoholic withdrawal syndrome Still tremulousness and reported nausea Continue CIWA score Continue phenobarbital protocol, to add an extra dose of 120 mg IM phenobarbital Initiate folic acid and thiamine Seizure precautions Regular diet 2- epigastric pain Likely secondary to alcoholic gastritis Changed to p.o. omeprazole As needed IV zofran 3- Alcohol dependence Consumes ~30 beers daily Interested in detox/rehab addiction medicine consult and care team consult placed 4-Tobacco dependence Smokes 1-2 PPD 21mg patches and nicorette gum prn DVT prophylaxis lovenox Full code Patient requires inpatient stay overnight for management of alcohol withdrawal syndrome to prevent possible decompensation into withdrawal seizures. Quality Stroke Does the patient have a stroke diagnosis?: No VTE Prior VTE?: No VTE Risk Level:: Medical - moderate - high VTE Device Contraindication: Treatment Not Indicated VTE Drug Contraindication: N/A - Med Ordered
[2022-06-09 12:22] VITALS: BMI 20.7
--- NOTE | 2022-06-09 13:11 | MHC.RECOVRN ---
Met with pt in 379 to discuss alcohol use. Pt reports having recently been at [facility] for ATS, CSS, and IOP. During IOP, pt had a recurrence which has lasted about a month. Currently pt is drinking beer, unknown amount, all day every day. Pt reports time between recurrences is getting shorter and pt has not been drinking liquor like in the past. Pt has received Vivitrol in the past and is thinking about restarting naltrexone. Pt had received it at [facility], educated pt regarding the [facility] and services offered there. Pt is currently living with mother who is supportive. Pt has had recovery coaches in the past as well as therapist, thinking about reconnecting with these services as well. Pt provided with written resources and information, denies questions or concerns at this time. T/w will follow up in the morning. Discussed with Isabel Gonzalez APRN.
[2022-06-09 15:48] VITALS: BP 120/79; PULSE 60; RESP 17; TEMP 36.6; O2SAT 99
[2022-06-09] MEDS: Omeprazole 40 MG CAPSULE.DR PO (17:00)
[2022-06-09 19:23] VITALS: BP 121/80; PULSE 68; RESP 18; TEMP 36.4; O2SAT 98
[2022-06-09] MEDS: traZODone HCL 100 MG TABLET PO (21:59)
[2022-06-09 23:34] VITALS: BP 109/61; PULSE 56; RESP 18; TEMP 36.1; O2SAT 95
[2022-06-10 03:49] VITALS: BP 108/71; PULSE 58; RESP 18; TEMP 36; O2SAT 96
[2022-06-10] MEDS: Omeprazole 40 MG CAPSULE.DR PO ×2 (05:55→15:56)
[2022-06-10 07:42] VITALS: BP 116/72; PULSE 68; RESP 18; TEMP 36.6; O2SAT 96
[2022-06-10] MEDS: ondansetron HCL 4 MG/2 ML VIAL IVPUSH (08:46)
[2022-06-10] MEDS: Nicotine Polacrilex 2 MG GUM BUCCAL ×3 (08:46→20:38)
[2022-06-10] MEDS: PHENobarbitaL 15 MG TABLET 45 MG PO (08:46)
[2022-06-10] MEDS: Nicotine 21 MG PATCH.TD24 TRANSDERMA (08:46)
[2022-06-10] MEDS: Folic Acid 1 MG TABLET PO (08:47)
[2022-06-10] MEDS: Enoxaparin Sodium 40 MG/0.4 ML SYRINGE SUBCUT (08:47)
[2022-06-10] MEDS: 0.9 % Sodium Chloride Flush 3 ML SYRINGE IVFLUSH ×3 (08:47→20:38)
[2022-06-10] MEDS: Thiamine HCL 100 MG TABLET PO (08:47)
[2022-06-10] MEDS: Acetaminophen 325 MG TABLET 650 MG PO (08:55)
[2022-06-10 11:34] VITALS: BP 115/78; PULSE 64; RESP 18; TEMP 36.5; O2SAT 98
--- NOTE | 2022-06-10 12:59 | MHC.CM.PN ---
PATIENT IMPROVING PLAN IS DC HOME TUESDAY - NO SERVICES
--- NOTE | 2022-06-10 15:30 | MHC.RECOVRN ---
Met with pt to follow up regarding resources and aftercare. Pt would like to restart Vivitrol at the [facility], appointment made for Friday 06/15 at 2:15. Pt and CM aware. Discussed positive fentanyl in UDS, pt denies using fentanyl and is unsure how this happened. Pt educated regarding fentanyl and risk for overdose. Pt denies other questions or concerns at this time. T/w available if needed.
[2022-06-10 15:39] VITALS: BP 127/84; PULSE 76; RESP 17; TEMP 36.4; O2SAT 98
[2022-06-10 16:37] LABS: Amphetamine Screen Urine Not Detected (Not Detect); Barbiturates, Urine POSITIVE (Not Detect); Benzodiazepines Screen Urine POSITIVE (Not Detect); Cannabinoid Screen Urine Not Detected (Not Detect); Cocaine Screen Urine Not Detected (Not Detect); Fentanyl, urine Not Detected (Not Detect); Opiate Screen Urine Not Detected (Not Detect); Phencyclidine Screen Urine Not Detected (Not Detect)
--- NOTE | 2022-06-10 16:52 | P.PNIM_ITS ---
Subjective Subjective Date of Service: 06/10/22 Interval History: seen and examined this morning Follow-up for alcohol withdrawal Still feeling a little shaky this morning denies fever, chills, chest pain, trouble breathing Review of Systems Review of Systems: Yes all other systems are reviewed and are negative Constitutional Constitutional: Denies chills and Denies fever(s) ENT Ears, Nose, Mouth, and Throat: Denies dizziness Cardiovascular Cardiovascular: Denies chest pain, Denies palpitations and Denies dyspnea Respiratory Respiratory: Denies cough and Denies dyspnea Gastrointestinal Gastrointestinal: Denies abdominal pain, Reports nausea and Denies vomiting Neurologic Neurologic: Denies dizziness Endocrine Endocrine: Denies palpitations Physical Exam Vital Signs: Vital Signs: Last Vital Signs Temp 97.6 F 06/10/22 15:39 Pulse 76 06/10/22 15:39 Resp 17 06/10/22 15:39 BP 127/84 06/10/22 15:39 Pulse Ox 98 06/10/22 15:39 O2 Del Method 06/10/22 15:39 BMI result Body Mass Index 20.7 Const: General: cooperative, comfortable, no acute distress, alert and awake Nutritional Appearance: average body habitus Orientation/consciousness: patient oriented x3 Resp: Effort & Inspection: normal respiratory effort and able to speak in complete sentences Auscultation: clear to auscultation bilaterally Cardio: Rate: regular rate Heart sounds: S1 normal heart sound present and S2 normal heart sound present GI: Inspection: No distended Palpation (GI): Soft to palpation and nontender Neuro: General: patient oriented x3 and CN's II-XI intact bilaterally Extrem: General: Yes no pedal edema Objective Data Active Medications Acetaminophen (Acetaminophen 325 Mg Tablet) 650 mg PO Q6H PRN PRN Reason: Pain, Mild (Pain Scale 1-3) Last Admin: 06/10/22 08:55 Dose: 650 mg Documented By: NATHALIA Doxycycline Hyclate (Doxycycline Hyclate 100 Mg Tablet) 100 mg PO Q12H [facility] Stop: 06/13/22 22:31 Last Admin: 06/10/22 08:47 Dose: 100 mg Documented By: NATHALIA Enoxaparin Sodium (Enoxaparin Sodium 40 Mg/0.4 Ml Syringe) 40 mg SUBCUT Q24H [facility] Last Admin: 06/10/22 08:47 Dose: 40 mg Documented By: NATHALIA Folic Acid (Folic Acid 1 Mg Tablet) 1 mg PO DAILY [facility] Last Admin: 06/10/22 08:47 Dose: 1 mg Documented By: NATHALIA Nicotine (Nicotine 21 Mg Patch.Td24) 21 mg TRANSDERMA DAILY [facility] Last Admin: 06/10/22 08:46 Dose: 21 mg Documented By: NATHALIA Nicotine Polacrilex (Nicotine Polacrilex 2 Mg Gum) 2 mg BUCCAL Q2H PRN PRN Reason: breakthrough cigarette craving Last Admin: 06/10/22 16:00 Dose: 2 mg Documented By: NATHALIA Omeprazole (Omeprazole 40 Mg Capsule.Dr) 40 mg PO BID@0630,1630 [facility] Last Admin: 06/10/22 15:56 Dose: 40 mg Documented By: NATHALIA Ondansetron HCl (Ondansetron Hcl 4 Mg/2 Ml Vial) 4 mg IVPUSH Q8H PRN PRN Reason: Nausea and Vomiting Last Admin: 06/10/22 08:46 Dose: 4 mg Documented By: NATHALIA Pharmacy Consult (Consult Rx Perform Med Rec) 1 each MISCELLANE ONCE PRN PRN Reason: Consult order Pharmacy Consult (Consult Rx Etoh Phenob Im/Po) 1 each MISCELLANE ONCE PRN; Protocol PRN Reason: Consult order Phenobarbital (Phenobarbital 30 Mg Tablet) 30 mg PO BID [facility]; Protocol Stop: 06/12/22 09:01 Phenobarbital (Phenobarbital 15 Mg Tablet) 15 mg PO DAILY [facility]; Protocol Stop: 06/14/22 09:01 Phenobarbital Sodium (Phenobarbital Sodium 130 Mg/Ml Vial) 120 mg IM DAILY PRN PRN Reason: Alcohol Withdrawal Sodium Chloride (0.9 % Sodium Chloride Flush 3 Ml Syringe) 3 ml IVFLUSH QSHIFT [facility] Last Admin: 06/10/22 15:56 Dose: 3 ml Documented By: NATHALIA Thiamine HCl (Thiamine Hcl 100 Mg Tablet) 100 mg PO DAILY [facility] Last Admin: 06/10/22 08:47 Dose: 100 mg Documented By: NATHALIA Trazodone HCl (Trazodone Hcl 100 Mg Tablet) 100 mg PO BEDTIME [facility] Last Admin: 06/09/22 21:59 Dose: 100 mg Documented By: STEFANI Labs CBC & Chem 7: 06/09/22 05:52 06/09/22 05:52 Labs: Laboratory Results - last 24 hr 06/10/22 15:15 Urine Opiates Screen Not Detected Urine Fentanyl Screen Not Detected Ur Barbiturates Screen POSITIVE H Ur Phencyclidine Scrn Not Detected Ur Amphetamines Screen Not Detected U Benzodiazepines Scrn POSITIVE H Urine Cocaine Screen Not Detected U Marijuana (THC) Screen Not Detected Assessment and Plan (1) Alcohol use disorder, severe, dependence: Status: Acute (2) Alcohol withdrawal syndrome: Status: Acute (3) Acute alcoholic gastritis: Status: Acute Plan 31 year old male with alcohol dependence with hx alcohol withdrawal seizure and who is 1-2 ppd cigarette smoker admitted to the hospital for acute alcohol withdrawal and alcoholic gastritis. alcohol withdrawal Still tremulousness and reported nausea-improving Continue CIWA score Continue phenobarbital protocol continue folic acid and thiamine Seizure precautions Regular diet epigastric pain Likely secondary to alcoholic gastritis Changed to p.o. omeprazole As needed IV zofran finger cellulitis no further erythema Continue doxycycline Alcohol dependence Consumes ~30 beers daily Interested in detox/rehab addiction medicine consult and care team consult placed Tobacco dependence Smokes 1-2 PPD smoking cessation advised NRT DVT prophylaxis lovenox Full code attending -Dr. Benitez Patient requires inpatient stay overnight for management of alcohol withdrawal syndrome to prevent possible decompensation into withdrawal seizures. Quality Stroke Does the patient have a stroke diagnosis?: No VTE Prior VTE?: No VTE Risk Level:: Medical - moderate - high VTE Device Contraindication: Treatment Not Indicated VTE Drug Contraindication: N/A - Med Ordered
[2022-06-10 19:37] VITALS: BP 129/80; PULSE 75; RESP 16; TEMP 36.5; O2SAT 98
[2022-06-10] MEDS: traZODone HCL 100 MG TABLET PO (20:38)
[2022-06-10] MEDS: PHENobarbitaL 30 MG TABLET PO (20:38)
[2022-06-10 23:47] VITALS: BP 96/56; PULSE 57; RESP 17; TEMP 36; O2SAT 97
[2022-06-11 03:58] VITALS: BP 100/57; PULSE 64; RESP 16; TEMP 36; O2SAT 96
[2022-06-11] MEDS: Omeprazole 40 MG CAPSULE.DR PO (06:17)
[2022-06-11] MEDS: Acetaminophen 325 MG TABLET 650 MG PO (06:19)
[2022-06-11] MEDS: Nicotine Polacrilex 2 MG GUM BUCCAL (06:33)
[2022-06-11 07:16] VITALS: BP 114/81; PULSE 63; RESP 18; TEMP 36.2; O2SAT 99
[2022-06-11] MEDS: Thiamine HCL 100 MG TABLET PO (08:11)
[2022-06-11] MEDS: Folic Acid 1 MG TABLET PO (08:11)
[2022-06-11] MEDS: Nicotine 21 MG PATCH.TD24 TRANSDERMA (08:11)
[2022-06-11] MEDS: Enoxaparin Sodium 40 MG/0.4 ML SYRINGE SUBCUT (08:12)
[2022-06-11] MEDS: 0.9 % Sodium Chloride Flush 3 ML SYRINGE IVFLUSH (08:12)
[2022-06-11] MEDS: PHENobarbitaL 30 MG TABLET PO (08:12)
--- NOTE | 2022-06-11 10:45 | P.DS_ITS ---
DS: Providers Provider Date of Service: 06/11/22 Date of admission: 06/08/22 07:37 Date of discharge: 06/11/22 Primary care physician: Unknown Physician Consults: 06/08/22 12:10 Consult to Care Team Routine Comment: Reason for consultation: etoh dependence 06/08/22 13:17 Addiction Medicine Routine Consulting Provider: Isabel Gonzalez Reason for consultation: etoh depedence Attending physician on discharge: Chang Benitez Discharging clinician: Corazon Ordaz DS: Diagnosis Discharge Diagnosis (1) Alcohol use disorder, severe, dependence: Status: Acute (2) Alcohol withdrawal syndrome: Status: Acute (3) Acute alcoholic gastritis: Status: Acute DS: Summary Hospital Course Hospital Course: From H&P on day of admission 31 year old male with history of alcohol dependence, history of alcohol wihtdrawal seizure, who is a current every day smoker (1-2ppd) presented to ED early this morning complaining of vomiting x 1 day and inability to hold down fluids. He states he drinks about 30 beers per day, last consumed last night. He has history of vomiting episodes and tremulousness following alcohol consumption and will drink a few beers the next morning to resolve symptoms. He was unable to hold down any fluids this time however. Last etoh withdrawal seizure was one month ago. He is also reporting a gnawing discomfort in the epigastric area and ongoing nausea. Vitals normal in ED. CIWA score 0 per nursing note. Ethyl alcohol level 233. Urine drug screen pending though denies other drug use. Phenobarb protocol initiated. alcohol use disorder/alcohol withdrawal patient was started on phenobarbital protocol. His tremulousness gradually improved. He was supplemented with oral thiamin and folic acid. He was seen in consultation with addiction medicine and is scheduled have outpatient follow-up in the [facility] to possibly resume Vivitrol which he was previously on. His vital signs have remained stable and he is eager to return home. epigastric pain Likely secondary to alcoholic gastritis/esphagitis He was treated symptomatically with IV PPI and antiemetics. He was transition to oral PPI and is tolerating a regular diet. Previous CTA done in the emergency department shows finding suggestive of severe esophagitis. Recommend to increase PPI to twice daily and follow up with GI as outpatient. Referral given finger cellulitis. no further erythema Continue course of doxycycline Time Spent with Patient Time attestation: Total time spent providing and/or coordinating discharge services: Discharge coordination time: Greater than 30 minutes Quality: Safe Use of Opioids Does Pt have an Active Cancer Diagnosis on the Problem List?: No Quality: Stroke Does the patient have a stroke diagnosis?: No Physical Exam Vital Signs: Vital Signs: Last Vital Signs Temp 97.1 F 06/11/22 07:16 Pulse 63 06/11/22 07:16 Resp 18 06/11/22 07:16 BP 114/81 06/11/22 07:16 Pulse Ox 99 06/11/22 07:16 O2 Del Method 06/11/22 07:16 BMI result Body Mass Index 20.7 Const: General: cooperative, comfortable, no acute distress, alert and awake Nutritional Appearance: average body habitus Orientation/consciousness: patient oriented x3 Resp: Effort & Inspection: normal respiratory effort and able to speak in complete sentences Auscultation: clear to auscultation bilaterally Cardio: Rate: regular rate Heart sounds: S1 normal heart sound present and S2 normal heart sound present GI: Inspection: No distended Palpation (GI): Soft to palpation and nontender Neuro: General: patient oriented x3 and CN's II-XI intact bilaterally Extrem: General: Yes no pedal edema DS: Data Data Completed and Pending Completed studies during hospitalization [Text1]: Procedures Detoxification Services for Substance Abuse Treatment (05/15/22) Labs on day of discharge: Laboratory Results - last 24 hr 06/10/22 15:15 Urine Opiates Screen Not Detected Urine Fentanyl Screen Not Detected Ur Barbiturates Screen POSITIVE H Ur Phencyclidine Scrn Not Detected Ur Amphetamines Screen Not Detected U Benzodiazepines Scrn POSITIVE H Urine Cocaine Screen Not Detected U Marijuana (THC) Screen Not Detected Discharge Plan Discharge Patient Disposition: Home, Self-Care Discharge Diagnosis: Alcohol withdrawal gastritis/ esophagitis Referrals: [facility] [Other] - 1 Week (YOU HAVE A FOLLOW UP VISIT WITH THE [facility] AT [facility] - [address] SCHEDULED DATE AND TIME IS Tuesday06/15/22 @ 2:15 PM) Physician,Unknown J [Physician] - 1 Week Christine Burk MD [Physician] - 1 Week Discharge Medications: New omeprazole 40 mg Capsule,Delayed Release(Dr/Ec) 40 mg PO BID@0630,1630 30 Days Qty: 60 0RF folic acid 1 mg Tablet 1 mg PO DAILY 30 Days Qty: 30 0RF thiamine mononitrate (vit B1) 100 mg Tablet 100 mg PO DAILY 30 Days Qty: 30 0RF doxycycline hyclate 100 mg Tablet 100 mg PO Q12H 3 Days Qty: 6 0RF Continued trazodone 50 mg tablet 2 tab PO BEDTIME hydroxyzine pamoate 50 mg capsule 1 cap PO DAILY Discontinued omeprazole 20 mg Tablet,Delayed Release (Dr/Ec) 20 mg PO DAILY Discharge Orders: Discharge Order (Routine); Ordered 06/11/22 Ordered By: Corazon Ordaz Activity on Discharge: As tolerated Stand Alone Forms: Patient Portal Discharge page Care Plan Goals: see below Health Concerns: alcohol use disorder/alcohol withdrawal Gastritis/ esophagitis finger cellulitis Plan of Treatment: do not drink alcohol take Prilosec twice daily as prescribed call to schedule follow-up appointment with certified medical biller follow up at the [facility] on TuesdayJune 15 at 2:15 complete course of antibiotics as prescribed Assessment: see discharge summary Discharge Date/Time: 06/11/22 12:43
--- NOTE | 2022-06-11 11:51 | MHC.CM.PN ---
PATIENT IS MEDICALLY CLEARED FOR DISCHARGE TODAY; DISCHARGE IS HOME SELF-CARE. PATIENT WILL ARRANGE TRANSPORT.
== END 2022-06-11 12:43 | disposition home or self-care (01) | DRG 241 ==
LOC: HO.ED 06:18 → HO.EDOVER 07:41 → HO.S3 19:45
PROVIDERS: Admitting Provider Student in an Organized Health Care Education/Training Program; Emergency Provider Emergency Medicine; PCP Physician Assistant Medical; Visit Provider Physician Assistant Medical
DX: K29.20 Alcoholic gastritis without bleeding (principal); E44.1 Mild protein-calorie malnutrition; F10.239 Alcohol dependence with withdrawal, unspecified; F17.210 Nicotine dependence, cigarettes, uncomplicated; F32.A Depression, unspecified; F41.9 Anxiety disorder, unspecified; L03.019 Cellulitis of unspecified finger; Y90.7 Blood alcohol level of 200-239 mg/100 ml; Z71.6 Tobacco abuse counseling; Z68.20 Body mass index [BMI] 20.0-20.9, adult; Z20.822 Contact with and (suspected) exposure to COVID-19; Z79.899 Other long term (current) drug therapy
CPT/HCPCS: 36415; 80048; 80053; 80307; 82077; 83690; 83735; 85025; 85027; 87635; 93005; 99285; J1650; J2405; J2560; J3360

== ENCOUNTER → 2022-06-15 14:12 | Outpatient (BNVA) | payer MEDICAID, SELFPAY | PROVIDERS: PCP Physician Assistant Medical; Visit Provider Nurse Practitioner Psychiatric/Mental Health | DX: F10.20 Alcohol dependence, uncomplicated (principal); Z51.81 Encounter for therapeutic drug level monitoring; Z79.899 Other long term (current) drug therapy | CPT/HCPCS: 80305; 99212 ==

== ENCOUNTER 2022-07-01 06:01 | Emergency (ER) | payer MEDICAID, SELFPAY ==
[2022-07-01 06:22] VITALS: BP 120/80; PULSE 80; RESP 16; O2SAT 100; BMI 21.4
--- NOTE | 2022-07-01 06:34 | ED_ITS ---
HPI - Alcohol General Chief Complaint: General Medical Stated Complaint: nausea and vomiting Time Seen by Provider: 07/01/22 06:33 Source: patient Mode of arrival: ambulatory Limitations: no limitations History of Present Illness HPI narrative: 32 yo male with hx of alcohol abuse, gastritis, anxiety, depression here with c/o withdrawal - vomiting last drink yesterday. He states he vomited all night. MD complaint: alcohol withdrawal Last drink: Days (ago) (1) Chronic alcohol use: Yes Previous visits for alcohol intoxication: Yes Recent trauma: No Associated symptoms: nausea, vomiting, diaphoresis and tremors Treatments prior to arrival: none Related Data Home Medications Medication Instructions Recorded Confirmed hydroxyzine pamoate 50 mg capsule 1 cap PO DAILY PRN Anxiety 05/15/22 07/01/22 trazodone 50 mg tablet 2 tab PO BEDTIME 05/15/22 07/01/22 sertraline 50 mg tablet 1 tab PO DAILY 07/01/22 07/01/22 Previous Rx's Medication Instructions Recorded folic acid 1 mg tablet 1 mg PO DAILY 30 days #30 tabs 06/11/22 omeprazole 40 mg capsule,delayed 40 mg PO BID@0630,1630 30 days #60 06/11/22 release caps thiamine mononitrate (vit B1) 100 100 mg PO DAILY 30 days #30 tabs 06/11/22 mg tablet naltrexone microspheres 380 mg 380 mg IM Q4W #5 ea 06/16/22 intramuscular suspension,extended release (Vivitrol) chlordiazepoxide HCl 25 mg capsule 50 mg PO Q4H PRN alcohol 07/01/22 withdrawal 0 days #12 caps ondansetron 4 mg disintegrating 4 mg PO Q8H PRN nausea and 07/01/22 tablet vomiting #20 tabs Allergies Allergy/AdvReac Type Severity Reaction Status Date / Time No Known Allergies Allergy Verified 01/03/22 06:08 [No Known Allergies*] Review of Systems Review of Systems: Constitutional : No Weight loss, No Fever, No Chills ENT/Mouth : No sore throat, No Rhinorrhea Eyes: No Swelling, No Redness Cardiovascular : No Chest Pain, No SOB, NoEdema Respiratory : No Cough, No Sputum, No Wheezing Gastrointestinal : Positive Nausea, Positive Vomiting, no Diarrhea, no abdominal Pain, No Hematochezia, No Melena Genitourinary : No Dysuria, No Urinary Frequency, No Hematuria, No Urgency Musculoskeletal : No joint pain, No Myalgias, No Joint Swelling Skin : No Skin Lesions, No rash Neuro : pos Weakness, No Numbness, No Dizziness, No Headache Psych : pos Anxiety/Panic, No Depression Heme/Lymph: No Bruising, No Lymphadenopathy Endocrine : No Polyuria, No Polydipsia All other systems reviewed and are negative. [facility] Past Medical History Attestation statement: The following information was validated with the patient. Medical History Alcohol use disorder, severe, dependence Anxiety Depression ETOH abuse Seizure Family History Family History Mother DVT (deep venous thrombosis) Ovarian cancer Father Alcohol dependence Brother Type 2 diabetes mellitus Multiple sclerosis Social History Social History Household Members: Family Housing: House Do you presently have visiting nurse or other home services: No Alcohol intake: current Alcohol intake frequency: 3 or more drinks per day Alcohol type: hard liquor Patient Tobacco Use Status: Current everyday Tobacco user Tobacco use type: Cigarette Cigarette Packs Per Day: 1.5 Cigarettes Per Day: 30.0 Years Smoked: 13 e-Cigarette/Vaping Use: Currently Using Second Hand Smoke Exposure: No Advance Directives: No service: No Current occupational status: unemployed Physical Exam ED Vital Signs: Vital Signs - 24 hr 07/01/22 06:22 07/01/22 07:34 Temperature 98.1 F Pulse Rate 80 80 Respiratory Rate 16 11 L Blood Pressure 120/80 115/77 Pulse Oximetry 100 99 Oxygen Delivery Method Room Air Room Air BMI result Body Mass Index 21.4 Appearance: Alert. Oriented X3. Mild acute distress. Eyes: Pupils equal, round and reactive to light. ENT: Pharynx normal. Neck: Normal inspection. Neck supple. CVS: tachycardic heart rate and rhythm. Pulses normal. Respiratory: No respiratory distress. Breath sounds normal. Abdomen: Soft and nontender. Skin: Skin warm and dry. Normal skin color. Normal skin turgor. Extremities: No lower extremity edema. No calf ttp Neuro: Oriented X 3. No motor deficit. No sensory deficit. Tremulous Course Course Course Narrative: does not want rehab feels much better, able to tolerate PO given one dose of versed and one dose of phenobarb safe for DC MDM - Alcohol MDM Narrative Medical decision making narrative: 32 yo male with anxiety, depression, alcohol withdrawal, hx of seizures in the past at this time presenting with tremors vomiting - at this time will need IVF, IV versed, thiamine, labs, start on phenobarb protocol will discuss with recovery team about possible placement if he improves. Lab Data Result diagrams: 07/01/22 07:05 07/01/22 07:05 Labs: Lab Results 07/01/22 07/01/22 07/01/22 Range/Units 07:05 07:05 07:05 WBC 12.9 H (4.8-10.8) X10*3/uL RBC 5.45 (4.60-5.80) X10*6/uL Hgb 17.3 (14.0-18.0) g/dl Hct 49.8 (42.0-52.0) % MCV 91.4 (80.0-98.0) fL MCH 31.7 (27.0-33.0) pg MCHC 34.7 (31.0-36.0) g/dl RDW 13.2 (11.0-16.0) % Plt Count 307 (160-400) X10*3/uL MPV 9.0 L (9.4-12.4) fL Immature Gran % (Auto) 0.4 (0.0-0.4) % Neut % (Auto) 83.3 H (45-73) % Lymph % (Auto) 10.9 L (20-40) % [place] % (Auto) 4.3 (2-11) % Eos % (Auto) 0.2 (0-4) % Baso % (Auto) 0.9 (0-2) % Lymph # (Auto) 1.4 (1.2-4.9) X10*3/uL [place] # (Auto) 0.6 (0.1-1.2) X10*3/uL Eos # (Auto) 0.0 (0.0-0.4) X10*3/uL Baso # (Auto) 0.1 (0.0-0.2) X10*3/uL Abs Immat Gran (auto) 0.05 H (0.00-0.03) X10*3/uL Absolute Neuts (auto) 10.7 H (2.0-8.3) x10*3/uL Absolute Nucleated RBC 0.000 (0.0-0.012) X10*3/uL Nucleated RBC % (auto) 0.0 (0.0-0.2) /100WBC Sodium 144 (135-145) mmol/L Potassium 3.9 (3.3-5.1) mmol/L Chloride 98 (96-108) mmol/L Carbon Dioxide 26 (22-29) mmol/L Anion Gap 24 H (12-20) BUN 6 L (9-16) mg/dL Creatinine 0.87 (0.5-1.4) mg/dL Estim Creat Clear Calc 113.3 Estimated GFR > 60 Random Glucose 109 (60-115) mg/dL Calcium 9.7 (8.4-10.2) mg/dL Magnesium 2.2 (1.6-2.6) mg/dL Total Bilirubin 0.4 (0.0-1.0) mg/dL Direct Bilirubin < 0.2 (0.0-0.5) mg/dL AST 22 (5-37) U/L ALT 16 (0-40) U/L Alkaline Phosphatase 131 H (39-117) U/L Total Protein 7.9 (6.5-8.0) g/dL Albumin 4.4 (3.5-5.0) g/dL Lipase 19 (8-78) U/L Ethyl Alcohol 243 mg/dL COVID-19 (CJ) Negative (Negative) COVID-19 Clin Com See Note Critical Care Time Critical Care Time Critical Care Time: Yes Total Critical Care Time: 35 Attestation: medications for alcohol withdrawal, IVF x 2L I attest to this time spent taking care of the patient Discharge Plan Discharge Clinical Impression: Alcohol withdrawal syndrome Qualifiers: Complication of substance-induced condition: uncomplicated Qualified Code(s): F10.930 - Alcohol use, unspecified with withdrawal, uncomplicated Patient Disposition: Home, Self-Care Instructions: Alcohol Withdrawal (ED) Additional Instructions: return to ED for any worsening symptoms or concerns please follow up with the clinic Prescriptions: New ondansetron 4 mg tablet,disintegrating 4 mg PO Q8H PRN (Reason: nausea and vomiting) Qty: 20 0RF chlordiazepoxide HCl 25 mg capsule 50 mg PO Q4H PRN (Reason: alcohol withdrawal) Qty: 12 0RF Rx Instructions: until symptoms controlled No Action trazodone 50 mg tablet 2 tab PO BEDTIME hydroxyzine pamoate 50 mg capsule 1 cap PO DAILY PRN (Reason: Anxiety) omeprazole 40 mg Capsule,Delayed Release(Dr/Ec) 40 mg PO BID@0630,1630 30 Days Qty: 60 0RF folic acid 1 mg Tablet 1 mg PO DAILY 30 Days Qty: 30 0RF thiamine mononitrate (vit B1) 100 mg Tablet 100 mg PO DAILY 30 Days Qty: 30 0RF sertraline 50 mg tablet 1 tab PO DAILY Vivitrol 380 mg suspension,extended rel recon 380 mg IM Q4W Qty: 5 0RF
[2022-07-01] MEDS: Midazolam HCl/PF 2 MG/2 ML VIAL IVPUSH (06:43)
[2022-07-01] MEDS: ondansetron HCL 4 MG/2 ML VIAL IVPUSH ×2 (06:44→09:57)
[2022-07-01] MEDS: Thiamine HCL 200 MG in 0.9 % Sodium Chloride 100 ML 204 MG IV (06:44)
[2022-07-01] MEDS: 0.9 % Sodium Chloride 1,000 ML 999 ML IVCONT ×2 (06:45→07:25)
[2022-07-01] MEDS: Magnesium Sulfate/H2O 2 GM/50 ML PIGGYBACK IV (06:45)
[2022-07-01 07:10] LABS: MANUAL DIFF FLAG NO
[2022-07-01 07:11] LABS: Basophils Absolute Auto 0.1 X10*3/uL (0.0-0.2); Basophils Percent Auto 0.9 % (0-2); Eosinophils Percent Auto 0.2 % (0-4); Hematocrit 49.8 % (42.0-52.0); Hemoglobin 17.3 g/dl (14.0-18.0); Imm Gran Abs Auto 0.05 X10*3/uL (0.00-0.03); Imm Gran Pct Auto 0.4 % (0.0-0.4); Lymphocytes Absolute Auto 1.4 X10*3/uL (1.2-4.9); Lymphocytes Percent Auto 10.9 % (20-40); Mean Corpuscular HGB Conc 34.7 g/dl (31.0-36.0); Mean Corpuscular Hemoglobin 31.7 pg (27.0-33.0); Mean Corpuscular Volume 91.4 fL (80.0-98.0); Monocytes Absolute Auto 0.6 X10*3/uL (0.1-1.2); Monocytes Percent Auto 4.3 % (2-11); Neutrophils Absolute Auto 10.7 x10*3/uL (2.0-8.3); Neutrophils Percent Auto 83.3 % (45-73); Platelet Count 307 X10*3/uL (160-400); Red Blood Count 5.45 X10*6/uL (4.60-5.80); Red Cell Distribution Width 13.2 % (11.0-16.0); White Blood Count 12.9 X10*3/uL (4.8-10.8)
[2022-07-01 07:26] LABS: COVID-19 Test Negative (Negative); IDNOW Serial# 16C4AD1C
[2022-07-01 07:30] LABS: Alanine Aminotransferase 16 U/L (0-40); Albumin Level 4.4 g/dL (3.5-5.0); Alkaline Phosphatase 131 U/L (39-117); Anion Gap 24 (12-20); Aspartate Amino Transferase 22 U/L (5-37); Bilirubin Direct < 0.2 mg/dL (0.0-0.5); Bilirubin Total 0.4 mg/dL (0.0-1.0); Blood Urea Nitrogen 6 mg/dL (9-16); Calcium 9.7 mg/dL (8.4-10.2); Carbon Dioxide 26 mmol/L (22-29); Chloride 98 mmol/L (96-108); Creatinine Clr Calc Pharmacy 113.3; Estimated Glomerular Filt Rate > 60; Glucose Random 109 mg/dL (60-115); Lipase 19 U/L (8-78); Magnesium 2.2 mg/dL (1.6-2.6); Potassium 3.9 mmol/L (3.3-5.1); Sodium 144 mmol/L (135-145); Total Protein 7.9 g/dL (6.5-8.0)
[2022-07-01 07:34] VITALS: BP 115/77; PULSE 80; RESP 11; TEMP 36.7; O2SAT 99
--- NOTE | 2022-07-01 07:39 | PHA.MEDREC ---
Pharmacy Consult ? Medication Reconciliation Pharmacy has completed the medication reconciliation.
[2022-07-01] MEDS: PHENobarbitaL sodium 130 MG/ML IM ONCE 282.1 MG IM (07:43)
[2022-07-01 09:10] LABS: Ethanol 243 mg/dL
--- NOTE | 2022-07-01 09:53 | MHC.RECOVSUP ---
Recovery Support note: Patient is a 32 year old Panamanian speaking male who presented to [facility] ED due to concerns of alcohol withdrawal. This gag writer met with patient in ED21 to discuss alcohol use and treatment options. Patient reports he was sober from his discharge on 06/08 until about one week ago. Patient reports he has been drinking all day for the past week, unable to specify quantity of alcohol. Patient reports he is not interested in going to detox, stating he does not find it helpful. Patient attended an appointment at the [facility] on 06/15. Patient is interested in getting the Vivitrol injection. Instructions provided to patient to call his pharmacy to authorize delivery of injection. Follow up [facility] appointment made for Thursday 07/05 at 1045. Instructed patient to call [facility] once he authorizes medication delivery. Patient acknowledges and reports no questions. Patient reports he recently did an IOP through [facility] and found it helpful and he is open to doing another IOP. Information on local IOP's provided to patient. Patient reports no questions or concerns and is reporting he feels better after receiving medication. Discussed case with [facility] staff and patient's ED physician.
== END 2022-07-01 10:06 | disposition home or self-care (01) ==
PROVIDERS: Emergency Provider Emergency Medicine; PCP Physician Assistant Medical
DX: F10.930 Alcohol use, unspecified with withdrawal, uncomplicated (principal); R11.2 Nausea with vomiting, unspecified; R61 Generalized hyperhidrosis; F17.210 Nicotine dependence, cigarettes, uncomplicated; Z71.6 Tobacco abuse counseling; Z20.822 Contact with and (suspected) exposure to COVID-19; Z79.899 Other long term (current) drug therapy
CPT/HCPCS: 80048; 80076; 82077; 83690; 83735; 85025; 87635; 96361; 96365; 96372; 96375; 96376; 99283; 99284; J2250; J2405; J2560; J3411; J3475

== ENCOUNTER 2022-07-06 06:46 | Inpatient (IN) | payer MEDICAID, SELFPAY ==
[2022-07-06] VITALS (9 sets, daily range): BP systolic 128–153; BP diastolic 79–95; PULSE 61–129; RESP 12–19; TEMP 36.8–37.1; O2SAT 95–100; BMI 20.7
--- NOTE | 2022-07-06 07:31 | ED_ITS ---
HPI - Alcohol General Chief Complaint: ETOH/Substance Use Stated Complaint: ETOH Withdrawal Time Seen by Provider: 07/06/22 07:31 Source: patient Mode of arrival: EMS Limitations: no limitations History of Present Illness HPI narrative: stopped drinking yesterday at 6pm because he had no money complaint: alcohol withdrawal Last drink: Hours (ago) Amount of alcohol consumed: patient drinks 3 pints of vodka a day Previous visits for alcohol intoxication: Yes Associated symptoms: nausea, vomiting and other (shakes) Related Data Home Medications Medication Instructions Recorded Confirmed hydroxyzine pamoate 50 mg capsule 1 cap PO DAILY PRN Anxiety 05/15/22 07/01/22 trazodone 50 mg tablet 2 tab PO BEDTIME 05/15/22 07/01/22 sertraline 50 mg tablet 1 tab PO DAILY 07/01/22 07/01/22 Previous Rx's Medication Instructions Recorded folic acid 1 mg tablet 1 mg PO DAILY 30 days #30 tabs 06/11/22 omeprazole 40 mg capsule,delayed 40 mg PO BID@0630,1630 30 days #60 06/11/22 release caps thiamine mononitrate (vit B1) 100 100 mg PO DAILY 30 days #30 tabs 06/11/22 mg tablet naltrexone microspheres 380 mg 380 mg IM Q4W #5 ea 06/16/22 intramuscular suspension,extended release (Vivitrol) lorazepam 1 mg tablet (Ativan) 1 mg PO TID PRN alcohol withdrawal 07/01/22 #12 tabs ondansetron 4 mg disintegrating 4 mg PO Q8H PRN nausea and 07/01/22 tablet vomiting #20 tabs lorazepam 1 mg tablet 1 mg PO TID PRN alcohol withdrawal 07/02/22 #10 tabs Allergies Allergy/AdvReac Type Severity Reaction Status Date / Time No Known Allergies Allergy Verified 01/03/22 06:08 [No Known Allergies*] Review of Systems Constitutional: Constitutional: Reports no additional constitutional complaints Eyes: Eyes: Reports no additional eye complaints ENT: Denies dizziness Cardiovascular: Cardiovascular: Reports no additional cardiovascular complaints Respiratory: Respiratory: Reports as per HPI Gastrointestinal: Gastrointestinal: Reports no additional gastrointestinal complaints Musculoskeletal: Musculoskeletal: Reports no additional musculoskeletal complaints Integumentary/Breasts: Skin/Breast: Denies rash Neurologic: Reports system reviewed and no additional complaints, except as documented, Denies dizziness and Denies Sensory deficit (Neuro) Psychiatric: Psychiatric: Denies anxiety [facility] Past Medical History Medical History Alcohol use disorder, severe, dependence Anxiety Depression ETOH abuse Seizure Family History Family History Mother DVT (deep venous thrombosis) Ovarian cancer Father Alcohol dependence Brother Type 2 diabetes mellitus Multiple sclerosis Social History Social History Household Members: Family Housing: House Do you presently have visiting nurse or other home services: No Alcohol intake: current Alcohol intake frequency: 3 or more drinks per day Alcohol type: hard liquor Patient Tobacco Use Status: Current everyday Tobacco user Tobacco use type: Cigarette Cigarette Packs Per Day: 1.5 Cigarettes Per Day: 30.0 Years Smoked: 13 e-Cigarette/Vaping Use: Currently Using Second Hand Smoke Exposure: No Use of substances other than those prescribed or required for medical reasons: No Advance Directives: Yes Advance Directives Information Provided: Yes Advance Directives on File: No service: No Current occupational status: unemployed Physical Exam ED Vital Signs: Vital Signs - 24 hr 07/06/22 06:54 07/06/22 07:56 07/06/22 08:22 Temperature 98.2 F Pulse Rate 119 H 109 H 105 H Respiratory Rate 19 12 Blood Pressure 132/79 142/92 H Pulse Oximetry 96 Oxygen Delivery Method Room Air 07/06/22 10:14 07/06/22 12:11 07/06/22 14:00 Temperature 98.7 F Pulse Rate 90 91 100 Respiratory Rate 15 14 18 Blood Pressure 145/90 H 153/95 H Pulse Oximetry 95 96 99 Oxygen Delivery Method Room Air Room Air Room Air BMI result Body Mass Index 20.7 Const Other: shaking, vomiting, anxious Nutritional Appearance: average body habitus Orientation/consciousness: oriented to person and patient oriented x3 Limitations: no limitations HENMT Head: Yes normal to inspection Ears: external ears normal General nose exam: Normal external nose present Mouth: Normal oral and palatal mucosa present and oropharynx normal Throat: Yes posterior oropharynx normal Eyes General: appearance normal, both eyes and all related structures Neck Neck: Yes normal visual inspection Chest Other: tachycardia Resp Auscultation: clear to auscultation bilaterally Cardio Jugular venous distension: no JVD Rate: regular rate Rhythm: regular rhythm Heart sounds: S1 normal heart sound present and S2 normal heart sound present GI Inspection: Yes normal to inspection Palpation (GI): Soft to palpation, nontender and No hepatosplenomegaly present Auscultation: normal bowel sounds General: Yes no CVA tenderness Back/Spine/Pelvis Back: no CVA tenderness Skin General skin exam: no rashes or lesions noted Neuro General: oriented to person and patient oriented x3 Cranial nerves: Yes CN's II-XII intact bilaterally Motor exam (neuro): 5/5 motor strength present throughout Sensory Exam: No Sensory deficit (Neuro) Extrem General: Yes normal to inspection Psych Appearance: grossly normal Course Reevaluation(s) Reevaluation #1: still shakey and heart rate down to 100, will order another 65mg IV phenobarbital Time: 08:35 Reevaluation #2: Patient nice and [facility] has a bed available at 3pm if he remains stable Time: 10:49 Reevaluation #3: patient required more IV phenobarbital will admit to the ICU Time: 15:31 MDM - Alcohol Lab Data Result diagrams: 07/06/22 07:49 07/06/22 07:49 Labs: Lab Results 07/06/22 07/06/22 Range/Units 07:49 07:49 WBC 16.8 H (4.8-10.8) X10*3/uL RBC 5.55 (4.60-5.80) X10*6/uL Hgb 17.6 (14.0-18.0) g/dl Hct 49.8 (42.0-52.0) % MCV 89.7 (80.0-98.0) fL MCH 31.7 (27.0-33.0) pg MCHC 35.3 (31.0-36.0) g/dl RDW 12.6 (11.0-16.0) % Plt Count 142 L D (160-400) X10*3/uL MPV 9.5 (9.4-12.4) fL Immature Gran % (Auto) 0.4 (0.0-0.4) % Neut % (Auto) 82.2 H (45-73) % Lymph % (Auto) 11.2 L (20-40) % [place] % (Auto) 5.4 (2-11) % Eos % (Auto) 0.2 (0-4) % Baso % (Auto) 0.6 (0-2) % Lymph # (Auto) 1.9 (1.2-4.9) X10*3/uL [place] # (Auto) 0.9 (0.1-1.2) X10*3/uL Eos # (Auto) 0.0 (0.0-0.4) X10*3/uL Baso # (Auto) 0.1 (0.0-0.2) X10*3/uL Abs Immat Gran (auto) 0.06 H (0.00-0.03) X10*3/uL Absolute Neuts (auto) 13.8 H (2.0-8.3) x10*3/uL Absolute Nucleated RBC 0.000 (0.0-0.012) X10*3/uL Nucleated RBC % (auto) 0.0 (0.0-0.2) /100WBC Sodium 142 (135-145) mmol/L Potassium 3.6 (3.3-5.1) mmol/L Chloride 91 L (96-108) mmol/L Carbon Dioxide 28 (22-29) mmol/L Anion Gap 27 H (12-20) BUN 10 D (9-16) mg/dL Creatinine 0.95 (0.5-1.4) mg/dL Estim Creat Clear Calc 100.2 Estimated GFR > 60 Random Glucose 110 (60-115) mg/dL Calcium 9.8 (8.4-10.2) mg/dL Total Bilirubin 1.0 (0.0-1.0) mg/dL AST 32 D (5-37) U/L ALT 19 (0-40) U/L Alkaline Phosphatase 153 H (39-117) U/L Total Protein 8.2 H (6.5-8.0) g/dL Albumin 4.8 (3.5-5.0) g/dL Ethyl Alcohol 228 mg/dL Critical Care Time Critical Care Time Attestation: I spent 40 minutes of critical care, with interventions, assessments, speaking to patient, consultants, and family. Discharge Plan Discharge Clinical Impression: Alcohol withdrawal syndrome, Alcohol use disorder, severe, dependence Patient Disposition: Admitted As Inpatient Prescriptions: No Action trazodone 50 mg tablet 2 tab PO BEDTIME hydroxyzine pamoate 50 mg capsule 1 cap PO DAILY PRN (Reason: Anxiety) omeprazole 40 mg Capsule,Delayed Release(Dr/Ec) 40 mg PO BID@0630,1630 30 Days Qty: 60 0RF folic acid 1 mg Tablet 1 mg PO DAILY 30 Days Qty: 30 0RF thiamine mononitrate (vit B1) 100 mg Tablet 100 mg PO DAILY 30 Days Qty: 30 0RF sertraline 50 mg tablet 1 tab PO DAILY ondansetron 4 mg tablet,disintegrating 4 mg PO Q8H PRN (Reason: nausea and vomiting) Qty: 20 0RF lorazepam [Ativan] 1 mg tablet 1 mg PO TID PRN (Reason: alcohol withdrawal) Qty: 12 0RF Rx Instructions: until symptoms controlled, partial fill okay lorazepam 1 mg tablet 1 mg PO TID PRN (Reason: alcohol withdrawal) Qty: 10 0RF Vivitrol 380 mg suspension,extended rel recon 380 mg IM Q4W Qty: 5 0RF
[2022-07-06] MEDS: PHENobarbitaL sodium 130 MG/ML VIAL 65 MG IV ×4 (07:52→16:00)
[2022-07-06] MEDS: 0.9 % Sodium Chloride 1,000 ML 999 ML IVCONT ×2 (07:52→10:59)
[2022-07-06 07:56] LABS: Basophils Absolute Auto 0.1 X10*3/uL (0.0-0.2); Basophils Percent Auto 0.6 % (0-2); Eosinophils Percent Auto 0.2 % (0-4); Hematocrit 49.8 % (42.0-52.0); Hemoglobin 17.6 g/dl (14.0-18.0); Imm Gran Abs Auto 0.06 X10*3/uL (0.00-0.03); Imm Gran Pct Auto 0.4 % (0.0-0.4); Lymphocytes Absolute Auto 1.9 X10*3/uL (1.2-4.9); Lymphocytes Percent Auto 11.2 % (20-40); MANUAL DIFF FLAG NO; Mean Corpuscular HGB Conc 35.3 g/dl (31.0-36.0); Mean Corpuscular Hemoglobin 31.7 pg (27.0-33.0); Mean Corpuscular Volume 89.7 fL (80.0-98.0); Mean Platelet Volume 9.5 fL (9.4-12.4); Monocytes Absolute Auto 0.9 X10*3/uL (0.1-1.2); Monocytes Percent Auto 5.4 % (2-11); Neutrophils Absolute Auto 13.8 x10*3/uL (2.0-8.3); Neutrophils Percent Auto 82.2 % (45-73); Platelet Count 142 X10*3/uL (160-400); Red Blood Count 5.55 X10*6/uL (4.60-5.80); Red Cell Distribution Width 12.6 % (11.0-16.0); White Blood Count 16.8 X10*3/uL (4.8-10.8)
[2022-07-06 08:13] LABS: Alanine Aminotransferase 19 U/L (0-40); Albumin Level 4.8 g/dL (3.5-5.0); Alkaline Phosphatase 153 U/L (39-117); Anion Gap 27 (12-20); Aspartate Amino Transferase 32 U/L (5-37); Blood Urea Nitrogen 10 mg/dL (9-16); Calcium 9.8 mg/dL (8.4-10.2); Carbon Dioxide 28 mmol/L (22-29); Chloride 91 mmol/L (96-108); Creatinine Clr Calc Pharmacy 100.2; Estimated Glomerular Filt Rate > 60; Ethanol 228 mg/dL; Glucose Random 110 mg/dL (60-115); Potassium 3.6 mmol/L (3.3-5.1); Sodium 142 mmol/L (135-145); Total Protein 8.2 g/dL (6.5-8.0)
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
--- NOTE | 2022-07-06 11:01 | PC.NURSE ---
Pt sleeping, no apparent distress noted. Equal bilateral chest rises, with even and unlabored breaths.
[2022-07-06] MEDS: ondansetron HCL 4 MG/2 ML VIAL IVPUSH (12:37)
[2022-07-06] MEDS: PHENobarbitaL sodium 130 MG/ML VIAL 65 MG IVPUSH (14:18)
--- NOTE | 2022-07-06 14:23 | PC.NURSE ---
pt vomiting, diaphoretic, and shaking. ivp pheno ordered by .
--- NOTE | 2022-07-06 15:39 | P.HPCC_ITS ---
History of Present Illness Date of Service: 07/06/22 Chief Complaint: alcohol withdrawal 32-year-old gentleman with underlying history of alcohol dependency with prior episodes of alcohol withdrawal presenting planning of alcohol withdrawal symptoms after history drinking secondary to inability to pay for it day prior to this admission. Patient was will latent emergency room and required multiple doses of IV phenobarbital to control his symptoms, still with suboptimal control. He was started on Precedex drip and admitted to intensive care unit. Review of Systems Review of Systems: Yes Unobtainable due to mental status PMFSH Past Medical History Medical History Alcohol use disorder, severe, dependence Anxiety Depression ETOH abuse Seizure Family History Family History Mother DVT (deep venous thrombosis) Ovarian cancer Father Alcohol dependence Brother Type 2 diabetes mellitus Multiple sclerosis Social History Social History Household Members: Family Housing: House Do you presently have visiting nurse or other home services: No Alcohol intake: current Alcohol intake frequency: 3 or more drinks per day Alcohol type: hard liquor Patient Tobacco Use Status: Current everyday Tobacco user Tobacco use type: Cigarette Cigarette Packs Per Day: 1.5 Cigarettes Per Day: 30.0 Years Smoked: 13 e-Cigarette/Vaping Use: Currently Using Second Hand Smoke Exposure: No Use of substances other than those prescribed or required for medical reasons: No Advance Directives: Yes Advance Directives Information Provided: Yes Advance Directives on File: No service: No Current occupational status: unemployed Meds Allergies Allergy/AdvReac Type Severity Reaction Status Date / Time No Known Allergies Allergy Verified 01/03/22 06:08 [No Known Allergies*] Active Medications: Current Medications Famotidine (Famotidine/Pf 20 Mg/2 Ml Vial) 20 mg IVPUSH DAILY MO Heparin Sodium (Porcine) (Heparin Sodium,Porcine 5,000 Unit/Ml Vial) 5,000 unit SUBCUT Q8H MO Lactated Ringer's (Lr) 1,000 mls @ 100 mls/hr IVCONT .Q10H MO Dexmedetomidine HCl (Precedex) 400 mcg in 100 mls @ 0 mls/hr IVCONT .Q0M MO; Protocol Home Medications Medication Instructions Recorded Confirmed Last Taken Type hydroxyzine pamoate 50 mg capsule 1 cap PO DAILY PRN Anxiety 05/15/22 07/01/22 2 Days Ago History ~06/29/22 trazodone 50 mg tablet 2 tab PO BEDTIME 05/15/22 07/01/22 2 Days Ago History ~06/29/22 sertraline 50 mg tablet 1 tab PO DAILY 07/01/22 07/01/22 2 Days Ago History ~06/29/22 Physical Exam Vital Signs: Vital Signs: Last Vital Signs Temp 98.7 F 07/06/22 12:11 Pulse 100 07/06/22 14:00 Resp 18 07/06/22 14:00 BP 153/95 H 07/06/22 12:11 Pulse Ox 99 07/06/22 14:00 O2 Del Method 07/06/22 14:00 BMI result Body Mass Index 20.7 Const: General: other ( Agitated) Eyes: Sclerae: sclerae normal EOM: EOMs intact bilaterally Neck: Neck: Yes no lymphadenopathy, Yes trachea midline and Yes supple Resp: Effort & Inspection: normal respiratory effort and no respiratory distress Auscultation: clear to auscultation bilaterally Cardio: Rate: tachycardic Rhythm: regular rhythm Heart sounds: no gallops, no murmurs and no rubs GI: Palpation (GI): Soft to palpation and Other GI palpation findings present ( Nontender) Auscultation: normal bowel sounds Extrem: General: Yes no pedal edema, No clubbing and No cyanosis Results Labs CBC and Chem 7: 07/06/22 07:49 07/06/22 07:49 Labs: Laboratory Results - last 24 hr 07/06/22 07/06/22 07:49 07:49 MCV 89.7 MCH 31.7 MCHC 35.3 RDW 12.6 Plt Count 142 L D MPV 9.5 Immature Gran % (Auto) 0.4 Neut % (Auto) 82.2 H Lymph % (Auto) 11.2 L [place] % (Auto) 5.4 Eos % (Auto) 0.2 Baso % (Auto) 0.6 Lymph # (Auto) 1.9 [place] # (Auto) 0.9 Eos # (Auto) 0.0 Baso # (Auto) 0.1 Abs Immat Gran (auto) 0.06 H Absolute Neuts (auto) 13.8 H Absolute Nucleated RBC 0.000 Nucleated RBC % (auto) 0.0 Anion Gap 27 H Estim Creat Clear Calc 100.2 Estimated GFR > 60 Random Glucose 110 Calcium 9.8 Total Bilirubin 1.0 AST 32 D ALT 19 Alkaline Phosphatase 153 H Total Protein 8.2 H Albumin 4.8 Ethyl Alcohol 228 Assessment and Plan (1) Delirium tremens: Status: Acute (2) Alcohol use disorder, severe, dependence: Status: Acute Plan Assessment: 30-year-old gentleman admitted with alcohol intoxication /delirium tremens now requiring Precedex drip. Plan: Neuro: Delirium tremens, continue to titrate off Precedex drip as tolerated. Cardiac: No acute issues. Pulmonary: No acute issues. Renal: No acute issues. Endo: No acute issues. GI: No acute issues. ID: No acute issues Heme/Onc: No acute issues. Psych: No acute issues. Miscellaneous: No acute issues. Prophylaxis: Heparin, famotidine Diet: NPO Critical care time spent: 30 minutes
--- NOTE | 2022-07-06 16:25 | PHA.MEDREC ---
Pharmacy Consult ? Medication Reconciliation Pharmacy has completed the medication reconciliation.
[2022-07-06] MEDS: Heparin Sodium,Porcine 5,000 UNIT/ML VIAL 5000 UNIT SUBCUT (16:35)
[2022-07-06] MEDS: Lactated Ringers 1,000 ML 100 ML IVCONT (16:37)
[2022-07-06] MEDS: dexmedeTOMIDidine HCL/NS 400 MCG/100 ML INFUS..BTL 15.88 MCG IVCONT (16:40)
[2022-07-06 20:25] LABS: COVID-19 Test Negative (Negative); IDNOW Serial# 16C4AD1C
--- NOTE | 2022-07-06 21:08 | MHC.CM.PN ---
Unable to meet with patient secondary to recent medication for withdrawal. Sleeping soundly. Pt known to CM from previous admissions. Pt lives with his mother. Has no services/DME. Unemployed. HX severe alcohol use disorder. Seen by recovery services. Agreeable at this time to Detox. Per medical record, cesilia uribe x2/Moderna. HCP on file. HCP/mother Simran Camillebertha. Pt awaiting admission to ICU. D/C plan pending daily rounds and recovery services f/u. Detox vs Home. Unsure regarding transport home. Will assess when patient wakes. CM to follow for d/c planning.
[2022-07-07] VITALS (20 sets, daily range): BP systolic 125–158; BP diastolic 75–94; PULSE 48–88; RESP 10–19; TEMP 36.3–37.1; O2SAT 95–100; BMI 21.7
--- NOTE | 2022-07-07 | ECG_ITS ---
Test Reason : RHYTHYM CHECK ST ELEV Blood Pressure : / mmHG Vent. Rate : 049 BPM Atrial Rate : 049 BPM P-R Int : 124 ms QRS Dur : 120 ms QT Int : 474 ms P-R-T Axes : 076 074 068 degrees QTc Int : 428 ms Sinus bradycardia Non-specific intra-ventricular conduction delay Borderline ECG When compared with ECG of 08-JUN-2022 04:33, Vent. rate has decreased BY 43 BPM Referred By: Renny Traore Electronically Signed By:KERRY TAO
--- NOTE | 2022-07-07 01:50 | PC.NURSE ---
I assumed nursing care of Morgan at 1900. Since hat time Morgan has been well sedated with a RASS score between 2 and 3. He wakes to verbal stimuli, otherwise is asleep. There have been no signs of withdrawal since I assumed care with the exception of mild diaphoresis to his forehead. no tremors. no hallucinations. no agitation/anxiety Respirations are spontaneous and non-labored, RR WNL, room air sat's WNL, no cyanosis, he speaks in full sentences. Morgan has been voiding into a urinal at the bedside independently without difficulty. Urine appears light orange, clear. No chest pain. No nausea. No vomiting. He has been taking PO fluids without difficulty. Nursing report given to Butch in ICU and pt transported to ICU with RN and ekg monitor.
[2022-07-07] MEDS: dexmedeTOMIDidine HCL/NS 400 MCG/100 ML INFUS..BTL 15.88 MCG IVCONT (01:53)
[2022-07-07] MEDS: Lactated Ringers 1,000 ML 100 ML IVCONT ×2 (01:54→11:26)
[2022-07-07 05:33] LABS: VBG Base Excess 2.2 mmol/L; VBG HCO3 24 mmol/L (22-26); VBG pCO2 32 mmHg; VBG pH 7.48 (7.32-7.43); VBG pO2 98 mmHg
[2022-07-07 05:35] LABS: Venous Blood Gas Refer to POC result
[2022-07-07 05:38] LABS: MANUAL DIFF FLAG NO
[2022-07-07 05:43] LABS: Basophils Absolute Auto 0.1 X10*3/uL (0.0-0.2); Basophils Percent Auto 0.8 % (0-2); Eosinophils Absolute Auto 0.1 X10*3/uL (0.0-0.4); Eosinophils Percent Auto 1.7 % (0-4); Hematocrit 37.4 % (42.0-52.0); Imm Gran Abs Auto 0.03 X10*3/uL (0.00-0.03); Imm Gran Pct Auto 0.4 % (0.0-0.4); Lymphocytes Absolute Auto 2.1 X10*3/uL (1.2-4.9); Lymphocytes Percent Auto 26.9 % (20-40); Mean Corpuscular HGB Conc 34.8 g/dl (31.0-36.0); Mean Corpuscular Hemoglobin 31.5 pg (27.0-33.0); Mean Corpuscular Volume 90.6 fL (80.0-98.0); Mean Platelet Volume 10.3 fL (9.4-12.4); Monocytes Absolute Auto 0.8 X10*3/uL (0.1-1.2); Monocytes Percent Auto 10.8 % (2-11); Neutrophils Absolute Auto 4.6 x10*3/uL (2.0-8.3); Neutrophils Percent Auto 59.4 % (45-73); Red Blood Count 4.13 X10*6/uL (4.60-5.80); White Blood Count 7.8 X10*3/uL (4.8-10.8)
[2022-07-07 05:45] LABS: Platelet Count 73 X10*3/uL (160-400)
--- NOTE | 2022-07-07 05:52 | PC.NURSE ---
ADMIT TO 260-1 FROM ER DEPT.....PRECIDEX 1 MCG/KG/MIN....AWAKE ON ARRIVAL TO ICU..ALERT..CONVERSES..ORIENTED X3..STATED LAST DRINK ETOH 07/05 6PM..SLIGHT PALPABLE TREMORS TO HANDS BUT CALM/CO-OPERATIVE ON PRECIDEX...AMBULATED FROM STRETCHER TO BED W/O DIFFICULTY..RESTFUL..DOZING AFTER ADMISSION..DENIES/OFFERS NO COMPLAINTS...BP STABLE..RESPIRATIONS EASY ON ROOM AIR...NSR/S.NORMA HR 48-64...PEAKED T-WAVES..ICU SERVICE ENGINEER AWARE....AM TROPONIN AND 12-LEAD EKG DONE..DENIES DISCOMFORT
[2022-07-07 05:58] LABS: Anion Gap 19 (12-20); Blood Urea Nitrogen 20 mg/dL (9-16); Carbon Dioxide 25 mmol/L (22-29); Chloride 94 mmol/L (96-108); Creatinine Clr Calc Pharmacy 128.2; Estimated Glomerular Filt Rate > 60; Glucose Random 73 mg/dL (60-115); Magnesium 1.6 mg/dL (1.6-2.6); Phosphorus 3.3 mg/dL (2.7-4.5); Potassium 3.8 mmol/L (3.3-5.1); Sodium 134 mmol/L (135-145)
[2022-07-07 06:01] LABS: Troponin-I High Sensitivity < 3.5 ng/L (<3.5-35.0)
[2022-07-07] MEDS: dexmedeTOMIDidine HCL/NS 400 MCG/100 ML INFUS..BTL 12.7 MCG IVCONT (08:38)
[2022-07-07] MEDS: ondansetron HCL 4 MG/2 ML VIAL IVPUSH ×2 (08:42→19:30)
[2022-07-07] MEDS: Famotidine/PF 20 MG/2 ML VIAL IVPUSH (08:43)
[2022-07-07] MEDS: Heparin Sodium,Porcine 5,000 UNIT/ML VIAL 5000 UNIT SUBCUT ×3 (08:44→23:45)
[2022-07-07] MEDS: PHENobarbitaL sodium 130 MG/ML IM ONCE 214.5 MG IM (09:24)
[2022-07-07] MEDS: Folic Acid 2 MG in 0.9 % Sodium Chloride 50 ML 100.4 MG IV (11:26)
--- NOTE | 2022-07-07 12:10 | PM.CCPN ---
Subjective Subjective Date of Service: 07/07/22 Interval History: 32-year-old gentleman with underlying history of alcohol dependency with prior episodes of alcohol withdrawal presenting planning of alcohol withdrawal symptoms after history drinking secondary to inability to pay for it day prior to this admission. Patient was will latent emergency room and required multiple doses of IV phenobarbital to control his symptoms, still with suboptimal control. He was started on Precedex drip and admitted to intensive care. No events overnight. Titrated off Precedex. Restarted on phenobarbital protocol. Critical Care Time (minutes): 0 Physical Exam Vital Signs: Vital Signs: Last Vital Signs Temp 97.4 F 07/07/22 08:00 Pulse 50 07/07/22 12:09 Resp 13 07/07/22 12:09 BP 130/76 07/07/22 12:09 Pulse Ox 97 07/07/22 11:00 O2 Del Method 07/07/22 11:00 BMI result Body Mass Index 21.7 Const: General: no acute distress, alert and awake Eyes: Sclerae: sclerae normal EOM: EOMs intact bilaterally Neck: Neck: Yes no lymphadenopathy, Yes trachea midline and Yes supple Resp: Effort & Inspection: normal respiratory effort and no respiratory distress Auscultation: clear to auscultation bilaterally Cardio: Rate: regular rate Rhythm: regular rhythm Heart sounds: no gallops, no murmurs and no rubs GI: Palpation (GI): Soft to palpation and Other GI palpation findings present ( Nontender) Auscultation: normal bowel sounds Extrem: General: Yes no pedal edema, No clubbing and No cyanosis Objective Data Labs CBC & Chem 7: 07/07/22 05:30 07/07/22 05:30 Labs: Laboratory Results - last 24 hr 07/06/22 07/06/22 07/07/22 17:19 20:01 05:28 WBC RBC Hgb Hct MCV MCH MCHC RDW Plt Count MPV Immature Gran % (Auto) Neut % (Auto) Lymph % (Auto) [place] % (Auto) Eos % (Auto) Baso % (Auto) Lymph # (Auto) [place] # (Auto) Eos # (Auto) Baso # (Auto) Abs Immat Gran (auto) Absolute Neuts (auto) Absolute Nucleated RBC Nucleated RBC % (auto) VBG pH 7.48 H VBG pCO2 32 VBG pO2 98 VBG HCO3 24 VBG O2 Saturation 99.0 VBG Base Excess 2.2 Sodium Potassium Chloride Carbon Dioxide Anion Gap BUN Creatinine Estim Creat Clear Calc Estimated GFR Random Glucose Calcium Phosphorus Magnesium Troponin I High Sens Urine Opiates Screen Cancelled Urine Fentanyl Screen Cancelled Ur Barbiturates Screen Cancelled Ur Phencyclidine Scrn Cancelled Ur Amphetamines Screen Cancelled U Benzodiazepines Scrn Cancelled Urine Cocaine Screen Cancelled U Marijuana (THC) Screen Cancelled COVID-19 (CJ) Negative COVID-19 Clin Com See Note 07/07/22 07/07/22 07/07/22 05:30 05:30 05:30 WBC 7.8 RBC 4.13 L D Hgb 13.0 L D Hct 37.4 L D MCV 90.6 MCH 31.5 MCHC 34.8 RDW 12.0 Plt Count 73 L D MPV 10.3 Immature Gran % (Auto) 0.4 Neut % (Auto) 59.4 Lymph % (Auto) 26.9 [place] % (Auto) 10.8 Eos % (Auto) 1.7 Baso % (Auto) 0.8 Lymph # (Auto) 2.1 [place] # (Auto) 0.8 Eos # (Auto) 0.1 Baso # (Auto) 0.1 Abs Immat Gran (auto) 0.03 Absolute Neuts (auto) 4.6 Absolute Nucleated RBC 0.000 Nucleated RBC % (auto) 0.0 VBG pH VBG pCO2 VBG pO2 VBG HCO3 VBG O2 Saturation VBG Base Excess Sodium 134 L Potassium 3.8 Chloride 94 L Carbon Dioxide 25 Anion Gap 19 BUN 20 H D Creatinine 0.78 Estim Creat Clear Calc 128.2 Estimated GFR > 60 Random Glucose 73 Calcium 9.0 D Phosphorus 3.3 Magnesium 1.6 Troponin I High Sens < 3.5 Urine Opiates Screen Urine Fentanyl Screen Ur Barbiturates Screen Ur Phencyclidine Scrn Ur Amphetamines Screen U Benzodiazepines Scrn Urine Cocaine Screen U Marijuana (THC) Screen COVID-19 (CJ) COVID-19 Clin Com Progress Note: A&P Assessment and plan (1) Delirium tremens: Status: Acute (2) Alcohol use disorder, severe, dependence: Status: Acute Plan Assessment: 32-year-old gentleman admitted with alcohol intoxication /delirium tremens initially requiring Precedex drip. Plan: Neuro: Delirium tremens, titratef off Precedex drip, restarted on phenobarbital protocol. Cardiac: No acute issues. Pulmonary: No acute issues. Renal: No acute issues. Endo: No acute issues. GI: No acute issues. ID: No acute issues Heme/Onc: No acute issues. Psych: No acute issues. Miscellaneous: No acute issues. Prophylaxis: Heparin, famotidine Diet: NPO Quality Stroke Does the patient have a stroke diagnosis?: No VTE Prior VTE?: No VTE Risk Level:: Medical - moderate - high VTE Device Contraindication: Treatment Not Indicated VTE Drug Contraindication: N/A - Med Ordered
[2022-07-07] MEDS: PHENobarbitaL sodium 130 MG/ML VIAL IM Q3Hx2 160 MG IM ×2 (12:17→14:32)
--- NOTE | 2022-07-07 13:01 | PM.EVENT ---
Event Note Date of Service: 07/07/22 Event Note: admitted through icu and treate with Phenobarb, Precedex and better and has been transfered to med floor, discussed transition with Dr. Lima who has outline plan of they in his progress note
--- NOTE | 2022-07-07 13:17 | PC.NURSE ---
Per Precedex gtt titrated down and phenobarbital protocol started for admitting diagnosis of EtOH withdrawal. Precedex paused and discontinued 13:00. Pt resting comfortably, alert, awake, eyes open.
[2022-07-07] MEDS: Acetaminophen 325 MG TABLET 650 MG PO (15:11)
[2022-07-07] MEDS: PHENobarbitaL 15 MG TABLET 45 MG PO (20:28)
[2022-07-07] MEDS: PHENobarbitaL 30 MG TABLET 60 MG PO (23:44)
[2022-07-07] MEDS: traZODone HCL 25 MG HALFTAB PO (23:44)
[2022-07-08] MEDS: ondansetron HCL 4 MG/2 ML VIAL IVPUSH ×2 (03:48→11:13)
[2022-07-08 04:00] VITALS: BP 183/94; PULSE 77; RESP 18; TEMP 37; O2SAT 100
[2022-07-08 07:17] LABS: Anion Gap 18 (12-20); Bilirubin Total 0.9 mg/dL (0.0-1.0); Blood Urea Nitrogen 11 mg/dL (9-16); Carbon Dioxide 27 mmol/L (22-29); Chloride 94 mmol/L (96-108); Creatinine Clr Calc Pharmacy 128.2; Estimated Glomerular Filt Rate > 60; Glucose Random 80 mg/dL (60-115); Magnesium 1.6 mg/dL (1.6-2.6); Potassium 3.7 mmol/L (3.3-5.1); Sodium 135 mmol/L (135-145); Total Protein 6.5 g/dL (6.5-8.0)
[2022-07-08 07:33] LABS: Alanine Aminotransferase 22 U/L (0-40); Alkaline Phosphatase 126 U/L (39-117); Aspartate Amino Transferase 48 U/L (5-37)
[2022-07-08 08:00] VITALS: BP 131/88; PULSE 76; RESP 18; TEMP 36.9; O2SAT 98
[2022-07-08] MEDS: Famotidine/PF 20 MG/2 ML VIAL IVPUSH (08:24)
[2022-07-08] MEDS: Heparin Sodium,Porcine 5,000 UNIT/ML VIAL 5000 UNIT SUBCUT ×3 (08:24→21:54)
[2022-07-08] MEDS: PHENobarbitaL 15 MG TABLET 45 MG PO ×2 (08:25→20:32)
--- NOTE | 2022-07-08 08:34 | P.PNIM_ITS ---
Subjective Subjective Date of Service: 07/08/22 Interval History: Seen in f/u post ICU care for alcohol withdrawal Interval history: nausea and vomitting is better than yesterday, no tremors Review of Systems nausea and vomittig, anxiety Physical Exam Vital Signs: Vital Signs: Last Vital Signs Temp 98.4 F 07/08/22 08:00 Pulse 76 07/08/22 08:00 Resp 18 07/08/22 08:00 BP 131/88 07/08/22 08:00 Pulse Ox 98 07/08/22 08:00 O2 Del Method 07/08/22 08:00 BMI result Body Mass Index 21.7 Const: Other: General: AO X 3, no acute distress Resp: CTA bilateral CVS: S1,S2,RRR GI: +BS, NT, no distention Skin: No rash Neuro: motor grossly intact Psych: appropriate affect Objective Data Active Medications Acetaminophen (Acetaminophen 325 Mg Tablet) 650 mg PO Q6H PRN PRN Reason: Pain, Mild (Pain Scale 1-3) Last Admin: 07/07/22 15:11 Dose: 650 mg Documented By: JONATHON Famotidine (Famotidine/Pf 20 Mg/2 Ml Vial) 20 mg IVPUSH DAILY [facility] Last Admin: 07/08/22 08:24 Dose: 20 mg Documented By: YURY Famotidine (Famotidine 20 Mg Tablet) 20 mg PO BID [facility] Last Admin: 07/08/22 08:25 Dose: Not Given Documented By: YURY Non-Admin Reason: duplicate order Heparin Sodium (Porcine) (Heparin Sodium,Porcine 5,000 Unit/Ml Vial) 5,000 unit SUBCUT Q8H [facility] Last Admin: 07/08/22 08:24 Dose: 5,000 unit Documented By: YURY Folic Acid 2 mg/ Sodium (Chloride) 50.4 mls @ 100.4 mls/hr IV DAILY [facility] Last Infusion: 07/07/22 12:09 Dose: 0 mls/hr Documented By: KATRINA Thiamine HCl 300 mg/ Sodium (Chloride) 103 mls @ 208 mls/hr IV DAILY [facility] Last Infusion: 07/07/22 10:55 Dose: 0 mls/hr Documented By: KATRINA Ondansetron HCl (Ondansetron Hcl 4 Mg/2 Ml Vial) 4 mg IVPUSH Q8H PRN PRN Reason: Nausea and Vomiting Last Admin: 07/08/22 03:48 Dose: 4 mg Documented By: VANESSA Pharmacy Consult (Consult Rx Etoh Phenob Im/Po) 1 each MISCELLANE ONCE PRN; Protocol PRN Reason: Consult order Phenobarbital (Phenobarbital 15 Mg Tablet) 45 mg PO BID [facility]; Protocol Stop: 07/09/22 09:01 Last Admin: 07/08/22 08:25 Dose: 45 mg Documented By: YURY Phenobarbital (Phenobarbital 15 Mg Tablet) 15 mg PO BID [facility] Stop: 07/11/22 09:01 Phenobarbital (Phenobarbital 15 Mg Tablet) 15 mg PO DAILY [facility]; Protocol Stop: 07/13/22 09:01 Trazodone HCl (Trazodone Hcl 25 Mg Halftab) 25 mg PO BEDTIME PRN PRN Reason: sleep Last Admin: 07/07/22 23:44 Dose: 25 mg Documented By: VANESSA Labs CBC & Chem 7: 07/07/22 05:30 07/08/22 06:32 Labs: Laboratory Results - last 24 hr 07/08/22 06:32 Anion Gap 18 Estim Creat Clear Calc 128.2 Estimated GFR > 60 Random Glucose 80 Calcium 9.0 Phosphorus 2.0 L Magnesium 1.6 Total Bilirubin 0.9 AST 48 H D ALT 22 Alkaline Phosphatase 126 H Total Protein 6.5 D Albumin 4.0 Assessment and Plan (1) Delirium tremens: Status: Acute (2) Alcohol use disorder, severe, dependence: Status: Acute (3) Alcohol withdrawal syndrome: Status: Acute (4) Acute alcoholic gastritis: Status: Acute Plan 32-year-old gentleman with underlying history of alcohol dependency with prior episodes of alcohol withdrawal presenting planning of alcohol withdrawal symptoms after history drinking secondary to inability to pay for it day prior to this admission.? Patient was will latent emergency room and required multiple doses of IV phenobarbital to control his symptoms, still with suboptimal control.? He was started on Precedex drip and admitted to intensive care. and improve quickly so was transfered to [facility], present issues include nauea and vomitting likely from alcoholic gastritis. Plan: IV fluid, advance diet as tole, continue phenobarb for DTs, nicotine replacment therapy. Alcohol cessation discussed Quality Stroke Does the patient have a stroke diagnosis?: No VTE Prior VTE?: No VTE Risk Level:: Medical - moderate - high VTE Device Contraindication: Treatment Not Indicated VTE Drug Contraindication: N/A - Med Ordered
[2022-07-08] MEDS: Folic Acid 2 MG in 0.9 % Sodium Chloride 50 ML 100.4 MG IV (09:44)
[2022-07-08 11:14] VITALS: BP 136/89; PULSE 80; RESP 18; TEMP 36.7; O2SAT 99
[2022-07-08] MEDS: Nicotine 14 MG PATCH.TD24 TRANSDERMA (11:52)
[2022-07-08] MEDS: Dextrose 5 % 1,000 ML 100 ML IVCONT ×2 (11:52→20:32)
[2022-07-08] MEDS: Acetaminophen 325 MG TABLET 650 MG PO (15:48)
[2022-07-08] MEDS: Omeprazole 40 MG CAPSULE.DR PO (15:49)
[2022-07-08] MEDS: Nicotine Polacrilex 2 MG GUM BUCCAL (15:49)
[2022-07-08 15:50] VITALS: BP 141/104; PULSE 73; RESP 18; TEMP 35.8
[2022-07-08 20:00] VITALS: BP 140/84; PULSE 74; RESP 18; TEMP 35.8
[2022-07-08] MEDS: Famotidine 20 MG TABLET PO (20:32)
[2022-07-08] MEDS: traZODone HCL 100 MG TABLET PO (21:54)
[2022-07-08 23:08] VITALS: BP 125/83; PULSE 77; RESP 20; TEMP 37; O2SAT 100
[2022-07-09 02:55] VITALS: BP 151/80; PULSE 70; RESP 20; TEMP 37.3; O2SAT 98
[2022-07-09] MEDS: Dextrose 5 % 1,000 ML 100 ML IVCONT (05:36)
[2022-07-09] MEDS: Omeprazole 40 MG CAPSULE.DR PO (05:37)
[2022-07-09 07:42] VITALS: BP 132/87; PULSE 80; RESP 20; TEMP 36.8; O2SAT 100
[2022-07-09] MEDS: Folic Acid 1 MG TABLET PO (08:20)
[2022-07-09] MEDS: PHENobarbitaL 15 MG TABLET 45 MG PO (08:20)
[2022-07-09] MEDS: Heparin Sodium,Porcine 5,000 UNIT/ML VIAL 5000 UNIT SUBCUT (08:20)
[2022-07-09] MEDS: Thiamine HCL 100 MG TABLET PO (08:20)
[2022-07-09] MEDS: Famotidine 20 MG TABLET PO (08:20)
[2022-07-09] MEDS: Sertraline HCL 50 MG TABLET PO (08:20)
[2022-07-09] MEDS: Acetaminophen 325 MG TABLET 650 MG PO (08:23)
[2022-07-09] MEDS: Nicotine Polacrilex 2 MG GUM BUCCAL (08:53)
[2022-07-09] MEDS: ondansetron HCL 4 MG/2 ML VIAL IVPUSH (10:08)
--- NOTE | 2022-07-09 10:49 | P.PNIM_ITS ---
Subjective Subjective Date of Service: 07/09/22 Interval History: Seen in f/u post ICU care for alcohol withdrawal Interval history: no nausea or vomitting, tremors better Review of Systems no n/v minimal tremors Physical Exam Vital Signs: Vital Signs: Last Vital Signs Temp 98.3 F 07/09/22 07:42 Pulse 80 07/09/22 07:42 Resp 20 07/09/22 07:42 BP 132/87 07/09/22 07:42 Pulse Ox 100 07/09/22 07:42 O2 Del Method 07/09/22 07:42 BMI result Body Mass Index 21.7 Const: Other: General: AO X 3, no acute distress Resp: CTA bilateral CVS: S1,S2,RRR GI: +BS, NT, no distention Skin: No rash Neuro: motor grossly intact Psych: appropriate affect Objective Data Active Medications Acetaminophen (Acetaminophen 325 Mg Tablet) 650 mg PO Q6H PRN PRN Reason: Pain, Mild (Pain Scale 1-3) Last Admin: 07/09/22 08:23 Dose: 650 mg Documented By: REGGIE Famotidine (Famotidine/Pf 20 Mg/2 Ml Vial) 20 mg IVPUSH DAILY [facility] Last Admin: 07/09/22 08:21 Dose: Not Given Documented By: REGGIE Non-Admin Reason: Duplicate order Famotidine (Famotidine 20 Mg Tablet) 20 mg PO BID [facility] Last Admin: 07/09/22 08:20 Dose: 20 mg Documented By: REGGIE Folic Acid (Folic Acid 1 Mg Tablet) 1 mg PO DAILY [facility] Last Admin: 07/09/22 08:20 Dose: 1 mg Documented By: REGGIE Heparin Sodium (Porcine) (Heparin Sodium,Porcine 5,000 Unit/Ml Vial) 5,000 unit SUBCUT Q8H [facility] Last Admin: 07/09/22 08:20 Dose: 5,000 unit Documented By: REGGIE Folic Acid 2 mg/ Sodium (Chloride) 50.4 mls @ 100.4 mls/hr IV DAILY [facility] Last Admin: 07/09/22 09:08 Dose: Not Given Documented By: REGGIE Non-Admin Reason: PO order given Thiamine HCl 300 mg/ Sodium (Chloride) 103 mls @ 208 mls/hr IV DAILY [facility] Last Admin: 07/09/22 09:08 Dose: Not Given Documented By: REGGIE Non-Admin Reason: PO order given Dextrose (D5w) 1,000 mls @ 100 mls/hr IVCONT .Q10H [facility] Last Admin: 07/09/22 05:36 Dose: 100 mls/hr Documented By: KAMLA Nicotine Polacrilex (Nicotine Polacrilex 2 Mg Gum) 2 mg BUCCAL Q2H PRN PRN Reason: craving Last Admin: 07/09/22 08:53 Dose: 2 mg Documented By: REGGIE Omeprazole (Omeprazole 40 Mg Capsule.Dr) 40 mg PO BID@0630,1630 [facility] Last Admin: 07/09/22 05:37 Dose: 40 mg Documented By: KAMLA Ondansetron HCl (Ondansetron Hcl 4 Mg/2 Ml Vial) 4 mg IVPUSH Q8H PRN PRN Reason: Nausea and Vomiting Last Admin: 07/09/22 10:08 Dose: 4 mg Documented By: REGGIE Pharmacy Consult (Consult Rx Etoh Phenob Im/Po) 1 each MISCELLANE ONCE PRN; Protocol PRN Reason: Consult order Phenobarbital (Phenobarbital 15 Mg Tablet) 15 mg PO BID [facility] Stop: 07/11/22 09:01 Phenobarbital (Phenobarbital 15 Mg Tablet) 15 mg PO DAILY [facility]; Protocol Stop: 07/13/22 09:01 Sertraline HCl (Sertraline Hcl 50 Mg Tablet) 50 mg PO DAILY [facility] Last Admin: 07/09/22 08:20 Dose: 50 mg Documented By: REGGIE Thiamine HCl (Thiamine Hcl 100 Mg Tablet) 100 mg PO DAILY [facility] Last Admin: 07/09/22 08:20 Dose: 100 mg Documented By: REGGIE Trazodone HCl (Trazodone Hcl 100 Mg Tablet) 100 mg PO BEDTIME [facility] Last Admin: 07/08/22 21:54 Dose: 100 mg Documented By: DANIA Labs CBC & Chem 7: 07/07/22 05:30 07/08/22 06:32 Assessment and Plan (1) Delirium tremens: Status: Acute (2) Alcohol use disorder, severe, dependence: Status: Acute Plan 32-year-old gentleman with underlying history of alcohol dependency with prior episodes of alcohol withdrawal presenting planning of alcohol withdrawal symptoms after history drinking secondary to inability to pay for it day prior to this admission.? Patient was will latent emergency room and required multiple doses of IV phenobarbital to control his symptoms, still with suboptimal control.? He was started on Precedex drip and admitted to intensive care. and improve quickly so was transfered to [facility], present issues include nauea and vomitting likely from alcoholic gastritis. Plan: DC IV fluid, advance diet as joanie, continue phenobarb for DTs, nicotine replacment therapy. Alcohol cessation discussed again, CARE consult Quality Stroke Does the patient have a stroke diagnosis?: No VTE Prior VTE?: No VTE Risk Level:: Medical - moderate - high VTE Device Contraindication: Treatment Not Indicated VTE Drug Contraindication: N/A - Med Ordered
[2022-07-09 11:12] VITALS: BP 139/91; PULSE 74; RESP 20; TEMP 37.1; O2SAT 100
--- NOTE | 2022-07-09 11:52 | MHC.CM.PN ---
Per ROUNDS discussion, Patient is not yet medically cleared for dc r/t ETOH Withdrawal; home vs Care Team interventions is the goal and CM will continue to follow.
--- NOTE | 2022-07-09 14:16 | MHC.CM.PN ---
Patient has now been medically cleared for dc to home today, self care.
--- NOTE | 2022-07-09 14:28 | PM.DS ---
DS: Providers Provider Date of Service: 07/09/22 Date of admission: 07/06/22 15:30 Primary care physician: Raya Marinelli PA-C Consults: 07/06/22 07:34 Consult to Care Team Stat Comment: Reason for consultation: alcohol withdrawal 07/09/22 14:08 Consult to Care Team Routine Comment: Reason for consultation: alcohol dependency DS: Diagnosis Discharge Diagnosis (1) Delirium tremens: Status: Acute (2) Alcohol use disorder, severe, dependence: Status: Acute DS: Summary Hospital Course Hospital Course: 32-year-old gentleman with underlying history of alcohol dependency with prior episodes of alcohol withdrawal presenting planning of alcohol withdrawal symptoms after history drinking secondary to inability to pay for it day prior to this admission.? Patient was will latent emergency room and required multiple doses of IV phenobarbital to control his symptoms, still with suboptimal control.? He was started on Precedex drip and admitted to intensive careand improve quickly so was transfered to [facility], present issues include nauea and vomitting likely from alcoholic gastritis. Over the course of the rest of hospitalization he has continued to improve and at this point nausea and vomitting have resolved, he is not withdrawing, he is tolerating diet, vital are stable. CARE and recovery team have been working with him and he's comfortable going home and vow to stay sober Final diagnosis DTs alcohol dependency alcoholic gastritis Time Spent with Patient Time attestation: Total time spent providing and/or coordinating discharge services: Discharge coordination time: Greater than 30 minutes Quality: Safe Use of Opioids Does Pt have an Active Cancer Diagnosis on the Problem List?: No Quality: Stroke Does the patient have a stroke diagnosis?: No Physical Exam Vital Signs: Vital Signs: Last Vital Signs Temp 98.7 F 07/09/22 11:12 Pulse 74 07/09/22 11:12 Resp 20 07/09/22 11:12 BP 139/91 H 07/09/22 11:12 Pulse Ox 100 07/09/22 11:12 O2 Del Method 07/09/22 11:12 BMI result Body Mass Index 21.7 DS: Data Data Completed and Pending Completed studies during hospitalization [Text1]: Procedures Detoxification Services for Substance Abuse Treatment (06/08/22) Discharge Plan Discharge Anticipated Discharge Date/Time: 07/09/22 14:07 Patient Disposition: Home, Self-Care Discharge Diagnosis: Alcohol withdrawal, alcoholic gastritis Referrals: Raya Marinelli PA-C [Primary Care Provider] - 07/16/22 10:45 am (You have appointment scheduled with PCP, call office if you need to reschedule.) Discharge Medications: Continued trazodone 50 mg tablet 2 tab PO BEDTIME omeprazole 40 mg Capsule,Delayed Release(Dr/Ec) 40 mg PO BID@0630,1630 30 Days Qty: 60 0RF folic acid 1 mg Tablet 1 mg PO DAILY 30 Days Qty: 30 0RF thiamine mononitrate (vit B1) 100 mg Tablet 100 mg PO DAILY 30 Days Qty: 30 0RF sertraline 50 mg tablet 1 tab PO DAILY Discontinued chlordiazepoxide HCl 25 mg capsule 50 mg PO Q4H PRN (Reason: Alcohol Withdrawal) lorazepam 1 mg tablet 1 mg PO TID PRN (Reason: alcohol withdrawal) Qty: 10 0RF Discharge Orders: Discharge Order (Routine); Ordered 07/09/22 Ordered By: Walker Duarte Diet: Advance to usual diet Activity on Discharge: As tolerated Stand Alone Forms: Patient Portal Discharge page Care Plan Goals: Abstinence from alcohol Health Concerns: alcohol dependency Plan of Treatment: Follow resources given to you by the recovery team Assessment: as above
[2022-07-09 15:16] VITALS: BP 154/87; PULSE 76; RESP 18; TEMP 36.8; O2SAT 100
--- NOTE | 2022-07-09 15:57 | MHC.RECOVRN ---
T/W met w/ pt, pt alert and oriented, watching television. T/W and pt discussed recovery resources. MAT Visit appt scheduled Tuesday07/12/22 @1:30pm, pt given appt card. T/W and pt discussed calling pts Specialty Pharmacy together at MAT visit appt to ensure delivery of Vivitrol medication. Pt states has list of meetings in the area and recovery resources. Pt states is going to think about [employer]. Pt states would like to review IOP information at MAT visit as pt has had success with IOP in the past and found it helpful.
== END 2022-07-09 15:48 | disposition home or self-care (01) | DRG 241 ==
LOC: HO.ED 15:31 → HO.EDOVER 15:42 → HO.ICU 16:55 → HO.EDOVER 17:08 → HO.ICU 23:08 → HO.IMC 07-07 13:23
PROVIDERS: Registered Nurse Community Health; Admitting Provider Internal Medicine Pulmonary Disease; Emergency Provider Emergency Medicine; PCP Physician Assistant Medical; Visit Provider Internal Medicine
DX: K29.20 Alcoholic gastritis without bleeding (principal); F10.221 Alcohol dependence with intoxication delirium; F10.231 Alcohol dependence with withdrawal delirium; F17.210 Nicotine dependence, cigarettes, uncomplicated; F32.A Depression, unspecified; F41.9 Anxiety disorder, unspecified; Z71.6 Tobacco abuse counseling; Y90.7 Blood alcohol level of 200-239 mg/100 ml; Z20.822 Contact with and (suspected) exposure to COVID-19; Z79.899 Other long term (current) drug therapy
CPT/HCPCS: 36415; 80048; 80053; 82077; 82803; 83735; 84100; 84484; 85025; 87635; 93005; 99285; J2405; J2550; J2560; J3411

== ENCOUNTER 2022-07-16 03:01 | Emergency (ER) | payer MEDICAID, SELFPAY ==
[2022-07-16 03:08] VITALS: BP 150/96; PULSE 110
[2022-07-16 03:12] VITALS: BP 145/85; PULSE 93; RESP 17; TEMP 36.1; O2SAT 97; BMI 21.6
[2022-07-16 03:26] LABS: MANUAL DIFF FLAG NO
[2022-07-16 03:27] LABS: Basophils Absolute Auto 0.1 X10*3/uL (0.0-0.2); Basophils Percent Auto 1.9 % (0-2); Eosinophils Absolute Auto 0.1 X10*3/uL (0.0-0.4); Eosinophils Percent Auto 1.3 % (0-4); Hematocrit 40.2 % (42.0-52.0); Lymphocytes Absolute Auto 2.6 X10*3/uL (1.2-4.9); Lymphocytes Percent Auto 49.2 % (20-40); Mean Corpuscular HGB Conc 34.8 g/dl (31.0-36.0); Mean Corpuscular Hemoglobin 31.3 pg (27.0-33.0); Mean Corpuscular Volume 89.9 fL (80.0-98.0); Mean Platelet Volume 8.7 fL (9.4-12.4); Monocytes Absolute Auto 0.8 X10*3/uL (0.1-1.2); Neutrophils Absolute Auto 1.8 x10*3/uL (2.0-8.3); Neutrophils Percent Auto 33.6 % (45-73); Platelet Count 306 X10*3/uL (160-400); Red Blood Count 4.47 X10*6/uL (4.60-5.80); Red Cell Distribution Width 12.6 % (11.0-16.0); White Blood Count 5.4 X10*3/uL (4.8-10.8)
--- OUTSIDE RECORDS SUMMARY | 2022-07-16 03:39 | XMS_ITS | Continuity of Care Document ---
:1990 Author Organization [facility] Address [address] [place] [id number]- Care Team Providers Name Role Phone Raya Hu Primary Care Physician Encounter [facility] Date(s): 06/29/21 - 07/01/[address] [id number] Discharge Disposition: A-D/C Home Attending Physician: Agustin Robison MD Admitting Physician: [place] Del Real MD Referring Physician: Not on Staff, Referring MD Allergies, Adverse Reactions, Alerts Substance Reaction Severity Status NKA Active Immunizations Given and Recorded Vaccine Date Status Refusal Reason SARS-CoV-2 (COVID-19) [id number] vaccine1 06/30/21 Given 1Result Comment: Patient provided verbal consent for the COVID-19 vaccine Medications naltrexone 50 mg oral tablet 1 tablet = 50 mg, By Mouth, Daily, # 30 tablet, 0 Refills, Acute 08/12/21 21:00:00 EDT, 07/01/21 13:27:00 EDT, Tablet, Partial fill upon patient request if the prescription is for a schedule II opioid drug. Start Date: 07/01/21 Stop Date: 08/12/21 Status: Orderedomeprazole 20 mg oral enteric coated capsule 1 capsule = 20 mg, By Mouth, Daily, PRN Dyspepsia, # 30 capsule, 0 Refills, Maintenance, 06/29/21 3:58:00 EDT, EC Capsule, Partial fill upon patient request if the prescription is for a schedule II opioid drug. Start Date: 06/29/21 Status: OrderedtraZODone 50 mg oral tablet 100 mg, 2, tablet, By Mouth, Daily at bedtime, # 30 tablet, Refills 0, Maintenance, 06/29/21 3:58:00EDT, Partial fill upon patient request if the prescription is for a schedule II opioid drug. Start Date: 06/29/21 Status: Ordered Problem List Condition Effective Dates Status Health Status Informant Seizure(Confirmed) Active Vital Signs Most recent to oldest 1 2 3 [Reference Range]: Oxygen Saturation [94-100 %] 99 % 100 % 100 % (07/01/21 7:54 AM) (06/30/21 11:52 PM) (06/30/21 7: 32 PM) Pulse Rate [55-90 bpm] 67 bpm 69 bpm 57 bpm (07/01/21 7:54 AM) (07/01/21 5:45 AM) (07/01/21 2:2 3 AM) Blood Pressure [90-138/55-84 122/57 mm Hg 117/77 mm Hg 111 /66 mm Hg mm Hg] (07/01/21 7:54 AM) (07/01/21 5:45 AM) (07/01/21 2:2 3 AM) Respiratory Rate [16-30 20 br/min 18 br/min 18 br/mi n br/min] (07/01/21 7:54 AM) (07/01/21 5:45 AM) (07/01/21 2:2 3 AM) Temperature [96.8-100.4 DegF] 98.4 DegF 98.3 DegF 98 .0 DegF (07/01/21 7:54 AM) (06/30/21 11:52 PM) (06/30/21 7: 32 PM) Mode of Delivery (Oxygen) Room air Room air Room a ir (07/01/21 7:54 AM) (06/30/21 11:52 PM) (06/30/21 7: 32 PM) Blood pressure sites Arm, left Arm, left Arm, right (07/01/21 7:54 AM) (06/30/21 11:52 PM) (06/30/21 7: 32 PM) Temperature Route Oral Oral Oral (07/01/21 7:54 AM) (06/30/21 11:52 PM) (06/30/21 7: 32 PM)
[2022-07-16 04:07] LABS: Alanine Aminotransferase 16 U/L (0-40); Albumin Level 4.2 g/dL (3.5-5.0); Alkaline Phosphatase 119 U/L (39-117); Anion Gap 19 (12-20); Aspartate Amino Transferase 30 U/L (5-37); Bilirubin Total 0.2 mg/dL (0.0-1.0); Blood Urea Nitrogen 8 mg/dL (9-16); Calcium 8.7 mg/dL (8.4-10.2); Carbon Dioxide 27 mmol/L (22-29); Chloride 102 mmol/L (96-108); Creatinine Clr Calc Pharmacy 135.2; Estimated Glomerular Filt Rate > 60; Ethanol 393 mg/dL; Glucose Random 111 mg/dL (60-115); Potassium 3.4 mmol/L (3.3-5.1); Sodium 145 mmol/L (135-145); Total Protein 7.2 g/dL (6.5-8.0)
[2022-07-16 04:14] VITALS: RESP 18
--- NOTE | 2022-07-16 05:03 | ED.ALCOHOL ---
HPI - Alcohol General Chief Complaint: ETOH/Substance Use Stated Complaint: ETOH Time Seen by Provider: 07/16/22 05:02 Source: patient Mode of arrival: EMS Limitations: no limitations History of Present Illness HPI narrative: Patient history of alcohol abuse last drink was at 18:00 feels in withdrawal nauseated vomiting few times no seizures patient had history of withdrawal seizures in the past scared vomited about 5 or 6 times mostly bilious Related Data Home Medications Medication Instructions Recorded Confirmed trazodone 50 mg tablet 2 tab PO BEDTIME 05/15/22 07/06/22 sertraline 50 mg tablet 1 tab PO DAILY 07/01/22 07/06/22 Previous Rx's Medication Instructions Recorded folic acid 1 mg tablet 1 mg PO DAILY 30 days #30 tabs 06/11/22 omeprazole 40 mg capsule,delayed 40 mg PO BID@0630,1630 30 days #60 06/11/22 release caps thiamine mononitrate (vit B1) 100 100 mg PO DAILY 30 days #30 tabs 06/11/22 mg tablet Allergies Allergy/AdvReac Type Severity Reaction Status Date / Time No Known Allergies Allergy Verified 01/03/22 06:08 [No Known Allergies*] Review of Systems Review of Systems: Yes all other systems are reviewed and are negative PMFSH Past Medical History Medical History Alcohol use disorder, severe, dependence Anxiety Depression ETOH abuse Seizure Family History Family History Mother DVT (deep venous thrombosis) Ovarian cancer Father Alcohol dependence Brother Type 2 diabetes mellitus Multiple sclerosis Social History Social History Household Members: Family Housing: House Do you presently have visiting nurse or other home services: No Alcohol intake: current Alcohol intake frequency: 3 or more drinks per day Alcohol type: hard liquor Patient Tobacco Use Status: Current everyday Tobacco user Tobacco use type: Cigarette Cigarette Packs Per Day: 1.5 Cigarettes Per Day: 30.0 Years Smoked: 13 e-Cigarette/Vaping Use: Currently Using Second Hand Smoke Exposure: No Advance Directives: No service: No Current occupational status: unemployed Physical Exam ED Vital Signs: Vital Signs - 24 hr 07/16/22 03:12 07/16/22 04:14 07/16/22 06:00 Temperature 96.9 F Pulse Rate 93 79 Respiratory Rate 17 18 15 Blood Pressure 145/85 H 119/70 Pulse Oximetry 97 94 Oxygen Delivery Method Room Air Room Air BMI result Body Mass Index 21.6 Appearance: Alert. Oriented X3. Anxious Eyes: PERRLA, No Nystagmus ENT: Pharynx normal. Oral Mucosa moist Neck: Normal inspection. Neck supple. CVS: Normal heart rate and rhythm. Pulses normal. Respiratory: No respiratory distress. Equal air entry bilateral, no wheezing/rales/rhonchi Abdomen: Soft and nontender. Bowel sounds are present, no mass palpable, no CVA tenderness Skin: Skin warm and dry. Normal skin color. Normal skin turgor. Extremities: No lower extremity edema. No calf tenderness Neuro: Oriented X 3. No motor deficit. No sensory deficit.No cerebellar signs , cranial nerves II-XII intact MDM - Alcohol MDM Narrative Medical decision making narrative: Patient alcoholic with vomiting at this time patient is sleeping, will re-evaluate him after being sober if he wants to go to detox Differential Diagnosis Differential diagnosis: Likely alcohol dependence Lab Data Attestation: I reviewed the patient's lab results. Result diagrams: 07/16/22 03:17 07/16/22 03:17 Labs: Lab Results 07/16/22 07/16/22 Range/Units 03:17 03:17 WBC 5.4 (4.8-10.8) X10*3/uL RBC 4.47 L (4.60-5.80) X10*6/uL Hgb 14.0 (14.0-18.0) g/dl Hct 40.2 L (42.0-52.0) % MCV 89.9 (80.0-98.0) fL MCH 31.3 (27.0-33.0) pg MCHC 34.8 (31.0-36.0) g/dl RDW 12.6 (11.0-16.0) % Plt Count 306 D (160-400) X10*3/uL MPV 8.7 L (9.4-12.4) fL Immature Gran % (Auto) 0.0 (0.0-0.4) % Neut % (Auto) 33.6 L (45-73) % Lymph % (Auto) 49.2 H (20-40) % [place] % (Auto) 14.0 H (2-11) % Eos % (Auto) 1.3 (0-4) % Baso % (Auto) 1.9 (0-2) % Lymph # (Auto) 2.6 (1.2-4.9) X10*3/uL [place] # (Auto) 0.8 (0.1-1.2) X10*3/uL Eos # (Auto) 0.1 (0.0-0.4) X10*3/uL Baso # (Auto) 0.1 (0.0-0.2) X10*3/uL Abs Immat Gran (auto) 0.00 (0.00-0.03) X10*3/uL Absolute Neuts (auto) 1.8 L (2.0-8.3) x10*3/uL Absolute Nucleated RBC 0.000 (0.0-0.012) X10*3/uL Nucleated RBC % (auto) 0.0 (0.0-0.2) /100WBC Sodium 145 (135-145) mmol/L Potassium 3.4 (3.3-5.1) mmol/L Chloride 102 (96-108) mmol/L Carbon Dioxide 27 (22-29) mmol/L Anion Gap 19 (12-20) BUN 8 L (9-16) mg/dL Creatinine 0.78 (0.5-1.4) mg/dL Estim Creat Clear Calc 135.2 Estimated GFR > 60 Random Glucose 111 D (60-115) mg/dL Calcium 8.7 (8.4-10.2) mg/dL Magnesium 2.0 (1.6-2.6) mg/dL Total Bilirubin 0.2 (0.0-1.0) mg/dL AST 30 (5-37) U/L ALT 16 (0-40) U/L Alkaline Phosphatase 119 H (39-117) U/L Total Protein 7.2 (6.5-8.0) g/dL Albumin 4.2 (3.5-5.0) g/dL Ethyl Alcohol 393 H* mg/dL Discharge Plan Discharge Clinical Impression: Alcohol withdrawal syndrome, Alcohol use disorder, severe, dependence Patient Disposition: Still a Patient Prescriptions: No Action trazodone 50 mg tablet 2 tab PO BEDTIME omeprazole 40 mg Capsule,Delayed Release(Dr/Ec) 40 mg PO BID@0630,1630 30 Days Qty: 60 0RF folic acid 1 mg Tablet 1 mg PO DAILY 30 Days Qty: 30 0RF thiamine mononitrate (vit B1) 100 mg Tablet 100 mg PO DAILY 30 Days Qty: 30 0RF sertraline 50 mg tablet 1 tab PO DAILY
[2022-07-16] MEDS: Famotidine/PF 20 MG/2 ML VIAL IVPUSH (05:15)
[2022-07-16] MEDS: Prochlorperazine Edisylate 10 MG/2 ML VIAL IVPUSH (05:15)
[2022-07-16] MEDS: Midazolam HCl/PF 2 MG/2 ML VIAL IVPUSH (05:15)
[2022-07-16] MEDS: 0.9 % Sodium Chloride 1,000 ML 999 ML IV (05:16)
[2022-07-16 06:00] VITALS: BP 119/70; PULSE 79; RESP 15; O2SAT 94
[2022-07-16 08:00] VITALS: BP 137/65; PULSE 74; RESP 12; TEMP 36.3; O2SAT 97
[2022-07-16 08:55] LABS: COVID-19 Test Negative (Negative)
[2022-07-16] MEDS: ondansetron HCL 4 MG/2 ML VIAL IVPUSH (10:24)
[2022-07-16] MEDS: chlordiazePOXIDE HCl 25 MG CAPSULE 50 MG PO (10:24)
== END 2022-07-16 10:58 | disposition home or self-care (01) ==
PROVIDERS: Emergency Provider Internal Medicine
DX: F10.239 Alcohol dependence with withdrawal, unspecified (principal); F10.229 Alcohol dependence with intoxication, unspecified; Y90.8 Blood alcohol level of 240 mg/100 ml or more; Z20.822 Contact with and (suspected) exposure to COVID-19; Z71.41 Alcohol abuse counseling and surveillance of alcoholic; Z79.899 Other long term (current) drug therapy
CPT/HCPCS: 36415; 80053; 82077; 83735; 85025; 87635; 96361; 96374; 96375; 99284; 99285; J2250; J2405

== ENCOUNTER 2023-09-02 12:56 | Emergency (ER) | payer OTHER, SELFPAY ==
--- NOTE | ~2023-09-02 | XR_ITS ---
EXAMINATION: XR HAND, LEFT CLINICAL INFORMATION: Injury at work, first MCP tenderness. COMPARISON: None available. TECHNIQUE: PA, lateral, and oblique views of the left hand. FINDINGS: No fracture. Alignment is anatomic. Joint spaces are maintained. No erosions or soft tissue calcifications. No acute findings are identified at the first MCP joint. Soft tissues are unremarkable. XR/XR hand LT min 3V IMPRESSION: Normal radiographs of the left hand. No acute osseous abnormalities.
[2023-09-02 13:01] VITALS: BP 126/83; PULSE 91; RESP 16; TEMP 36.1; O2SAT 100; BMI 22.1
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
--- OUTSIDE RECORDS SUMMARY | 2023-09-02 13:40 | XMS_ITS | Continuity of Care Document ---
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 may be legally too drunk to drive even if you don???t feel like it. ?? Follow-up care If you or your friends or family think you could have a drug or alcohol problem, then you likely do. These resources can help: ??? Alcoholics Anonymous (AA) at www.aa.org. This group gives support through mutual self-help. ??? Al-Anon at www.al-anon-org. This group gives support to families and friends of problem drinkers. ??? SMART Recovery at www.[employer].org. Self-Management and Recovery Training (SMART) provides addiction support through online forums or in-person support groups in some communities. ??? Residential alcohol treatment. This type of inpatient program may help. Look online to find one near you. You can also ask your healthcare provider for a referral. ?? Last Reviewed Date: 2022 ?? 2947-1366 [employer] All rights reserved. This information is not intended as a substitute for professional medical care. Always follow your healthcare professional's instructions. ?? Patient Care team information Care Team Personnel Name: Not on Staff, PCP Position: [facility] Physician (General Medicine) Member Role: PCP Name: *[facility], Trauma Attending Position: [facility] ED Attendings Patient Name: *[facility], Trauma Resident Position: [facility] ED Medicine MD Name: Vinod Barraza Position: [facility] ED TA [facility] Name: Elizabeth Messina RN Position: [facility] ED RN W/OE and Tasks Member Role: Patient Care Provider Name: Pratik Charles Position: [facility] ED TA [facility] Member Role: Subway Operator Care Team Related Persons Name: JOJO AREVALO Address: [address] [address] Name: LUPE TOLEDO
--- OUTSIDE RECORDS SUMMARY | 2023-09-02 13:40 | XMS_ITS | Continuity of Care Document ---
Author Name Unknown Organization [facility] ter Address [address] [place] [id number] Care Team Providers Care Time Study Analyst Name Role Phone Raya Hu Primary Care Physician Encounter [facility] Date(s): 04/20/23 - 04/23/[address] [id number]- Encounter Diagnosis Alcohol withdrawal(Final) - 04/20/23 Nausea & vomiting(Final) - 04/20/23 Diarrhea(Final) - 04/20/23 Discharge Disposition: A-D/C Home Attending Physician: Pete Schneider MD Admitting Physician: Rosalba Parada MD Referring Physician: Not on Staff, Referring [...] 0 Refills, Maintenance, 03/29/23 12:54:00 EDT, Tablet, [facility], Partial fill upon patient request if the prescription is for a schedule II opioid drug., 170, cm, ... Start Date: 03/29/23 Stop Date: 04/05/23 Status: Ordered diazepam 5 mg oral tablet See Instructions, day 1&2 - 1 tab 4 times a day day 3- 1 tab 3 times a day day 4 - 1 tab twice a day kvng 5 - 1 tab once a day and/or as needed. may take extra or skip dose per withdrawal symptoms., # 15 tablet, Refills 0, Tot. Refills 0, Acute 07... Start Date: 04/23/23 Stop Date: 04/29/23 Status: Ordered folic acid 1 mg oral [...] 03/29/23 12:50:00 EDT, Route to Pharmacy Electronically, [facility], Partial fill upon patient request if the prescription is for a schedule II opioid... Start Date: 03/29/23 Stop Date: 04/05/23 Status: Ordered gabapentin 100 mg oral capsule 100 mg, Capsule, By Mouth, 04/23/23 9:00:00 EDT Start Date: 04/23/23 Stop Date: 04/23/23 Status: Completed hydrOXYzine pamoate 50 mg oral [...] 0 Refills, Maintenance, 03/29/23 12:47:00 EDT, Tablet, [facility], Partial fill upon patient [...] 03/29/23 12:47:00 EDT, Route to Pharmacy Electronically, [facility], Partial fill upon patient request if [...] opioid drug. Start Date: 06/29/21 Status: Ordered triamcinolone 0.025% topical cream 1 application, Topically, 2 times a day, for 14 days, # 15 Gm, 0 Refills, Acute 05/07/23 11:47:00 EDT, 04/23/23 11:47:00 EDT, Cream, [facility], Partial fill upon patient request if theprescription is for a schedule II opioid drug., 1 a... Start Date: 04/23/23 Stop Date: 05/07/23 Status: Ordered Vitamin B1 100 mg oral tablet 100 mg, 1, tablet, By Mouth, Daily, # 10 tablet, Refills 0, Maintenance, 03/29/23 1:58:00 EDT, Partial fill upon patient request if the prescription is for a schedule II opioid drug. Start Date: 03/29/23 Stop Date: 04/08/23 Status: Ordered Problem List Condition Confirmation Course Effective Dates Status Health [facility] Informant Seizure Confirmed Active Vital Signs Most recent to oldest [Reference Range]: 1 2 3 Height 178 cm (04/23/23 11:16 AM) 178 cm (04/23/23 9:35 AM) 178 cm (04/23/23 4:56 AM) Weight 71.9 kg (04/22/23 6:30 AM) 69.4 kg (04/21/23 3:29 PM) 64 kg (04/21/23 2:17 AM) Oxygen Saturation [94-100 %] 100 % (04/23/23 11:16 AM) 100 % (04/23/23 9:35 AM) 100 % (04/23/23 4:56 AM) Pulse Rate [55-90 bpm] 63 bpm (04/23/23 11:16 AM) 78 bpm (04/23/23 9:35 AM) 78 bpm (04/23/23 8:40 AM) Body Mass Index [18.5-24.99 kg/m2] 22.69 kg/m2 (04/22/23 6:30 AM) 21.9 kg/m2 (04/21/23 3:29 PM) 20.2 kg/m2 (04/21/23 2:17 AM) Blood Pressure [90-138/55-84 mm Hg] 127/86mm Hg (04/23/23 11:16 AM) 131/76mm Hg (04/23/23 9:35 AM) 131/76mm Hg (04/23/23 8:40 AM) Respiratory Rate [16-30 br/min] 18 br/min (04/23/23 11:16 AM) 18 br/min (04/23/23 10:32 AM) 20 br/min (04/23/23 9:40 AM) Temperature [96.8-100.4 DegF] 98.2 DegF (04/23/23 11:16 AM) 98.0 DegF (04/23/23 9:35 AM) 97.2 DegF (04/23/23 4:56 AM) Mode of Delivery (Oxygen) Room air (04/23/23 11:16 AM) Room air (04/23/23 9:35 AM) Room air (04/23/23 4:56 AM) Blood pressure sites Arm, left (04/23/23 11:16 AM) Arm, right (04/23/23 9:35 AM) Arm, left (04/23/23 4:56 AM) Temperature Route Oral (04/23/23 11:16 AM) Oral (04/23/23 9:35 AM) Oral (04/23/23 4:56 AM) Dry Weight 69.4 kg (04/21/23 3:29 PM) 64 kg (04/21/23 2:17 AM) 64 kg (04/20/23 4:22 PM) Weight Obtained Via Bed scale (04/22/23 6:30 AM) Patient/family stated (04/20/23 10:48 AM) Dry Weight Obtained Via Patient/family s tated (04/20/23 10:48 AM) Social History Social History Type Response Sex Male Admission evaluation note * Benji ABRAMS, Jaspreet Tuttle: MODIFY, PERFORM Event Display: Admission Note Authored Date: [id number] Patient: ??MATTIE RAMIREZ ? Age:??32 Years?Sex:??Male?:??1990?? Chief Complaint/Reason for Consultation N/V/D, anxiety/tremors History of Present Illness Mr. Ramirez is a 32-year-old gentleman with a PMH of alcohol use disorder with alcohol withdrawal involving grand mal seizures who presents to the ED with concerns for alcohol withdrawal. ?? Patient states that he drank his normal alcohol intake yesterday which can be as many as 24 beers.?? He woke up this morning feeling nauseous with episodes of vomiting and diarrhea.??Consequently he was unable to drink in the morning which he states he??normally does.?? Shortly thereafter started feeling agitated and anxious and noted to have tremors.??Given his history of??withdrawals he thought it prudent to go to the ED.??Has not had a seizure recently, does not remember the last time he did. States he takes his medications but does not remember the names.?? Denies chest pain, fever, cough, shortness of breath, dysuria, hematochezia/hematemesis. ?? On arrival to the ER he was tachycardic 117, BP 124/91, 97% on room air.?? Labs showed WBC 11.9,Hb 15.2, unremarkable CMP with normal electrolytes.?? Lactate 2.7, repeat 1.8 after fluids.?? Ethanol level elevated to 52.?? Treated with IV fluids, initial dose of phenobarbital to 60 mg IV, Zofranand nicotine patch and admitted for CIWA.?? Initial CIWA was 13. Review of Systems All systems reviewed and negative except as indicated in HPI. Objective Vital Signs?? Temperature: 98.2 DegF (04/20/23 22:51:00) Temperature Route: Oral (04/20/23 22:51:00) Pulse Rate: 69 bpm (04/20/23 22:51:00) Respiratory Rate: 18 br/min (04/20/23 22:51:00) Systolic Blood Pressure: 132 mm Hg (04/20/23 22:51:00) Diastolic Blood Pressure:??91 mm Hg??High (04/20/23 22:51:00) Blood pressure sites: Arm, right (04/20/23 22:51:00) Mean Arterial Pressure: 107 mm Hg (04/20/23 16:22:00) Pulse Pressure: 41 mm Hg (04/20/23 22:51:00) Oxygen Saturation: 98 % (04/20/23 22:51:00) Mode of Delivery (Oxygen): Room air (04/20/23 22:51:00) Early Warning Score: 0 (04/20/23 22:52:22) ? Intake/Output? No Data Available ? Physical Exam Constitutional: Alert, in no acute distress. Head EENT: Extraocular muscle movement intact.??Moist mucous membranes.?? Neck: Supple. No JVD. Respiratory: Clear to auscultation. No wheezing or crackles. No use of accessory muscles. Cardiovascular: S1S2 regular. No murmurs, rubs or gallops. Gastrointestinal: Abdomen soft, non-tender, non-distended. Normal bowel sounds. Genitourinary: No CVA tenderness. Extremities: No lower extremity pitting??edema. No cyanosis or clubbing. Neurologic: AAOx3, Speech normal. No focal neurological deficits. Skin: No rash. Psychiatric: Normal mood and affect Assessment/Plan 32-year-old gentleman with a PMH of alcohol use disorder with alcohol withdrawal involving grand mal seizures who presents to the ED with concerns for alcohol withdrawal. ?? Alcohol withdrawal (F10.939):? Last drink 04/18 Signs/symptoms: agitation, anxiety, tremors, tachycardia, N/V/D - CIWA protocol ordered - ativan PRN - PO thiamine, multivitamin, folate ?? Code status: full DVT ppx:??lovenox Diet: regular Dispo: floors ?? Total Visit Time: I personally spent a total of 60 minutes, including both [id number] and [id number] time on the date of the encounter, addressing the above diagnoses. Activities performed in this time include chart review, obtaining / reviewing history, performing amedically necessary evaluation, documentation and counseling. ?? Jaspreet Leblanc MD Retail Sales Teammate 7p-7a After 7 am please contact day time provider for questions/consult updates. ? Histories Past Medical History/Problem List Active Problems??(1) Seizure ? Past Surgical History No surgery history documented. ? Social History No social history documented. ? Family History Father: Alcohol abuse ? Medications Home Medications Baclofen (baclofen 5 mg oral tablet)?1?tab(s)?5?Milligram?By Mouth?3 [...] mg oral tablet)?100?Milligram?2?tablet?By Mouth?Daily at bedtime ? Inpatient Medications Medications (17) Active SCHEDULED: (5) Enoxaparin 40 mg Inj (Enoxaparin Inj) ??40 mg 0.4 mL, Subcutaneous Injection, Daily NaCl 0.9% Flush 3ml (NaCL 0.9% Flush) ??3 mL, IV Push, Every 8 hours Nicotine 21 mg / 24 hour Patch (Nicotine Topical) ??21 mg, Topically, Daily Pantoprazole 40 mg EC Tablet (pantoprazole 40 mg oral delayed release tablet) ??40 mg, By Mouth, Daily Remove Patch (Remove ??Patch) ??1 each, Topically, Daily CONTINUOUS: (1) NaCL 0.9% (1000 mL) Cont IV 1,000 mL (NaCL 0.9% 1,000 mL) ??1,000 mL, IV Infusion, 100 mL/hr PRN: (11) Acetaminophen 325 mg Tablet (Acetaminophen Tablet) ??650 mg, By Mouth, Every 4 hours Al hydroxide/Mg hydroxide/simethicone 200 mg-200 mg-20 mg/5 mL Susp UD (Maalox Plus Liquid) ??15 mL, By Mouth, 4 times a day Lorazepam 2 mg Inj Syringe (LORazepam Inj) ??1 mg, IV Push Slowly, Every hour Lorazepam 2 mg Inj Syringe (LORazepam Inj) ??2 mg, IV Push Slowly, Every hour Lorazepam 2 mg Inj Syringe (LORazepam Inj) ??3 mg, IV Push Slowly, Every hour Lorazepam 2 mg Inj Syringe (LORazepam Inj) ??4 mg, IV Push Slowly, Every hour Melatonin 3 mg Tablet (Melatonin Tablet) ??3 mg, By Mouth, Daily at bedtime NaCl 0.9% Flush 3ml (NaCL 0.9% Flush) ??3 mL, IV Push, Every 8 hours Ondansetron 2mg/mL Inj (2mL Vial) (Ondansetron Inj) ??4 mg, IV Push, Every 4 hours Polyethylene Glycol 17 Gm Powder (MiraLax Powder) ??17 Gm 1 pack/packet, By Mouth, Daily Senna 8.6 mg / Docusate 50 mg tablet (Docusate/Senna Tablet) ??1 tablet, By Mouth, 2 times a day ? Results Recent Labs BLOOD COUNT & DIFF WBC 11.9 k/mm3 (High)?? 04/20/2023 11:45 RBC 4.77 m/mm3 ()?? 04/20/2023 11:45 Hgb 15.2 Gm/dL ()?? 04/20/2023 11:45 Hct 45.2 % ()?? 04/20/2023 11:45 MCV 94.8 femtoliters (High)?? 04/20/2023 11:45 MCH 31.9 pg ()?? 04/20/2023 11:45 MCHC 33.6 g/dL ()?? 04/20/2023 11:45 Platelet Count 240 k/mm3 ()?? 04/20/2023 11:45 RDW-SD 47.2 femtoliters (High)?? 04/20/2023 11:45 MPV 9.5 femtoliters ()?? 04/20/2023 11:45 Nucleated RBC (Automated) 0.0 #/100 WBC'S ()?? 04/20/2023 11:45 Abs. NRBC 0.0 k/mm3 ()?? 04/20/2023 11:45 Abs. Neut 9.3 k/mm3 (High)?? 04/20/2023 11:45 Abs. Lymph 1.3 k/mm3 ()?? 04/20/2023 11:45 Abs. Berks 0.9 k/mm3 ()?? 04/20/2023 11:45 Abs. Eo 0.1 k/mm3 ()?? 04/20/2023 11:45 Abs. Baso 0.1 k/mm3 ()?? 04/20/2023 11:45 Neut % 78.6 % (High)?? 04/20/2023 11:45 Lymph % 10.9 % (Low)?? 04/20/2023 11:45 Berks % 7.9 % ()?? 04/20/2023 11:45 Eos % 1.2 % ()?? 04/20/2023 11:45 Baso % 1.1 % ()?? 04/20/2023 11:45 Imm Gran 0.3 % ()?? 04/20/2023 11:45 Abs. Imm Gran 0.0 k/mm3 ()?? 04/20/2023 11:45 ?? CHEM GENERAL Sodium 139 mmol/L ()?? 04/20/2023 11:45 Potassium 4.0 mmol/L ()?? 04/20/2023 15:05 Chloride 99 mmol/L ()?? 04/20/2023 11:45 Bicarbonate Level 25 mmol/L ()?? 04/20/2023 11:45 Anion Gap 15 ()?? 04/20/2023 11:45 Glucose Level 133 mg/dL (High)?? 04/20/2023 11:45 BUN 4 mg/dL (Low)?? 04/20/2023 11:45 Creatinine-Blood 0.8 mg/dL ()?? 04/20/2023 11:45 Estimated GFR Creatinine 122 ML/MIN/1.73 M2 ()?? 04/20/2023 11:45 Calcium 9.8 mg/dL ()?? 04/20/2023 11:45 Magnesium 2.1 mg/dL ()?? 04/20/2023 11:45 Protein, Total 7.5 Gm/dL ()?? 04/20/2023 11:45 Albumin 4.6 Gm/dL ()?? 04/20/2023 11:45 AG Ratio 1.6 ()?? 04/20/2023 11:45 Alkaline Phosphatase 116 units/L ()?? 04/20/2023 11:45 Lipase 27 units/L ()?? 04/20/2023 11:45 AST (SGOT) HEMOLYZED units/L ()?? 04/20/2023 11:45 ALT (SGPT) 33 units/L ()?? 04/20/2023 11:45 Bilirubin, Total 0.5 mg/dL ()?? 04/20/2023 11:45 Lactate 1.8 mmol/L ()?? 04/20/2023 13:42 ?? TOXICOLOGY/TDM Ethanol, Serum or Plasma 52 mg/dL (Abnormal)?? 04/20/2023 11:45 ?? URINE OTHER Est Creatinine Clearance 120.00 mL/min ()?? 04/20/2023 12:46 ?? VIROLOGY COVID-19 by RT-PCR NEGATIVE ()?? 04/20/2023 16:29 ? Blood Glucose Trend Glucose Level:??133 mg/dL??High (04/20/23 11:45:00) ? CBC, CBC w/Diff?? CBC?? Differential?? WBC:??11.9 k/mm3??High (11:45) Abs. Neut:??9.3 k/mm3??High (11:45) RBC: 4.77 m/mm3 (11:45) Abs. Lymph: 1.3 k/mm3 (11:45) Hct: 45.2 % (11:45) Abs. Berks: 0.9 k/mm3 (11:45) RDW-SD:??47.2 femtoliters??High (11:45) Abs. Eo: 0.1 k/mm3 (11:45) Nucleated RBC (Automated): 0 #/100 WBC'S (11:45) Abs. Baso: 0.1 k/mm3 (11:45) Abs. NRBC: 0 k/mm3 (11:45) Neut %:??78.6 %??High (11:45) ?? Lymph %:??10.9 %??Low (11:45) ?? Berks %: 7.9 % (11:45) ?? Eos %: 1.2 % (11:45) ?? Baso %: 1.1 % (11:45) ?? Imm Gran: 0.3 % (11:45) ?? Abs. Imm Gran: 0 k/mm3 (11:45) ? LFT Albumin: 4.6 Gm/dL (11:45) Alkaline Phosphatase: 116 units/L (11:45) ALT (SGPT): 33 units/L (11:45) AST (SGOT): HEMOLYZED (11:45) Bilirubin, Total: 0.5 mg/dL (11:45) ?? Urinalysis Est Creatinine Clearance: 120 mL/min (12:46) ?? Microbiology ?? COVID-19 (Novel Coronavirus), Rapid PCR?? Completed?? Source: Nasal Body Site: Nose Collected Dt/Tm: 04/20/2023 14:22 Last Updated Dt/Tm: 04/20/2023 18:17 ? Blood Gases?? No qualifying data available. ?? Hospital Progress note * Jessenia Dior: PERFORM, SIGN, VERIFY Event Display: Progress Note Hospital Authored Date: Patient: MATTIE RAMIREZ Age: 32 years Sex: Male : 1990 Associated Diagnoses: None Author: Jessenia Dior Findings Problem Related to Alteration in Comfort : Alteration in Comfort/new. Evaluation CIWA scale q4 hr (see flow sheet). Patient resting without c/o or acute distress. Continue to monitor.. Discharge Information Case Management Discharge Plan : Case Management Discharge Plan Data 04/22/2023 8:55 EDT Discharge Level of Care at Discharge Home/Shelter/Foster Care * Wyatt ABRAMS, Pete K: PERFORM Event Display: Progress Note Hospital Authored Date: [id number] Patient: ??MATTIE RAMIREZ ? Age:??32 Years?Sex:??Male?:??1990?? Subjective Patient seen and examined at bedside,??reviewed vitals, labs, imaging a, Patient is actively withdrawing, CIWA score??13-15, shaky,??sweaty, tremulous, Discharge was canceled, initiated??Valium taper, given??Ativan IV,??given 1 dose of phenobarb??65 Mg IV. Vitals and labs otherwise stable, overnight events reviewed and discussed with nursing. Review of Systems Objective Vital Signs?? Temperature: 98.7 DegF (04/22/23 16:00:00) Temperature Route: Oral (04/22/23 16:00:00) Pulse Rate: 71 bpm (04/22/23 16:00:00) Respiratory Rate: 18 br/min (04/22/23 16:00:00) Systolic Blood Pressure: 126 mm Hg (04/22/23 16:00:00) Diastolic Blood Pressure: 78 mm Hg (04/22/23 16:00:00) Blood pressure sites: Arm, left (04/22/23 16:00:00) Mean Arterial Pressure: 104 mm Hg (04/22/23 06:30:00) Pulse Pressure: 48 mm Hg (04/22/23 16:00:00) Oxygen Saturation: 100 % (04/22/23 16:00:00) Mode of Delivery (Oxygen): Room air (04/22/23 16:00:00) Early Warning Score: 0 (04/22/23 16:24:00) ? Intake/Output? 04/20 14:22 04/22 07:00 04/21 07:00 04/20 07:00 04/19 07:00 ?? 04/22 17:33 04/22 17:33 04/22 06:59 04/21 06:59 04/20 06:59 Intake ?716 ?0 ?716 ?0 ?0 Output ?0 ?0 ?0 ?0 ?0 Net Total ?716 ?0 ?716 ?0 ?0 ? Urine Count ?6 ?1 ?5 ?0 ?0 ? Physical Exam Constitutional: Alert, in no acute distress. Neck: Supple. No JVD. Respiratory: Clear to auscultation. No wheezing or crackles. No use of accessory muscles. Cardiovascular: S1S2 regular. No murmurs, rubs or gallops. Gastrointestinal: Abdomen soft, non-tender, non-distended. Normal bowel sounds. Genitourinary: No CVA tenderness. Extremities: No lower extremity pitting??edema. No cyanosis or clubbing. Neurologic: AAOx3, Speech normal. ??Shaky and tremulous _ Inpatient Medications Medications (28) Active SCHEDULED: (15) Diazepam 5 mg Tablet (Diazepam Tablet) ??5 mg, By Mouth, Every 6 hours Diazepam 5 mg Tablet (Diazepam Tablet) ??5 mg, By Mouth, Every 8 hours Diazepam 5 mg Tablet (Diazepam Tablet) ??5 mg, By Mouth, Every 12 hours Diazepam 5 mg Tablet (Diazepam Tablet) ??5 mg, By Mouth, Every 24 hours Enoxaparin 40 mg Inj (Enoxaparin Inj) ??40 mg 0.4 mL, Subcutaneous Injection, Daily Folic Acid 1 mg Tablet (folic acid 1 mg oral tablet) ??1 mg, By Mouth, Daily Gabapentin 100 mg Capsule (gabapentin 100 mg oral capsule) ??100 mg, By Mouth, 3 times a day Multivitamin Tablet ??1 tablet, By Mouth, Daily NaCl 0.9% Flush 3ml (NaCL 0.9% Flush) ??3 mL, IV Push, Every 8 hours Nicotine 21 mg / 24 hour Patch (Nicotine Topical) ??21 mg, Topically, Daily Pantoprazole 40 mg EC Tablet (pantoprazole 40 mg oral delayed release tablet) ??40 mg, By Mouth, Daily Pyridoxine 50 mg Tablet (pyridoxine 50 mg oral tablet) ??50 mg, By Mouth, Daily Remove Patch (Remove ??Patch) ??1 each, Topically, Daily Sertraline 50 mg Tablet (sertraline 50 mg oral tablet) ??100 mg, By Mouth, Daily Trazodone 50 mg Tablet (traZODone 50 mg oral tablet) ??100 mg, By Mouth, Daily at bedtime CONTINUOUS: (1) NaCL 0.9% (1000 mL) Cont IV 1,000 mL (NaCL 0.9% 1,000 mL) ??1,000 mL, IV Infusion, 100 mL/hr PRN: (12) Acetaminophen 325 mg Tablet (Acetaminophen Tablet) ??650 mg, By Mouth, Every 4 hours diphenhydrAMINE 25 mg Tablet (Benadryl Tablet) ??25 mg, By Mouth, Every 4 hours HydrOXYzine Pamoate 25mg Capsule (hydrOXYzine pamoate 25 mg oral capsule) ??50 mg, By Mouth, 4 times a day Lorazepam 2 mg Inj Syringe (LORazepam Inj) ??1 mg, IV Push Slowly, Every hour Lorazepam 2 mg Inj Syringe (LORazepam Inj) ??2 mg, IV Push Slowly, Every hour Lorazepam 2 mg Inj Syringe (LORazepam Inj) ??3 mg, IV Push Slowly, Every hour Lorazepam 2 mg Inj Syringe (LORazepam Inj) ??4 mg, IV Push Slowly, Every hour Melatonin 3 mg Tablet (Melatonin Tablet) ??3 mg, By Mouth, Daily at bedtime NaCl 0.9% Flush 3ml (NaCL 0.9% Flush) ??3 mL, IV Push, Every 8 hours Ondansetron 2mg/mL Inj (2mL Vial) (Ondansetron Inj) ??4 mg, IV Push, Every 4 hours Polyethylene Glycol 17 Gm Powder (MiraLax Powder) ??17 Gm 1 pack/packet, By Mouth, Daily Senna 8.6 mg / Docusate 50 mg tablet (Docusate/Senna Tablet) ??1 tablet, By Mouth, 2 times a day ? Results CBC, CBC w/Diff?? No qualifying data available. ?? BMP, Mg, and Phos?? No qualifying data available. ?? LFT?? No qualifying data available. ? Blood Gases?? No qualifying data available. ?? Assessment/Plan ?? Alcohol use disorder with withdrawal Slowly patient is in acute withdrawal today morning,??given as needed Ativan, 1 dose of phenobarb 65 Mg IV??and initiated Valium taper Continue multivitamin thiamine folic acid??and pyridoxine Monitor and correct electrolyte and replace as needed Continue CIWA protocol. ?? Depression/Anxiety - Continue HM: Hydroxyzine, Sertraline ,Gabapentin and Trazodone ?? Erythematous lesion: Mentioned??poison mariam,??consider initiating glucocorticoid on discharge. ? * Audrey ABRAMS, [facility] PERFORM Event Display: Progress Note Hospital Authored Date: [id number] Patient: ??MATTIE RAMIREZ ? Age:??32 Years?Sex:??Male?:??1990?? Subjective Patient appears to be doing well with improvement in his symptoms. Review of Systems Negative ROS Objective Vital Signs?? Temperature: 98.5 DegF (04/21/23 15:29:00) Temperature Route: Oral (04/21/23 15:29:00) Pulse Rate: 66 bpm (04/21/23 15:29:00) Respiratory Rate: 20 br/min (04/21/23 15:29:00) Systolic Blood Pressure: 135 mm Hg (04/21/23 15:29:00) Diastolic Blood Pressure: 80 mm Hg (04/21/23 15:29:00) Blood pressure sites: Arm, left (04/21/23 15:29:00) Mean Arterial Pressure: 98 mm Hg (04/21/23 15:29:00) Pulse Pressure: 55 mm Hg (04/21/23 15:29:00) Oxygen Saturation: 97 % (04/21/23 15:29:00) Mode of Delivery (Oxygen): Room air (04/21/23 13:25:00) Early Warning Score: 0 (04/21/23 17:49:47) ? Intake/Output? 04/20 14:22 04/21 07:00 04/20 07:00 04/19 07:00 04/18 07:00 ?? 04/21 19:12 04/21 19:12 04/21 06:59 04/20 06:59 04/19 06:59 Intake ?0 ?0 ?0 ?0 ?0 Output ?0 ?0 ?0 ?0 ?0 Net Total ?0 ?0 ?0 ?0 ?0 ? Urine Count ?1 ?1 ?0 ?0 ?0 ? Physical Exam Constitutional: Alert, in no distress. Mental Status: Oriented to person, place and time. Head: Normocephalic. Respiratory: Clear to auscultation. No wheezing, rales or rhonchi. Cardiovascular: S1 S2 regular. No murmurs, rubs or gallops. Gastrointestinal: Abdomen soft, non-tender, non-distended. Normal bowel sounds. No pulsatile mass. No hepatosplenomegaly. Genitourinary: No costovertebral angle tenderness. Neurologic: Cranial nerves II-XII grossly intact. No focal neurological deficits. Flexor plantar response. Moves all extremities spontaneously. Sensation intact bilaterally. Skin: Multiple erythematous lesions present on lower abdomen. No petechiae or purpura.?? Musculoskeletal: No cyanosis or clubbing. No gross deformities. Normal range of motion. Psychiatric: Normal mood and affect _ Home Medications Baclofen (baclofen 5 mg oral tablet)?1?tab(s)?5?Milligram?By Mouth?3 [...] mg oral tablet)?100?Milligram?2?tablet?By Mouth?Daily at bedtime ? Inpatient Medications Medications (24) Active SCHEDULED: (11) Enoxaparin 40 mg Inj (Enoxaparin Inj) ??40 mg 0.4 mL, Subcutaneous Injection, Daily Folic Acid 1 mg Tablet (folic acid 1 mg oral tablet) ??1 mg, By Mouth, Daily Gabapentin 100 mg Capsule (gabapentin 100 mg oral capsule) ??100 mg, By Mouth, 3 times a day Multivitamin Tablet ??1 tablet, By Mouth, Daily NaCl 0.9% Flush 3ml (NaCL 0.9% Flush) ??3 mL, IV Push, Every 8 hours Nicotine 21 mg / 24 hour Patch (Nicotine Topical) ??21 mg, Topically, Daily Pantoprazole 40 mg EC Tablet (pantoprazole 40 mg oral delayed release tablet) ??40 mg, By Mouth, Daily Pyridoxine 50 mg Tablet (pyridoxine 50 mg oral tablet) ??50 mg, By Mouth, Daily Remove Patch (Remove ??Patch) ??1 each, Topically, Daily Sertraline 50 mg Tablet (sertraline 50 mg oral tablet) ??100 mg, By Mouth, Daily Trazodone 50 mg Tablet (traZODone 50 mg oral tablet) ??100 mg, By Mouth, Daily at bedtime CONTINUOUS: (1) NaCL 0.9% (1000 mL) Cont IV 1,000 mL (NaCL 0.9% 1,000 mL) ??1,000 mL, IV Infusion, 100 mL/hr PRN: (12) Acetaminophen 325 mg Tablet (Acetaminophen Tablet) ??650 mg, By Mouth, Every 4 hours diphenhydrAMINE 25 mg Tablet (Benadryl Tablet) ??25 mg, By Mouth, Every 4 hours HydrOXYzine Pamoate 25mg Capsule (hydrOXYzine pamoate 25 mg oral capsule) ??50 mg, By Mouth, 4 times a day Lorazepam 2 mg Inj Syringe (LORazepam Inj) ??1 mg, IV Push Slowly, Every hour Lorazepam 2 mg Inj Syringe (LORazepam Inj) ??2 mg, IV Push Slowly, Every hour Lorazepam 2 mg Inj Syringe (LORazepam Inj) ??3 mg, IV Push Slowly, Every hour Lorazepam 2 mg Inj Syringe (LORazepam Inj) ??4 mg, IV Push Slowly, Every hour Melatonin 3 mg Tablet (Melatonin Tablet) ??3 mg, By Mouth, Daily at bedtime NaCl 0.9% Flush 3ml (NaCL 0.9% Flush) ??3 mL, IV Push, Every 8 hours Ondansetron 2mg/mL Inj (2mL Vial) (Ondansetron Inj) ??4 mg, IV Push, Every 4 hours Polyethylene Glycol 17 Gm Powder (MiraLax Powder) ??17 Gm 1 pack/packet, By Mouth, Daily Senna 8.6 mg / Docusate 50 mg tablet (Docusate/Senna Tablet) ??1 tablet, By Mouth, 2 times a day ? Results Recent Labs BLOOD COUNT & DIFF WBC 8.1 k/mm3 ()?? 04/21/2023 04:56 RBC 4.36 m/mm3 (Low)?? 04/21/2023 04:56 Hgb 13.9 Gm/dL ()?? 04/21/2023 04:56 Hct 41.8 % ()?? 04/21/2023 04:56 MCV 95.9 femtoliters (High)?? 04/21/2023 04:56 MCH 31.9 pg ()?? 04/21/2023 04:56 MCHC 33.3 g/dL ()?? 04/21/2023 04:56 Platelet Count 204 k/mm3 ()?? 04/21/2023 04:56 RDW-SD 46.7 femtoliters ()?? 04/21/2023 04:56 MPV 9.9 femtoliters ()?? 04/21/2023 04:56 Nucleated RBC (Automated) 0.0 #/100 WBC'S ()?? 04/21/2023 04:56 Abs. NRBC 0.0 k/mm3 ()?? 04/21/2023 04:56 Abs. Neut 5.1 k/mm3 ()?? 04/21/2023 04:56 Abs. Lymph 1.6 k/mm3 ()?? 04/21/2023 04:56 Abs. [place] 1.1 k/mm3 ()?? 04/21/2023 04:56 Abs. Eo 0.3 k/mm3 ()?? 04/21/2023 04:56 Abs. Baso 0.1 k/mm3 ()?? 04/21/2023 04:56 Neut % 62.6 % ()?? 04/21/2023 04:56 Lymph % 19.8 % ()?? 04/21/2023 04:56 [place] % 13.0 % (High)?? 04/21/2023 04:56 Eos % 3.2 % ()?? 04/21/2023 04:56 Baso % 1.0 % ()?? 04/21/2023 04:56 Imm Gran 0.4 % ()?? 04/21/2023 04:56 Abs. Imm Gran 0.0 k/mm3 ()?? 04/21/2023 04:56 ?? CHEM GENERAL Sodium 136 mmol/L ()?? 04/21/2023 05:57 Potassium 4.0 mmol/L ()?? 04/21/2023 05:57 Chloride 102 mmol/L ()?? 04/21/2023 05:57 Bicarbonate Level 24 mmol/L ()?? 04/21/2023 05:57 Anion Gap 10 ()?? 04/21/2023 05:57 Glucose Level 84 mg/dL ()?? 04/21/2023 05:57 BUN 4 mg/dL (Low)?? 04/21/2023 05:57 Creatinine-Blood 0.8 mg/dL ()?? 04/21/2023 05:57 Estimated GFR Creatinine 122 ML/MIN/1.73 M2 ()?? 04/21/2023 05:57 Calcium 9.1 mg/dL ()?? 04/21/2023 05:57 Phosphorus 3.0 mg/dL ()?? 04/21/2023 05:57 Magnesium 1.8 mg/dL ()?? 04/21/2023 05:57 Protein, Total 5.9 Gm/dL (Low)?? 04/21/2023 05:57 Albumin 3.8 Gm/dL ()?? 04/21/2023 05:57 AG Ratio 1.8 ()?? 04/21/2023 05:57 Alkaline Phosphatase 100 units/L ()?? 04/21/2023 05:57 Lipase 27 units/L ()?? 04/20/2023 11:45 AST (SGOT) 40 units/L ()?? 04/21/2023 05:57 ALT (SGPT) 26 units/L ()?? 04/21/2023 05:57 Bilirubin, Total 1.0 mg/dL ()?? 04/21/2023 05:57 Lactate 1.8 mmol/L ()?? 04/20/2023 13:42 ?? TOXICOLOGY/TDM Ethanol, Serum or Plasma 52 mg/dL (Abnormal)?? 04/20/2023 11:45 ?? URINE OTHER Est Creatinine Clearance 130.13 mL/min ()?? 04/21/2023 15:42 ?? VIROLOGY COVID-19 by RT-PCR NEGATIVE ()?? 04/20/2023 16:29 ? Urinalysis Est Creatinine Clearance: 130.13 mL/min (15:42) ?? Blood Gases?? No qualifying data available. ?? Assessment/Plan ? Diagnoses Alcohol withdrawal ??(F10.029) Diarrhea ??(R19.7) Nausea & vomiting ??(R11.2) 1. ??Skin rash ??(R21) ?? Alcohol use disorder with withdrawal Patient appears to be improving in terms of his withdrawal symptoms with CIWA score of 5 in the morning. No tremors could be demonstrated on examination. We will continue him on CIWA protocol and if not scoring tomorrow then he would be stable for discharge. ?? Depression/Anxiety - Continue HM: Hydroxyzine, Sertraline ,Gabapentin and Trazodone ?? Erythematous lesion Appears to be tinea corporis but cannot be certain and will only treat for itching with benadryl. Will reassess tomorrow. ?? VTE Prophylaxis:??Lovenox ?VTE Prophylaxis Assessment:??VTE Prophylaxis Ordered ?? Code Status:??Full ?Order Code Status:??Code Status Ordered ?? Ongoing Medical Necessity:??Anxiety ?? Discharge Planning:??Tomorrow ? Note * Shani Cruz LPN: PERFORM Event Display: Discharge/Transfer Note Hospital Authored Date: [id number] Nursing Discharge Note Entered On: 04/23/2023 13:00 EDT Performed On: 04/23/2023 12:45 EDT by Shani Cruz LPN Nursing Discharge Note 2 Discharge Time : 04/23/2023 12:45 EDT Discharge Level of Care at Discharge : Home/Shelter/Foster Care Patient Left Unit Via : Wheelchair Patient Accompanied Off Unit with : Responsible adult DC Instructions Provided & Signed by Pt : Yes Patient Understands D/C Instructions : Yes Patient Instructions Discharge Signed : Yes Did Pt have Specialty Bed or Wound Vac : No Shani Cruz LPN - 04/23/2023 12:59 EDT * Wyatt ABRAMS, Pete K: PERFORM Event Display: Discharge/Transfer Note Hospital Authored Date: [id number] Patient: ??MATTIE RAMIREZ ? Age:??32 Years?Sex:??Male?:??1990?? Patient Information Discharge Location: Primary Care Physician: Raya Hu Admit Date/Time: 04/20/23 14:22 Discharge Disposition Discharge Disposition: Home: No Services Discharge Diagnosis Skin rash (R21) Alcohol withdrawal (F10.939) Diarrhea (R19.7) Nausea & vomiting (R11.2) ?? _ Discharge Medications Baclofen (baclofen 5 mg oral tablet)?1?tab(s)?5?Milligram?By Mouth?3 times a day?as needed?Spasm?for 7?Days Diazepam (diazepam 5 mg oral tablet)?See Instructions?day 1&2 - ??1 tab 4 times a anat 3- 1 tab 3 times a anat 4 - 1 tab twice a daytay 5 - 1 tab once a day and/or as needed.may take extra or skip dose per withdrawal symptoms. Folic Acid (folic acid 1 mg oral [...] 50 mg oral tablet)?100?Milligram?2?tablet?By Mouth?Daily at bedtime Triamcinolone Topical (triamcinolone 0.025% topical cream)?1?frankie?Topically?2 times a day?for 14?Days ? Quality Measures Tobacco Use Treatment:? Durable Medical Equipment Ambulatory devices needed: None (04/21/23) ? Allergies Allergies ?(Active and Proposed Allergies Only) NKA? (Severity: Unknown severity, Onset: Unknown) No Known Medication Allergies? (Severity: Unknown severity, Onset: Unknown) ? Hospital Course ??Alcohol use disorder with withdrawal Improved with IV benzodiazepine,??now stable for discharge on Valium taper continue valium taper dose day 1&2 -?? 1 tab 4 times a day day 3- 1 tab 3 times a day day 4 - 1 tab twice a day kvng 5 - 1 tab once a day??and/or as needed. may take extra or skip dose per withdrawal symptoms. Follow up with??PCP for??naltrexone,??may be a candidate for??Vivitrol once a month??injection. ?? Depression/Anxiety - Continue HM: Hydroxyzine, Sertraline ,Gabapentin and Trazodone ?? Erythematous lesion: Mentioned??poison mariam,??topical triamcenolone ointment. Objective Assessment and Plan Discharge Planning:? Vital Signs?? Temperature: 98.2 DegF (04/23/23 11:16:00) Temperature Route: Oral (04/23/23 11:16:00) Pulse Rate: 63 bpm (04/23/23 11:16:00) Respiratory Rate: 18 br/min (04/23/23 11:16:00) Systolic Blood Pressure: 127 mm Hg (04/23/23 11:16:00) Diastolic Blood Pressure:??86 mm Hg??High (04/23/23 11:16:00) Blood pressure sites: Arm, left (04/23/23 11:16:00) Mean Arterial Pressure: 100 mm Hg (04/23/23 11:16:00) Pulse Pressure: 41 mm Hg (04/23/23 11:16:00) Oxygen Saturation: 100 % (04/23/23 11:16:00) Mode of Delivery (Oxygen): Room air (04/23/23 11:16:00) Early Warning Score: 0 (04/23/23 11:17:10) ? . Physical Exam Constitutional: Alert, in no acute distress. Head EENT: Extraocular muscle movement intact.??Moist mucous membranes.?? Respiratory: Clear to auscultation. No wheezing or crackles. No use of accessory muscles. Cardiovascular: S1S2 regular. No murmurs, rubs or gallops. Gastrointestinal: Abdomen soft, non-tender, non-distended. Normal bowel sounds. Extremities: No lower extremity pitting??edema. No cyanosis or clubbing. Neurologic: AAOx3, Speech normal. No focal neurological deficits. Pending Results No Pending Results Patient Instructions continue valium taper dose day 1&2 -?? 1 tab 4 times a day day 3- 1 tab 3 times a day day 4 - 1 tab twice a day kvng 5 - 1 tab once a day??and/or as needed. may take extra or skip dose per withdrawal symptoms. Post Discharge Care Discharge ?04/23/23 9:18:00 EDT Home Health Face to Face ^HomeHealth[facility] Results Discharge Labs BLOOD COUNT & DIFF WBC 9.8 k/mm3 ()?? 04/23/2023 00:51 RBC 4.20 m/mm3 (Low)?? 04/23/2023 00:51 Hgb 13.5 Gm/dL (Low)?? 04/23/2023 00:51 Hct 40.4 % (Low)?? 04/23/2023 00:51 MCV 96.2 femtoliters (High)?? 04/23/2023 00:51 MCH 32.1 pg ()?? 04/23/2023 00:51 MCHC 33.4 g/dL ()?? 04/23/2023 00:51 Platelet Count 189 k/mm3 ()?? 04/23/2023 00:51 RDW-SD 45.2 femtoliters ()?? 04/23/2023 00:51 MPV 10.0 femtoliters ()?? 04/23/2023 00:51 Nucleated RBC (Automated) 0.0 #/100 WBC'S ()?? 04/23/2023 00:51 Abs. NRBC 0.0 k/mm3 ()?? 04/23/2023 00:51 Abs. Neut 5.1 k/mm3 ()?? 04/21/2023 04:56 Abs. Lymph 1.6 k/mm3 ()?? 04/21/2023 04:56 Abs. Berks 1.1 k/mm3 ()?? 04/21/2023 04:56 Abs. Eo 0.3 k/mm3 ()?? 04/21/2023 04:56 Abs. Baso 0.1 k/mm3 ()?? 04/21/2023 04:56 Neut % 62.6 % ()?? 04/21/2023 04:56 Lymph % 19.8 % ()?? 04/21/2023 04:56 Berks % 13.0 % (High)?? 04/21/2023 04:56 Eos % 3.2 % ()?? 04/21/2023 04:56 Baso % 1.0 % ()?? 04/21/2023 04:56 Imm Gran 0.4 % ()?? 04/21/2023 04:56 Abs. Imm Gran 0.0 k/mm3 ()?? 04/21/2023 04:56 ?? CHEM GENERAL Sodium 138 mmol/L ()?? 04/23/2023 00:51 Potassium 3.9 mmol/L ()?? 04/23/2023 00:51 Chloride 105 mmol/L ()?? 04/23/2023 00:51 Bicarbonate Level 23 mmol/L ()?? 04/23/2023 00:51 Anion Gap 10 ()?? 04/23/2023 00:51 Glucose Level 135 mg/dL (High)?? 04/23/2023 00:51 BUN 7 mg/dL ()?? 04/23/2023 00:51 Creatinine-Blood 1.1 mg/dL ()?? 04/23/2023 00:51 Estimated GFR Creatinine 97 ML/MIN/1.73 M2 ()?? 04/23/2023 00:51 Calcium 8.9 mg/dL ()?? 04/23/2023 00:51 Phosphorus 3.5 mg/dL ()?? 04/23/2023 00:51 Magnesium 1.8 mg/dL ()?? 04/23/2023 00:51 Protein, Total 5.9 Gm/dL (Low)?? 04/23/2023 00:51 Albumin 3.7 Gm/dL ()?? 04/23/2023 00:51 AG Ratio 1.7 ()?? 04/23/2023 00:51 Alkaline Phosphatase 93 units/L ()?? 04/23/2023 00:51 Lipase 27 units/L ()?? 04/20/2023 11:45 AST (SGOT) 24 units/L ()?? 04/23/2023 00:51 ALT (SGPT) 24 units/L ()?? 04/23/2023 00:51 Bilirubin, Total 0.2 mg/dL ()?? 04/23/2023 00:51 Lactate 1.8 mmol/L ()?? 04/20/2023 13:42 ? TOXICOLOGY/TDM Ethanol, Serum or Plasma 52 mg/dL (Abnormal)?? 04/20/2023 11:45 ? URINE OTHER Est Creatinine Clearance 94.64 mL/min ()?? 04/23/2023 01:39 ? VIROLOGY COVID-19 by RT-PCR NEGATIVE ()?? 04/20/2023 16:29 ? Microbiology ?? COVID-19 (Novel Coronavirus), Rapid PCR?? Completed?? Source: Nasal Body Site: Nose Collected Dt/Tm: 04/20/2023 14:22 Last Updated Dt/Tm: 04/20/2023 18:17 ? 35_ minutes spent on discharge * Shani Cruz LPN: PERFORM, MODIFY Event Display: Patient Education/Instruction Authored Date: Inpatient Adult Discharge Instructions [address] [address] Name: MATTIE RAMIREZ : 1990 Visit: 04/20/2023 14:22:00 Current Date: 04/23/2023 11:57 Account: [id number] Inpatient Adult Discharge Instructions We would like to thank you for allowing us to assist you with your healthcare needs. The following includes patient education materials and information regarding your injury/illness. Our entire staffstrives to provide an excellent experience for our patients and their families. PLEASE ENSURE YOU FOLLOW-UP PER THE INSTRUCTIONS BELOW! ?? YOUR OPINION IS IMPORTANT TO US! Please complete the survey you may receive by mail or email. Your feedback will be used to make improvements to the healthcare experiences of our patients and their families. Surveys are administered by [employer] ?? If further treatment with your primary care physician or another doctor is recommended, it is important for you to keep the appointment. Call your primary care physician or return to the Emergency Department immediately if your condition worsens, fails to improve, or new symptoms develop. If you need to find a doctor, you can call [facility] for a referral at [phone] or toll free at [phone] ([phone]) or log in to [email or web address].. ?? You can view and manage your care through the patient portal or by using a health care frankie of your choosing. [facility] is a website that allows you to securely view your medical information including your hospital discharge summary, office visit summaries, medications and follow-up visits. You can also request appointments, renew medications, and request access to your medical information using a health care frankie of your choosing, or just ask a question. You can enroll at [email or web address] or register during your next office visit. You have been discharged from [facility], Patient Care Unit: S2. If you have any questions regarding these instructions after you leave, please call us and we will be happy to assist you. [facility] Your Care Team Attending Physician Pete Schneider MD Discharging Providers Pete Schneider MD Reason for Admission General medical Your Diagnosis Alcohol withdrawal Nausea & vomiting Diarrhea Skin rash Tests Performed Below is a partial list of the tests performed during your hospitalization. You may have had other tests and procedures not included in this list. Please discuss all test results with your provider. Alcohol Level CBC CBC w/ Differential Comprehensive Metabolic Panel COVID-19 (Novel Coronavirus), Rapid PCR Lactate Level Lactic Acid Level Lipase Magnesium Level Mg Level Phosphorus Level Potassium Level Primary Care Provider Raya Hu Advance Directive Health Care Proxy on File Yes - Health Care Proxy Discharge Vitals Temperature: 98.2 DegF Height: 178 cm Pulse Rate: 63 bpm Weight: 71.9 kg Respiratory Rate: 18 br/min Body Mass Index: 22.69 kg/m2 Systolic Blood Pressure: 127 mm Hg Body surface area: 1.89 Diastolic Blood Pressure:??86 mm Hg??High ?? Oxygen Saturation: 100 % ?? Studies Pending All tests and labs ordered during this hospital stay have been completed unless listed below. Please discuss all pending results with your provider listed above in these instructions. ?? No incomplete studies found What to do next Instructions From Your Doctor continue valium taper dose day 1&2 -?? 1 tab 4 times a day day 3- 1 tab 3 times a day day 4 - 1 tab twice a day kvng 5 - 1 tab once a day??and/or as needed. may take extra or skip dose per withdrawal symptoms. Discharge Orders Discharge Medications MATTIE RAMIREZ :1990 Visit Date:04/20/2023 Medications: Please continue your medications until treatment is completed or stopped by your provider. Medications not listed below should be discontinued. Discuss any questions related to medications with your provider. What How Much When Instructions Next Dose New Diazepam (diazepam 5 mg oral tablet) See instructions day 1&2 - ??1 tab 4 times a day day 3- 1 tab 3 times a day day 4 - 1 tab twice a day kvng 5 - 1 tab once a day and/ or as needed. may take extra or skip dose per withdrawal symptoms. ?? Pickup at [facility] 3 04/23 4PM New Triamcinolone Topical (triamcinolone 0.025% topical cream) 1 frankie Topically Twice a day Duration: 14 Days Pickup at [facility] 3 7/15 PM Unchanged Baclofen (baclofen 5 mg oral tablet) 1 tab(s) Oral 3 times a day as needed for Spasm Duration: 7 Days as needed Unchanged Folic Acid (folic acid 1 mg oral tablet) 1 tab(s) Oral Daily 04/24 AM Unchanged Gabapentin (gabapentin 100 mg oral capsule) 100 Milligram Oral 3 times a day Duration: 7 Days 04/23 3PM Unchanged HydrOXYzine (hydrOXYzine pamoate 50 mg oral capsule) 1 capsule Oral 4 times a day as needed for for anxiety as needed Unchanged Multivitamin (multivitamin Multiple Vitamins oral tablet) 1 tab(s) Oral Daily Duration: 30 Days 16 AM Unchanged Omeprazole (omeprazole 40 mg oral enteric coated capsule) 1 capsule Oral Daily 04/24 AM Unchanged Pyridoxine (pyridoxine 50 mg oral tablet) 50 Milligram Oral Daily Duration: 30 Days 716 AM Unchanged Sertraline (sertraline 100 mg oral tablet) 1 tab(s) Oral Daily 16 AM Unchanged Thiamine (Vitamin B1 100 mg oral tablet) 1 tab(s) Oral Daily Duration: 10 Days 716 AM Unchanged Trazodone (traZODone 50 mg oral tablet) 2 tab(s) Oral Daily at Bedtime 7/15 PM Pharmacy Information [facility] 3: [address] [place], [place] [id number] [phone] Test Results Below is a partial list of the most recent Laboratory test results done prior to this discharge. You may have had other tests and procedures not included in this list. Please discuss all test resultswith your provider. Est Creatinine Clearance - 94.64 mL/min (04/23/2023) Alcohol Level (04/20/2023) ???Ethanol, Serum or Plasma - 52 mg/dL CBC (04/23/2023) ???WBC - 9.8 k/mm3???RBC - 4.20 m/mm3???Hgb - 13.5 Gm/dL???Hct - 40.4 %???MCV - 96.2 femtoliters???MCH - 32.1 pg???MCHC - 33.4 g/dL???Platelet Count - 189 k/mm3???RDW-SD - 45.2 femtoliters???MPV - 10.0 femtoliters???Nucleated RBC (Automated) - 0.0 #/100 WBC'S???Abs. NRBC - 0.0 k/mm3 CBC w/ Differential (04/21/2023) ???WBC - 8.1 k/mm3???RBC - 4.36 m/mm3???Hgb - 13.9 Gm/dL???Hct - 41.8 %???MCV - 95.9 femtoliters???MCH - 31.9 pg???MCHC - 33.3 g/dL???Platelet Count - 204 k/mm3???RDW-SD - 46.7 femtoliters???MPV - 9.9 femtoliters???Nucleated RBC (Automated) - 0.0 #/100 WBC'S???Abs. NRBC - 0.0 k/mm3???Abs. Neut - 5.1 k/mm3???Abs. Lymph - 1.6 k/mm3???Abs. Berks - 1.1 k/mm3???Abs. Eo - 0.3 k/mm3???Abs. Baso - 0.1 k/mm3???Neut % - 62.6 %???Lymph % - 19.8 %???Berks % - 13.0 %???Eos % - 3.2 %???Baso % - 1.0 %???Imm Gran - 0.4 %???Abs. Imm Gran - 0.0 k/mm3 Comprehensive Metabolic Panel (04/23/2023) ???Sodium - 138 mmol/L???Potassium - 3.9 mmol/L???Chloride - 105 mmol/L???Bicarbonate Level - 23 mmol/L???Anion Gap - 10???Glucose Level - 135 mg/dL???BUN - 7 mg/dL???Creatinine-Blood - 1.1 mg/dL???Estimated GFR Creatinine - 97 ML/MIN/1.73 M2???Calcium - 8.9 mg/dL???Protein, Total - 5.9 Gm/dL???Albumin - 3.7 Gm/dL???AG Ratio - 1.7???Alkaline Phosphatase - 93 units/L???AST (SGOT) - 24 units/L???ALT (SGPT) - 24 units/L???Bilirubin, Total - 0.2 mg/dL COVID-19 (Novel Coronavirus), Rapid PCR (04/20/2023) ???COVID-19 by RT-PCR - NEGATIVE Lactate Level (04/20/2023) ???Lactate - 2.7 mmol/L Lactic Acid Level (04/20/2023) ???Lactate - 1.8 mmol/L Lipase (04/20/2023) ???Lipase - 27 units/L Magnesium Level (04/21/2023) ???Magnesium - 1.8 mg/dL Mg Level (04/23/2023) ???Magnesium - 1.8 mg/dL Phosphorus Level (04/23/2023) ???Phosphorus - 3.5 mg/dL Potassium Level (04/20/2023) ???Potassium - 4.0 mmol/L Allergies (NKA means No Known Allergies) NKA No Known Medication Allergies Problems Active Problems??(1) Seizure?? Education Materials Below is the list of Educational Leaflet Providered with your Discharge Instructions. Social Drinking vs. Problem Drinking?? Alcohol Withdrawal?? Alcohol Withdrawal: What to Expect?? Valuables and Belongings I fully understand and agree that [facility] accepts no responsibility for all my personal property including clothing, toilet articles, radios, jewelry, dentures, hearing aids, rings, money, or any other property that is in my possession or is brought to me after admission. I understand certain valuables may be placed in a hospital safe for a short period of time. I understand that the hospital is not liable for loss or damage due to accident, fire, or other natural occurrence while said property is in the safe. I accept full responsibility for any personal property that I keep with me, and will not hold the hospital responsible in case of loss or disappearance. I acknowledge that i have been encouraged to send valuables and belongings home. ?? Review of Valuable and Belonging List: With patient Date for Pt to Sign Valuables/Belongings: 04/21/23 15:51:00 ?? Other Discharge Information ? Case Management Discharge Plan?? Discharge Plan?? Discharge Level of Care at Discharge: Home/Shelter/Foster Care ?? Pulmonary Rehab Status?? Pulmonary Rehab Discharge Status?? Respiratory Rate: 18 br/min ? Common Emergency Awareness Tips IS IT A STROKE? Act FAST and Check for these signs: FACE Does the face look uneven? ARM Does one arm drift down? SPEECH Does their speech sound strange? TIME Call at any sign of stroke ?? Heart Attack Signs Chest discomfort: Most heart attacks involve discomfort in the center of the chest and lasts more than a few minutes, or goes away and comes back. It can feel like uncomfortable pressure, squeezing, fullness or pain. Discomfort in upper body: Symptoms can include pain or discomfort in one or both arms, back, neck, jaw or stomach. Shortness of breath: With or without discomfort. Other signs: Breaking out in a cold sweat, nausea, or lightheaded. Remember, MINUTES DO MATTER. If you experience any of these heart attack warning signs, call to get immediate medical attention! ?? Smoking can increase your chances of developing chronic health problems and can cause harmful effects to other family members in your house. If you smoke, you are strongly encouraged to quit. Please call [facility] Link at [phone] or [phone] ([phone]) or log in to [email or web address] for referrals to smoking cessation programs. ?? 851 Suicide & Crisis Lifeline is available 02/05 if you or someone you know needs to find a reason to keep living. By calling 660 you'll be connected to a skilled, trained counselor at a crisis center in your area. INPATIENT DISCHARGE INSTRUCTIONS SIGNATURE MATTIE WOLFE Location:[facility] Registration Date and Time:04/20/2023 14:22 EDT Primary Care Physician: Raya Hu, Attending Physician: Wyatt ABRAMS, Pete Harp, I MATTIE RAMIREZ, have received the above patient education materials/instructions and have verbalized understanding. If ambulance or transport services are being used I further acknowledge being given a choice of service. ?? If you need to contact me, please call me at this number: . Patient/Machine Silver Stripper Name: Patient/Machine Silver Stripper Signature: Relationship to Patient: Witness Name/Signature: Date: * Shani Cruz LPN: PERFORM Event Display: Patient Education Leaflets Authored Date: [id number] Social Drinking vs. Problem Drinking ?? 870 Social Drinking vs. Problem Drinking People with unhealthy alcohol use (also called alcohol use disorder or AUD) can't always predict how much they will drink, when they will stop, or what they will do while drinking. And it can be common for people with alcohol use disorder to deny the negative effects of drinking or that they even have a problem. Alcohol is considered a drug because it depresses the central nervous system and can disrupt mentaland motor skills. It can also damage internal organs when used excessively. Unhealthy alcohol use can be harmful physically, emotionally, and economically. The effects of alcohol Alcohol can lessen tension, reduce inhibitions, and ease social interactions. But drinking too muchcan: ??? Be physically and psychologically addicting ??? Cause impaired memory, coordination, and judgment ??? Damage the heart, liver, and nervous system ??? Lead to defects People who abuse alcohol also put themselves and others at risk if they drive or operate machinery after drinking too much. Unhealthy alcohol use can start at any age. There are no??good predictors of when it may start. Buta family history or current family alcohol or drug abuse??problems may influence the start of personal drinking problems. Some people have been heavy drinkers for many years. But others develop a drinking problem later in life. Sometimes a drinking problem is triggered by??major life changes that cause depression, isolation, boredom, and loneliness. ?? Safe drinking If you drink alcohol, take these steps to reduce risks: ??? Eat before drinking to help slow the alcohol's absorption and slow its effects. ??? Don???t drink alcohol when you are thirsty. Reduce yourthirst before starting to drink alcohol. ??? Don't drink when you are under stress, emotionally upset, or tired. ??? Know when to stop. Think about why you want to drink. You shouldn't drink just to get drunk. ??? Don't mix alcohol with drugs or medicines. ??? Never drink and drive. ?? Signs of problem drinking If you are concerned about your drinking, or think someone you care about has a drinking problem, look for these signs: ??? Frequent uncontrolled drinking episodes ??? Drinking until drunk ??? Going to work drunk or drinking on the job ??? Driving while drunk ??? Doing something under the influenceof alcohol that they would not otherwise do ??? Getting in trouble with the law or being injured due to drinking ??? Having problems at school, with social relationships, or with family members because of drinking ??? Using alcohol to decrease anxiety or sadness ??? Gulping drinks ??? Frequently having more than 2 drinks a day for men or 1 drink a day for women or older adults??(with a standard drink being one 12-ounce bottle or can of beer or a wine cooler, one 5-ounce glass of wine, or 1.5 ounces of 80-proof distilled spirits) ??? Lying about or trying to hide drinking habits ??? Needing more alcohol to feel its effects ??? Feeling grouchy, resentful, or unreasonable when not drinking ???Having health, social, or financial problems caused by drinking ?? What you can do ??? Learn more facts about alcoholism. ??? Treat alcoholism as a disease, not a moral failure or lack of willpower. ??? Be understanding, but don't be an enabler by protecting or lying for a person with an alcohol use disorder, or denying the problem exists. ??? Encourage treatment.Your healthcare provider can help find treatment resources. ??? Respect the recovered alcoholic's choice to stay away from alcohol. ?? Last Reviewed Date: 2020 ?? 0586-2177 [employer]. All rights reserved. This information is not intended as a substitute for professional medical care. Always follow your healthcare professional's instructions. ?? * Shani Cruz LPN: PERFORM Event Display: Patient Education Leaflets Authored Date: [id number] Alcohol Withdrawal ?? [id number] Alcohol Withdrawal Alcohol withdrawal often starts after prolonged heavy drinking, and then you suddenly stop drinking. Or you cut down on your alcohol use. It is not one thing. It is a complex combination of signs andsymptoms that often occur together and define a certain problem or condition. ??? Alcohol withdrawal is potentially life-threatening. It is a medical emergency. ??? It can startas early as a couple of hours after your last drink. Or it may take 1 to 3 days to develop. ??? It can last from days to a week or more. ??? It can worsen very quickly. Signs and symptoms There are??several stages of alcohol withdrawal. But they overlap, as do their signs and symptoms. In the earlier stages, it most often includes: ??? Anxiety ??? Shakiness ??? Nausea and vomiting ???Sweating ??? Insomnia ??? Headaches ??? Fever ??? Mood swings, irritability, agitation, restlessness ?? Delirium tremens (DTs) DTs are a severe and life-threatening complication. If??DTs happen, they often start about 3 to 5 days after your last drink. They are potentially life threatening, so medical care should be sought. Symptoms of DTs include: ??? Sudden and severe mental or nervous system changes ??? Uncontrollable tremors ??? Severe disorientation, confusion, hallucinations ??? Heart racing, or irregular heartbeat??? High blood pressure ??? Seizures ??? Possible coma and ?? Home care ??? You'll need plenty of rest and fluids over the next several days. Eat regular meals and drink plenty of fluids to prevent dehydration. Don't drink any more alcohol. During this time, itis best that you're not alone. Stay with family or friends who can help and support you. You can also admit yourself to a residential detox program. ??? Don't drive until all symptoms are gone and you are feeling better. If you've had a seizure, don't drive until you've been examined by a healthcare provider. ??? If you were given sedative medicine to reduce your symptoms, don't take it more often than prescribed. Never take it with alcohol. ?? Follow-up care Once you've gone through the withdrawal symptoms, you've fought half of the arteaga. To avoid the risk of going back to your past drinking pattern, it's vital that you get follow-up support and treatment. ??? Alcoholics Anonymous (AA) offers support through a self-help fellowship. There are no dues or fees. Search the internet or go to the AA website at www.aa.org to find a local meeting place. ??? [employer] offers support to families of alcohol users. Go to the Al-Anon website at www.alPlayedanon.org . ??? Residential alcohol detox programs are available. Search the internet for treatment centers [facility]. ?? Call 911 Call 911 if any of these occur: ??? Seizure ??? Trouble breathing or slow, irregular breathing ??? Chest pain ??? Sudden weakness on a side of the body or sudden trouble speaking ??? Heavy bleeding or vomiting blood ??? Very drowsy or trouble awakening ??? Fainting or loss of consciousness ??? Rapid heart rate ?? When to get medical advice Call your healthcare provider right away??if any of these occur: ??? Severe shakiness ??? Hallucinations ??? Fever over 100.4?? F (38.0?? C) ??? Headache, confusion, extreme drowsiness, inability to awaken ??? Increasing upper abdominal pain ??? Repeated vomiting ?? Last Reviewed Date: 2021 ?? [id number] [employer]. All rights reserved. This information is not intended as a substitute for professional medical care. Always follow your healthcare professional's instructions. ?? * Shani Cruz LPN: PERFORM Event Display: Patient Education Leaflets Authored Date: [id number] Alcohol Withdrawal: What to Expect ?? 83729 Alcohol Withdrawal: What to Expect What is withdrawal? Withdrawal can occur if you???re a heavy drinker and stop drinking. The symptoms can be mild to severe. How bad they are depends on: ??? How much alcohol you drink ??? How long you've been drinking ??? If you have organ damage Withdrawal can start 6 to 24 hours after your last drink. It often eases after a few days.??It can be uncomfortable and unpleasant. But most people don???t have serious or life-threatening problems. Long-standing heavy drinkers can have bad symptoms. This can lead to seizures. It may be deadly if not treated right away. These people must be under medical care during withdrawal. ?? What symptoms will I have? Withdrawal symptoms can start when you stop drinking. Or if you cut back a lot on your drinking. Most people have mild symptoms, such as ??? Trouble sleeping ??? Headache ??? Vivid dreams ??? Irritability ??? Anxiety ??? Mild stomach problems ??? Tremors or ???the shakes? Sweating ??? Fast heartbeat ??? Higher blood pressure More severe symptoms (called delirium tremens, or DTs) are: ??? Fever ??? Hallucinations ??? Delusions ??? Confusion ??? Agitation ??? Seizures ?? Can I do this at home? How you manage alcohol withdrawal depends on your history. If you are a long- time, heavy drinker, have had a seizure during a previous alcohol withdrawal, or been told you had DTs on a past withdrawal, you will need close monitoring. You may be able to stay home while you go through withdrawal. Butyou need to talk with an expert to make this decision. Work closely with an independent living specialist. Or talk with your healthcare provider. Based on your past drinking and withdrawal symptoms, your provider may be able to tell how bad your symptoms may be. If you are expected to have mild withdrawal, you may be able stay home. But you???ll need a caregiver to help you. You may also have daily visits and phone calls from a provider, such as a drug and alcohol nurse. Your provider may give you a type of sedating medicine. It may help keep withdrawal symptoms under control. They may also give you other medicines to ease headaches or nausea. Stay well-hydrated so your symptoms are less extreme. ?? What happens if I am in a hospital or rehab center? You may need to stay in a hospital or a treatment center if your provider thinks you may have bad withdrawal symptoms. Or if you have other health problems that can make withdrawal harder.??Medical staff can more closely watch you. They can also give you more medicine, if needed. This includes IV medicines, fluids, and vitamins. These may help reduce complications. Ask about a referral for long-te rm support for stopping or reducing drinking. ?? Last Reviewed Date: 2022 ?? [id number] [employer]. All rights reserved. This information is not intended as a substitute for professional medical care. Always follow your healthcare professional's instructions. ?? Patient Care team information Care Team Personnel Name: Tristan Cohen RN Position: [facility] RN Member Role: Primary Care Nurse Name: Jessenia Dior Position: [facility] RN Member Role: Primary Care Nurse Name: Bill Albert RN Position: [facility] RN Member Role: Primary Care Nurse Name: Raya Hu Position: Reference Physician Member Role: PCP Address: Address: [address] [place] [address] Name: *Petros TAVAREZ Attending Position: [facility] ED Medicine MD Name: Nuzhat Santos RN Position: [facility] ED RN W/OE and Tasks Member Role: Patient Care Provider Name: Barbie Pham Position: [facility] ED [facility] Care Team Related Persons Name: JOJO AREVALO Address: [address] [place] [address] Name: LUPE TOLEDO Address: [address] [address]
[2023-09-02 15:35] VITALS: BP 128/78; PULSE 90; RESP 19; TEMP 36.4; O2SAT 99
== END 2023-09-02 15:39 | disposition home or self-care (01) ==
PROVIDERS: Emergency Provider Emergency Medicine; PCP Physician Assistant Medical
DX: S60.012A Contusion of left thumb without damage to nail, initial encounter (principal); M79.642 Pain in left hand; X50.0XXA Overexertion from strenuous movement or load, initial encounter; Y93.9 Activity, unspecified; Y92.9 Unspecified place or not applicable; Y99.0 Civilian activity done for income or pay; Z79.899 Other long term (current) drug therapy
CPT/HCPCS: 73130; 99282; 99283